=== PATIENT | male | born 1955 | race Caucasian/White ===

== ENCOUNTER 2016-03-01 10:28 | Emergency (ER) | payer OTHER ==
--- NOTE | 2016-03-01 11:16 | PDOC ---
History of Present Illness <Jeramie Dick - Last Filed: 03/01/16 14:31> - History of Present Illness Initial Comments: 03/01/16 11:57 The patient is a 60 year old male, with a significant past medical history of recent ORIF of the left hip s/p femoral neck fracture, hypertension, hyperlipidemia, mild MR, and schizophrenia , who presents to the emergency department via ambulance from [facility] for complaints of left leg pain and weakness noticed by the nursing staff today. The patient states he feels well at this time, however, reports a new onset of cough this week. He denies chest pain, shortness of breath, headache and dizziness. He denies fever, chills, nausea, vomit, diarrhea and constipation. He denies dysuria, frequency, urgency and hematuria. Allergies: penicillins PCP - Dr. Rell Pritchett ([phone]) <Indy Iyer - Last Filed: 03/01/16 16:08> - General Stated Complaint: WEAKNESS Past History - Past Medical History Anemia: Yes Asthma: Yes Cardiac Disorders: Yes (unstable angina) COPD: Yes Hypercholesterolemia: Yes Liver Disease: Yes (hepatitis C) Psychiatric Problems: Yes (Schizophrenia, Anxiety) - Surgical History Orthopedic Surgery: Yes (L HIP) - Psycho/Social/Smoking Cessation Hx Anxiety: No Suicidal Ideation: No Smoking Status: No Smoking History: Never smoked Have you smoked in the past 12 months: No Number of Cigarettes Smoked Daily: 0 Hx Alcohol Use: No Drug/Substance Use Hx: No Substance Use Type: None <Jeramie Dick - Last Filed: 03/01/16 14:31> <Indy Iyer - Last Filed: 03/01/16 16:08> - Past Medical History Allergies/Adverse Reactions: Allergies Allergy/AdvReac Type Severity Reaction Status Date / Time Penicillins Allergy Verified 03/01/16 11:44 chocolate Allergy Uncoded 03/01/16 11:44 peanuts Allergy Uncoded 03/01/16 11:44 Home Medications: Ambulatory Orders Albuterol 2.5/Ipratropium 0.5 [Duoneb -] 1 neb IH BID 03/01/16 Benztropine Mesylate [Cogentin -] 1 mg PO BID 03/01/16 Ciprofloxacin [Cipro (Restricted To Id)] 250 mg PO BID #6 tablet 03/01/16 Citalopram Hydrobromide [Celexa -] 40 mg PO DAILY 03/01/16 Clonazepam [Klonopin -] 0.5 mg PO TID 03/01/16 Divalproex [Depakote -] 500 mg PO HS 03/01/16 Fenofibrate Nanocrystallized [Tricor] 145 mg PO DAILY 03/01/16 Haloperidol Lactate [Haldol] 5 mg IJ ASDIR 03/01/16 Ipratropium 0.02% Nebulizer [Atrovent] 1 neb NEB BID 03/01/16 Montelukast Na [Singulair -] 10 mg PO HS 03/01/16 Pantoprazole Sodium 40 mg PO DAILY 03/01/16 Prednisone 10 mg PO BID 03/01/16 Quetiapine Fumarate [Seroquel] 100 mg PO HS 03/01/16 Ranitidine [Zantac -] 150 mg PO DAILY 03/01/16 Review of Systems - Review of Systems Able to Perform ROS?: Yes Comments:: 03/01/16 11:59 CONSTITUTIONAL: (+) generalized weakness, Absent: fever, chills, diaphoresis, malaise, loss of appetite HEENT: Absent: rhinorrhea, nasal congestion, throat pain, throat swelling, difficulty swallowing, mouth swelling, ear pain, eye pain, visual Changes CARDIOVASCULAR: Absent: chest pain, syncope, palpitations, irregular heart rate, lightheadedness , peripheral edema RESPIRATORY: (+) cough, Absent: shortness of breath, dyspnea with exertion, orthopnea, wheezing, stridor, hemoptysis GASTROINTESTINAL: Absent: abdominal pain, abdominal distension, nausea, vomiting, diarrhea, constipation, melena, hematochezia GENITOURINARY: Absent: dysuria, frequency, urgency, hesitancy, hematuria, flank pain, genital pain MUSCULOSKELETAL: Absent: myalgia, arthralgia, joint swelling SKIN: Absent: rash, itching, pallor HEMATOLOGIC/IMMUNOLOGIC: Absent: easy bleeding, easy bruising, lymphadenopathy, frequent infections ENDOCRINE: Absent: unexplained weight gain, unexplained weight loss, heat intolerance, cold intolerance NEUROLOGIC: Absent: headache, focal weakness or paresthesias, dizziness, unsteady gait, seizure, mental status changes, bladder or bowel incontinence PSYCHIATRIC: Absent: anxiety, depression, suicidal or homicidal ideation, hallucinations. <Indy Iyer - Last Filed: 03/01/16 16:08> *Physical Exam - Vital Signs Last Vital Signs Temp Pulse Resp BP Pulse Ox 98.3 F 96 H 18 119/79 96 03/01/16 10:30 03/01/16 10:30 03/01/16 10:30 03/01/16 10:30 03/01/16 10:30 - Physical Exam Comments: 03/01/16 12:00 GENERAL: Well developed, well nourished. Awake and alert. No acute distress. HEENT: Normocephalic, atraumatic. PERRLA, EOMI. No conjunctival pallor. Sclera are non- icteric. Moist mucous membranes. Oropharynx is clear. NECK: Supple. Full ROM. No JVD. Carotid pulses 2+ and symmetric, without bruits. No thyromegaly. No lymphadenopathy. CARDIOVASCULAR: Regular rate and rhythm. No murmurs, rubs, or gallops. Distal pulses are 2+ and symmetric. PULMONARY: No evidence of respiratory distress. Lungs clear to auscultation bilaterally. No wheezing, rales or rhonchi. ABDOMINAL: (+) distended bladder felt to the inferior umbilicus. Soft. Non-tender. No rebound or guarding. No organomegaly. Normoactive bowel sounds. MUSCULOSKELETAL Normal range of motion at all joints. No bony deformities or tenderness. No CVA tenderness. Negative straight leg raise. EXTREMITIES: No cyanosis. No clubbing. No edema. No calf tenderness. SKIN: Warm and dry. Normal capillary refill. No rashes. No jaundice. NEUROLOGICAL: Alert, awake, appropriate. Cranial nerves 2-12 intact. Normoreflexic in the upper and lower extremities. Normal speech. Toes are down-going bilaterally. PSYCHIATRIC: Cooperative. Good eye contact. Appropriate mood and affect. <Indy Iyer - Last Filed: 03/01/16 16:08> ED Treatment Course - LABORATORY CBC & Chemistry Diagram: 03/01/16 12:42 03/01/16 12:42 <Jeramie Dick - Last Filed: 03/01/16 14:31> - LABORATORY CBC & Chemistry Diagram: 03/01/16 12:42 03/01/16 12:42 <Indy Iyer - Last Filed: 03/01/16 16:08> Medical Decision Making - Medical Decision Making 03/01/16 16:[address] was read by Dr. Gar at 16:03 Impression: chronic degenerative changes. no new findings <Indy Iyer - Last Filed: 03/01/16 16:08> *DC/Admit/Observation/Transfer - Discharge Dispostion Admit: No <Jeramie Dick - Last Filed: 03/01/16 14:31> - Attestations Scribe Attestion: 03/01/16 12:01 Documentation prepared by Indy Iyer, acting as medical delivery driver for Jeramie Dick MD, MD <Indy Iyer - Last Filed: 03/01/16 16:08> Diagnosis at time of Disposition: UTI (urinary tract infection) - Discharge Dispostion Disposition: HOME Condition at time of disposition: Stable - Prescriptions Prescriptions: Ciprofloxacin [Cipro (Restricted To Id)] 250 mg PO BID #6 tablet - Referrals Referrals: Rell Pritchett [Primary Care Provider] -
[2016-03-01 11:44] VITALS: BMI 24.0
[2016-03-01 12:57] LABS: BASOPHIL 0.8 % (0-2.0); EOSINOPHIL 1.3 % (0-4.5); MCH 20.3 pg (25.7-33.7); MCHC 30.6 g/dl (32.0-35.9); MEAN CELL VOLUME 66.4 fl (80-96); MEAN PLT VOLUME 9.4 fl (7.5-11.1); NEUTROPHILS 70.3 % (42.8-82.8); PLATELET COUNT 364 K/MM3 (134-434); RDW 19.7 % (11.9-15.9); WHITE BLOOD COUNT 8.2 K/mm3 (4.0-10.0)
[2016-03-01 12:59] LABS: URINE APPEARANCE SLCLOUDY; URINE BILIRUBIN NEGATIVE (NEGATIVE); URINE BLOOD NEGATIVE (NEGATIVE); URINE COLOR AMBER; URINE GLUCOSE (UA) NEGATIVE (NEGATIVE); URINE KETONE TRACE (NEGATIVE); URINE NITRITE POSITIVE (NEGATIVE); URINE PROTEIN NEGATIVE (NEGATIVE); URINE UROBILINOGEN NEGATIVE E.U./dl (0.2-1.0)
[2016-03-01 13:08] LABS: URINE LEUK ESTERASE 2+ (NEGATIVE)
[2016-03-01 13:10] LABS: URINE BACTERIA MANY /hpf (NONE SEEN); URINE MUCUS RARE; URINE RBC 3 /hpf (0-3); URINE WBC 51 /hpf (3-5)
[2016-03-01 13:15] LABS: ALBUMIN 3.1 g/dl (3.4-5.0); ANION GAP 5 (8-16); BILIRUBIN,TOTAL 0.4 mg/dL (0.2-1.0); CALCIUM 7.1 mg/dL (8.5-10.1); CO2 28 mmol/L (21-32); CREATININE 0.4 mg/dL (0.7-1.3); GLUCOSE,RANDOM 101 mg/dL (74-106); SGOT/AST 12 U/L (15-37); SGPT/ALT 8 U/L (12-78); TOT PROT 6.4 g/dl (6.4-8.2)
[2016-03-01 13:17] LABS: ALK PHOS 219 U/L (45-117)
[2016-03-01 14:06] LABS: ANISOCYTOSIS 1+; HYPOCHROMIA 2+; MICROCYTOSIS 1+
[2016-03-01] MEDS ORDERED: CIPROFLOXACIN 250 MG TABLET (RESTRICTED TO ID) PO ONE (14:34)
[2016-03-01 17:09] VITALS: BP 121/92; PULSE 92; TEMP 98.6
--- NOTE | 2016-03-07 11:58 | EKG ---
Test Reason : Blood Pressure : / mmHG Vent. Rate : 098 BPM Atrial Rate : 098 BPM P-R Int : 128 ms QRS Dur : 098 ms QT Int : 384 ms P-R-T Axes : 041 029 068 degrees QTc Int : 490 ms NORMAL SINUS RHYTHM NONSPECIFIC ST ABNORMALITY PROLONGED QT ABNORMAL ECG WHEN COMPARED WITH ECG OF 29-JAN-2016 19:07, T WAVE AMPLITUDE HAS DECREASED IN LATERAL LEADS Confirmed by CORIN JACKSON, DENA ([id number]) on 03/07/2016 11:57:42 AM Referred By: Confirmed By:DENA COOMBS MD
== END 2016-03-01 17:39 | disposition home or self-care (01) ==
LOC: JER 10:28
DX: N39.0 Urinary tract infection, site not specified (principal); J45.909 Unspecified asthma, uncomplicated; D64.9 Anemia, unspecified; E78.00 Pure hypercholesterolemia, unspecified; J44.9 Chronic obstructive pulmonary disease, unspecified; I20.0 Unstable angina; F20.9 Schizophrenia, unspecified; F41.9 Anxiety disorder, unspecified; B19.20 Unspecified viral hepatitis C without hepatic coma
CPT/HCPCS: 36415; 71020-TC; 72131-TC; 80053; 81003; 81015; 85025; 87086; 87186; 87804; 93005; 93010; 99284-25

== ENCOUNTER 2016-04-18 18:02 | Inpatient (IN) | payer OTHER ==
--- NOTE | 2016-04-18 18:33 | PDOC ---
History of Present Illness - General Chief Complaint: Shortness of Breath Stated Complaint: RESPIRATORY History Source: EMS, Jail Records Exam Limitations: Clinical Condition, Dementia - History of Present Illness Initial Comments: 04/18/16 18:40 HPI: This 61-year-old male presents via EMS from [facility]. Apparently the patient has been having some bouts of shortness of breath and was sent over here for further evaluation. According to the paperwork he's been having the shortness of breath. Patient is awake and alert however he does not communicate and is a poor historian due to his significant past medical history Chief Compliant: Shortness of breath PMH: Hypertension, hyperlipidemia, asthma, mild MR, schizophrenia FH: Pt has not recently traveled outside the country in the last 30 days. Pt has not been in contact with people who have traveled out of the country, in contact with people who have been ill with fever, n, v, d. SH: smoking use: NONE illicit drug use: NONE alcohol use: NONE Resides in [facility] PSH: December 2015 left hip ORIF after a fall Home med use noted on APR Allergies: Peanuts, chocolate, penicillin Immunizations: PCP: Past History - Past Medical History Allergies/Adverse Reactions: Allergies Allergy/AdvReac Type Severity Reaction Status Date / Time Penicillins Allergy Verified 04/18/16 18:23 chocolate Allergy Uncoded 04/18/16 18:23 peanuts Allergy Uncoded 04/18/16 18:23 Home Medications: Ambulatory Orders Albuterol 0.083% Nebulizer Margo [Ventolin 0.083%] 1 neb NEB BID 04/18/16 Benztropine Mesylate [Cogentin -] 1 mg PO BID 04/18/16 Citalopram Hydrobromide [Celexa -] 40 mg PO DAILY 04/18/16 Clonazepam 0.5 mg PO TID 04/18/16 Divalproex *ER* [Depakote *ER* -] 500 mg PO BID 04/18/16 Fenofibrate Nanocrystallized [Tricor] 145 mg PO BID 04/18/16 Haloperidol Injection [Haldol *Injection*] 5 mg IM MONTHLY 04/18/16 Ipratropium 0.02% Nebulizer [Atrovent *Nebulizer*] 0.5 mg IH BID 04/18/16 Montelukast Na [Singulair -] 10 mg PO HS 04/18/16 Pantoprazole Sodium [Protonix] 40 mg PO DAILY 04/18/16 Prednisone 10 mg PO BID 04/18/16 Quetiapine Fumarate [Seroquel] 100 mg PO HS 04/18/16 Ranitidine HCl [Zantac] 150 mg PO DAILY 04/18/16 Simvastatin 10 mg PO HS 04/18/16 Anemia: Yes Asthma: Yes Cardiac Disorders: Yes (unstable angina) COPD: Yes Hypercholesterolemia: Yes Liver Disease: Yes (hepatitis C) Psychiatric Problems: Yes (Schizophrenia, Anxiety) - Surgical History Orthopedic Surgery: Yes (L HIP) - Psycho/Social/Smoking Cessation Hx Anxiety: No Suicidal Ideation: No Smoking Status: No Smoking History: Never smoked Have you smoked in the past 12 months: No Number of Cigarettes Smoked Daily: 0 Hx Alcohol Use: No Drug/Substance Use Hx: No Substance Use Type: None Review of Systems - Review of Systems Able to Perform ROS?: No (dementia) *Physical Exam - Vital Signs Last Vital Signs Temp Pulse Resp BP Pulse Ox 98.9 F 99 H 16 113/77 95 04/18/16 18:22 04/18/16 18:22 04/18/16 18:22 04/18/16 18:22 04/18/16 18:22 - Physical Exam Comments: 04/18/16 18:47 General Appearance: This poor historian 61-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 Cap refill <3 seconds. Lung sounds upper airways with rhonchi and positive mild cough Cardiac: PMI at R 4MCL space, pos S1 and S2, regular rate of 104. Abdomen: Soft, round, nontender : Not observed Muscularskeletal: Patient is bedridden no edema +PMS Neuro: AA however he does doze off and does not communicate except for yes and no answers, cognitively intact according to patient's baseline, Medical Decision Making - Medical Decision Making 04/18/16 18:49 Patient was initially seen and examined upon his arrival. Patient in for sepsis protocol as he does have what is suspicious for pneumonia. Chest x-ray, EKG, lab work, blood cultures, UA and PURCHASING OFFICER, oxygen therapy for mild hypoxia, patient does not appear to be in any respiratory distress. I am signing this patient out to my colleague: HENRI Aguilar In brief, this patient is being seen in the ED for a chief complaint of: Shortness of breath I have completed the initial assessment interview note and have ordered: Sepsis protocol Plan for disposition is as follows: Probable admission *DC/Admit/Observation/Transfer Diagnosis at time of Disposition: Shortness of breath
[2016-04-18] MEDS ORDERED: SODIUM CHLORIDE 0.9% 1000 ML INFUS.BAG IV PRN (18:41)
[2016-04-18 18:54] LABS: BASOPHIL 0.5 % (0-2.0); MCHC 31.1 g/dl (32.0-35.9); MEAN CELL VOLUME 60.3 fl (80-96); MEAN PLT VOLUME 8.7 fl (7.5-11.1); NEUTROPHILS 88.5 % (42.8-82.8); PLATELET COUNT 359 K/MM3 (134-434); RDW 17.1 % (11.9-15.9); WHITE BLOOD COUNT 18.4 K/mm3 (4.0-10.0)
[2016-04-18 18:59] LABS: MCH 18.7 pg (25.7-33.7)
[2016-04-18 19:00] LABS: URINE APPEARANCE CLEAR; URINE BILIRUBIN NEGATIVE (NEGATIVE); URINE COLOR AMBER; URINE GLUCOSE (UA) NEGATIVE (NEGATIVE); URINE KETONE TRACE (NEGATIVE); URINE LEUK ESTERASE NEGATIVE (NEGATIVE); URINE NITRITE NEGATIVE (NEGATIVE); URINE UROBILINOGEN NEGATIVE E.U./dl (0.2-1.0)
--- NOTE | 2016-04-18 19:13 | PDOC ---
*Physical Exam - Vital Signs Last Vital Signs Temp Pulse Resp BP Pulse Ox 98.9 F 99 H 16 113/77 95 04/18/16 18:22 04/18/16 18:22 04/18/16 18:22 04/18/16 18:22 04/18/16 18:22 - Physical Exam General Appearance: Yes: Nourished Neck: positive: Supple Respiratory/Chest: positive: Rhonchi. negative: Labored Respiration Extremity: negative: Pedal Edema, Swelling, Calf Tenderness, Erythema Integumentary: positive: Normal Color Neurologic: positive: Alert Heart Score/ECG Review - ECG Intrepretation Rhythm: Regular Rhythm Comment:: 04/18/16 23:39 Sinus tachycardia 104, no ST changes ED Treatment Course - LABORATORY CBC & Chemistry Diagram: 04/18/16 18:40 04/18/16 18:40 - ADDITIONAL ORDERS Additional order review: 04/18/16 18:40 RBC 6.23 H MCV 60.3 L MCHC 31.1 L RDW 17.1 H D MPV 8.7 Neutrophils % 88.5 H D Lymphocytes % 5.8 L D Monocytes % 5.2 Eosinophils % 0.0 D Basophils % 0.5 Medical Decision Making - Medical Decision Making 04/18/16 22:12 no obvious pneumonia, hx of asthma, rhonchus, elevated lactic acid. allergic to pcn. will give levaquin, fluids, admit, discussed with hospitalist. Kai Albright *DC/Admit/Observation/Transfer Diagnosis at time of Disposition: Shortness of breath - Discharge Dispostion Condition at time of disposition: Fair Admit: Yes - Referrals - Patient Instructions - Post Discharge Activity
[2016-04-18 19:14] LABS: VENOUS PH 7.41 (7.32-7.42)
[2016-04-18 19:15] LABS: VENOUS BLOOD GAS HCO3 29.2 meq/L (19-25)
[2016-04-18 19:19] LABS: URINE BLOOD 2+ (NEGATIVE); URINE PROTEIN 1+ (NEGATIVE)
[2016-04-18 19:21] LABS: URINE HYALINE CAST 5 /lpf; URINE MUCUS RARE; URINE RBC 164 /hpf (0-3); URINE WBC 4 /hpf (3-5)
[2016-04-18 19:24] LABS: INR 1.33 (0.82-1.09); PROTHROMBIN TIME (PATIENT) 14.7 SEC (9.98-11.88)
[2016-04-18 19:27] LABS: ACTIVATED PTT 31.8 SECONDS (26.9-34.4)
[2016-04-18 20:04] LABS: ANION GAP 12 (8-16); BILIRUBIN,TOTAL 0.4 mg/dL (0.2-1.0); CALCIUM 8.4 mg/dL (8.5-10.1); CO2 27 mmol/L (21-32); CREATININE 0.7 mg/dL (0.7-1.3); GLUCOSE,RANDOM 102 mg/dL (74-106); SGOT/AST 10 U/L (15-37); SGPT/ALT 7 U/L (12-78); TOT PROT 6.8 g/dl (6.4-8.2)
[2016-04-18 20:06] LABS: ALK PHOS 150 U/L (45-117); TROPONIN I < 0.02 ng/ml (0.00-0.05)
[2016-04-18] MEDS ORDERED: SODIUM CHLORIDE 1,000 ML IV STA (20:11)
[2016-04-18 20:33] LABS: PLATELET ESTIMATE ADEQUATE (NORMAL)
[2016-04-18 20:34] LABS: HYPOCHROMIA 1+; MICROCYTOSIS 1+; OVALOCYTES 1+; POIKILOCYTOSIS 1+
[2016-04-18] MEDS ORDERED: LEVOFLOXACIN 750 MG IVPB 150 ML IVPB ONE ×2 (20:34→21:47)
--- NOTE | 2016-04-18 23:01 | HP ---
CHIEF COMPLAINT: short of breath HISTORY OF PRESENT ILLNESS: History obatin from previous notes, Ed notes, [place] paper. This 61-year-old male presents via EMS from [facility]. Apparently patient was having a shortness of breath and cough so patient was sent to ED for further management. According to the paperwork he's been having the shortness of breath. Patient is awake and alert however he does not communicate and is a poor historian due to his significant past medical history. Patient do states that he has cough but is unable to tell if its productive or not. Patient denies chest pain, diziness, lightheadidnes, pain abdomen, nausea, vomiting, burning micturation. Patient do complain of pain in his hip as he has h/o fracture. Denies and numbness or weakness in any part of body. Patient was not on oxygen in [place]. ER course was notable for: (1) cbc, cmp, cxr (2) iv fluid (3) levaquin Recent Travel: no PAST MEDICAL HISTORY: Hypertension, hyperlipidemia, asthma, mild MR, schizophrenia PAST SURGICAL HISTORY: orif left hip, tonsilectomy 1985 Social History: Smoking: no Alcohol: no Drugs: no Family History: Allergies Penicillins Allergy (Verified 04/18/16 18:23) chocolate Allergy (Uncoded 04/18/16 18:23) peanuts Allergy (Uncoded 04/18/16 18:23) HOME MEDICATIONS: Home Medications Medication Instructions Recorded Albuterol 0.083% Nebulizer Margo 1 neb NEB BID 04/18/16 [Ventolin 0.083%] Benztropine Mesylate [Cogentin -] 1 mg PO BID 04/18/16 Citalopram Hydrobromide [Celexa -] 40 mg PO DAILY 04/18/16 Clonazepam 0.5 mg PO TID 04/18/16 Divalproex *ER* [Depakote *ER* -] 500 mg PO BID 04/18/16 Fenofibrate Nanocrystallized 145 mg PO BID 04/18/16 [Tricor] Haloperidol Injection [Haldol 5 mg IM MONTHLY 04/18/16 *Injection*] Ipratropium 0.02% Nebulizer 0.5 mg IH BID 04/18/16 [Atrovent *Nebulizer*] Montelukast Na [Singulair -] 10 mg PO HS 04/18/16 Pantoprazole Sodium [Protonix] 40 mg PO DAILY 04/18/16 Quetiapine Fumarate [Seroquel] 100 mg PO HS 04/18/16 Ranitidine HCl [Zantac] 150 mg PO DAILY 04/18/16 Simvastatin 10 mg PO HS 04/18/16 REVIEW OF SYSTEMS CONSTITUTIONAL: Absent: fever, chills, diaphoresis, generalized weakness, malaise, loss of appetite, weight change HEENT: Absent: rhinorrhea, nasal congestion, throat pain, throat swelling, CARDIOVASCULAR: Absent: chest pain, syncope, palpitations, irregular heart rate, lightheadedness , RESPIRATORY: Absent: cough, shortness of breath, dyspnea with exertion, orthopnea, wheezing, stridor, hemoptysis GASTROINTESTINAL: Absent: abdominal pain, abdominal distension, nausea, vomiting, diarrhea, constipation, GENITOURINARY: Absent: dysuria, frequency, urgency, hesitancy, hematuria, flank pain, genital pain MUSCULOSKELETAL: Absent: myalgia, arthralgia, joint swelling, back pain, neck pain SKIN: Absent: rash, itching, pallor HEMATOLOGIC/IMMUNOLOGIC: Absent: easy bleeding, easy bruising, ENDOCRINE: Absent: unexplained weight gain, unexplained weight loss, NEUROLOGIC: Absent: headache, focal weakness or paresthesias, PHYSICAL EXAMINATION Vital Signs - 24 hr 04/18/16 22:25 Temperature 99.6 F Pulse Rate [ 80 Apical] Respiratory 20 Rate Blood Pressure 110/60 [Right Arm] O2 Sat by Pulse 94 L Oximetry (%) GENERAL: Awake, alert, and fully oriented, in no acute distress. HEAD: Normal with no signs of trauma. EYES: Pupils equal, round and reactive to light, extraocular movements intact, EARS, NOSE, THROAT: Ears normal, nares patent, oropharynx clear without exudates. dry mucous membranes. NECK: Normal range of motion, supple without lymphadenopathy, JVD, or masses. LUNGS: Breath sounds equal, clear to auscultation bilaterally. No wheezes, and crackles present in right basal area . No accessory muscle use. HEART: s1s2 normal, no murmur ABDOMEN: Soft, nontender, not distended, normoactive bowel sounds, no guarding, no rebound, no masses. MUSCULOSKELETAL: Normal range of motion at all joints. No bony deformities or tenderness. No CVA tenderness. UPPER EXTREMITIES: 2+ pulses, warm, well-perfused. No cyanosis. No clubbing. Cap refill <2 seconds. No peripheral edema. LOWER EXTREMITIES: 2+ pulses, warm, well-perfused. No calf tenderness. No peripheral edema. PSYCHIATRIC: Cooperative. Good eye contact. SKIN: Warm, dry, normal turgor, no rashes or lesions noted. ASSESSMENT/PLAN: : History obatin from previous notes, Ed notes, [place] paper. This 61-year-old male presents via EMS from [facility]. Apparently patient was having a shortness of breath and cough so patient was sent to ED for further management. patient found to have hypoxia in Ed and started on oxygen, maintaining a saturation 95 % on 5 L oxygen. Without oxygen he has saturation comes down to 87 %. CXR is not remarkable for pneumonia. early onset pneumonia ( short of breath, cough, r basal crackel, cxr clear, wbc 18 ) continue with oxygen, saturation improved on o2, received levaquin in ed continue with levaquin and will add flagyl to cover aspiration pneumonia chest physiotherapy influenza swab negative asthma started on duoneb neb prn and standing HTN continue with home med HLD continue with home med schizophrenia continue with home med fluid : 75 ml/hr NS electrolyte : follow in am nutrition : regular diet dvt pro : on lovenox 40 sq gi pro not required nurse confirmed that he was not on prednisone in [place] need to confirm his home meds Dispo : admit in med surg Visit type - Emergency Visit Emergency Visit: Yes ED Registration Date: 04/18/16 Care time: The patient presented to the Emergency Department on the above date and was hospitalized for further evaluation of their emergent condition. - New Patient This patient is new to me today: Yes Date on this admission: 04/19/16 - Critical Care Critical Care patient: No
[2016-04-18] MEDS ORDERED: ALBUTEROL SO4 2.5/IPRATROPIUM 0.5 INH SOL 3 ML VIAL.NEB. NEB PRN (23:06)
--- NOTE | 2016-04-18 23:26 | PN ---
<Karina Engel - Last Filed: 04/18/16 23:59> Teaching Attending Note ATTENDING PHYSICIAN STATEMENT I saw and evaluated the patient. I reviewed the resident's note and discussed the case with the resident. I agree with the resident's findings and plan as documented. SUBJECTIVE: Patient is a 61 yo M with a PMHx of HTN, HLD, asthma, mild MR, Hep C and schizophrenia presents from [place] with SOB today. Patient is a poor historian. Patient reports sputum but cant describe sputum. Patient feels like his breathing has improved from earlier this evening. Patient denies eating at the time he became SOB. Patient thinks hes had a BM in the last 2 days. Medication list was provided by [place], one of the meds listed was prednisone , per conversation in TELECOMMUNICATIONS SPECIALIST in ER and NH, patient is not taking prednisone currently We attempted to call the snf to confirm medication list, however, we were unable to reach anyone. Denies: fevers, nausea, vomiting. Abd pain Surgical Hx: bilateral hip replacement, tonsillectomy Allergies: Penicillin, peanuts, chocolate OBJECTIVE: Last Vital Signs Temp Pulse Resp BP Pulse Ox 99.6 F 80 20 110/60 94 L 04/18/16 22:25 04/18/16 22:25 04/18/16 22:25 04/18/16 22:25 04/18/16 22:25 GENERAL: Awake, alert, and fully oriented, in no acute distress HEENT: Atraumatic. PERRLA, EOMI. Oral mucosa dry. No JVD LUNGS: No distress, speaks full sentences, crackles present in right base. HEART: mild tachycardia. Regular rhythm, normal S1 and S2, no murmurs, rubs or gallops, peripheral pulses normal and equal bilaterally. ABDOMEN: Mildly distended, nontender, normoactive bowel sounds. No guarding, no rebound. No masses EXTREMITIES: Normal inspection, Normal range of motion, Trace edema bilaterally on extremities. No clubbing or cyanosis. Strength is diffusely weak. NEUROLOGICAL: Cranial nerves II through XII grossly intact. Normal speech, normal gait, no focal sensorimotor deficits SKIN: Warm, Dry, normal turgor, skin is pale and had irritation from ECG stickers. CBCD WBC 18.4 K/mm3 (4.0-10.0) H D 04/18/16 18:40 RBC 6.23 M/mm3 (4.00-5.60) H 04/18/16 18:40 Hgb 11.7 GM/dL (11.7-16.9) 04/18/16 18:40 Hct 37.6 % (35.4-49) 04/18/16 18:40 MCV 60.3 fl (80-96) L 04/18/16 18:40 MCHC 31.1 g/dl (32.0-35.9) L 04/18/16 18:40 RDW 17.1 % (11.9-15.9) H D 04/18/16 18:40 Plt Count 359 K/MM3 (134-434) 04/18/16 18:40 MPV 8.7 fl (7.5-11.1) 04/18/16 18:40 CMP Sodium 143 mmol/L (136-145) 04/18/16 18:40 Potassium 4.5 mmol/L (3.5-5.1) 04/18/16 18:40 Chloride 104 mmol/L (98-107) 04/18/16 18:40 Carbon Dioxide 27 mmol/L (21-32) 04/18/16 18:40 Anion Gap 12 (8-16) 04/18/16 18:40 BUN 23 mg/dL (7-18) H D 04/18/16 18:40 Creatinine 0.7 mg/dL (0.7-1.3) D 04/18/16 18:40 Creat Clearance w eGFR > 60 (>60) 04/18/16 18:40 Calcium 8.4 mg/dL (8.5-10.1) L 04/18/16 18:40 Total Bilirubin 0.4 mg/dL (0.2-1.0) 04/18/16 18:40 AST 10 U/L (15-37) L 04/18/16 18:40 ALT 7 U/L (12-78) L 04/18/16 18:40 Alkaline Phosphatase 150 U/L (45-117) H D 04/18/16 18:40 Total Protein 6.8 g/dl (6.4-8.2) 04/18/16 18:40 Albumin 3.0 g/dl (3.4-5.0) L 04/18/16 18:40 Chest X-Ray reviewed by Dr. Albright. No clear infiltrates. ASSESSMENT AND PLAN: Patient is a 61 yo M with a PMHx of HTN, HLD, asthma, mild MR, Hep C and schizophrenia presents with SOB found to be hypoxic to 89% on room air. He is unable to give us further details on the events surrounding. 1.) Shortness of Breath -At this time, it feels like his SOB has improved with supplemental O2. white count 18 . exam is notable for crackles R bases, concerning for pneumonia but Chest -X-ray is clear. -Also has nasal congestion. Flu swab, will cover with Levaquin and Flagyl for pneumonia including aspiration. 2.) HTN -Continue home meds 3.) HLD -Continue home meds 4.) Asthma -Duonabs 5.) Schizophrenia -Continue home meds DVT ppx -Lovenox Documentation prepared by Karina Engel, acting as medical equipment sales for Otoniel Albright M.D. <Otoniel Albright - Last Filed: 04/19/16 05:09> Teaching Attending Note Name of Resident: Ruben Andre ATTENDING PHYSICIAN STATEMENT I saw and evaluated the patient. I reviewed the resident's note and discussed the case with the resident. I agree with the resident's findings and plan as documented.
[2016-04-19] MEDS ORDERED: METRONIDAZOLE 500 MG PREMIXED 100 ML IVPB SCH (02:00)
[2016-04-19] MEDS: SODIUM CHLORIDE 1,000 ML IV SCH ×2 (03:03→21:36)
[2016-04-19] MEDS ORDERED: ALBUTEROL SO4 2.5/IPRATROPIUM 0.5 INH SOL 3 ML VIAL.NEB. NEB ONE (04:07)
[2016-04-19 04:09] VITALS: BMI 23.7
[2016-04-19] MEDS: clonazePAM 0.5 MG TABLET PO SCH ×3 (06:52→21:37)
[2016-04-19 07:56] LABS: BASOPHIL 0.1 % (0-2.0); MCHC 31.4 g/dl (32.0-35.9); MEAN CELL VOLUME 61.1 fl (80-96); MEAN PLT VOLUME 8.8 fl (7.5-11.1); NEUTROPHILS 93.3 % (42.8-82.8); PLATELET COUNT 310 K/MM3 (134-434); RDW 17.4 % (11.9-15.9)
[2016-04-19 08:20] LABS: INR 1.34 (0.82-1.09); PROTHROMBIN TIME (PATIENT) 14.8 SEC (9.98-11.88)
[2016-04-19 08:23] LABS: ACTIVATED PTT 31.5 SECONDS (26.9-34.4)
[2016-04-19] MEDS ORDERED: PIPERACILLIN/TAZOB 3.375 GM/50 ML PRE-DOCKED IVPB ONE (08:30)
[2016-04-19 08:40] LABS: ALBUMIN 2.5 g/dl (3.4-5.0); ALK PHOS 130 U/L (45-117); ANION GAP 10 (8-16); BILIRUBIN,TOTAL 0.4 mg/dL (0.2-1.0); CALCIUM 7.9 mg/dL (8.5-10.1); CO2 26 mmol/L (21-32); CREATININE 0.4 mg/dL (0.7-1.3); GLUCOSE,RANDOM 89 mg/dL (74-106); MAGNESIUM 2.5 mg/dL (1.8-2.4); PHOSPHOROUS 2.6 mg/dL (2.5-4.9); SGOT/AST 10 U/L (15-37); SGPT/ALT < 6 U/L (12-78); TOT PROT 5.8 g/dl (6.4-8.2)
[2016-04-19 08:41] LABS: MCH 19.2 pg (25.7-33.7)
[2016-04-19] MEDS: ALBUTEROL SO4 2.5/IPRATROPIUM 0.5 INH SOL 3 ML VIAL.NEB. NEB SCH ×2 (09:30→22:34)
[2016-04-19] MEDS ORDERED: PT OWN MED DRAWER 7, Y5N ONE ×2 (10:04→21:01)
[2016-04-19] MEDS: RANITIDINE HCL 150 MG TABLET (FP) PO SCH (10:10)
[2016-04-19] MEDS: PANTOPRAZOLE 40 MG TABLET (FP) PO SCH (10:10)
[2016-04-19] MEDS: DIVALPROEX NA *ER* EXTEND REL 500 MG TABLET.SA (FP) PO SCH ×2 (10:10→21:38)
[2016-04-19] MEDS: CITALOPRAM HYDROBROMIDE 20 MG TABLET (FP) PO SCH (10:10)
[2016-04-19] MEDS: ENOXAPARIN NA (PORCINE) 40 MG/0.4 ML DISP.SYRIN SQ SCH (10:10)
[2016-04-19] MEDS: BENZTROPINE MESYLATE 1 MG TABLET (FP) PO SCH ×2 (11:42→21:37)
--- NOTE | 2016-04-19 11:46 | PN ---
Progress Note (short form) - Note Progress Note: ID Consult dictated Leukocytosis, possible sepsis Dyspnea, possible pneumonia PCN allergy Hx Schizophrenia/ MR Pending c/s empiric ceftriaxone/ flagyl Follow up CXR Sputum c/s , legionella/ pneumococcal ag
--- NOTE | 2016-04-19 12:30 | CONS ---
DATE OF CONSULTATION: DATE OF DICTATION: 04/19/2016 HISTORY OF PRESENT ILLNESS: The patient is a 61-year-old male with a history of schizophrenia and mental retardation, evaluated for possible pneumonia. He was admitted from [facility] with reports of labored breathing. Upon evaluation at [facility], he had an elevated white blood cell count of 19,000. According to the medication list, he had been on prednisone; however, he apparently was not taking it. He is awake and alert. Complains of dyspnea. He reports occasional cough. No reports of purulent sputum production or hemoptysis. No reported vomiting or diarrhea. PAST MEDICAL HISTORY: Positive for schizophrenia, mental retardation, hypertension, hyperlipidemia, asthma, hepatitis C. HIV status not known. PAST SURGICAL HISTORY: Status post bilateral hip fractures. ALLERGIES: PENICILLIN. Nature of the PENICILLIN allergy not known; however, he has tolerated cephalosporins in the past. MEDICATIONS: Include Cogentin, Lovenox, Depakote, Celexa, Seroquel, Klonopin, Zantac, Lipitor, Singulair, Protonix. SOCIAL HISTORY: He is a resident of a penit[facility]iary facility. He denies tobacco or alcohol use. SYSTEMS REVIEW:Neurologic: No loss of consciousness, seizure activity, or focal weakness. Cardiac: Negative chest pain or palpitations. Respiratory: As per HPI. Gastrointestinal: Negative vomiting or diarrhea. Genitourinary: Negative for urinary tract infection. LABORATORY DATA: White count 19, 43 neutrophils, 4 monocytes, hematocrit 32.8, platelet count 310. BUN 10, creatinine 0.4. Urinalysis: Four white cells. Blood cultures are pending. Influenza swab negative. Chest x-ray: No focal infiltrate. However, there are some increased markings bilaterally as compared to a chest x-ray from February of this year. PHYSICAL EXAMINATION:General: He is awake. He is in no acute respiratory distress. Vital Signs: Temperature 97.6, blood pressure 103/67, pulse 98, regular, respiration 20 per minute. HEENT: Sclerae anicteric. Cardiac: Heart sounds S1, S2. Lungs: A few rhonchi bilaterally. Diminished breath sounds at the bases. Abdomen: Soft. No tenderness elicited. No mass, rebound, or rigidity. Extremities: Negative for edema. IMPRESSION: 1. Leukocytosis, possible sepsis. 2. Dyspnea, possible pneumonia. 3. PENICILLIN allergy. 4. History of schizophrenia and mental retardation. RECOMMENDATIONS: Await blood cultures. Obtain sputum culture, urine Legionella and pneumococcal antigens. Followup chest x-ray. Empiric treatment with ceftriaxone and Flagyl. Will follow. Thank you for the kind referral. JEN CHATMAN M.D. [id number]
--- NOTE | 2016-04-19 12:34 | CONSULT ---
Admitting History and Physical - Primary Care Physician PCP: Flori Juarez - Admission History of Present Illness: Admitted with productive cough and mild SOB. Noted to be choking on soft diet. Pt with mild Mental Retardation. He is verbal. History Source: Patient, Medical Record Limitations to Obtaining History: Clinical Condition - Past Medical History [employer]: Yes: Other (MR and Schizophernia) Cardiovascular: Yes: HTN, Hyperlipdemia. No: Other (many ER visits here -. persantine sestamibi on 11/02/11 was normal. Echo was unremarkable) Pulmonary: Yes: Asthma Heme/Onc: Yes: Anemia - Past Surgical History Past Surgical History: Yes: Joint Replacement (december left hip) - Smoking History Smoking history: Never smoked Have you smoked in the past 12 months: No Aproximately how many cigarettes per day: 0 - Alcohol/Substance Use Hx Alcohol Use: No History of Substance Use: reports: None - Social History ADL: Support Services History of Recent Travel: No History - Admission Reason For Visit: SHORTNESS OF BREATH - Diagnostics X-ray: Report Reviewed - General Mental Status: Awake and Alert, Able to Follow Commands, Flat Affect Attention: Intact Ability to Follow Directions: Good Head/Neck Control: WFL - Hearing Hearing: Normal Speech Evaluation - Communication Primary Language: EMIRATI Communication: Yes: Simple Responses - Speech Production Able to Make Needs Known: Yes: Mildly Impaired Intelligibility: Yes: WNL, Mildly Impaired - Speech Characteristics Voice Loudness: Normal Voice Pitch: Yes: Normal Voice Phonatory-based Quality: Yes: Normal Speech Pattern: Normal (articulation errors, likely pt's baseline) Speech Clarity: < 75% Nasal Resonance: Normal Articulation: Yes: Imprecise Rate of Speech: Too Fast - Language/Auditory Comprehension Follows: Yes: 1 Stage Simple Commands - Language/Verbal Expression Able to Respond to Simple Queries: Yes: Mildly Impaired Able to Communicate Wants and Needs: Yes: Mildly Impaired Functional Communication Status: Yes: Mildly Impaired - Swallow Evaluation/Bedside Assessment Oral Secretions: Yes: WFL (cough) Dentition: Yes: Adequate, Missing Teeth Facial Symmetry at Rest: Symmetrical Facial Symmetry on Retraction: Symmetrical Facial Movement: Controlled Jaw Position: Open at Rest Pucker Lips: Bilabial Closure (reduced) Lingual Movement: Symmetric Lingual Speed of Movement: Reduced Lingual Movement Strgth Against Opposition: Reduced Velopharyngeal Movement: Normal Laryngeal Elevation: WFL Laryngeal Movement: Able to Palpate Bolus Size: WFL Labial Seal: Impaired Bilaterally Chewing: Impaired (extended. open mouth posture. Fair efficiency.) Oral Prep Time: Increased A-P Transit: WFL Pocketing: None Timing of Swallow: Delayed Coughing/Throat Clear: No Change in Voice: No Recommendations - Speech Evaluation, Impression/Plan Impression: Pt c/o cough and that he "can't breathe" but wants to go home. Speech/language likely at baseline with simple responses, simple language structure, articulatory substitutions, rapid rate adveresly affecting intelligibilty. Open mouth posture with extended mastication. Swallow is brisk.No overt signs of aspiration. - Dysphagia Impressions/Plan Dysphagia Impressions: Mild Impairment *Silent aspiration: cannot be R/O at bedside Dysphagia Treatment Plan: Chin Tuck/Down, Facilitative Feeding, Safe Rate, 1/2 tsp. at a time, OOB for meals Recommendations: Modified Barium Swallow (if signs of aspiration/dysphagia observed.) - Recommendations Diet Consistency: Regular (soft, cohesive, easy to chew. Chopped meats with extra gravy.) Liquids: Thin Liquids
[2016-04-19] MEDS: METRONIDAZOLE 500 MG PREMIXED 100 ML IVPB SCH ×2 (13:24→18:00)
[2016-04-19] MEDS: CEFTRIAXONE 100 ML IVPB SCH (13:25)
--- NOTE | 2016-04-19 13:49 | PN ---
Physical Exam: SUBJECTIVE: Patient seen and examined. He is complaining of SOB and cough. He denies fever, chills, diaphoresis. OBJECTIVE: Vital Signs Period Temp Pulse Resp BP Sys/Perez Pulse Ox Last 24 Hr 97.6 F-99.6 F 80-114 20-20 103-119/60-67 93-94 GENERAL: The patient is awake, alert, and fully oriented, in no acute distress. HEAD: Normal with no signs of trauma. EYES:extraocular movements intact, sclera anicteric, ENT: oropharynx clear without exudates, moist mucous membranes. NECK: Trachea midline, full range of motion, supple. LUNGS: osccasional wheezing bilaterally, fine crackles B/L, no accessory muscle use. HEART: Regular rate and rhythm, S1, S2 without murmur, rub or gallop. ABDOMEN: Soft, nontender, nondistended, normoactive bowel sounds, no guarding, no rebound, no hepatosplenomegaly, no masses. EXTREMITIES: 2+ pulses, warm, well-perfused, no edema. NEUROLOGICAL: Normal speech, gait not observed, no facial asymmetry, motor 5/5 in all 4 extremities. PSYCH: Normal mood, normal affect. SKIN: Warm, dry, normal turgor, no rashes or lesions noted Laboratory Results - last 24 hr 04/19/16 04/19/16 04/19/16 06:30 06:30 08:28 WBC 19.0 H RBC 5.36 Hgb 10.3 L D Hct 32.8 L MCV 61.1 L MCHC 31.4 L RDW 17.4 H Plt Count 310 MPV 8.8 Neutrophils % 93.3 H Lymphocytes % 2.6 L D Monocytes % 4.0 Eosinophils % 0.0 Basophils % 0.1 INR 1.34 H PTT (Actin FS) 31.5 Sodium 130 L Potassium 3.7 Chloride 94 L Carbon Dioxide 26 Anion Gap 10 BUN 15 D Creatinine 0.4 L D Creat Clearance w eGFR > 60 Random Glucose 89 Calcium 7.9 L Phosphorus 2.6 D Magnesium 2.5 H Total Bilirubin 0.4 AST 10 L ALT < 6 L Alkaline Phosphatase 130 H Total Protein 5.8 L Albumin 2.5 L Active Medications Generic Name Dose Route Start Last Admin Trade Name Freq PRN Reason Stop Dose Admin Albuterol/Ipratropium 1 amp 04/18/16 23:06 04/19/16 04:00 Duoneb - NEB 1 amp Q4H PRN Administration SHORTNESS OF BREATH Albuterol/Ipratropium 1 amp 04/19/16 10:00 04/19/16 09:30 Duoneb - NEB 1 amp BID INEZ Administration Atorvastatin Calcium 10 mg 04/19/16 22:00 Lipitor - PO HS INEZ Benztropine Mesylate 1 mg 04/19/16 10:00 04/19/16 11:42 Cogentin - PO 1 mg BID INEZ Administration Citalopram Hydrobromide 40 mg 04/19/16 10:00 04/19/16 10:10 Celexa - PO 40 mg DAILY INEZ Administration Clonazepam 0.5 mg 04/19/16 06:00 04/19/16 06:52 Klonopin - PO 0.5 mg TID INEZ Administration Divalproex Sodium 500 mg 04/19/16 10:00 04/19/16 10:10 Depakote *Er* - PO 500 mg BID INEZ Administration Enoxaparin Sodium 40 mg 04/19/16 10:00 04/19/16 10:10 Lovenox - SQ 40 mg DAILY INEZ Administration Sodium Chloride 1,000 mls @ 75 mls/hr 04/18/16 23:15 04/19/16 03:03 Normal Saline - IV 75 mls/hr ASDIR INEZ Administration Ceftriaxone Sodium 100 mls @ 200 mls/hr 04/19/16 12:00 04/19/16 13:25 Rocephin 2gm Ivpb (Pre-Docked) IVPB 200 mls/hr DAILY INEZ Administration Metronidazole 100 mls @ 100 mls/hr 04/19/16 12:00 04/19/16 13:24 Flagyl 500mg Premixed Ivpb - IVPB 100 mls/hr Q8H-IV INEZ Administration Montelukast Sodium 10 mg 04/19/16 22:00 Singulair - PO HS INEZ Pantoprazole Sodium 40 mg 04/19/16 10:00 04/19/16 10:10 Protonix - PO 40 mg DAILY INEZ Administration Quetiapine Fumarate 100 mg 04/19/16 22:00 Seroquel - PO HS INEZ Ranitidine HCl 150 mg 04/19/16 10:00 04/19/16 10:10 Zantac - PO 150 mg DAILY INEZ Administration Sodium Chloride 250 ml 04/18/16 18:41 Normal Saline - IV Q20M PRN MAP<65mm Hg OR SBP <90 Chest X-Ray reviewed; no acute pathology ASSESSMENT AND PLAN: Patient is a 61 yo M with a PMHx of HTN, HLD, asthma, mild MR, Hep C and schizophrenia presents with SOB found to be hypoxic to 89% on room air. He is unable to give us further details on the events surrounding. Shortness of Breath due to possible aspiration pneumonia: -CXR is negative for acute pathology, on admission:WBC elevated to 18, Neutr.88 , LA 2.3. -given Levofloxacin, Flagyl and Ceftriaxone -will repear CXR tomorrow -Oxygen therapy-3L NC -ID consulted -Influenza and RSV negative -evaluated by speech and swallow, silent aspiration can not be excluded -Sindulair, Duoneb HTN -Continue home meds HLD -Continue Lipitor Asthma -Duonebs, Singulair Schizophrenia -Continue home meds:Klonipin, Celexa, Depakote F/E/N; NSat rate 75 ml/hr/No changes/Regular, chopped DVT ppx -Lovenox -high risk DVT Disposition: Med surg, no plans for discharge yet Problem List - Problems (1) Shortness of breath Code(s): R06.02 - SHORTNESS OF BREATH (2) CHF (congestive heart failure) Code(s): I50.9 - HEART FAILURE, UNSPECIFIED (3) DVT prophylaxis Code(s): NVP2520 - (4) Leukocytosis Code(s): D72.829 - ELEVATED WHITE BLOOD CELL COUNT, UNSPECIFIED (5) Mental retardation Code(s): F79 - UNSPECIFIED INTELLECTUAL DISABILITIES (6) Schizophrenia Code(s): F20.9 - SCHIZOPHRENIA, UNSPECIFIED (7) PNA (pneumonia) Code(s): J18.9 - PNEUMONIA, UNSPECIFIED ORGANISM Qualifiers: Pneumonia type: due to unspecified organism Visit type - Emergency Visit Emergency Visit: Yes ED Registration Date: 04/18/16 Care time: The patient presented to the Emergency Department on the above date and was hospitalized for further evaluation of their emergent condition. - New Patient This patient is new to me today: Yes Date on this admission: 04/19/16 - Critical Care Critical Care patient: No - Discharge Referral Referred to [facility] Med P.C[facility] No
--- NOTE | 2016-04-19 14:11 | EKG ---
Test Reason : Blood Pressure : / mmHG Vent. Rate : 104 BPM Atrial Rate : 104 BPM P-R Int : 130 ms QRS Dur : 090 ms QT Int : 354 ms P-R-T Axes : 048 045 063 degrees QTc Int : 465 ms SINUS TACHYCARDIA OTHERWISE NORMAL ECG WHEN COMPARED WITH ECG OF 01-MAR-2016 11:26, NO SIGNIFICANT CHANGE WAS FOUND Confirmed by BRUCE CAMACHO MD ([id number]) on 04/19/2016 2:10:41 PM Referred By: Confirmed By:BRUCE CAMACHO MD
--- NOTE | 2016-04-19 14:55 | PN ---
Teaching Attending Note Name of Resident: Flori Juarez ATTENDING PHYSICIAN STATEMENT I saw and evaluated the patient. I reviewed the resident's note and discussed the case with the resident. I agree with the resident's findings and plan as documented. Vital Signs Temperature 97.4 F L 04/19/16 13:41 Pulse Rate 90 04/19/16 13:41 Respiratory Rate 18 04/19/16 13:41 Blood Pressure 103/67 04/19/16 10:00 O2 Sat by Pulse Oximetry (%) 93 L 04/19/16 09:08 CBCD WBC 19.0 K/mm3 (4.0-10.0) H 04/19/16 08:28 RBC 5.36 M/mm3 (4.00-5.60) 04/19/16 08:28 Hgb 10.3 GM/dL (11.7-16.9) L D 04/19/16 08:28 Hct 32.8 % (35.4-49) L 04/19/16 08:28 MCV 61.1 fl (80-96) L 04/19/16 08:28 MCHC 31.4 g/dl (32.0-35.9) L 04/19/16 08:28 RDW 17.4 % (11.9-15.9) H 04/19/16 08:28 Plt Count 310 K/MM3 (134-434) 04/19/16 08:28 MPV 8.8 fl (7.5-11.1) 04/19/16 08:28 CMP Sodium 130 mmol/L (136-145) L 04/19/16 06:30 Potassium 3.7 mmol/L (3.5-5.1) 04/19/16 06:30 Chloride 94 mmol/L (98-107) L 04/19/16 06:30 Carbon Dioxide 26 mmol/L (21-32) 04/19/16 06:30 Anion Gap 10 (8-16) 04/19/16 06:30 BUN 15 mg/dL (7-18) D 04/19/16 06:30 Creatinine 0.4 mg/dL (0.7-1.3) L D 04/19/16 06:30 Creat Clearance w eGFR > 60 (>60) 04/19/16 06:30 Random Glucose 89 mg/dL (74-106) 04/19/16 06:30 Calcium 7.9 mg/dL (8.5-10.1) L 04/19/16 06:30 Total Bilirubin 0.4 mg/dL (0.2-1.0) 04/19/16 06:30 AST 10 U/L (15-37) L 04/19/16 06:30 ALT < 6 U/L (12-78) L 04/19/16 06:30 Alkaline Phosphatase 130 U/L (45-117) H 04/19/16 06:30 Total Protein 5.8 g/dl (6.4-8.2) L 04/19/16 06:30 Albumin 2.5 g/dl (3.4-5.0) L 04/19/16 06:30 CARDIAC ENZYMES Creatine Kinase 57 IU/L (39-308) 04/18/16 18:40 Troponin I < 0.02 ng/ml (0.00-0.05) D 04/18/16 18:40 Current Medications Generic Name Dose Route Start Last Admin Trade Name Freq PRN Reason Stop Dose Admin Albuterol/Ipratropium 1 amp 04/18/16 23:06 04/19/16 04:00 Duoneb - NEB 1 amp Q4H PRN Administration SHORTNESS OF BREATH Albuterol/Ipratropium 1 amp 04/19/16 10:00 04/19/16 09:30 Duoneb - NEB 1 amp BID INEZ Administration Atorvastatin Calcium 10 mg 04/19/16 22:00 Lipitor - PO HS INEZ Benztropine Mesylate 1 mg 04/19/16 10:00 04/19/16 11:42 Cogentin - PO 1 mg BID INEZ Administration Citalopram Hydrobromide 40 mg 04/19/16 10:00 04/19/16 10:10 Celexa - PO 40 mg DAILY INEZ Administration Clonazepam 0.5 mg 04/19/16 06:00 04/19/16 14:35 Klonopin - PO 0.5 mg TID INEZ Administration Divalproex Sodium 500 mg 04/19/16 10:00 04/19/16 10:10 Depakote *Er* - PO 500 mg BID INEZ Administration Enoxaparin Sodium 40 mg 04/19/16 10:00 04/19/16 10:10 Lovenox - SQ 40 mg DAILY INEZ Administration Sodium Chloride 1,000 mls @ 75 mls/hr 04/18/16 23:15 04/19/16 03:03 Normal Saline - IV 75 mls/hr ASDIR INEZ Administration Ceftriaxone Sodium 100 mls @ 200 mls/hr 04/19/16 12:00 04/19/16 13:25 Rocephin 2gm Ivpb (Pre-Docked) IVPB 200 mls/hr DAILY INEZ Administration Metronidazole 100 mls @ 100 mls/hr 04/19/16 12:00 04/19/16 13:24 Flagyl 500mg Premixed Ivpb - IVPB 100 mls/hr Q8H-IV INEZ Administration Montelukast Sodium 10 mg 04/19/16 22:00 Singulair - PO HS INEZ Pantoprazole Sodium 40 mg 04/19/16 10:00 04/19/16 10:10 Protonix - PO 40 mg DAILY INEZ Administration Quetiapine Fumarate 100 mg 04/19/16 22:00 Seroquel - PO HS INEZ Ranitidine HCl 150 mg 04/19/16 10:00 04/19/16 10:10 Zantac - PO 150 mg DAILY INEZ Administration Sodium Chloride 250 ml 04/18/16 18:41 Normal Saline - IV Q20M PRN MAP<65mm Hg OR SBP <90 Home Medications Medication Instructions Recorded Albuterol 0.083% Nebulizer Margo 1 neb NEB BID 04/18/16 [Ventolin 0.083%] Benztropine Mesylate [Cogentin -] 1 mg PO BID 04/18/16 Citalopram Hydrobromide [Celexa -] 40 mg PO DAILY 04/18/16 Clonazepam 0.5 mg PO TID 04/18/16 Divalproex *ER* [Depakote *ER* -] 500 mg PO BID 04/18/16 Fenofibrate Nanocrystallized 145 mg PO BID 04/18/16 [Tricor] Haloperidol Injection [Haldol 5 mg IM MONTHLY 04/18/16 *Injection*] Ipratropium 0.02% Nebulizer 0.5 mg IH BID 04/18/16 [Atrovent *Nebulizer*] Montelukast Na [Singulair -] 10 mg PO HS 04/18/16 Pantoprazole Sodium [Protonix] 40 mg PO DAILY 04/18/16 Quetiapine Fumarate [Seroquel] 100 mg PO HS 04/18/16 Ranitidine HCl [Zantac] 150 mg PO DAILY 04/18/16 Simvastatin 10 mg PO HS 04/18/16 Chest X-Ray reviewed; no acute pathology ASSESSMENT AND PLAN: Patient is a 61 yo M with a PMHx of HTN, HLD, asthma, mild MR, Hep C and schizophrenia presents with SOB found to be hypoxic to 89% on room air. He is unable to give any hx due to his mental condition. #Acute Shortness of Breath r/o aspiration pneumonia: Cxr is negative , On Rocephin/Flagyl IV daily continue ; Oxygen therapy-3L NC ID consulted ;Influenza and RSV negative, evaluated by speech and swallow, silent aspiration can not be excluded; [facility] Pulmonary consult consulted. Patient was evaluated by Malinda Valdovinos Diet Consistency: Regular (soft, cohesive, easy to chew. Chopped meats with extra gravy.) Liquids: Thin Liquids # HTN Continue home meds # HLD Continue Lipitor # Asthma Avelino Robles # Schizophrenia Continue home meds:Klonipin, Celexa, Depakote DVT ppx: Lovenox
--- NOTE | 2016-04-19 15:37 | CONSULT ---
Consultation: REQUESTING PROVIDER: CONSULT REQUEST: We have been asked to medically evaluate this patient for cough , sob. HISTORY OF PRESENT ILLNESS: This is a 61 yo M with PMH of asthma, HTN, HLD, MR and schizophrenia, who presents from [facility] due to sob and cough. Information is obtained from EMR as patient is poor historian. It is unknown for how long his has been coughing. He presented with low grade fever 99.9 and is now afebrile. He has never been on O2 before and has not been hospitalized here for respiratory issues. He was placed on NC and is satting 93% on 2L. He had leukocytosis on presentation. He reports mild sob and h/a but unsure whether he feels better. He is undure whether his cough is productive. He states he is tired. He denies f /c, n/v, abd pain, chest pain, dysuria. REVIEW OF SYSTEMS: CONSTITUTIONAL: Absent: fever, chills HEENT: Absent: rhinorrhea, nasal congestion, throat pain CARDIOVASCULAR: Absent: chest pain RESPIRATORY: Absent: hemoptysis GASTROINTESTINAL: Absent: abdominal pain, nausea, vomiting GENITOURINARY: Absent: dysuria MUSCULOSKELETAL: Absent: back pain SKIN: Absent:itching HEMATOLOGIC/IMMUNOLOGIC: Absent: frequent infections ENDOCRINE: Absent: heat intolerance, cold intolerance NEUROLOGIC: Absent: focal weakness or paresthesias PSYCHIATRIC: Absent: anxiety PHYSICAL EXAMINATION Vital Signs - 24 hr 04/18/16 04/19/16 04/19/16 22:25 05:52 09:00 Temperature 99.6 F 97.8 F Pulse Rate 114 H Pulse Rate [ 80 Apical] Respiratory 20 20 18 Rate Blood Pressure 119/64 Blood Pressure 110/60 [Right Arm] O2 Sat by Pulse 94 L 99 Oximetry (%) 04/19/16 04/19/16 04/19/16 09:08 10:00 13:41 Temperature 97.6 F 97.4 F L Pulse Rate 101 H 99 H 90 Pulse Rate [ Apical] Respiratory 20 18 Rate Blood Pressure 103/67 Blood Pressure [Right Arm] O2 Sat by Pulse 93 L Oximetry (%) GENERAL: Awake, alert, responsive, baseline MR HEAD: Normal with no signs of trauma. EYES: Pupils equal, round and reactive to light, extraocular movements intact, sclera anicteric, conjunctiva clear. EARS, NOSE, THROAT: Moist mucous membranes. NECK: supple without masses. LUNGS: RLL ronchi, wet cough HEART: Regular rate and rhythm, normal S1 and S2 ABDOMEN: Soft, nontender, not distended, normoactive bowel sounds MUSCULOSKELETAL: No CVA tenderness. UPPER EXTREMITIES: 2+ pulses, No peripheral edema. LOWER EXTREMITIES: 2+ pulses, No peripheral edema. NEUROLOGICAL: Cranial nerves II-XII grossly intact. slightly slurry speech. PSYCHIATRIC: Cooperative. Good eye contact. Appropriate mood and affect. SKIN: Warm, dry Laboratory Results - last 24 hr 04/19/16 04/19/16 04/19/16 06:30 06:30 08:28 WBC 19.0 H RBC 5.36 Hgb 10.3 L D Hct 32.8 L MCV 61.1 L MCHC 31.4 L RDW 17.4 H Plt Count 310 MPV 8.8 Neutrophils % 93.3 H Lymphocytes % 2.6 L D Monocytes % 4.0 Eosinophils % 0.0 Basophils % 0.1 INR 1.34 H PTT (Actin FS) 31.5 Sodium 130 L Potassium 3.7 Chloride 94 L Carbon Dioxide 26 Anion Gap 10 BUN 15 D Creatinine 0.4 L D Creat Clearance w eGFR > 60 Random Glucose 89 Calcium 7.9 L Phosphorus 2.6 D Magnesium 2.5 H Total Bilirubin 0.4 AST 10 L ALT < 6 L Alkaline Phosphatase 130 H Total Protein 5.8 L Albumin 2.5 L Active Medications Generic Name Dose Route Start Last Admin Trade Name Freq PRN Reason Stop Dose Admin Albuterol/Ipratropium 1 amp 04/18/16 23:06 04/19/16 04:00 Duoneb - NEB 1 amp Q4H PRN Administration SHORTNESS OF BREATH Albuterol/Ipratropium 1 amp 04/19/16 10:00 04/19/16 09:30 Duoneb - NEB 1 amp BID INEZ Administration Atorvastatin Calcium 10 mg 04/19/16 22:00 Lipitor - PO HS INEZ Benztropine Mesylate 1 mg 04/19/16 10:00 04/19/16 11:42 Cogentin - PO 1 mg BID INEZ Administration Citalopram Hydrobromide 40 mg 04/19/16 10:00 04/19/16 10:10 Celexa - PO 40 mg DAILY INEZ Administration Clonazepam 0.5 mg 04/19/16 06:00 04/19/16 14:35 Klonopin - PO 0.5 mg TID INEZ Administration Divalproex Sodium 500 mg 04/19/16 10:00 04/19/16 10:10 Depakote *Er* - PO 500 mg BID INEZ Administration Enoxaparin Sodium 40 mg 04/19/16 10:00 04/19/16 10:10 Lovenox - SQ 40 mg DAILY INEZ Administration Sodium Chloride 1,000 mls @ 75 mls/hr 04/18/16 23:15 04/19/16 03:03 Normal Saline - IV 75 mls/hr ASDIR INEZ Administration Ceftriaxone Sodium 100 mls @ 200 mls/hr 04/19/16 12:00 04/19/16 13:25 Rocephin 2gm Ivpb (Pre-Docked) IVPB 200 mls/hr DAILY INEZ Administration Metronidazole 100 mls @ 100 mls/hr 04/19/16 12:00 04/19/16 13:24 Flagyl 500mg Premixed Ivpb - IVPB 100 mls/hr Q8H-IV INEZ Administration Montelukast Sodium 10 mg 04/19/16 22:00 Singulair - PO HS INEZ Pantoprazole Sodium 40 mg 04/19/16 10:00 04/19/16 10:10 Protonix - PO 40 mg DAILY INEZ Administration Quetiapine Fumarate 100 mg 04/19/16 22:00 Seroquel - PO HS INEZ Ranitidine HCl 150 mg 04/19/16 10:00 04/19/16 10:10 Zantac - PO 150 mg DAILY INEZ Administration Sodium Chloride 250 ml 04/18/16 18:41 Normal Saline - IV Q20M PRN MAP<65mm Hg OR SBP <90 ASSESSMENT/PLAN: Institution acquired PNA -possible aspiration -speech/swallow eval: mild swallow impairment, MBS to follow -CXR: RLL infiltrate -now afebrile -leukocytosis improving (18 from ) -influenza negative -blood urine cultures p/d -sputum culture/gram stain p/d -rocephin, flagyl -duoneb -supplemental O2 NC (now on 2 L) -medrol 40 BID for 2 days -chest CT Asthma -unlikely exacerbated -no wheezing HTN -normotensive HLD -lipitor Schizophrenia -continue usual medication Dispo: We will continue to follow the patient. Thank you for this consultative opportunity. Problem List - Problems (1) Shortness of breath Code(s): R06.02 - SHORTNESS OF BREATH (2) Leukocytosis Code(s): D72.829 - ELEVATED WHITE BLOOD CELL COUNT, UNSPECIFIED (3) PNA (pneumonia) Code(s): J18.9 - PNEUMONIA, UNSPECIFIED ORGANISM Qualifiers: Pneumonia type: due to unspecified organism (4) Schizo-affective schizophrenia, chronic condition Code(s): F25.8 - OTHER SCHIZOAFFECTIVE DISORDERS (5) Asthma Code(s): J45.909 - UNSPECIFIED ASTHMA, UNCOMPLICATED (6) HAP (hospital-acquired pneumonia) Code(s): J18.9 - PNEUMONIA, UNSPECIFIED ORGANISM Visit type - Emergency Visit Emergency Visit: Yes ED Registration Date: 04/18/16 Care time: The patient presented to the Emergency Department on the above date and was hospitalized for further evaluation of their emergent condition. - New Patient This patient is new to me today: Yes Date on this admission: 04/19/16 - Critical Care Critical Care patient: No
[2016-04-19] MEDS ORDERED: ACETAMINOPHEN 325 MG TABLET (FP) PO PRN (15:45)
--- NOTE | 2016-04-19 15:58 | PN ---
Teaching Attending Note Name of Resident: Jyoti Masters ATTENDING PHYSICIAN STATEMENT I saw and evaluated the patient. I reviewed the resident's note and discussed the case with the resident. I agree with the resident's findings and plan as documented. SUBJECTIVE:COUGH OBJECTIVE:RHONCHI/MILDLY DYSPNEIC ASSESSMENT AND PLAN: LIKELY PNEUMONIA MEDICAL PROBLEMS LISTED AGREE WITH PANCULTURE ANTIBIOTICS/BRONCHODILATORS SHORT COURSE MEDROL O2L/M SUPPLEMENTATION Adarsh BRUCE MD
[2016-04-19] MEDS: methylPREDNISolone NA SUCC 40 MG/1 ML VIAL IVPB SCH (21:37)
[2016-04-19] MEDS: MONTELUKAST NA 10 MG TABLET PO SCH (21:38)
[2016-04-19] MEDS: QUEtiapine FUMARATE 100 MG TABLET (FP) PO SCH (21:38)
[2016-04-19] MEDS: ATORVASTATIN CA 10 MG TABLET (FP) PO SCH (21:38)
[2016-04-19] MEDS ORDERED: ALBUTEROL SO4 0.083% IH SOL 2.5 MG/3 ML VIAL.NEB. NEB SCH (22:00)
[2016-04-20] MEDS: METRONIDAZOLE 500 MG PREMIXED 100 ML IVPB SCH ×3 (02:27→18:36)
[2016-04-20] MEDS: clonazePAM 0.5 MG TABLET PO SCH ×3 (06:26→22:06)
[2016-04-20 08:02] LABS: BASOPHIL 0.1 % (0-2.0); MCHC 31.4 g/dl (32.0-35.9); MEAN CELL VOLUME 60.4 fl (80-96); MEAN PLT VOLUME 8.7 fl (7.5-11.1); NEUTROPHILS 92.7 % (42.8-82.8); PLATELET COUNT 365 K/MM3 (134-434); RDW 17.2 % (11.9-15.9); WHITE BLOOD COUNT 14.8 K/mm3 (4.0-10.0)
[2016-04-20 08:25] LABS: MCH 18.9 pg (25.7-33.7)
[2016-04-20 08:27] LABS: CALCIUM 7.9 mg/dL (8.5-10.1); CREATININE 0.3 mg/dL (0.7-1.3); THYROID STIMULATING HORMONE 1.23 uIU/ml (0.358-3.74)
[2016-04-20] MEDS ORDERED: PT OWN MED DRAWER 7, Y5N ONE ×2 (09:49→22:01)
[2016-04-20] MEDS: ALBUTEROL SO4 2.5/IPRATROPIUM 0.5 INH SOL 3 ML VIAL.NEB. NEB SCH ×2 (10:25→21:11)
[2016-04-20] MEDS: CEFTRIAXONE 100 ML IVPB SCH (10:42)
[2016-04-20] MEDS: DIVALPROEX NA *ER* EXTEND REL 500 MG TABLET.SA (FP) PO SCH ×3 (10:43→22:17)
[2016-04-20] MEDS: BENZTROPINE MESYLATE 1 MG TABLET (FP) PO SCH ×2 (10:43→22:06)
[2016-04-20] MEDS: ENOXAPARIN NA (PORCINE) 40 MG/0.4 ML DISP.SYRIN SQ SCH (10:43)
[2016-04-20] MEDS: CITALOPRAM HYDROBROMIDE 20 MG TABLET (FP) PO SCH (10:43)
[2016-04-20] MEDS: PANTOPRAZOLE 40 MG TABLET (FP) PO SCH (10:44)
[2016-04-20] MEDS: RANITIDINE HCL 150 MG TABLET (FP) PO SCH (10:44)
[2016-04-20] MEDS: methylPREDNISolone NA SUCC 40 MG/1 ML VIAL IVPB SCH ×2 (10:44→22:06)
--- NOTE | 2016-04-20 10:55 | PN ---
Progress Note, RELIEF PILOT - Note Progress Note: RUL and RML and bilateral infiltrates. Bedside evaluation (-). Silent aspiration in this neurologically involved pt can not be r/o at bedside. Reviewed with staff. Selected Entries 04/19/16 04/19/16 04/19/16 05:52 10:00 13:41 Breakfast 25% Lunch 0 Supper Temperature 97.8 F 97.6 F 97.4 F L 04/19/16 04/19/16 04/20/16 19:00 22:02 05:55 Breakfast Lunch Supper 0 Temperature 98 F 99.0 F Laboratory Tests 04/18/16 04/19/16 04/20/16 18:40 08:28 07:00 WBC 18.4 H D 19.0 H 14.8 H REC: puree/nectar/MBS
--- NOTE | 2016-04-20 11:08 | PN ---
Physical Exam: SUBJECTIVE: Patient seen and examined. He is feeling better today. He is still coughing and has SOB. Denies fever, chills, chest pain, dysuria, N/V. OBJECTIVE: Vital Signs Period Temp Pulse Resp BP Sys/Perez Pulse Ox Last 24 Hr 97.4 F-99.0 F 85-105 18-20 109-109/56-74 93-93 GENERAL: The patient is awake, alert, and fully oriented, in no acute distress. HEAD: Normal with no signs of trauma. EYES: extraocular movements intact, sclera anicteric, conjunctiva clear. ENT: oropharynx clear without exudates, moist mucous membranes. NECK: Trachea midline, full range of motion, supple. LUNGS: rhonchi on right side, crackles B/L, no wheezes, no accessory muscle use. HEART: Regular rate and rhythm, S1, S2 without murmur, rub or gallop. ABDOMEN: Soft, nontender, nondistended, normoactive bowel sounds, no guarding, no rebound, no hepatosplenomegaly, no masses. EXTREMITIES: no edema. NEUROLOGICAL: Normal speech, gait not observed, motor 5/5 in all extr., sensation intact. PSYCH: Normal mood, normal affect. SKIN: Warm, dry, normal turgor, no rashes or lesions noted Laboratory Results - last 24 hr 04/20/16 04/20/16 07:00 07:00 WBC 14.8 H RBC 5.37 Hgb 10.2 L Hct 32.4 L MCV 60.4 L MCHC 31.4 L RDW 17.2 H Plt Count 365 MPV 8.7 Neutrophils % 92.7 H Lymphocytes % 4.9 L D Monocytes % 2.3 L Eosinophils % 0.0 Basophils % 0.1 Sodium 142 Potassium 4.5 D Chloride 107 D Carbon Dioxide 28 Anion Gap 7 L BUN 11 D Creatinine 0.3 L D Random Glucose 126 H D Calcium 7.9 L TSH 1.23 Active Medications Generic Name Dose Route Start Last Admin Trade Name Freq PRN Reason Stop Dose Admin Acetaminophen 650 mg 04/19/16 15:45 04/19/16 16:00 Tylenol - PO 650 mg Q4H PRN Administration FEVER OR PAIN Albuterol/Ipratropium 1 amp 04/18/16 23:06 04/19/16 04:00 Duoneb - NEB 1 amp Q4H PRN Administration SHORTNESS OF BREATH Albuterol/Ipratropium 1 amp 04/19/16 10:00 04/20/16 10:25 Duoneb - NEB 1 amp BID INEZ Administration Atorvastatin Calcium 10 mg 04/19/16 22:00 04/19/16 21:38 Lipitor - PO 10 mg HS INEZ Administration Benztropine Mesylate 1 mg 04/19/16 10:00 04/20/16 10:43 Cogentin - PO 1 mg BID INEZ Administration Citalopram Hydrobromide 40 mg 04/19/16 10:00 04/20/16 10:43 Celexa - PO 40 mg DAILY INEZ Administration Clonazepam 0.5 mg 04/19/16 06:00 04/20/16 06:26 Klonopin - PO 0.5 mg TID INEZ Administration Divalproex Sodium 500 mg 04/19/16 10:00 04/20/16 10:43 Depakote *Er* - PO 500 mg BID INEZ Administration Enoxaparin Sodium 40 mg 04/19/16 10:00 04/20/16 10:43 Lovenox - SQ 40 mg DAILY INEZ Administration Sodium Chloride 1,000 mls @ 75 mls/hr 04/18/16 23:15 04/19/16 21:36 Normal Saline - IV 75 mls/hr ASDIR INEZ Administration Ceftriaxone Sodium 100 mls @ 200 mls/hr 04/19/16 12:00 04/20/16 10:42 Rocephin 2gm Ivpb (Pre-Docked) IVPB 200 mls/hr DAILY INEZ Administration Metronidazole 100 mls @ 100 mls/hr 04/19/16 12:00 04/20/16 10:43 Flagyl 500mg Premixed Ivpb - IVPB 100 mls/hr Q8H-IV INEZ Administration Methylprednisolone Sodium Succinate 40 mg 04/19/16 22:00 04/20/16 10:44 Solu-Medrol - IVPB 04/21/16 23:59 40 mg BID INEZ Administration Montelukast Sodium 10 mg 04/19/16 22:00 04/19/16 21:38 Singulair - PO 10 mg HS INEZ Administration Pantoprazole Sodium 40 mg 04/19/16 10:00 04/20/16 10:44 Protonix - PO 40 mg DAILY INEZ Administration Quetiapine Fumarate 100 mg 04/19/16 22:00 04/19/16 21:38 Seroquel - PO 100 mg HS INEZ Administration Ranitidine HCl 150 mg 04/19/16 10:00 04/20/16 10:44 Zantac - PO 150 mg DAILY INEZ Administration Sodium Chloride 250 ml 04/18/16 18:41 Normal Saline - IV Q20M PRN MAP<65mm Hg OR SBP <90 Chest X-Ray reviewed; no acute pathology CT chest: Right upper lobe, right middle lobe and bibasilar infiltrates are noted. A 1.3 cm left basilar subpleural nodule described on a previous CT study of 01/04/2016 is obscured on the current exam due to an infiltrate in the same region. Correlate with 3 month follow-up CT to document stability/resolution. ASSESSMENT AND PLAN: Patient is a 61 yo M with a PMHx of HTN, HLD, asthma, mild MR, Hep C and schizophrenia presents with SOB found to be hypoxic to 89% on room air. He is unable to give us further details on the events surrounding. He was admitted for possible aspiration PNA. Shortness of Breath due to possible aspiration pneumonia: -CXR is negative for acute pathology, on admission:WBC elevated to 18, Neutr.88 , LA 2.3. Today WBC 14.8, Neutr 92, LA normalized. -cont. Flagyl and Ceftriaxone -Oxygen therapy-2L NC, Oxyg.Sat 93 -ID consulted -Solu-medrol for two days 40 mg BID -Influenza and RSV negative -evaluated by speech and swallow, silent aspiration can not be excluded, MBS, diet changed to puree for now -Sindulair, Duoneb HTN -Continue home meds HLD -Continue Lipitor Asthma -Duonebs, Singulair Schizophrenia -Continue home meds:Klonipin, Celexa, Depakote F/E/N; NS rate 75 ml/hr/No changes/puree DVT ppx -Lovenox -high risk DVT Disposition: Med surg, no plans for discharge yet Problem List - Problems (1) Shortness of breath Code(s): R06.02 - SHORTNESS OF BREATH (2) CHF (congestive heart failure) Code(s): I50.9 - HEART FAILURE, UNSPECIFIED (3) DVT prophylaxis Code(s): IIK3462 - (4) Leukocytosis Code(s): D72.829 - ELEVATED WHITE BLOOD CELL COUNT, UNSPECIFIED (5) Mental retardation Code(s): F79 - UNSPECIFIED INTELLECTUAL DISABILITIES (6) Schizophrenia Code(s): F20.9 - SCHIZOPHRENIA, UNSPECIFIED (7) PNA (pneumonia) Code(s): J18.9 - PNEUMONIA, UNSPECIFIED ORGANISM Qualifiers: Pneumonia type: due to unspecified organism Visit type - Emergency Visit Emergency Visit: Yes ED Registration Date: 04/18/16 Care time: The patient presented to the Emergency Department on the above date and was hospitalized for further evaluation of their emergent condition. - New Patient This patient is new to me today: No - Critical Care Critical Care patient: No - Discharge Referral Referred to [facility] Med [facility] No
--- NOTE | 2016-04-20 11:58 | PN ---
Progress Note, Physician History of Present Illness: Awake but lethargic denies chest pain Breathing non-labored No cough noted Afebrile WBC improved CT shows RML infiltrate BC (-) - Current Medication List Current Medications: Active Medications Acetaminophen (Tylenol -) 650 mg PO Q4H PRN PRN Reason: FEVER OR PAIN Last Admin: 04/19/16 16:00 Dose: 650 mg Albuterol/Ipratropium (Duoneb -) 1 amp NEB Q4H PRN PRN Reason: SHORTNESS OF BREATH Last Admin: 04/19/16 04:00 Dose: 1 amp Albuterol/Ipratropium (Duoneb -) 1 amp NEB BID [facility] Last Admin: 04/20/16 10:25 Dose: 1 amp Atorvastatin Calcium (Lipitor -) 10 mg PO HS [facility] Last Admin: 04/19/16 21:38 Dose: 10 mg Benztropine Mesylate (Cogentin -) 1 mg PO BID [facility] Last Admin: 04/20/16 10:43 Dose: 1 mg Citalopram Hydrobromide (Celexa -) 40 mg PO DAILY [facility] Last Admin: 04/20/16 10:43 Dose: 40 mg Clonazepam (Klonopin -) 0.5 mg PO TID [facility] Last Admin: 04/20/16 06:26 Dose: 0.5 mg Divalproex Sodium (Depakote *Er* -) 500 mg PO BID [facility] Last Admin: 04/20/16 10:43 Dose: 500 mg Enoxaparin Sodium (Lovenox -) 40 mg SQ DAILY [facility] Last Admin: 04/20/16 10:43 Dose: 40 mg Sodium Chloride (Normal Saline -) 1,000 mls @ 75 mls/hr IV ASDIR [facility] Last Admin: 04/19/16 21:36 Dose: 75 mls/hr Ceftriaxone Sodium (Rocephin 2gm Ivpb (Pre-Docked)) 100 mls @ 200 mls/hr IVPB DAILY [facility] Last Admin: 04/20/16 10:42 Dose: 200 mls/hr Metronidazole (Flagyl 500mg Premixed Ivpb -) 100 mls @ 100 mls/hr IVPB Q8H-IV [facility] Last Admin: 04/20/16 10:43 Dose: 100 mls/hr Methylprednisolone Sodium Succinate (Solu-Medrol -) 40 mg IVPB BID [facility] Stop: 04/21/16 23:59 Last Admin: 04/20/16 10:44 Dose: 40 mg Montelukast Sodium (Singulair -) 10 mg PO HS [facility] Last Admin: 04/19/16 21:38 Dose: 10 mg Pantoprazole Sodium (Protonix -) 40 mg PO DAILY [facility] Last Admin: 04/20/16 10:44 Dose: 40 mg Quetiapine Fumarate (Seroquel -) 100 mg PO HS [facility] Last Admin: 04/19/16 21:38 Dose: 100 mg Ranitidine HCl (Zantac -) 150 mg PO DAILY [facility] Last Admin: 04/20/16 10:44 Dose: 150 mg Sodium Chloride (Normal Saline -) 250 ml IV Q20M PRN PRN Reason: MAP<65mm Hg OR SBP <90 - Objective Vital Signs: Vital Signs Temperature 99.0 F 04/20/16 05:55 Pulse Rate 105 H 04/20/16 10:05 Respiratory Rate 20 04/20/16 05:55 Blood Pressure 109/56 04/20/16 05:55 O2 Sat by Pulse Oximetry (%) 93 L 04/20/16 10:05 Constitutional: Yes: No Distress Eyes: Yes: Conjunctiva Clear Cardiovascular: Yes: Regular Rate and Rhythm, S1, S2 Respiratory: Yes: Rhonchi Gastrointestinal: Yes: Normal Bowel Sounds, Soft. No: Tenderness Labs: CBC, BMP 04/20/16 07:00 04/20/16 07:00 INR, PTT INR 1.34 (0.82-1.09) H 04/19/16 06:30 Assessment/Plan RML pneumonia, possible aspiration Possible sepsis secondary to pneumonia Leukocytosis- improved Await sputum c/s, urine legionella/pneumococcal ag Continue empiric ceftriaxone/ flagyl
--- NOTE | 2016-04-20 15:00 | PN ---
Teaching Attending Note Name of Resident: Jyoti Masters ATTENDING PHYSICIAN STATEMENT I saw and evaluated the patient. I reviewed the resident's note and discussed the case with the resident. I agree with the resident's findings and plan as documented. PULMONARY IMP PNEUMONIA ASTHMA MR HTN HLD SCHIZOPHRENIA PLAN IV ANTIBIOTICS STEROID TAPER O2 INHALED BRONCHODILATORS F/U CHEST X-RAY ASPIRATION PRECAUTIONS DR LANDRY Problem List - Problems (1) HAP (hospital-acquired pneumonia) Code(s): J18.9 - PNEUMONIA, UNSPECIFIED ORGANISM (2) Shortness of breath Code(s): R06.02 - SHORTNESS OF BREATH (3) Anemia Code(s): D64.9 - ANEMIA, UNSPECIFIED Qualifiers: Anemia type: iron deficiency (4) DVT prophylaxis Code(s): JEB8268 - (5) PNA (pneumonia) Code(s): J18.9 - PNEUMONIA, UNSPECIFIED ORGANISM Qualifiers: Pneumonia type: due to unspecified organism (6) Respiratory distress Code(s): R06.00 - DYSPNEA, UNSPECIFIED (7) Schizo-affective schizophrenia, chronic condition Code(s): F25.8 - OTHER SCHIZOAFFECTIVE DISORDERS (8) Asthma Code(s): J45.909 - UNSPECIFIED ASTHMA, UNCOMPLICATED (9) GERD (gastroesophageal reflux disease) Code(s): K21.9 - GASTRO-ESOPHAGEAL REFLUX DISEASE WITHOUT ESOPHAGITIS (10) Mental retardation Code(s): F79 - UNSPECIFIED INTELLECTUAL DISABILITIES (11) Schizophrenia Code(s): F20.9 - SCHIZOPHRENIA, UNSPECIFIED
[2016-04-20] MEDS: SODIUM CHLORIDE 1,000 ML IV SCH (15:08)
--- NOTE | 2016-04-20 18:25 | PN ---
Teaching Attending Note Name of Resident: Flori Juarez ATTENDING PHYSICIAN STATEMENT I saw and evaluated the patient. I reviewed the resident's note and discussed the case with the resident. I agree with the resident's findings and plan as documented. Comfortable , no acute distress. went for swallowing evaluation today. Vital Signs Temperature 98.7 F 04/20/16 18:03 Pulse Rate 83 04/20/16 18:03 Respiratory Rate 20 04/20/16 18:03 Blood Pressure 120/72 04/20/16 18:03 O2 Sat by Pulse Oximetry (%) 93 L 04/20/16 10:05 CBCD WBC 14.8 K/mm3 (4.0-10.0) H 04/20/16 07:00 RBC 5.37 M/mm3 (4.00-5.60) 04/20/16 07:00 Hgb 10.2 GM/dL (11.7-16.9) L 04/20/16 07:00 Hct 32.4 % (35.4-49) L 04/20/16 07:00 MCV 60.4 fl (80-96) L 04/20/16 07:00 MCHC 31.4 g/dl (32.0-35.9) L 04/20/16 07:00 RDW 17.2 % (11.9-15.9) H 04/20/16 07:00 Plt Count 365 K/MM3 (134-434) 04/20/16 07:00 MPV 8.7 fl (7.5-11.1) 04/20/16 07:00 CMP Sodium 142 mmol/L (136-145) 04/20/16 07:00 Potassium 4.5 mmol/L (3.5-5.1) D 04/20/16 07:00 Chloride 107 mmol/L (98-107) D 04/20/16 07:00 Carbon Dioxide 28 mmol/L (21-32) 04/20/16 07:00 Anion Gap 7 (8-16) L 04/20/16 07:00 BUN 11 mg/dL (7-18) D 04/20/16 07:00 Creatinine 0.3 mg/dL (0.7-1.3) L D 04/20/16 07:00 Creat Clearance w eGFR > 60 (>60) 04/19/16 06:30 Random Glucose 126 mg/dL (74-106) H D 04/20/16 07:00 Calcium 7.9 mg/dL (8.5-10.1) L 04/20/16 07:00 Total Bilirubin 0.4 mg/dL (0.2-1.0) 04/19/16 06:30 AST 10 U/L (15-37) L 04/19/16 06:30 ALT < 6 U/L (12-78) L 04/19/16 06:30 Alkaline Phosphatase 130 U/L (45-117) H 04/19/16 06:30 Total Protein 5.8 g/dl (6.4-8.2) L 04/19/16 06:30 Albumin 2.5 g/dl (3.4-5.0) L 04/19/16 06:30 CARDIAC ENZYMES Creatine Kinase 57 IU/L (39-308) 04/18/16 18:40 Troponin I < 0.02 ng/ml (0.00-0.05) D 04/18/16 18:40 Current Medications Generic Name Dose Route Start Last Admin Trade Name Freq PRN Reason Stop Dose Admin Acetaminophen 650 mg 04/19/16 15:45 04/19/16 16:00 Tylenol - PO 650 mg Q4H PRN Administration FEVER OR PAIN Albuterol/Ipratropium 1 amp 04/18/16 23:06 04/19/16 04:00 Duoneb - NEB 1 amp Q4H PRN Administration SHORTNESS OF BREATH Albuterol/Ipratropium 1 amp 04/19/16 10:00 04/20/16 10:25 Duoneb - NEB 1 amp BID INEZ Administration Atorvastatin Calcium 10 mg 04/19/16 22:00 04/19/16 21:38 Lipitor - PO 10 mg HS INEZ Administration Benztropine Mesylate 1 mg 04/19/16 10:00 04/20/16 10:43 Cogentin - PO 1 mg BID INEZ Administration Citalopram Hydrobromide 40 mg 04/19/16 10:00 04/20/16 10:43 Celexa - PO 40 mg DAILY INEZ Administration Clonazepam 0.5 mg 04/19/16 06:00 04/20/16 14:58 Klonopin - PO 0.5 mg TID INEZ Administration Divalproex Sodium 500 mg 04/19/16 10:00 04/20/16 10:43 Depakote *Er* - PO 500 mg BID INEZ Administration Enoxaparin Sodium 40 mg 04/19/16 10:00 04/20/16 10:43 Lovenox - SQ 40 mg DAILY INEZ Administration Sodium Chloride 1,000 mls @ 75 mls/hr 04/18/16 23:15 04/20/16 15:08 Normal Saline - IV 75 mls/hr ASDIR INEZ Administration Ceftriaxone Sodium 100 mls @ 200 mls/hr 04/19/16 12:00 04/20/16 10:42 Rocephin 2gm Ivpb (Pre-Docked) IVPB 200 mls/hr DAILY [facility] Administration Metronidazole 100 mls @ 100 mls/hr 04/19/16 12:00 04/20/16 10:43 Flagyl 500mg Premixed Ivpb - IVPB 100 mls/hr Q8H-IV [facility] Administration Methylprednisolone Sodium Succinate 40 mg 04/19/16 22:00 04/20/16 10:44 Solu-Medrol - IVPB 04/21/16 23:59 40 mg BID INEZ Administration Montelukast Sodium 10 mg 04/19/16 22:00 04/19/16 21:38 Singulair - PO 10 mg HS INEZ Administration Pantoprazole Sodium 40 mg 04/19/16 10:00 04/20/16 10:44 Protonix - PO 40 mg DAILY INEZ Administration Quetiapine Fumarate 100 mg 04/19/16 22:00 04/19/16 21:38 Seroquel - PO 100 mg HS INEZ Administration Ranitidine HCl 150 mg 04/19/16 10:00 04/20/16 10:44 Zantac - PO 150 mg DAILY INEZ Administration Sodium Chloride 250 ml 04/18/16 18:41 Normal Saline - IV Q20M PRN MAP<65mm Hg OR SBP <90 Home Medications Medication Instructions Recorded Albuterol 0.083% Nebulizer Margo 1 neb NEB BID 04/18/16 [Ventolin 0.083%] Benztropine Mesylate [Cogentin -] 1 mg PO BID 04/18/16 Citalopram Hydrobromide [Celexa -] 40 mg PO DAILY 04/18/16 Clonazepam 0.5 mg PO TID 04/18/16 Divalproex *ER* [Depakote *ER* -] 500 mg PO BID 04/18/16 Fenofibrate Nanocrystallized 145 mg PO BID 04/18/16 [Tricor] Haloperidol Injection [Haldol 5 mg IM MONTHLY 04/18/16 *Injection*] Ipratropium 0.02% Nebulizer 0.5 mg IH BID 04/18/16 [Atrovent *Nebulizer*] Montelukast Na [Singulair -] 10 mg PO HS 04/18/16 Pantoprazole Sodium [Protonix] 40 mg PO DAILY 04/18/16 Quetiapine Fumarate [Seroquel] 100 mg PO HS 04/18/16 Ranitidine HCl [Zantac] 150 mg PO DAILY 04/18/16 Simvastatin 10 mg PO HS 04/18/16 Chest X-Ray reviewed; no acute pathology CT of the chest: RUL, RML bibasilar infiltrate. 1.3cm left basila subpleural nodule ASSESSMENT AND PLAN: Patient is a 61 yo M with a PMHx of HTN, HLD, asthma, mild MR, Hep C and schizophrenia presents with SOB found to be hypoxic to 89% on room air. He is unable to give any hx due to his mental condition. #Acute RUL and RML bibasilar Pneumonia On Rocephin/Flagyl IV daily continue ; Oxygen therapy-3L NC; aspiration precaution ID consulted ;Influenza and RSV negative, evaluated by speech and swallow, silent aspiration can not be excluded; [facility] consult consulted. s/p MBS was evaluated by Malinda Valdovinos ; Diet Consistency: Regular (soft, cohesive, easy to chew. Chopped meats with extra gravy.) Liquids: Thin Liquids # HTN Continue home meds # HLD Continue Lipitor # Asthma Duonebs, Singulair # Schizophrenia Continue home meds:Klonipin, Celexa, Depakote DVT ppx: Lovenox
[2016-04-20] MEDS: QUEtiapine FUMARATE 100 MG TABLET (FP) PO SCH (22:06)
[2016-04-20] MEDS: ATORVASTATIN CA 10 MG TABLET (FP) PO SCH (22:06)
[2016-04-20] MEDS: MONTELUKAST NA 10 MG TABLET PO SCH (22:06)
[2016-04-20] MEDS: VALPROATE SODIUM 250 MG/5 ML UNIT DOSE CUP PO SCH (23:35)
[2016-04-21] MEDS: METRONIDAZOLE 500 MG PREMIXED 100 ML IVPB SCH ×3 (02:22→17:19)
[2016-04-21] MEDS: SODIUM CHLORIDE 1,000 ML IV SCH ×2 (06:18→22:23)
[2016-04-21] MEDS: clonazePAM 0.5 MG TABLET PO SCH ×3 (06:18→22:25)
[2016-04-21] MEDS ORDERED: PT OWN MED DRAWER 7, Y5N ONE ×2 (09:04→21:38)
[2016-04-21] MEDS: ENOXAPARIN NA (PORCINE) 40 MG/0.4 ML DISP.SYRIN SQ SCH (09:12)
[2016-04-21] MEDS: CEFTRIAXONE 100 ML IVPB SCH (09:12)
[2016-04-21] MEDS: CITALOPRAM HYDROBROMIDE 20 MG TABLET (FP) PO SCH (09:13)
[2016-04-21] MEDS: PANTOPRAZOLE 40 MG TABLET (FP) PO SCH (09:13)
[2016-04-21] MEDS: RANITIDINE HCL 150 MG TABLET (FP) PO SCH (09:13)
[2016-04-21] MEDS: methylPREDNISolone NA SUCC 40 MG/1 ML VIAL IVPB SCH ×2 (09:14→22:24)
[2016-04-21] MEDS: BENZTROPINE MESYLATE 1 MG TABLET (FP) PO SCH ×2 (09:14→22:26)
[2016-04-21] MEDS: VALPROATE SODIUM 250 MG/5 ML UNIT DOSE CUP PO SCH ×4 (09:14→22:25)
[2016-04-21 09:25] LABS: BASOPHIL 0.1 % (0-2.0); MEAN CELL VOLUME 60.8 fl (80-96); MEAN PLT VOLUME 8.7 fl (7.5-11.1); NEUTROPHILS 88.9 % (42.8-82.8); PLATELET COUNT 411 K/MM3 (134-434); WHITE BLOOD COUNT 16.3 K/mm3 (4.0-10.0)
[2016-04-21 09:27] LABS: MCH 18.8 pg (25.7-33.7)
[2016-04-21 09:57] LABS: ALBUMIN 2.3 g/dl (3.4-5.0); ALK PHOS 109 U/L (45-117); ANION GAP 6 (8-16); BILIRUBIN,TOTAL 0.2 mg/dL (0.2-1.0); CALCIUM 7.9 mg/dL (8.5-10.1); CO2 31 mmol/L (21-32); CREATININE 0.3 mg/dL (0.7-1.3); GLUCOSE,RANDOM 118 mg/dL (74-106); MAGNESIUM 2.4 mg/dL (1.8-2.4); SGPT/ALT < 6 U/L (12-78); TOT PROT 5.4 g/dl (6.4-8.2)
[2016-04-21 09:58] LABS: SGOT/AST 3 U/L (15-37)
[2016-04-21] MEDS ORDERED: VALPROATE SODIUM 250 MG/5 ML UNIT DOSE CUP PO SCH (10:00)
[2016-04-21] MEDS: ALBUTEROL SO4 2.5/IPRATROPIUM 0.5 INH SOL 3 ML VIAL.NEB. NEB SCH ×2 (10:15→22:03)
--- NOTE | 2016-04-21 11:10 | PN ---
Progress Note, Physician History of Present Illness: Awake but lethargic No complaints Breathing appears non-labored No cough noted Afebrile WBC remains elevated - Current Medication List Current Medications: Active Medications Acetaminophen (Tylenol -) 650 mg PO Q4H PRN PRN Reason: FEVER OR PAIN Last Admin: 04/19/16 16:00 Dose: 650 mg Albuterol/Ipratropium (Duoneb -) 1 amp NEB Q4H PRN PRN Reason: SHORTNESS OF BREATH Last Admin: 04/19/16 04:00 Dose: 1 amp Albuterol/Ipratropium (Duoneb -) 1 amp NEB BID [facility] Last Admin: 04/20/16 21:11 Dose: 1 amp Atorvastatin Calcium (Lipitor -) 10 mg PO HS [facility] Last Admin: 04/20/16 22:06 Dose: 10 mg Benztropine Mesylate (Cogentin -) 1 mg PO BID [facility] Last Admin: 04/21/16 09:14 Dose: 1 mg Citalopram Hydrobromide (Celexa -) 40 mg PO DAILY [facility] Last Admin: 04/21/16 09:13 Dose: 40 mg Clonazepam (Klonopin -) 0.5 mg PO TID [facility] Last Admin: 04/21/16 06:18 Dose: 0.5 mg Enoxaparin Sodium (Lovenox -) 40 mg SQ DAILY [facility] Last Admin: 04/21/16 09:12 Dose: 40 mg Sodium Chloride (Normal Saline -) 1,000 mls @ 75 mls/hr IV ASDIR [facility] Last Admin: 04/21/16 06:18 Dose: 75 mls/hr Ceftriaxone Sodium (Rocephin 2gm Ivpb (Pre-Docked)) 100 mls @ 200 mls/hr IVPB DAILY [facility] Last Admin: 04/21/16 09:12 Dose: 200 mls/hr Metronidazole (Flagyl 500mg Premixed Ivpb -) 100 mls @ 100 mls/hr IVPB Q8H-IV [facility] Last Admin: 04/21/16 09:12 Dose: 100 mls/hr Methylprednisolone Sodium Succinate (Solu-Medrol -) 40 mg IVPB BID [facility] Stop: 04/21/16 23:59 Last Admin: 04/21/16 09:14 Dose: 40 mg Montelukast Sodium (Singulair -) 10 mg PO HS [facility] Last Admin: 04/20/16 22:06 Dose: 10 mg Pantoprazole Sodium (Protonix -) 40 mg PO DAILY [facility] Last Admin: 04/21/16 09:13 Dose: 40 mg Quetiapine Fumarate (Seroquel -) 100 mg PO HS [facility] Last Admin: 04/20/16 22:06 Dose: 100 mg Ranitidine HCl (Zantac -) 150 mg PO DAILY [facility] Last Admin: 04/21/16 09:13 Dose: 150 mg Sodium Chloride (Normal Saline -) 250 ml IV Q20M PRN PRN Reason: MAP<65mm Hg OR SBP <90 Valproate Sodium (Depakene -) 250 mg PO QID [facility] Last Admin: 04/21/16 09:14 Dose: 250 mg - Objective Vital Signs: Vital Signs Temperature 97.8 F 04/21/16 06:00 Pulse Rate 72 04/21/16 06:00 Respiratory Rate 20 04/21/16 06:00 Blood Pressure 116/76 04/21/16 06:00 O2 Sat by Pulse Oximetry (%) 93 L 04/20/16 21:00 Constitutional: Yes: No Distress Eyes: Yes: Conjunctiva Clear Cardiovascular: Yes: Regular Rate and Rhythm, S1, S2 Respiratory: Yes: Diminished Gastrointestinal: Yes: Normal Bowel Sounds, Soft. No: Tenderness Edema: Yes Edema: LLE: 1+, RLE: 1+ Labs: CBC, BMP 04/20/16 07:50 04/21/16 07:50 INR, PTT INR 1.34 (0.82-1.09) H 04/19/16 06:30 Assessment/Plan RML pneumonia, possible aspiration Possible sepsis secondary to pneumonia Leukocytosis- improved Await sputum c/s, urine legionella/pneumococcal ag Continue empiric ceftriaxone/ flagyl
--- NOTE | 2016-04-21 12:16 | PN ---
Physical Exam: SUBJECTIVE: Patient seen and examined Comfortable with no acute distress. No fever or chills, no shortness of breath. OBJECTIVE: Vital Signs Temperature 97.8 F 04/21/16 06:00 Pulse Rate 72 04/21/16 06:00 Respiratory Rate 20 04/21/16 06:00 Blood Pressure 116/76 04/21/16 06:00 O2 Sat by Pulse Oximetry (%) 93 L 04/20/16 21:00 GENERAL: The patient is awake, alert, and fully oriented, in no acute distress. HEAD: Normal with no signs of trauma. EYES: PERRL, extraocular movements intact, sclera anicteric, conjunctiva clear. ENT: Ears normal, oropharynx clear without exudates, moist mucous membranes. NECK: Trachea midline, full range of motion, supple. LUNGS: decreased Breath sounds BL , rhonchi on the right side , no accessory muscle use. HEART: Regular rate and rhythm, S1, S2 without murmur, rub or gallop. ABDOMEN: Soft, nontender, nondistended, normoactive bowel sounds, no guarding, no rebound, no hepatosplenomegaly, no masses. EXTREMITIES: 2+ pulses, warm, well-perfused, no edema. NEUROLOGICAL: Cranial nerves II through XII grossly intact. Normal speech, gait not observed. PSYCH: Normal mood, normal affect. SKIN: Warm, dry, normal turgor, no rashes or lesions noted Laboratory Results - last 24 hr 04/20/16 04/21/16 07:50 07:50 WBC 16.3 H RBC 5.30 Hgb 10.0 L Hct 32.2 L MCV 60.8 L MCHC 31.0 L RDW 17.0 H Plt Count 411 MPV 8.7 Neutrophils % 88.9 H Lymphocytes % 6.6 L D Monocytes % 4.4 D Eosinophils % 0.0 Basophils % 0.1 Sodium 144 Potassium 4.4 Chloride 107 Carbon Dioxide 31 Anion Gap 6 L BUN 10 Creatinine 0.3 L Creat Clearance w eGFR > 60 Random Glucose 118 H Calcium 7.9 L Magnesium 2.4 Total Bilirubin 0.2 D AST 3 L D ALT < 6 L Alkaline Phosphatase 109 Total Protein 5.4 L Albumin 2.3 L Active Medications Generic Name Dose Route Start Last Admin Trade Name Freq PRN Reason Stop Dose Admin Acetaminophen 650 mg 04/19/16 15:45 04/19/16 16:00 Tylenol - PO 650 mg Q4H PRN Administration FEVER OR PAIN Albuterol/Ipratropium 1 amp 04/18/16 23:06 04/19/16 04:00 Duoneb - NEB 1 amp Q4H PRN Administration SHORTNESS OF BREATH Albuterol/Ipratropium 1 amp 04/19/16 10:00 04/20/16 21:11 Duoneb - NEB 1 amp BID INEZ Administration Atorvastatin Calcium 10 mg 04/19/16 22:00 04/20/16 22:06 Lipitor - PO 10 mg HS INEZ Administration Benztropine Mesylate 1 mg 04/19/16 10:00 04/21/16 09:14 Cogentin - PO 1 mg BID INEZ Administration Citalopram Hydrobromide 40 mg 04/19/16 10:00 04/21/16 09:13 Celexa - PO 40 mg DAILY INEZ Administration Clonazepam 0.5 mg 04/19/16 06:00 04/21/16 06:18 Klonopin - PO 0.5 mg TID INEZ Administration Enoxaparin Sodium 40 mg 04/19/16 10:00 04/21/16 09:12 Lovenox - SQ 40 mg DAILY INEZ Administration Sodium Chloride 1,000 mls @ 75 mls/hr 04/18/16 23:15 04/21/16 06:18 Normal Saline - IV 75 mls/hr ASDIR INEZ Administration Ceftriaxone Sodium 100 mls @ 200 mls/hr 04/19/16 12:00 04/21/16 09:12 Rocephin 2gm Ivpb (Pre-Docked) IVPB 200 mls/hr DAILY INEZ Administration Metronidazole 100 mls @ 100 mls/hr 04/19/16 12:00 04/21/16 09:12 Flagyl 500mg Premixed Ivpb - IVPB 100 mls/hr Q8H-IV INEZ Administration Methylprednisolone Sodium Succinate 40 mg 04/19/16 22:00 04/21/16 09:14 Solu-Medrol - IVPB 04/21/16 23:59 40 mg BID INEZ Administration Montelukast Sodium 10 mg 04/19/16 22:00 04/20/16 22:06 Singulair - PO 10 mg HS INEZ Administration Pantoprazole Sodium 40 mg 04/19/16 10:00 04/21/16 09:13 Protonix - PO 40 mg DAILY INEZ Administration Quetiapine Fumarate 100 mg 04/19/16 22:00 04/20/16 22:06 Seroquel - PO 100 mg HS INEZ Administration Ranitidine HCl 150 mg 04/19/16 10:00 04/21/16 09:13 Zantac - PO 150 mg DAILY INEZ Administration Sodium Chloride 250 ml 04/18/16 18:41 Normal Saline - IV Q20M PRN MAP<65mm Hg OR SBP <90 Valproate Sodium 250 mg 04/20/16 23:00 04/21/16 09:14 Depakene - PO 250 mg QID INEZ Administration Chest X-Ray reviewed; no acute pathology CT of the chest: RUL, RML bibasilar infiltrate. 1.3cm left basila subpleural nodule ASSESSMENT AND PLAN: Patient is a 61 yo M with a PMHx of HTN, HLD, asthma, mild MR, Hep C and schizophrenia presents with SOB found to be hypoxic to 89% on room air. He is unable to give any hx due to his mental condition. #Acute RUL and RML bibasilar Pneumonia On Rocephin/Flagyl IV daily continue ; Oxygen therapy-3L NC; aspiration precaution ID consulted ;Influenza and RSV negative, evaluated by speech and swallow, silent aspiration can not be excluded; [facility] consult consulted. s/p MBS was evaluated by Malinda Valdovinos ; Diet Consistency: Regular (soft, cohesive, easy to chew. Chopped meats with extra gravy.) Liquids: Thin Liquids # HTN Continue home meds # HLD Continue Lipitor # Asthma Trae Roblesir # Schizophrenia Continue home meds:Klonipin, Celexa, Depakote, seroquel DVT ppx: Lovenox Visit type - Emergency Visit Emergency Visit: Yes ED Registration Date: 04/18/16 Care time: The patient presented to the Emergency Department on the above date and was hospitalized for further evaluation of their emergent condition. - New Patient This patient is new to me today: No - Critical Care Critical Care patient: No
--- NOTE | 2016-04-21 13:24 | PN ---
Progress Note, Physician History of Present Illness: PULMONARY ALERT,NAD,-DYSPNEA,-TACHYPNEA - Current Medication List Current Medications: Active Medications Acetaminophen (Tylenol -) 650 mg PO Q4H PRN PRN Reason: FEVER OR PAIN Last Admin: 04/19/16 16:00 Dose: 650 mg Albuterol/Ipratropium (Duoneb -) 1 amp NEB Q4H PRN PRN Reason: SHORTNESS OF BREATH Last Admin: 04/19/16 04:00 Dose: 1 amp Albuterol/Ipratropium (Duoneb -) 1 amp NEB BID [facility] Last Admin: 04/21/16 10:15 Dose: Not Given Atorvastatin Calcium (Lipitor -) 10 mg PO HS [facility] Last Admin: 04/20/16 22:06 Dose: 10 mg Benztropine Mesylate (Cogentin -) 1 mg PO BID [facility] Last Admin: 04/21/16 09:14 Dose: 1 mg Citalopram Hydrobromide (Celexa -) 40 mg PO DAILY [facility] Last Admin: 04/21/16 09:13 Dose: 40 mg Clonazepam (Klonopin -) 0.5 mg PO TID [facility] Last Admin: 04/21/16 06:18 Dose: 0.5 mg Enoxaparin Sodium (Lovenox -) 40 mg SQ DAILY [facility] Last Admin: 04/21/16 09:12 Dose: 40 mg Sodium Chloride (Normal Saline -) 1,000 mls @ 75 mls/hr IV ASDIR [facility] Last Admin: 04/21/16 06:18 Dose: 75 mls/hr Ceftriaxone Sodium (Rocephin 2gm Ivpb (Pre-Docked)) 100 mls @ 200 mls/hr IVPB DAILY [facility] Last Admin: 04/21/16 09:12 Dose: 200 mls/hr Metronidazole (Flagyl 500mg Premixed Ivpb -) 100 mls @ 100 mls/hr IVPB Q8H-IV [facility] Last Admin: 04/21/16 09:12 Dose: 100 mls/hr Methylprednisolone Sodium Succinate (Solu-Medrol -) 40 mg IVPB BID [facility] Stop: 04/21/16 23:59 Last Admin: 04/21/16 09:14 Dose: 40 mg Montelukast Sodium (Singulair -) 10 mg PO HS [facility] Last Admin: 04/20/16 22:06 Dose: 10 mg Pantoprazole Sodium (Protonix -) 40 mg PO DAILY [facility] Last Admin: 04/21/16 09:13 Dose: 40 mg Quetiapine Fumarate (Seroquel -) 100 mg PO HS [facility] Last Admin: 04/20/16 22:06 Dose: 100 mg Ranitidine HCl (Zantac -) 150 mg PO DAILY [facility] Last Admin: 04/21/16 09:13 Dose: 150 mg Sodium Chloride (Normal Saline -) 250 ml IV Q20M PRN PRN Reason: MAP<65mm Hg OR SBP <90 Valproate Sodium (Depakene -) 250 mg PO QID [facility] Last Admin: 04/21/16 09:14 Dose: 250 mg - Objective Vital Signs: Vital Signs Temperature 97.8 F 04/21/16 06:00 Pulse Rate 72 04/21/16 06:00 Respiratory Rate 20 04/21/16 06:00 Blood Pressure 116/76 04/21/16 06:00 O2 Sat by Pulse Oximetry (%) 93 L 04/20/16 21:00 Constitutional: Yes: Well Nourished, Calm Eyes: Yes: WNL HENT: Yes: WNL Neck: Yes: Supple Cardiovascular: Yes: Regular Rate and Rhythm, S1, S2 Respiratory: Yes: Diminished, Rales (CRACKLES ON R) Gastrointestinal: Yes: WNL Extremities: Yes: WNL Edema: No Labs: CBC, BMP 04/20/16 07:50 04/21/16 07:50 INR, PTT INR 1.34 (0.82-1.09) H 04/19/16 06:30 Problem List - Problems (1) HAP (hospital-acquired pneumonia) Code(s): J18.9 - PNEUMONIA, UNSPECIFIED ORGANISM (2) Shortness of breath Code(s): R06.02 - SHORTNESS OF BREATH (3) Anemia Code(s): D64.9 - ANEMIA, UNSPECIFIED Qualifiers: Anemia type: iron deficiency (4) DVT prophylaxis Code(s): [id number] - (5) PNA (pneumonia) Code(s): J18.9 - PNEUMONIA, UNSPECIFIED ORGANISM Qualifiers: Pneumonia type: due to unspecified organism (6) Respiratory distress Code(s): R06.00 - DYSPNEA, UNSPECIFIED (7) Schizo-affective schizophrenia, chronic condition Code(s): F25.8 - OTHER SCHIZOAFFECTIVE DISORDERS (8) Asthma Code(s): J45.909 - UNSPECIFIED ASTHMA, UNCOMPLICATED (9) GERD (gastroesophageal reflux disease) Code(s): K21.9 - GASTRO-ESOPHAGEAL REFLUX DISEASE WITHOUT ESOPHAGITIS (10) Mental retardation Code(s): F79 - UNSPECIFIED INTELLECTUAL DISABILITIES (11) Schizophrenia Code(s): F20.9 - SCHIZOPHRENIA, UNSPECIFIED Assessment/Plan IMP PNEUMONIA ASTHMA MR HTN HLD SCHIZOPHRENIA PLAN IV ANTIBIOTICS STEROID TAPER O2 INHALED BRONCHODILATORS F/U CHEST X-RAY ASPIRATION PRECAUTIONS DR LANDRY Problem List - Problems (1) HAP (hospital-acquired pneumonia) Code(s): J18.9 - PNEUMONIA, UNSPECIFIED ORGANISM (2) Shortness of breath Code(s): R06.02 - SHORTNESS OF BREATH (3) Anemia Code(s): D64.9 - ANEMIA, UNSPECIFIED Qualifiers: Anemia type: iron deficiency (4) DVT prophylaxis Code(s): [id number] - (5) PNA (pneumonia) Code(s): J18.9 - PNEUMONIA, UNSPECIFIED ORGANISM Qualifiers: Pneumonia type: due to unspecified organism (6) Respiratory distress Code(s): R06.00 - DYSPNEA, UNSPECIFIED (7) Schizo-affective schizophrenia, chronic condition Code(s): F25.8 - OTHER SCHIZOAFFECTIVE DISORDERS (8) Asthma Code(s): J45.909 - UNSPECIFIED ASTHMA, UNCOMPLICATED (9) GERD (gastroesophageal reflux disease) Code(s): K21.9 - GASTRO-ESOPHAGEAL REFLUX DISEASE WITHOUT ESOPHAGITIS (10) Mental retardation Code(s): F79 - UNSPECIFIED INTELLECTUAL DISABILITIES (11) Schizophrenia Code(s): F20.9 - SCHIZOPHRENIA, UNSPECIFIED
[2016-04-21 13:39] LABS: ANISOCYTOSIS 2+; HYPOCHROMIA 2+; PLATELET ESTIMATE ADEQUATE (NORMAL)
[2016-04-21] MEDS: QUEtiapine FUMARATE 100 MG TABLET (FP) PO SCH (22:25)
[2016-04-21] MEDS: MONTELUKAST NA 10 MG TABLET PO SCH (22:25)
[2016-04-21] MEDS: ATORVASTATIN CA 10 MG TABLET (FP) PO SCH (22:25)
[2016-04-22] MEDS: METRONIDAZOLE 500 MG PREMIXED 100 ML IVPB SCH ×3 (02:07→18:37)
[2016-04-22] MEDS: clonazePAM 0.5 MG TABLET PO SCH ×3 (06:43→21:35)
[2016-04-22] MEDS ORDERED: PT OWN MED DRAWER 7, Y5N ONE ×3 (09:53→18:35)
[2016-04-22] MEDS: CEFTRIAXONE 100 ML IVPB SCH (09:55)
[2016-04-22] MEDS: PANTOPRAZOLE 40 MG TABLET (FP) PO SCH (09:55)
[2016-04-22] MEDS: RANITIDINE HCL 150 MG TABLET (FP) PO SCH (09:55)
[2016-04-22] MEDS: BENZTROPINE MESYLATE 1 MG TABLET (FP) PO SCH ×2 (09:55→21:35)
[2016-04-22] MEDS: ENOXAPARIN NA (PORCINE) 40 MG/0.4 ML DISP.SYRIN SQ SCH (09:55)
[2016-04-22] MEDS: CITALOPRAM HYDROBROMIDE 20 MG TABLET (FP) PO SCH (09:55)
[2016-04-22] MEDS: VALPROATE SODIUM 250 MG/5 ML UNIT DOSE CUP PO SCH ×4 (09:55→21:35)
[2016-04-22] MEDS: SODIUM CHLORIDE 1,000 ML IV SCH (10:35)
[2016-04-22] MEDS: ALBUTEROL SO4 2.5/IPRATROPIUM 0.5 INH SOL 3 ML VIAL.NEB. NEB SCH ×2 (10:45→22:32)
--- NOTE | 2016-04-22 13:30 | PN ---
Progress Note, Physician History of Present Illness: pulmonary alert,nad,-congestion - Current Medication List Current Medications: Active Medications Acetaminophen (Tylenol -) 650 mg PO Q4H PRN PRN Reason: FEVER OR PAIN Last Admin: 04/19/16 16:00 Dose: 650 mg Albuterol/Ipratropium (Duoneb -) 1 amp NEB Q4H PRN PRN Reason: SHORTNESS OF BREATH Last Admin: 04/19/16 04:00 Dose: 1 amp Albuterol/Ipratropium (Duoneb -) 1 amp NEB BID [facility] Last Admin: 04/22/16 10:45 Dose: 1 amp Atorvastatin Calcium (Lipitor -) 10 mg PO HS [facility] Last Admin: 04/21/16 22:25 Dose: 10 mg Benztropine Mesylate (Cogentin -) 1 mg PO BID [facility] Last Admin: 04/22/16 09:55 Dose: 1 mg Citalopram Hydrobromide (Celexa -) 40 mg PO DAILY [facility] Last Admin: 04/22/16 09:55 Dose: 40 mg Clonazepam (Klonopin -) 0.5 mg PO TID [facility] Last Admin: 04/22/16 06:43 Dose: 0.5 mg Enoxaparin Sodium (Lovenox -) 40 mg SQ DAILY [facility] Last Admin: 04/22/16 09:55 Dose: 40 mg Sodium Chloride (Normal Saline -) 1,000 mls @ 75 mls/hr IV ASDIR [facility] Last Admin: 04/22/16 10:35 Dose: 75 mls/hr Ceftriaxone Sodium (Rocephin 2gm Ivpb (Pre-Docked)) 100 mls @ 200 mls/hr IVPB DAILY [facility] Last Admin: 04/22/16 09:55 Dose: 200 mls/hr Metronidazole (Flagyl 500mg Premixed Ivpb -) 100 mls @ 100 mls/hr IVPB Q8H-IV [facility] Last Admin: 04/22/16 10:32 Dose: 100 mls/hr Montelukast Sodium (Singulair -) 10 mg PO HS [facility] Last Admin: 04/21/16 22:25 Dose: 10 mg Pantoprazole Sodium (Protonix -) 40 mg PO DAILY [facility] Last Admin: 04/22/16 09:55 Dose: 40 mg Quetiapine Fumarate (Seroquel -) 100 mg PO HS [facility] Last Admin: 04/21/16 22:25 Dose: 100 mg Ranitidine HCl (Zantac -) 150 mg PO DAILY [facility] Last Admin: 04/22/16 09:55 Dose: 150 mg Sodium Chloride (Normal Saline -) 250 ml IV Q20M PRN PRN Reason: MAP<65mm Hg OR SBP <90 Valproate Sodium (Depakene -) 250 mg PO QID [facility] Last Admin: 04/22/16 09:55 Dose: 250 mg - Objective Vital Signs: Vital Signs Temperature 97.9 F 04/22/16 11:10 Pulse Rate 82 04/22/16 11:10 Respiratory Rate 18 04/22/16 11:10 Blood Pressure 129/83 04/22/16 11:10 O2 Sat by Pulse Oximetry (%) 95 04/22/16 09:00 Constitutional: Yes: Well Nourished, Calm Eyes: Yes: WNL HENT: Yes: WNL Neck: Yes: WNL Cardiovascular: Yes: Regular Rate and Rhythm, S1, S2 Respiratory: Yes: Rales (few crackles on r) Gastrointestinal: Yes: WNL Extremities: Yes: WNL Edema: No Labs: Problem List - Problems (1) HAP (hospital-acquired pneumonia) Code(s): J18.9 - PNEUMONIA, UNSPECIFIED ORGANISM (2) Shortness of breath Code(s): R06.02 - SHORTNESS OF BREATH (3) Anemia Code(s): D64.9 - ANEMIA, UNSPECIFIED Qualifiers: Anemia type: iron deficiency (4) DVT prophylaxis Code(s): [id number] - (5) PNA (pneumonia) Code(s): J18.9 - PNEUMONIA, UNSPECIFIED ORGANISM Qualifiers: Pneumonia type: due to unspecified organism (6) Respiratory distress Code(s): R06.00 - DYSPNEA, UNSPECIFIED (7) Schizo-affective schizophrenia, chronic condition Code(s): F25.8 - OTHER SCHIZOAFFECTIVE DISORDERS (8) Asthma Code(s): J45.909 - UNSPECIFIED ASTHMA, UNCOMPLICATED (9) GERD (gastroesophageal reflux disease) Code(s): K21.9 - GASTRO-ESOPHAGEAL REFLUX DISEASE WITHOUT ESOPHAGITIS (10) Mental retardation Code(s): F79 - UNSPECIFIED INTELLECTUAL DISABILITIES (11) Schizophrenia Code(s): F20.9 - SCHIZOPHRENIA, UNSPECIFIED Assessment/Plan IMP PNEUMONIA ASTHMA MR HTN HLD SCHIZOPHRENIA PLAN IV ANTIBIOTICS O2 INHALED BRONCHODILATORS F/U CHEST X-RAY AM ASPIRATION PRECAUTIONS DR LANDRY Problem List - Problems (1) HAP (hospital-acquired pneumonia) Code(s): J18.9 - PNEUMONIA, UNSPECIFIED ORGANISM (2) Shortness of breath Code(s): R06.02 - SHORTNESS OF BREATH (3) Anemia Code(s): D64.9 - ANEMIA, UNSPECIFIED Qualifiers: Anemia type: iron deficiency (4) DVT prophylaxis Code(s): [id number] - (5) PNA (pneumonia) Code(s): J18.9 - PNEUMONIA, UNSPECIFIED ORGANISM Qualifiers: Pneumonia type: due to unspecified organism (6) Respiratory distress Code(s): R06.00 - DYSPNEA, UNSPECIFIED (7) Schizo-affective schizophrenia, chronic condition Code(s): F25.8 - OTHER SCHIZOAFFECTIVE DISORDERS (8) Asthma Code(s): J45.909 - UNSPECIFIED ASTHMA, UNCOMPLICATED (9) GERD (gastroesophageal reflux disease) Code(s): K21.9 - GASTRO-ESOPHAGEAL REFLUX DISEASE WITHOUT ESOPHAGITIS (10) Mental retardation Code(s): F79 - UNSPECIFIED INTELLECTUAL DISABILITIES (11) Schizophrenia Code(s): F20.9 - SCHIZOPHRENIA, UNSPECIFIED
--- NOTE | 2016-04-22 14:42 | PN ---
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 Pt is on puree and thin liquid. Consider soft cohesive foods, ground meat, thin liquid, OOB for meals.
--- NOTE | 2016-04-22 15:54 | PN ---
Progress Note (short form) - Note Progress Note: Patient is feeling better, with no acute distress. Vital Signs Temperature 98.5 F 04/22/16 14:34 Pulse Rate 98 H 04/22/16 14:34 Respiratory Rate 18 04/22/16 14:34 Blood Pressure 134/79 04/22/16 14:34 O2 Sat by Pulse Oximetry (%) 95 04/22/16 09:00 GENERAL: The patient is awake, alert, and fully oriented, in no acute distress. HEAD: Normal with no signs of trauma. EYES: PERRL, extraocular movements intact, sclera anicteric, conjunctiva clear. ENT: Ears normal, oropharynx clear without exudates, moist mucous membranes. NECK: Trachea midline, full range of motion, supple. LUNGS: decreased Breath sounds BL , rhonchi on the right side continues but better , no accessory muscle use. HEART: Regular rate and rhythm, S1, S2 without murmur, rub or gallop. ABDOMEN: Soft, nontender, nondistended, normoactive bowel sounds, no guarding, no rebound, no hepatosplenomegaly, no masses. EXTREMITIES: 2+ pulses, warm, well-perfused, no edema. NEUROLOGICAL: Cranial nerves II through XII grossly intact. Normal speech, gait not observed. PSYCH: Normal mood, normal affect. SKIN: Warm, dry, normal turgor, no rashes or lesions noted CBCD WBC 16.3 K/mm3 (4.0-10.0) H 04/20/16 07:50 RBC 5.30 M/mm3 (4.00-5.60) 04/20/16 07:50 Hgb 10.0 GM/dL (11.7-16.9) L 04/20/16 07:50 Hct 32.2 % (35.4-49) L 04/20/16 07:50 MCV 60.8 fl (80-96) L 04/20/16 07:50 MCHC 31.0 g/dl (32.0-35.9) L 04/20/16 07:50 RDW 17.0 % (11.9-15.9) H 04/20/16 07:50 Plt Count 411 K/MM3 (134-434) 04/20/16 07:50 MPV 8.7 fl (7.5-11.1) 04/20/16 07:50 CMP Sodium 144 mmol/L (136-145) 04/21/16 07:50 Potassium 4.4 mmol/L (3.5-5.1) 04/21/16 07:50 Chloride 107 mmol/L (98-107) 04/21/16 07:50 Carbon Dioxide 31 mmol/L (21-32) 04/21/16 07:50 Anion Gap 6 (8-16) L 04/21/16 07:50 BUN 10 mg/dL (7-18) 04/21/16 07:50 Creatinine 0.3 mg/dL (0.7-1.3) L 04/21/16 07:50 Creat Clearance w eGFR > 60 (>60) 04/21/16 07:50 Random Glucose 118 mg/dL (74-106) H 04/21/16 07:50 Calcium 7.9 mg/dL (8.5-10.1) L 04/21/16 07:50 Total Bilirubin 0.2 mg/dL (0.2-1.0) D 04/21/16 07:50 AST 3 U/L (15-37) L D 04/21/16 07:50 ALT < 6 U/L (12-78) L 04/21/16 07:50 Alkaline Phosphatase 109 U/L (45-117) 04/21/16 07:50 Total Protein 5.4 g/dl (6.4-8.2) L 04/21/16 07:50 Albumin 2.3 g/dl (3.4-5.0) L 04/21/16 07:50 CARDIAC ENZYMES Creatine Kinase 57 IU/L (39-308) 04/18/16 18:40 Troponin I < 0.02 ng/ml (0.00-0.05) D 04/18/16 18:40 Current Medications Generic Name Dose Route Start Last Admin Trade Name Freq PRN Reason Stop Dose Admin Acetaminophen 650 mg 04/19/16 15:45 04/19/16 16:00 Tylenol - PO 650 mg Q4H PRN Administration FEVER OR PAIN Albuterol/Ipratropium 1 amp 04/18/16 23:06 04/19/16 04:00 Duoneb - NEB 1 amp Q4H PRN Administration SHORTNESS OF BREATH Albuterol/Ipratropium 1 amp 04/19/16 10:00 04/22/16 10:45 Duoneb - NEB 1 amp BID INEZ Administration Atorvastatin Calcium 10 mg 04/19/16 22:00 04/21/16 22:25 Lipitor - PO 10 mg HS INEZ Administration Benztropine Mesylate 1 mg 04/19/16 10:00 04/22/16 09:55 Cogentin - PO 1 mg BID INEZ Administration Citalopram Hydrobromide 40 mg 04/19/16 10:00 04/22/16 09:55 Celexa - PO 40 mg DAILY [facility] Administration Clonazepam 0.5 mg 04/19/16 06:00 04/22/16 13:58 Klonopin - PO 0.5 mg TID INEZ Administration Enoxaparin Sodium 40 mg 04/19/16 10:00 04/22/16 09:55 Lovenox - SQ 40 mg DAILY [facility] Administration Sodium Chloride 1,000 mls @ 75 mls/hr 04/18/16 23:15 04/22/16 10:35 Normal Saline - IV 75 mls/hr ASDIR [facility] Administration Ceftriaxone Sodium 100 mls @ 200 mls/hr 04/19/16 12:00 04/22/16 09:55 Rocephin 2gm Ivpb (Pre-Docked) IVPB 200 mls/hr DAILY [facility] Administration Metronidazole 100 mls @ 100 mls/hr 04/19/16 12:00 04/22/16 10:32 Flagyl 500mg Premixed Ivpb - IVPB 100 mls/hr Q8H-IV [facility] Administration Montelukast Sodium 10 mg 04/19/16 22:00 04/21/16 22:25 Singulair - PO 10 mg HS [facility] Administration Pantoprazole Sodium 40 mg 04/19/16 10:00 04/22/16 09:55 Protonix - PO 40 mg DAILY [facility] Administration Quetiapine Fumarate 100 mg 04/19/16 22:00 04/21/16 22:25 Seroquel - PO 100 mg HS [facility] Administration Ranitidine HCl 150 mg 04/19/16 10:00 04/22/16 09:55 Zantac - PO 150 mg DAILY [facility] Administration Sodium Chloride 250 ml 04/18/16 18:41 Normal Saline - IV Q20M PRN MAP<65mm Hg OR SBP <90 Valproate Sodium 250 mg 04/20/16 23:00 04/22/16 13:58 Depakene - PO 250 mg QID [facility] Administration Home Medications Medication Instructions Recorded Albuterol 0.083% Nebulizer Margo 1 neb NEB BID 04/18/16 [Ventolin 0.083%] Benztropine Mesylate [Cogentin -] 1 mg PO BID 04/18/16 Citalopram Hydrobromide [Celexa -] 40 mg PO DAILY 04/18/16 Clonazepam 0.5 mg PO TID 04/18/16 Divalproex *ER* [Depakote *ER* -] 500 mg PO BID 04/18/16 Fenofibrate Nanocrystallized 145 mg PO BID 04/18/16 [Tricor] Haloperidol Injection [Haldol 5 mg IM MONTHLY 04/18/16 *Injection*] Ipratropium 0.02% Nebulizer 0.5 mg IH BID 04/18/16 [Atrovent *Nebulizer*] Montelukast Na [Singulair -] 10 mg PO HS 04/18/16 Pantoprazole Sodium [Protonix] 40 mg PO DAILY 04/18/16 Quetiapine Fumarate [Seroquel] 100 mg PO HS 04/18/16 Ranitidine HCl [Zantac] 150 mg PO DAILY 04/18/16 Simvastatin 10 mg PO HS 04/18/16 Chest X-Ray reviewed; no acute pathology CT of the chest: RUL, RML bibasilar infiltrate. 1.3cm left basila subpleural nodule ASSESSMENT AND PLAN: Patient is a 61 yo M with a PMHx of HTN, HLD, asthma, mild MR, Hep C and schizophrenia presents with SOB found to be hypoxic to 89% on room air. He is unable to give any hx due to his mental condition. #Acute RUL and RML bibasilar Pneumonia On Rocephin/Flagyl IV daily day # 4 continue ; Oxygen therapy-3L NC; aspiration precaution continue s/p swallowing evaluation by Malinda rojas. ID consulted ;Influenza and RSV negative , evaluated by speech and swallow, silent aspiration can not be excluded; [facility] consult consulted. s/p MBS by Malinda Rojas ; Diet Consistency: Regular (soft, cohesive, easy to chew. Chopped meats with extra gravy.) Liquids: Thin Liquids # 1.3cm left basilal subpleural nodule follow up needed as an outpatient # HTN Continue home meds # HLD Continue Lipitor # Asthma Duonebs, Singulair # Schizophrenia Continue home meds:Klonipin, Celexa, Depakote, seroquel DVT ppx: Lovenox Visit type - Emergency Visit Emergency Visit: Yes ED Registration Date: 04/18/16 Care time: The patient presented to the Emergency Department on the above date and was hospitalized for further evaluation of their emergent condition. - New Patient This patient is new to me today: No - Critical Care Critical Care patient: No
[2016-04-22] MEDS: ATORVASTATIN CA 10 MG TABLET (FP) PO SCH (21:35)
[2016-04-22] MEDS: QUEtiapine FUMARATE 100 MG TABLET (FP) PO SCH (21:35)
[2016-04-22] MEDS: MONTELUKAST NA 10 MG TABLET PO SCH (21:36)
[2016-04-23] MEDS: METRONIDAZOLE 500 MG PREMIXED 100 ML IVPB SCH ×3 (02:29→18:10)
[2016-04-23] MEDS: clonazePAM 0.5 MG TABLET PO SCH ×2 (06:13→15:11)
[2016-04-23] MEDS ORDERED: PT OWN MED DRAWER 7, Y5N ONE ×2 (09:51→18:08)
[2016-04-23] MEDS: RANITIDINE HCL 150 MG TABLET (FP) PO SCH (09:53)
[2016-04-23] MEDS: PANTOPRAZOLE 40 MG TABLET (FP) PO SCH (09:53)
[2016-04-23] MEDS: ENOXAPARIN NA (PORCINE) 40 MG/0.4 ML DISP.SYRIN SQ SCH (09:53)
[2016-04-23] MEDS: VALPROATE SODIUM 250 MG/5 ML UNIT DOSE CUP PO SCH ×3 (09:54→18:10)
[2016-04-23] MEDS: BENZTROPINE MESYLATE 1 MG TABLET (FP) PO SCH (09:54)
[2016-04-23] MEDS: CITALOPRAM HYDROBROMIDE 20 MG TABLET (FP) PO SCH (09:54)
--- NOTE | 2016-04-23 09:54 | PN ---
Teaching Attending Note Name of Resident: Flori Juarez ATTENDING PHYSICIAN STATEMENT I saw and evaluated the patient. I reviewed the resident's note and discussed the case with the resident. I agree with the resident's findings and plan as documented. Vital Signs Temperature 98 F 04/23/16 06:00 Pulse Rate 74 04/23/16 06:00 Respiratory Rate 20 04/23/16 06:00 Blood Pressure 126/74 04/23/16 06:00 O2 Sat by Pulse Oximetry (%) 95 04/22/16 21:00 CBCD WBC 16.3 K/mm3 (4.0-10.0) H 04/20/16 07:50 RBC 5.30 M/mm3 (4.00-5.60) 04/20/16 07:50 Hgb 10.0 GM/dL (11.7-16.9) L 04/20/16 07:50 Hct 32.2 % (35.4-49) L 04/20/16 07:50 MCV 60.8 fl (80-96) L 04/20/16 07:50 MCHC 31.0 g/dl (32.0-35.9) L 04/20/16 07:50 RDW 17.0 % (11.9-15.9) H 04/20/16 07:50 Plt Count 411 K/MM3 (134-434) 04/20/16 07:50 MPV 8.7 fl (7.5-11.1) 04/20/16 07:50 CMP Sodium 144 mmol/L (136-145) 04/21/16 07:50 Potassium 4.4 mmol/L (3.5-5.1) 04/21/16 07:50 Chloride 107 mmol/L (98-107) 04/21/16 07:50 Carbon Dioxide 31 mmol/L (21-32) 04/21/16 07:50 Anion Gap 6 (8-16) L 04/21/16 07:50 BUN 10 mg/dL (7-18) 04/21/16 07:50 Creatinine 0.3 mg/dL (0.7-1.3) L 04/21/16 07:50 Creat Clearance w eGFR > 60 (>60) 04/21/16 07:50 Random Glucose 118 mg/dL (74-106) H 04/21/16 07:50 Calcium 7.9 mg/dL (8.5-10.1) L 04/21/16 07:50 Total Bilirubin 0.2 mg/dL (0.2-1.0) D 04/21/16 07:50 AST 3 U/L (15-37) L D 04/21/16 07:50 ALT < 6 U/L (12-78) L 04/21/16 07:50 Alkaline Phosphatase 109 U/L (45-117) 04/21/16 07:50 Total Protein 5.4 g/dl (6.4-8.2) L 04/21/16 07:50 Albumin 2.3 g/dl (3.4-5.0) L 04/21/16 07:50 CARDIAC ENZYMES Creatine Kinase 57 IU/L (39-308) 04/18/16 18:40 Troponin I < 0.02 ng/ml (0.00-0.05) D 04/18/16 18:40 CBCD WBC 16.3 K/mm3 (4.0-10.0) H 04/20/16 07:50 RBC 5.30 M/mm3 (4.00-5.60) 04/20/16 07:50 Hgb 10.0 GM/dL (11.7-16.9) L 04/20/16 07:50 Hct 32.2 % (35.4-49) L 04/20/16 07:50 MCV 60.8 fl (80-96) L 04/20/16 07:50 MCHC 31.0 g/dl (32.0-35.9) L 04/20/16 07:50 RDW 17.0 % (11.9-15.9) H 04/20/16 07:50 Plt Count 411 K/MM3 (134-434) 04/20/16 07:50 MPV 8.7 fl (7.5-11.1) 04/20/16 07:50 CMP Sodium 144 mmol/L (136-145) 04/21/16 07:50 Potassium 4.4 mmol/L (3.5-5.1) 04/21/16 07:50 Chloride 107 mmol/L (98-107) 04/21/16 07:50 Carbon Dioxide 31 mmol/L (21-32) 04/21/16 07:50 Anion Gap 6 (8-16) L 04/21/16 07:50 BUN 10 mg/dL (7-18) 04/21/16 07:50 Creatinine 0.3 mg/dL (0.7-1.3) L 04/21/16 07:50 Creat Clearance w eGFR > 60 (>60) 04/21/16 07:50 Random Glucose 118 mg/dL (74-106) H 04/21/16 07:50 Calcium 7.9 mg/dL (8.5-10.1) L 04/21/16 07:50 Total Bilirubin 0.2 mg/dL (0.2-1.0) D 04/21/16 07:50 AST 3 U/L (15-37) L D 04/21/16 07:50 ALT < 6 U/L (12-78) L 04/21/16 07:50 Alkaline Phosphatase 109 U/L (45-117) 04/21/16 07:50 Total Protein 5.4 g/dl (6.4-8.2) L 04/21/16 07:50 Albumin 2.3 g/dl (3.4-5.0) L 04/21/16 07:50 CARDIAC ENZYMES Creatine Kinase 57 IU/L (39-308) 04/18/16 18:40 Troponin I < 0.02 ng/ml (0.00-0.05) D 04/18/16 18:40 Current Medications Generic Name Dose Route Start Last Admin Trade Name Freq PRN Reason Stop Dose Admin Acetaminophen 650 mg 04/19/16 15:45 04/19/16 16:00 Tylenol - PO 650 mg Q4H PRN Administration FEVER OR PAIN Albuterol/Ipratropium 1 amp 04/18/16 23:06 04/19/16 04:00 Duoneb - NEB 1 amp Q4H PRN Administration SHORTNESS OF BREATH Albuterol/Ipratropium 1 amp 04/19/16 10:00 04/22/16 22:32 Duoneb - NEB 1 amp BID INEZ Administration Atorvastatin Calcium 10 mg 04/19/16 22:00 04/22/16 21:35 Lipitor - PO 10 mg HS INEZ Administration Benztropine Mesylate 1 mg 04/19/16 10:00 04/22/16 21:35 Cogentin - PO 1 mg BID INEZ Administration Citalopram Hydrobromide 40 mg 04/19/16 10:00 04/22/16 09:55 Celexa - PO 40 mg DAILY INEZ Administration Clonazepam 0.5 mg 04/19/16 06:00 04/23/16 06:13 Klonopin - PO 0.5 mg TID INEZ Administration Enoxaparin Sodium 40 mg 04/19/16 10:00 04/22/16 09:55 Lovenox - SQ 40 mg DAILY INEZ Administration Sodium Chloride 1,000 mls @ 75 mls/hr 04/18/16 23:15 04/22/16 10:35 Normal Saline - IV 75 mls/hr ASDIR INEZ Administration Ceftriaxone Sodium 100 mls @ 200 mls/hr 04/19/16 12:00 04/22/16 09:55 Rocephin 2gm Ivpb (Pre-Docked) IVPB 200 mls/hr DAILY INEZ Administration Metronidazole 100 mls @ 100 mls/hr 04/19/16 12:00 04/23/16 02:29 Flagyl 500mg Premixed Ivpb - IVPB 100 mls/hr Q8H-IV INEZ Administration Montelukast Sodium 10 mg 04/19/16 22:00 04/22/16 21:36 Singulair - PO 10 mg HS INEZ Administration Pantoprazole Sodium 40 mg 04/19/16 10:00 04/22/16 09:55 Protonix - PO 40 mg DAILY INEZ Administration Quetiapine Fumarate 100 mg 04/19/16 22:00 04/22/16 21:35 Seroquel - PO 100 mg HS INEZ Administration Ranitidine HCl 150 mg 04/19/16 10:00 04/22/16 09:55 Zantac - PO 150 mg DAILY INEZ Administration Sodium Chloride 250 ml 04/18/16 18:41 Normal Saline - IV Q20M PRN MAP<65mm Hg OR SBP <90 Valproate Sodium 250 mg 04/20/16 23:00 04/22/16 21:35 Depakene - PO 250 mg QID INEZ Administration Home Medications Medication Instructions Recorded Albuterol 0.083% Nebulizer Margo 1 neb NEB BID 04/18/16 [Ventolin 0.083%] Benztropine Mesylate [Cogentin -] 1 mg PO BID 04/18/16 Citalopram Hydrobromide [Celexa -] 40 mg PO DAILY 04/18/16 Clonazepam 0.5 mg PO TID 04/18/16 Divalproex *ER* [Depakote *ER* -] 500 mg PO BID 04/18/16 Fenofibrate Nanocrystallized 145 mg PO BID 04/18/16 [Tricor] Haloperidol Injection [Haldol 5 mg IM MONTHLY 04/18/16 *Injection*] Ipratropium 0.02% Nebulizer 0.5 mg IH BID 04/18/16 [Atrovent *Nebulizer*] Montelukast Na [Singulair -] 10 mg PO HS 04/18/16 Pantoprazole Sodium [Protonix] 40 mg PO DAILY 04/18/16 Quetiapine Fumarate [Seroquel] 100 mg PO HS 04/18/16 Ranitidine HCl [Zantac] 150 mg PO DAILY 04/18/16 Simvastatin 10 mg PO HS 04/18/16 Chest X-Ray reviewed; no acute pathology CT of the chest: RUL, RML bibasilar infiltrate. 1.3cm left basila subpleural nodule ASSESSMENT AND PLAN: Patient is a 61 yo M with a PMHx of HTN, HLD, asthma, mild MR, Hep C and schizophrenia presents with SOB found to be hypoxic to 89% on room air. He is unable to give any hx due to his mental condition. #Acute RUL and RML bibasilar Pneumonia On Rocephin/Flagyl IV daily day # 5 today , Patient ie feeling better, going to rehab center, wiil continue with oral antibiotic Ceftin. Diet recommendations as per Malinda rojas who evaluated the patient for swallowing to r/o aspiration causes since patient can have silent aspiration s/p MBS .Influenza and RSV negative, Continue Avelino, Josueb Pulmonary consult consulted. As per Malinda Rojas ; Diet Consistency: Regular (soft, cohesive, easy to chew. Chopped meats with extra gravy.) Liquids: Thin Liquids # 1.3cm left basilal subpleural nodule follow up needed as an outpatient within one month # HTN Continue home meds # HLD Continue Lipitor # Asthma Duonebs, Singulair # Schizophrenia Continue home meds:Klonipin, Celexa, Depakote, seroquel DVT ppx: Lovenox
[2016-04-23 10:31] LABS: MCH 18.9 pg (25.7-33.7); MCHC 31.4 g/dl (32.0-35.9); MEAN CELL VOLUME 60.1 fl (80-96); MEAN PLT VOLUME 8.5 fl (7.5-11.1); PLATELET COUNT 426 K/MM3 (134-434); RDW 17.1 % (11.9-15.9); WHITE BLOOD COUNT 11.8 K/mm3 (4.0-10.0)
[2016-04-23] MEDS: CEFTRIAXONE 100 ML IVPB SCH (10:59)
[2016-04-23] MEDS: ALBUTEROL SO4 2.5/IPRATROPIUM 0.5 INH SOL 3 ML VIAL.NEB. NEB SCH (11:00)
[2016-04-23 11:17] LABS: ALBUMIN 2.5 g/dl (3.4-5.0); ALK PHOS 107 U/L (45-117); ANION GAP 8 (8-16); BILIRUBIN,TOTAL 0.4 mg/dL (0.2-1.0); CALCIUM 8.3 mg/dL (8.5-10.1); CO2 32 mmol/L (21-32); CREATININE 0.4 mg/dL (0.7-1.3); GLUCOSE,RANDOM 124 mg/dL (74-106); SGOT/AST 8 U/L (15-37); SGPT/ALT 9 U/L (12-78); TOT PROT 5.6 g/dl (6.4-8.2)
--- NOTE | 2016-04-23 11:31 | PN ---
Progress Note, Physician History of Present Illness: Awake, alert No complaints Denies dyspnea/ chest pain/ cough No fever/ chills WBC improved - Current Medication List Current Medications: Active Medications Acetaminophen (Tylenol -) 650 mg PO Q4H PRN PRN Reason: FEVER OR PAIN Last Admin: 04/19/16 16:00 Dose: 650 mg Albuterol/Ipratropium (Duoneb -) 1 amp NEB Q4H PRN PRN Reason: SHORTNESS OF BREATH Last Admin: 04/19/16 04:00 Dose: 1 amp Albuterol/Ipratropium (Duoneb -) 1 amp NEB BID [facility] Last Admin: 04/23/16 11:00 Dose: 1 amp Atorvastatin Calcium (Lipitor -) 10 mg PO HS [facility] Last Admin: 04/22/16 21:35 Dose: 10 mg Benztropine Mesylate (Cogentin -) 1 mg PO BID [facility] Last Admin: 04/23/16 09:54 Dose: 1 mg Citalopram Hydrobromide (Celexa -) 40 mg PO DAILY [facility] Last Admin: 04/23/16 09:54 Dose: 40 mg Clonazepam (Klonopin -) 0.5 mg PO TID [facility] Last Admin: 04/23/16 06:13 Dose: 0.5 mg Enoxaparin Sodium (Lovenox -) 40 mg SQ DAILY [facility] Last Admin: 04/23/16 09:53 Dose: 40 mg Sodium Chloride (Normal Saline -) 1,000 mls @ 75 mls/hr IV ASDIR [facility] Last Admin: 04/22/16 10:35 Dose: 75 mls/hr Ceftriaxone Sodium (Rocephin 2gm Ivpb (Pre-Docked)) 100 mls @ 200 mls/hr IVPB DAILY [facility] Last Admin: 04/23/16 10:59 Dose: 200 mls/hr Metronidazole (Flagyl 500mg Premixed Ivpb -) 100 mls @ 100 mls/hr IVPB Q8H-IV [facility] Last Admin: 04/23/16 09:53 Dose: 100 mls/hr Montelukast Sodium (Singulair -) 10 mg PO HS [facility] Last Admin: 04/22/16 21:36 Dose: 10 mg Pantoprazole Sodium (Protonix -) 40 mg PO DAILY [facility] Last Admin: 04/23/16 09:53 Dose: 40 mg Quetiapine Fumarate (Seroquel -) 100 mg PO HS [facility] Last Admin: 04/22/16 21:35 Dose: 100 mg Ranitidine HCl (Zantac -) 150 mg PO DAILY [facility] Last Admin: 04/23/16 09:53 Dose: 150 mg Sodium Chloride (Normal Saline -) 250 ml IV Q20M PRN PRN Reason: MAP<65mm Hg OR SBP <90 Valproate Sodium (Depakene -) 250 mg PO QID [facility] Last Admin: 04/23/16 09:54 Dose: 250 mg - Objective Vital Signs: Vital Signs Temperature 98 F 04/23/16 06:00 Pulse Rate 93 H 04/23/16 11:24 Respiratory Rate 20 04/23/16 06:00 Blood Pressure 126/74 04/23/16 06:00 O2 Sat by Pulse Oximetry (%) 97 04/23/16 11:24 Constitutional: Yes: No Distress Eyes: Yes: Conjunctiva Clear Cardiovascular: Yes: Regular Rate and Rhythm, S1, S2 Respiratory: Yes: Diminished Gastrointestinal: Yes: Normal Bowel Sounds, Soft. No: Tenderness Edema: No Labs: CBC, BMP 04/23/16 10:10 INR, PTT INR 1.34 (0.82-1.09) H 04/19/16 06:30 Assessment/Plan RML pneumonia, possible aspiration Possible sepsis secondary to pneumonia Leukocytosis- improved PCN allergy Substitute levaquin 500mg po daily x 7days
[2016-04-23 11:41] LABS: PLATELET ESTIMATE ADEQUATE (NORMAL)
[2016-04-23 11:47] LABS: ANISOCYTOSIS 4+; HYPOCHROMIA 2+; MICROCYTOSIS 2+; POLYCHROMASIA FEW
[2016-04-23 11:48] LABS: TARGET CELLS 1+; TEAR DROP CELLS FEW
--- NOTE | 2016-04-23 15:27 | PN ---
Progress Note (short form) - Note Progress Note: ,No acute events overnight. Some congested cough. No CP. Intake & Output 04/20/16 04/21/16 04/22/16 04/23/16 23:59 23:59 23:59 23:59 Intake Total 1550 1800 1400 Balance 1550 1800 1400 Last Vital Signs Temp Pulse Resp BP Pulse Ox 97.8 F 93 H 20 123/72 97 04/23/16 08:00 04/23/16 11:24 04/23/16 08:00 04/23/16 08:00 04/23/16 11:24 Active Medications Acetaminophen (Tylenol -) 650 mg PO Q4H PRN PRN Reason: FEVER OR PAIN Last Admin: 04/19/16 16:00 Dose: 650 mg Albuterol/Ipratropium (Duoneb -) 1 amp NEB Q4H PRN PRN Reason: SHORTNESS OF BREATH Last Admin: 04/19/16 04:00 Dose: 1 amp Albuterol/Ipratropium (Duoneb -) 1 amp NEB BID [facility] Last Admin: 04/23/16 11:00 Dose: 1 amp Atorvastatin Calcium (Lipitor -) 10 mg PO HS [facility] Last Admin: 04/22/16 21:35 Dose: 10 mg Benztropine Mesylate (Cogentin -) 1 mg PO BID [facility] Last Admin: 04/23/16 09:54 Dose: 1 mg Citalopram Hydrobromide (Celexa -) 40 mg PO DAILY [facility] Last Admin: 04/23/16 09:54 Dose: 40 mg Clonazepam (Klonopin -) 0.5 mg PO TID [facility] Last Admin: 04/23/16 15:11 Dose: 0.5 mg Enoxaparin Sodium (Lovenox -) 40 mg SQ DAILY [facility] Last Admin: 04/23/16 09:53 Dose: 40 mg Sodium Chloride (Normal Saline -) 1,000 mls @ 75 mls/hr IV ASDIR [facility] Last Admin: 04/22/16 10:35 Dose: 75 mls/hr Ceftriaxone Sodium (Rocephin 2gm Ivpb (Pre-Docked)) 100 mls @ 200 mls/hr IVPB DAILY [facility] Last Admin: 04/23/16 10:59 Dose: 200 mls/hr Metronidazole (Flagyl 500mg Premixed Ivpb -) 100 mls @ 100 mls/hr IVPB Q8H-IV [facility] Last Admin: 04/23/16 09:53 Dose: 100 mls/hr Montelukast Sodium (Singulair -) 10 mg PO [facility] Last Admin: 04/22/16 21:36 Dose: 10 mg Pantoprazole Sodium (Protonix -) 40 mg PO DAILY [facility] Last Admin: 04/23/16 09:53 Dose: 40 mg Quetiapine Fumarate (Seroquel -) 100 mg PO HS [facility] Last Admin: 04/22/16 21:35 Dose: 100 mg Ranitidine HCl (Zantac -) 150 mg PO DAILY [facility] Last Admin: 04/23/16 09:53 Dose: 150 mg Sodium Chloride (Normal Saline -) 250 ml IV Q20M PRN PRN Reason: MAP<65mm Hg OR SBP <90 Valproate Sodium (Depakene -) 250 mg PO QID [facility] Last Admin: 04/23/16 15:06 Dose: 250 mg Constitutional: Yes: NAD Eyes: Yes: WNL HENT: Yes: WNL Neck: Yes: WNL Cardiovascular: Yes: Regular Rate and Rhythm, S1, S2 Respiratory: Yes: few basilar rhonchi Gastrointestinal: Yes: WNL Extremities: Yes: WNL Edema: No Labs: Laboratory Results - last 24 hr 04/23/16 04/23/16 10:10 10:10 WBC 11.8 H RBC 6.41 H D Hgb 12.1 D Hct 38.5 D MCV 60.1 L MCHC 31.4 L RDW 17.1 H Plt Count 426 MPV 8.5 Neutrophils % 77.0 Lymphocytes % 11.0 D Monocytes % 4.0 Nucleated RBCs 1 H Differential Comment Manual diff done Reactive Lymphocytes 7 Platelet Estimate Adequate Polychromasia Few Hypochromic-Microcytic 2+ Basophilic Stippling Few Anisocytosis 4+ Microcytosis 2+ Macrocytosis Few Target Cells 1+ Tear Drop Cells Few Sodium 139 Potassium 3.8 Chloride 99 Carbon Dioxide 32 Anion Gap 8 BUN 11 Creatinine 0.4 L D Creat Clearance w eGFR > 60 Random Glucose 124 H Calcium 8.3 L Total Bilirubin 0.4 D AST 8 L D ALT 9 L D Alkaline Phosphatase 107 Total Protein 5.6 L Albumin 2.5 L Problem List - Problems (1) HAP (hospital-acquired pneumonia) Code(s): J18.9 - PNEUMONIA, UNSPECIFIED ORGANISM (2) Shortness of breath Code(s): R06.02 - SHORTNESS OF BREATH (3) Anemia Code(s): D64.9 - ANEMIA, UNSPECIFIED Qualifiers: Anemia type: iron deficiency (4) DVT prophylaxis Code(s): [id number] - (5) PNA (pneumonia) Code(s): J18.9 - PNEUMONIA, UNSPECIFIED ORGANISM Qualifiers: Pneumonia type: due to unspecified organism (6) Respiratory distress Code(s): R06.00 - DYSPNEA, UNSPECIFIED (7) Schizo-affective schizophrenia, chronic condition Code(s): F25.8 - OTHER SCHIZOAFFECTIVE DISORDERS (8) Asthma Code(s): J45.909 - UNSPECIFIED ASTHMA, UNCOMPLICATED (9) GERD (gastroesophageal reflux disease) Code(s): K21.9 - GASTRO-ESOPHAGEAL REFLUX DISEASE WITHOUT ESOPHAGITIS (10) Mental retardation Code(s): F79 - UNSPECIFIED INTELLECTUAL DISABILITIES (11) Schizophrenia Code(s): F20.9 - SCHIZOPHRENIA, UNSPECIFIED Problem List - Problems (1) HAP (hospital-acquired pneumonia) Code(s): J18.9 - PNEUMONIA, UNSPECIFIED ORGANISM (2) Shortness of breath Code(s): R06.02 - SHORTNESS OF BREATH (3) Anemia Code(s): D64.9 - ANEMIA, UNSPECIFIED Qualifiers: Anemia type: iron deficiency (4) DVT prophylaxis Code(s): [id number] - (5) PNA (pneumonia) Code(s): J18.9 - PNEUMONIA, UNSPECIFIED ORGANISM Qualifiers: Pneumonia type: due to unspecified organism (6) Respiratory distress Code(s): R06.00 - DYSPNEA, UNSPECIFIED (7) Schizo-affective schizophrenia, chronic condition Code(s): F25.8 - OTHER SCHIZOAFFECTIVE DISORDERS (8) Asthma Code(s): J45.909 - UNSPECIFIED ASTHMA, UNCOMPLICATED (9) GERD (gastroesophageal reflux disease) Code(s): K21.9 - GASTRO-ESOPHAGEAL REFLUX DISEASE WITHOUT ESOPHAGITIS (10) Mental retardation Code(s): F79 - UNSPECIFIED INTELLECTUAL DISABILITIES (11) Schizophrenia Code(s): F20.9 - SCHIZOPHRENIA, UNSPECIFIED Assessment/Plan IMP PNEUMONIA ASTHMA MR HTN HLD SCHIZOPHRENIA PLAN IV ANTIBIOTICS PER ID O2 INHALED BRONCHODILATORS ASPIRATION PRECAUTIONS DR SALCEDO
--- NOTE | 2016-04-23 17:49 | DS ---
Physical Exam: SUBJECTIVE: Patient seen and examined. He is felling better today. He states that he is coughing less than before and SOB improved. He denies chest pain, fever. OBJECTIVE: Vital Signs Period Temp Pulse Resp BP Sys/Perez Pulse Ox Last 24 Hr 97.4 F-98 F 73-96 20-20 107-137/72-96 95-97 PHYSICAL EXAM GENERAL: The patient is awake, alert, and fully oriented, in no acute distress, MR. HEAD: Normal with no signs of trauma. EYES:extraocular movements intact, sclera anicteric, conjunctiva clear. ENT: Ears normal, nares patent, oropharynx clear without exudates, moist mucous membranes. NECK: Trachea midline, full range of motion, supple. LUNGS: Breath sounds equal, crackles and rhonchi bilaterally, no crackles, no accessory muscle use. HEART: Regular rate and rhythm, S1, S2 without murmur, rub or gallop. ABDOMEN: Soft, nontender, nondistended, normoactive bowel sounds, no guarding, no rebound, no hepatosplenomegaly, no masses. EXTREMITIES: no edema. NEUROLOGICAL: Normal speech, gait not observed, no facial asymmetry. PSYCH: Normal mood, normal affect. SKIN: Warm, dry, normal turgor, no rashes or lesions noted. LABS Laboratory Results - last 24 hr 04/23/16 04/23/16 10:10 10:10 WBC 11.8 H RBC 6.41 H D Hgb 12.1 D Hct 38.5 D MCV 60.1 L MCHC 31.4 L RDW 17.1 H Plt Count 426 MPV 8.5 Neutrophils % 77.0 Lymphocytes % 11.0 D Monocytes % 4.0 Nucleated RBCs 1 H Differential Comment Manual diff done Reactive Lymphocytes 7 Platelet Estimate Adequate Polychromasia Few Hypochromic-Microcytic 2+ Basophilic Stippling Few Anisocytosis 4+ Microcytosis 2+ Macrocytosis Few Target Cells 1+ Tear Drop Cells Few Sodium 139 Potassium 3.8 Chloride 99 Carbon Dioxide 32 Anion Gap 8 BUN 11 Creatinine 0.4 L D Creat Clearance w eGFR > 60 Random Glucose 124 H Calcium 8.3 L Total Bilirubin 0.4 D AST 8 L D ALT 9 L D Alkaline Phosphatase 107 Total Protein 5.6 L Albumin 2.5 L HOSPITAL COURSE: Date of Admission:04/18/16 Date of Discharge: 04/23/16 Minutes to complete discharge: 50 Discharge Summary Reason For Visit: SHORTNESS OF BREATH Current Active Problems DVT prophylaxis (Acute) HAP (hospital-acquired pneumonia) (Acute) Leukocytosis (Acute) Respiratory distress (Acute) Shortness of breath (Acute) Hospital Course: Patient is a 61 yo M with a PMHx of HTN, HLD, asthma, mild MR, Hep C and schizophrenia presents with SOB found to be hypoxic to 89% on room air. He is unable to give any hx due to his mental condition. Hospital course; Pneumonia: Chest X-Ray showed no acute pathology, CT chest: Right upper lobe, right middle lobe and bibasilar infiltrates are noted. A 1.3 cm left basilar subpleural nodule described on a previous CT study of 01/04/2016 is obscured on the current exam due to an infiltrate in the same region. Correlate with 3 month follow-up CT to document stability/resolution. He was started on Rocephin and Flagyl, we cont. Oxygen therapy-3L NC; aspiration precaution continue s/p swallowing evaluation, ID consulted, ;Influenza and RSV negative, Singulair, Duoneb, Solu-medrol for 2 days, Pulmonary consulted, speech and swallow evaluation, MBS, diet Consistency: Regular (soft, cohesive, easy to chew. Chopped meats with extra gravy.) Liquids: Thin Liquids. 1.3cm left basilal subpleural nodule follow up needed as an outpatient. HTN Continue home meds, HLD Continue Lipitor, Asthma Duonebs, Singulair Schizophrenia continued home meds: Klonipin, Celexa, Depakote, seroquel. He improved clinically, and was discharged to rehabilitation center on antibiotics: Ceftin for 7 days and to f/u with PCP, Pulmonary and ID. Condition: Stable - Instructions Diet, Activity, Other Instructions: Please see your primary care physician in a week. Take your antibiotics twice a day for a week. If your symptoms worsen come back to Emergency Room as soon as possible. Referrals: Sean Dutton [Primary Care Provider] - Jeramie Ham MD [Staff Physician] - Zachariah Boston MD [Staff Physician] - Disposition: LONGTERM FACILITY - Home Medications Comprehensive Discharge Medication List: Ambulatory Orders Albuterol 0.083% Nebulizer Margo [Ventolin 0.083% Nebulizer Soln -] 1 neb NEB BID 04/18/16 Benztropine Mesylate [Cogentin -] 1 mg PO BID 04/18/16 Citalopram Hydrobromide [Celexa -] 40 mg PO DAILY 04/18/16 Clonazepam 0.5 mg PO TID 04/18/16 Divalproex *ER* [Depakote *ER* -] 500 mg PO BID 04/18/16 Fenofibrate Nanocrystallized [Tricor] 145 mg PO BID 04/18/16 Haloperidol Injection [Haldol Injection (Fast Acting) -] 5 mg IM MONTHLY Ipratropium 0.02% Nebulizer [Atrovent 0.02% Nebulizer -] 0.5 mg IH BID 04/18/16 Montelukast Na [Singulair -] 10 mg PO HS 04/18/16 Pantoprazole Sodium [Protonix] 40 mg PO DAILY 04/18/16 Quetiapine Fumarate [Seroquel] 100 mg PO HS 04/18/16 Ranitidine HCl [Zantac] 150 mg PO DAILY 04/18/16 Simvastatin 10 mg PO HS 04/18/16 Cefuroxime Axetil [Ceftin -] 500 mg PO Q12H #14 tablet 04/23/16 Problem List - Problems (1) Shortness of breath Code(s): R06.02 - SHORTNESS OF BREATH (2) DVT prophylaxis Code(s): [id number] - (3) Leukocytosis Code(s): D72.829 - ELEVATED WHITE BLOOD CELL COUNT, UNSPECIFIED (4) Mental retardation Code(s): F79 - UNSPECIFIED INTELLECTUAL DISABILITIES (5) Schizophrenia Code(s): F20.9 - SCHIZOPHRENIA, UNSPECIFIED (6) Aspiration pneumonia Code(s): J69.0 - PNEUMONITIS DUE TO INHALATION OF FOOD AND VOMIT This patient is new to me today: No Emergency Visit: Yes ED Registration Date: 04/18/16 Care time: The patient presented to the Emergency Department on the above date and was hospitalized for further evaluation of their emergent condition. Critical Care patient: No - Discharge Referral [facility]erred [facility] Med [facility] No
[2016-04-23 18:30] VITALS: BP 123/86; PULSE 97; TEMP 98.4
== END 2016-04-23 18:59 | DRG 871 ==
LOC: JER 18:02 → JERBED 21:28 → J6S 04-19 00:31
PROVIDERS: ADMIT Internal Medicine; ATTEND Internal Medicine
DX: A41.9 Sepsis, unspecified organism (principal); J69.0 Pneumonitis due to inhalation of food and vomit; I10 Essential (primary) hypertension; E78.5 Hyperlipidemia, unspecified; J45.909 Unspecified asthma, uncomplicated; F20.9 Schizophrenia, unspecified; B19.20 Unspecified viral hepatitis C without hepatic coma; F70 Mild intellectual disabilities; Z88.0 Allergy status to penicillin; K21.9 Gastro-esophageal reflux disease without esophagitis; D64.9 Anemia, unspecified; R91.1 Solitary pulmonary nodule
CPT/HCPCS: 36415; 71010-TC; 71250-TC; 74230-TC; 80048; 80053; 81003; 81015; 82550; 82803; 83605; 83735; 84100; 84443; 84484; 85025; 85610; 85730; 86850; 86900; 86901; 87040; 87086; 87254; 87804; 92611-GN; 93005; 93010; 94640; 97116-GP; 97161-GP; 99285-25

== ENCOUNTER 2016-07-23 15:32 | Inpatient (IN) | payer OTHER ==
[2016-07-23] MEDS ORDERED: ACETAMINOPHEN 325 MG TABLET (FP) PO ONE (16:07)
--- NOTE | 2016-07-23 16:08 | PDOC ---
History of Present Illness - General Chief Complaint: SIRS, Suspected/Possible Stated Complaint: FEVER COUGH Time Seen by Provider: 07/23/16 16:05 History Source: Patient, Old Records Exam Limitations: No Limitations - History of Present Illness Initial Comments: 07/23/16 16:08 CHIEF COMPLAINT: Fever HISTORY OF PRESENT ILLNESS: This is a 61 year old male with a history of HTN, HLD, asthma, Hep C, schizophrenia, and admission in April of this year with multi-lobar PNA sent from his psychiatric assisted living facility with 3 days of productive cough, shortness of breath, and fever. He has chest pain with coughing/deep breathing but denies chest pain at rest. He denies calf pain and hemoptysis. V/s on arrival are notable for temp 102, P 106, and SpO2 85% on RA. REVIEW OF SYSTEMS: GENERAL/CONSTITUTIONAL: Fevers, chills. No weakness. No weight change. HEAD, EYES, EARS, NOSE AND THROAT: No change in vision. No ear pain or discharge. No sore throat. CARDIOVASCULAR: Chest pain with coughing/deep breathing. No palpitations. RESPIRATORY: Productive cough, wheezing, shortness of breath. GASTROINTESTINAL: No nausea, vomiting, diarrhea or constipation. GENITOURINARY: No dysuria, frequency, or change in urination. MUSCULOSKELETAL: No joint or muscle swelling or pain. No neck or back pain. SKIN: No rash or easy bruising. NEUROLOGIC: No headache, vertigo, loss of consciousness, or loss of sensation. PSYCHIATRIC: History of schizophrenia. ENDOCRINE: No increased thirst. No abnormal weight change. HEMATOLOGIC/LYMPHATIC: No anemia, easy bleeding, or history of blood clots. ALLERGIC/IMMUNOLOGIC: PCN allergy. PHYSICAL EXAM: GENERAL: The patient is awake, alert, and fully oriented, in respiratory distress. ENT: Pupils equal, round and reactive to light, extraocular movements intact, sclera anicteric, conjunctiva clear. Neck supple. LUNGS: Tachypneic. Diffuse expiratory wheezing with diminished air entry bilaterally, scattered ronchi. CV: RRR, S1/S2, no MRG. Cap refill < 2 sec. ABDOMEN: Soft, non-distended, non-tender. EXTREMITIES: Normal range of motion, no edema. NEUROLOGICAL: Normal speech. CN II-XII grossly intact. PSYCH: Normal mood, normal affect. SKIN: Warm, dry, normal turgor, no rashes or lesions noted. Past History - Past Medical History Allergies/Adverse Reactions: Allergies Allergy/AdvReac Type Severity Reaction Status Date / Time Penicillins Allergy Verified 07/23/16 17:38 seafood Allergy Unknown Uncoded 07/23/16 17:38 chocolate Allergy Uncoded 07/23/16 17:38 fish Allergy Uncoded 07/23/16 17:38 peanuts Allergy Uncoded 07/23/16 17:38 Home Medications: Ambulatory Orders Albuterol 0.083% Nebulizer Margo [Ventolin 0.083% Nebulizer Soln -] 1 neb NEB BID 04/18/16 Benztropine Mesylate [Cogentin -] 1 mg PO BID 04/18/16 Citalopram Hydrobromide [Celexa -] 20 mg PO DAILY 04/18/16 Clonazepam 0.5 mg PO TID 04/18/16 Divalproex *ER* [Depakote *ER* -] 500 mg PO BID 04/18/16 Haloperidol Injection [Haldol Injection (Fast Acting) -] 75 mg IM MONTHLY Ipratropium 0.02% Nebulizer [Atrovent 0.02% Nebulizer -] 0.5 mg IH BID 04/18/16 Montelukast Na [Singulair -] 10 mg PO HS 04/18/16 Pantoprazole Sodium [Protonix] 40 mg PO DAILY 04/18/16 Quetiapine Fumarate [Seroquel] 100 mg PO HS 04/18/16 Simvastatin 10 mg PO HS 04/18/16 Anemia: Yes Asthma: Yes Cardiac Disorders: Yes (unstable angina) COPD: Yes GI Disorders: Yes (GERD) Hypercholesterolemia: Yes Liver Disease: Yes (hepatitis C) Psychiatric Problems: Yes (SCHIZOPHRENIA) - Surgical History Orthopedic Surgery: Yes (L HIP) - Psycho/Social/Smoking Cessation Hx Anxiety: No Suicidal Ideation: No Smoking Status: No Smoking History: Never smoked Have you smoked in the past 12 months: No Number of Cigarettes Smoked Daily: 0 Information on smoking cessation initiated: No Hx Alcohol Use: No Drug/Substance Use Hx: No Substance Use Type: None *Physical Exam - Vital Signs Last Vital Signs Temp Pulse Resp BP Pulse Ox 102 F H 106 H 20 109/71 85 L 07/23/16 15:45 07/23/16 15:45 07/23/16 15:45 07/23/16 15:45 07/23/16 15:45 ED Treatment Course - LABORATORY CBC & Chemistry Diagram: 07/23/16 16:09 07/23/16 16:09 - RADIOLOGY Radiology Studies Ordered: Category Date Time Status CHEST X-RAY PORTABLE* [RAD] Stat Radiology 07/23/16 16:05 Ordered Medical Decision Making - Medical Decision Making 07/23/16 18:42 A/P: 61 year old male with sepsis (suspect pulmonary source) and asthma exacerbation. 1. Supplemental oxygen 2. Sepsis labs and shaw-culture 3. DuoNeb followed by albuterol nebs 4. SoluMedrol 125mg IVPB 5. IVF 6. EKG 7. Anticipate admission CXR: no infiltrate. Clinically suspect PNA and will treat with Levaquin. Became agitated; Haldol 2mg IM ordered but not given as patient became calm on his own. *DC/Admit/Observation/Transfer Diagnosis at time of Disposition: Exacerbation of asthma, Hypoxia Sepsis Qualifiers: Sepsis type: sepsis due to unspecified organism Qualified Code(s): A41.9 - Sepsis, unspecified organism Upper respiratory tract infection Qualifiers: Pharyngitis/tonsillitis etiology: unspecified etiology - Discharge Dispostion Condition at time of disposition: Guarded Admit: Yes
[2016-07-23] MEDS ORDERED: ACETAMINOPHEN 325 MG TABLET (FP) ONE (16:17)
[2016-07-23] MEDS ORDERED: methylPREDNISolone NA SUCC 125 MG/2 ML VIAL IVPB ONE (16:21)
[2016-07-23] MEDS ORDERED: ALBUTEROL SO4 2.5/IPRATROPIUM 0.5 INH SOL 3 ML VIAL.NEB. NEB ONE ×2 (16:21→17:13)
[2016-07-23] MEDS: ALBUTEROL SO4 0.083% IH SOL 2.5 MG/3 ML VIAL.NEB. NEB SCH ×3 (16:25→17:21)
[2016-07-23 16:55] LABS: VENOUS BLOOD GAS HCO3 30.6 meq/L (19-25); VENOUS PH 7.41 (7.32-7.42)
[2016-07-23 17:04] LABS: BASOPHIL 0.5 % (0-2.0); EOSINOPHIL 0.4 % (0-4.5); MCHC 31.5 g/dl (32.0-35.9); MEAN CELL VOLUME 61.5 fl (80-96); MEAN PLT VOLUME 9.1 fl (7.5-11.1); NEUTROPHILS 71.8 % (42.8-82.8); PLATELET COUNT 258 K/MM3 (134-434); WHITE BLOOD COUNT 9.1 K/mm3 (4.0-10.0)
[2016-07-23 17:08] LABS: MCH 19.4 pg (25.7-33.7)
[2016-07-23] MEDS ORDERED: methylPREDNISolone NA SUCC 125 MG/2 ML VIAL ONE (17:13)
[2016-07-23] MEDS ORDERED: ALBUTEROL SO4 0.083% IH SOL 2.5 MG/3 ML VIAL.NEB. NEB ONE (17:13)
[2016-07-23 17:21] LABS: INR 1.09 (0.82-1.09)
[2016-07-23 17:23] LABS: ACTIVATED PTT 34.2 SECONDS (26.9-34.4)
[2016-07-23 17:37] LABS: ALBUMIN 3.3 g/dl (3.4-5.0); ANION GAP 9 (8-16); BILIRUBIN,TOTAL 0.3 mg/dL (0.2-1.0); CALCIUM 8.6 mg/dL (8.5-10.1); CO2 31 mmol/L (21-32); COCKROFT - GAULT 106.64; CREATININE 0.7 mg/dL (0.7-1.3); GLUCOSE,RANDOM 89 mg/dL (74-106); SGOT/AST 16 U/L (15-37); SGPT/ALT 12 U/L (12-78); TOT PROT 6.7 g/dl (6.4-8.2)
[2016-07-23 17:39] LABS: ALK PHOS 106 U/L (45-117); TROPONIN I < 0.02 ng/ml (0.00-0.05)
[2016-07-23] MEDS ORDERED: HALOPERIDOL DECANOATE 100 MG/ML IM ONE (17:45)
[2016-07-23] MEDS ORDERED: HALOPERIDOL LACTATE 5 MG/ML IM ONE (17:48)
[2016-07-23] MEDS ORDERED: LEVOFLOXACIN 750 MG IVPB 150 ML IVPB ONE ×2 (18:41→18:52)
[2016-07-23 20:12] LABS: PLATELET ESTIMATE ADEQUATE (NORMAL)
[2016-07-23 20:13] LABS: HYPOCHROMIA 2+; MICROCYTOSIS 2+
[2016-07-23] MEDS ORDERED: clonazePAM 0.5 MG TABLET PO ONE (20:33)
[2016-07-23] MEDS ORDERED: clonazePAM 0.5 MG TABLET ONE (20:36)
--- NOTE | 2016-07-23 21:43 | HP ---
Admitting History and Physical - Primary Care Physician PCP: Laura Ortiz - Admission History of Present Illness: CHIEF COMPLAINT: Fever a 61 year old male with a history of HTN, HLD, asthma, Hep C, schizophrenia, and admission in April of this year with multi-lobar PNA sent from his psychiatric assisted living facility with 3 days of productive cough, shortness of breath, and fever. He has chest pain with coughing/deep breathing but denies chest pain at rest. He denies calf pain and hemoptysis. V/s on arrival in er are notable for temp 102, P 106, and SpO2 85% on RA. 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 No: Other (many ER visits here -. persantine sestamibi on 11/02/11 was normal. Echo was unremarkable) Pulmonary: Yes: Asthma Heme/Onc: Yes: Anemia - Past Surgical History Past Surgical History: Yes: Joint Replacement (december left hip) - Smoking History Smoking history: Never smoked Have you smoked in the past 12 months: No Aproximately how many cigarettes per day: 0 - Alcohol/Substance Use Hx Alcohol Use: No History of Substance Use: reports: None - Social History ADL: Support Services History of Recent Travel: No Home Medications - Allergies Allergies/Adverse Reactions: Allergies Allergy/AdvReac Type Severity Reaction Status Date / Time Penicillins Allergy Verified 07/23/16 17:38 seafood Allergy Unknown Uncoded 07/23/16 17:38 chocolate Allergy Uncoded 07/23/16 17:38 fish Allergy Uncoded 07/23/16 17:38 peanuts Allergy Uncoded 07/23/16 17:38 - Home Medications Home Medications: Ambulatory Orders Albuterol 0.083% Nebulizer Margo [Ventolin 0.083% Nebulizer Soln -] 1 neb NEB BID 04/18/16 Benztropine Mesylate [Cogentin -] 1 mg PO BID 04/18/16 Citalopram Hydrobromide [Celexa -] 20 mg PO DAILY 04/18/16 Clonazepam 0.5 mg PO TID 04/18/16 Divalproex *ER* [Depakote *ER* -] 500 mg PO BID 04/18/16 Haloperidol Injection [Haldol Injection (Fast Acting) -] 75 mg IM MONTHLY Ipratropium 0.02% Nebulizer [Atrovent 0.02% Nebulizer -] 0.5 mg IH BID 04/18/16 Montelukast Na [Singulair -] 10 mg PO HS 04/18/16 Pantoprazole Sodium [Protonix] 40 mg PO DAILY 04/18/16 Quetiapine Fumarate [Seroquel] 100 mg PO HS 04/18/16 Simvastatin 10 mg PO HS 04/18/16 Physical Examination Vital Signs: Vital Signs Temperature 102 F H 07/23/16 15:45 Pulse Rate 84 07/23/16 19:25 Respiratory Rate 20 07/23/16 19:25 Blood Pressure 103/70 07/23/16 19:25 O2 Sat by Pulse Oximetry (%) 98 07/23/16 19:25 Constitutional: Yes: No Distress HENT: Yes: Atraumatic Neck: Yes: Supple Cardiovascular: Yes: Regular Rate and Rhythm Respiratory: Yes: CTA Bilaterally Gastrointestinal: Yes: Normal Bowel Sounds Extremities: Yes: WNL Neurological: Yes: Alert, Oriented Problem List - Problems (1) Asthma exacerbation Assessment/Plan: duo nebs iv steroids pulmonary on the case Code(s): J45.901 - UNSPECIFIED ASTHMA WITH (ACUTE) EXACERBATION (2) Hypoxia Assessment/Plan: monitor Code(s): R09.02 - HYPOXEMIA (3) Sepsis Assessment/Plan: iv abx cxs sernt id consult Code(s): A41.9 - SEPSIS, UNSPECIFIED ORGANISM Qualifiers: Sepsis type: sepsis due to unspecified organism Qualified Code(s): A41.9 - Sepsis, unspecified organism (4) Upper respiratory infection Code(s): J06.9 - ACUTE UPPER RESPIRATORY INFECTION, UNSPECIFIED Qualifiers: Pharyngitis/tonsillitis etiology: unspecified etiology (5) Aspiration pneumonia Code(s): J69.0 - PNEUMONITIS DUE TO INHALATION OF FOOD AND VOMIT Assessment/Plan Laboratory Tests 07/23/16 07/23/16 07/23/16 16:08 16:09 16:09 WBC 9.1 RBC 5.73 H Hgb 11.1 L Hct 35.3 L MCV 61.5 L MCHC 31.5 L RDW 17.0 H Plt Count 258 D MPV 9.1 Neutrophils % 71.8 Lymphocytes % 19.9 D Monocytes % 7.4 D Eosinophils % 0.4 D Basophils % 0.5 D Differential Comment Slide scanned Platelet Estimate Adequate Hypochromic-Microcytic 2+ Microcytosis 2+ INR 1.09 PTT (Actin FS) 34.2 VBG pH POC VBG pCO2 POC VBG pO2 Mixed VBG HCO3 Sodium 135 L Potassium 4.3 Chloride 95 L Carbon Dioxide 31 Anion Gap 9 BUN 11 Creatinine 0.7 D Creat Clearance w eGFR > 60 Random Glucose 89 D Lactic Acid Calcium 8.6 Total Bilirubin 0.3 D AST 16 D ALT 12 D Alkaline Phosphatase 106 Creatine Kinase 27 L Troponin I < 0.02 Total Protein 6.7 Albumin 3.3 L D Blood Type Antibody Screen 07/23/16 07/23/16 07/23/16 16:09 16:09 16:44 WBC RBC Hgb Hct MCV MCHC RDW Plt Count MPV Neutrophils % Lymphocytes % Monocytes % Eosinophils % Basophils % Differential Comment Platelet Estimate Hypochromic-Microcytic Microcytosis INR PTT (Actin FS) VBG pH 7.41 POC VBG pCO2 48.3 POC VBG pO2 36.1 Mixed VBG HCO3 30.6 H Sodium Potassium Chloride Carbon Dioxide Anion Gap BUN Creatinine Creat Clearance w eGFR Random Glucose Lactic Acid 1.5 Calcium Total Bilirubin AST ALT Alkaline Phosphatase Creatine Kinase Troponin I Total Protein Albumin Blood Type O POSITIVE Antibody Screen Negative
[2016-07-24] MEDS: DIVALPROEX NA *ER* EXTEND REL 500 MG TABLET.SA (FP) PO SCH ×3 (00:38→22:51)
[2016-07-24] MEDS: BENZTROPINE MESYLATE 1 MG TABLET (FP) PO SCH ×3 (00:38→22:51)
[2016-07-24] MEDS: ATORVASTATIN CA 10 MG TABLET (FP) PO SCH ×2 (00:39→21:35)
[2016-07-24] MEDS: QUEtiapine FUMARATE 100 MG TABLET (FP) PO SCH ×2 (00:39→21:35)
[2016-07-24] MEDS: clonazePAM 0.5 MG TABLET PO SCH ×4 (00:39→21:35)
[2016-07-24] MEDS: MONTELUKAST NA 10 MG TABLET PO SCH ×2 (00:41→21:36)
[2016-07-24] MEDS: methylPREDNISolone NA SUCC 40 MG/1 ML VIAL IVPB SCH ×4 (00:41→17:40)
[2016-07-24] MEDS ORDERED: methylPREDNISolone NA SUCC 40 MG/1 ML VIAL ONE (05:50)
[2016-07-24] MEDS ORDERED: clonazePAM 0.5 MG TABLET ONE (06:29)
[2016-07-24 06:33] LABS: BASOPHIL 0.3 % (0-2.0); MEAN CELL VOLUME 62.1 fl (80-96); MEAN PLT VOLUME 9.2 fl (7.5-11.1); NEUTROPHILS 75.3 % (42.8-82.8); PLATELET COUNT 278 K/MM3 (134-434); RDW 17.4 % (11.9-15.9); WHITE BLOOD COUNT 7.1 K/mm3 (4.0-10.0)
[2016-07-24 06:40] LABS: MCH 19.3 pg (25.7-33.7)
[2016-07-24] MEDS ORDERED: CITALOPRAM HYDROBROMIDE PO SCH (10:00)
[2016-07-24] MEDS: LEVOFLOXACIN 500 MG IVPB 100 ML IVPB SCH (10:37)
[2016-07-24] MEDS: PANTOPRAZOLE 40 MG TABLET (FP) PO SCH (10:37)
--- NOTE | 2016-07-24 11:10 | HP ---
Admitting History and Physical - Primary Care Physician PCP: Caprice Burger - Admission History of Present Illness: HISTORY OF PRESENT ILLNESS: This is a 61 year old male with a history of HTN, HLD, asthma, Hep C, schizophrenia, and admission in April of this year with multi-lobar PNA sent from his psychiatric assisted living facility with 3 days of productive cough, shortness of breath, and fever. He has chest pain with coughing/deep breathing but denies chest pain at rest. He denies calf pain and hemoptysis. V/s on arrival are notable for temp 102, P 106, and SpO2 85% on RA. 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 No: Other (many ER visits here -. persantine sestamibi on 11/02/11 was normal. Echo was unremarkable) Pulmonary: Yes: Asthma Heme/Onc: Yes: Anemia - Past Surgical History Past Surgical History: Yes: Joint Replacement (december left hip) - Smoking History Smoking history: Never smoked Have you smoked in the past 12 months: No Aproximately how many cigarettes per day: 0 - Alcohol/Substance Use Hx Alcohol Use: No History of Substance Use: reports: None - Social History ADL: Support Services History of Recent Travel: No Home Medications - Allergies Allergies/Adverse Reactions: Allergies Allergy/AdvReac Type Severity Reaction Status Date / Time Penicillins Allergy Verified 07/23/16 17:38 seafood Allergy Unknown Uncoded 07/23/16 17:38 chocolate Allergy Uncoded 07/23/16 17:38 fish Allergy Uncoded 07/23/16 17:38 peanuts Allergy Uncoded 07/23/16 17:38 - Home Medications Home Medications: Ambulatory Orders Albuterol 0.083% Nebulizer Margo [Ventolin 0.083% Nebulizer Soln -] 1 neb NEB BID 04/18/16 Benztropine Mesylate [Cogentin -] 1 mg PO BID 04/18/16 Citalopram Hydrobromide [Celexa -] 20 mg PO DAILY 04/18/16 Clonazepam 0.5 mg PO TID 04/18/16 Divalproex *ER* [Depakote *ER* -] 500 mg PO BID 04/18/16 Haloperidol Injection [Haldol Injection (Fast Acting) -] 75 mg IM MONTHLY Ipratropium 0.02% Nebulizer [Atrovent 0.02% Nebulizer -] 0.5 mg IH BID 04/18/16 Montelukast Na [Singulair -] 10 mg PO HS 04/18/16 Pantoprazole Sodium [Protonix] 40 mg PO DAILY 04/18/16 Quetiapine Fumarate [Seroquel] 100 mg PO HS 04/18/16 Simvastatin 10 mg PO HS 04/18/16 Review of Systems - Review of Systems Respiratory: reports: Cough Physical Examination Vital Signs: Vital Signs Temperature 98.4 F 07/24/16 06:40 Pulse Rate 82 07/24/16 06:40 Respiratory Rate 18 07/24/16 06:40 Blood Pressure 108/77 07/24/16 06:40 O2 Sat by Pulse Oximetry (%) 98 07/24/16 06:48 Findings/Remarks: fever trending down Constitutional: Yes: Calm, Thin Cardiovascular: Yes: Regular Rate and Rhythm, S1, S2 Respiratory: Yes: Diminished (on left side) Gastrointestinal: Yes: Normal Bowel Sounds, Soft Edema: No Labs: CBC, BMP 07/24/16 06:15 07/24/16 10:00 Problem List - Problems (1) Hypoxia Assessment/Plan: h/o asthma sec to bronchitis nasal oxygen iv steroids pulm ID abx Code(s): R09.02 - HYPOXEMIA (2) Asthma exacerbation Assessment/Plan: iv sterods bronchodilators Code(s): J45.901 - UNSPECIFIED ASTHMA WITH (ACUTE) EXACERBATION (3) Schizophrenia Assessment/Plan: psych eval depakote seroquel and klonopin Code(s): F20.9 - SCHIZOPHRENIA, UNSPECIFIED (4) Hyperlipidemia Assessment/Plan: statin Code(s): E78.5 - HYPERLIPIDEMIA, UNSPECIFIED
[2016-07-24 11:40] LABS: ALBUMIN 3.2 g/dl (3.4-5.0); ALK PHOS 104 U/L (45-117); ANION GAP 9 (8-16); BILIRUBIN,TOTAL 0.4 mg/dL (0.2-1.0); CALCIUM 8.8 mg/dL (8.5-10.1); CO2 30 mmol/L (21-32); CREATININE 0.5 mg/dL (0.7-1.3); GLUCOSE,RANDOM 135 mg/dL (74-106); SGOT/AST 10 U/L (15-37); SGPT/ALT 11 U/L (12-78); TOT PROT 7.2 g/dl (6.4-8.2)
--- NOTE | 2016-07-24 11:46 | EKG ---
Test Reason : Blood Pressure : / mmHG Vent. Rate : 104 BPM Atrial Rate : 104 BPM P-R Int : 134 ms QRS Dur : 100 ms QT Int : 342 ms P-R-T Axes : 050 012 057 degrees QTc Int : 449 ms SINUS TACHYCARDIA OTHERWISE NORMAL ECG WHEN COMPARED WITH ECG OF 18-APR-2016 18:26, NO SIGNIFICANT CHANGE WAS FOUND BASELINE ARTIFACT Confirmed by RAY SINGH MD ([id number]) on 07/24/2016 11:46:16 AM Referred By: Confirmed By:RAY SINGH MD
--- NOTE | 2016-07-24 12:06 | CON.PULM ---
Consult Consult Specialty:: PULMONARY Referred by:: HENRI Jones Reason for Consultation:: r/o pneumonia - History of Present Illness Chief Complaint: fever History of Present Illness: 61yo male with h/o HTN, asthma, hyperlipidemia, Hep C, schizophrenia who was sent from his residential for fevers and cough. Denies any chest pain or palpitations. Denies sick contacts at the home. +nonproductive cough but without wheezing. No nausea, vomiting or diarrhea. Noted to be febrile to 102 upon admission and hypoxic to 85% on room air. He does not use oxygen at home. Reports being a never smoker, does not use inhalers on a regular basis. 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 No: Other (many ER visits here -. persantine sestamibi on 11/02/11 was normal. Echo was unremarkable) Pulmonary: Yes: Asthma - Past Surgical History Past Surgical History: Yes: Joint Replacement (december left hip) - Alcohol/Substance Use Hx Alcohol Use: No History of Substance Use: reports: None - Smoking History Smoking history: Never smoked Have you smoked in the past 12 months: No Aproximately how many cigarettes per day: 0 - Social History Usual Living Arrangement: Longterm ADL: Support Services History of Recent Travel: No Home Medications - Allergies Allergies/Adverse Reactions: Allergies Allergy/AdvReac Type Severity Reaction Status Date / Time Penicillins Allergy Verified 07/23/16 17:38 seafood Allergy Unknown Uncoded 07/23/16 17:38 chocolate Allergy Uncoded 07/23/16 17:38 fish Allergy Uncoded 07/23/16 17:38 peanuts Allergy Uncoded 07/23/16 17:38 - Home Medications Home Medications: Ambulatory Orders Albuterol 0.083% Nebulizer Margo [Ventolin 0.083% Nebulizer Soln -] 1 neb NEB BID 04/18/16 Benztropine Mesylate [Cogentin -] 1 mg PO BID 04/18/16 Citalopram Hydrobromide [Celexa -] 20 mg PO DAILY 04/18/16 Clonazepam 0.5 mg PO TID 04/18/16 Divalproex *ER* [Depakote *ER* -] 500 mg PO BID 04/18/16 Haloperidol Injection [Haldol Injection (Fast Acting) -] 75 mg IM MONTHLY Ipratropium 0.02% Nebulizer [Atrovent 0.02% Nebulizer -] 0.5 mg IH BID 04/18/16 Montelukast Na [Singulair -] 10 mg PO HS 04/18/16 Pantoprazole Sodium [Protonix] 40 mg PO DAILY 04/18/16 Quetiapine Fumarate [Seroquel] 100 mg PO HS 04/18/16 Simvastatin 10 mg PO HS 04/18/16 Review of Systems - Review of Systems Constitutional: reports: Chills, Fever, Malaise Eyes: denies: Recent Change in Vision HENT: denies: Nasal Congestion, Throat Pain Neck: denies: Stiffness, Tenderness Cardiovascular: denies: Chest Pain, Palpitations, Shortness of Breath Respiratory: reports: Cough. denies: Hemoptysis, SOB, SOB on Exertion Gastrointestinal: denies: Abdominal Pain, Diarrhea, Nausea, Vomiting Genitourinary: denies: Dysuria, Hematuria Neurological: denies: Dizziness, Headache Physical Exam Vital Sings: Vital Signs Temperature 98.4 F 07/24/16 06:40 Pulse Rate 80 07/24/16 09:05 Respiratory Rate 20 07/24/16 09:05 Blood Pressure 112/66 07/24/16 09:05 O2 Sat by Pulse Oximetry (%) 100 07/24/16 09:05 Constitutional: Yes: Calm Eyes: Yes: Conjunctiva Clear, EOM Intact HENT: Yes: Atraumatic, Normocephalic Neck: Yes: Supple, Trachea Midline Cardiovascular: Yes: Regular Rate and Rhythm Respiratory: Yes: Regular, CTA Bilaterally ...Clubbing: No Gastrointestinal: Yes: Normal Bowel Sounds, Soft. No: Tenderness Edema: No Neurological: Yes: Alert, Oriented Labs: CBC, BMP 07/24/16 06:15 07/24/16 10:00 Imaging - Results Chest X-ray: Report Reviewed, Image Reviewed (no infiltrates) Problem List - Problems (1) Fever Code(s): R50.9 - FEVER, UNSPECIFIED (2) Upper respiratory infection Code(s): J06.9 - ACUTE UPPER RESPIRATORY INFECTION, UNSPECIFIED Qualifiers: Pharyngitis/tonsillitis etiology: unspecified etiology (3) Asthma exacerbation Code(s): J45.901 - UNSPECIFIED ASTHMA WITH (ACUTE) EXACERBATION (4) Hypertension Code(s): I10 - ESSENTIAL (PRIMARY) HYPERTENSION (5) Schizophrenia Code(s): F20.9 - SCHIZOPHRENIA, UNSPECIFIED Assessment/Plan Fever URI vs Viral Syndrome Acute Asthma Exacerbation HTN Schizophrenia - empiric antibiotics - f/u cultures - flu swab - O2 to keep SpO2 >90% - inhaled bronchodilators - medrol, can start taper in AM if improving - DVT prophylaxis Thank you for this consult Hudson Taylor MD
[2016-07-24 14:40] VITALS: BMI 25.9
[2016-07-24 14:57] LABS: URINE APPEARANCE CLEAR; URINE BILIRUBIN NEGATIVE (NEGATIVE); URINE BLOOD NEGATIVE (NEGATIVE); URINE COLOR LTYELLOW; URINE GLUCOSE (UA) NEGATIVE (NEGATIVE); URINE KETONE NEGATIVE (NEGATIVE); URINE LEUK ESTERASE NEGATIVE (NEGATIVE); URINE NITRITE NEGATIVE (NEGATIVE); URINE PROTEIN NEGATIVE (NEGATIVE); URINE UROBILINOGEN NEGATIVE E.U./dl (0.2-1.0)
--- NOTE | 2016-07-24 16:15 | CONSULT ---
Consult Consult Specialty:: infectious diseases Reason for Consultation:: breathing difficuilty/fever.cough - History of Present Illness Chief Complaint: sob,cough History of Present Illness: 61 year old male with a history of HTN, HLD, asthma, Hep C, schizophrenia, and admission in April of this year with multi-lobar PNA sent from his psychiatric assisted living facility with 3 days of productive cough, shortness of breath, and fever. He has chest pain with coughing/deep breathing but denies chest pain at rest. 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 No: Other (many ER visits here -. persantine sestamibi on 11/02/11 was normal. Echo was unremarkable) Pulmonary: Yes: Asthma - Past Surgical History Past Surgical History: Yes: Joint Replacement (december left hip) - Alcohol/Substance Use Hx Alcohol Use: No History of Substance Use: reports: None - Smoking History Smoking history: Never smoked Have you smoked in the past 12 months: No Aproximately how many cigarettes per day: 0 - Social History Usual Living Arrangement: Senior Care ADL: Support Services History of Recent Travel: No Home Medications - Allergies Allergies/Adverse Reactions: Allergies Allergy/AdvReac Type Severity Reaction Status Date / Time Penicillins Allergy Verified 07/23/16 17:38 seafood Allergy Unknown Uncoded 07/23/16 17:38 chocolate Allergy Uncoded 07/23/16 17:38 fish Allergy Uncoded 07/23/16 17:38 peanuts Allergy Uncoded 07/23/16 17:38 - Home Medications Home Medications: Ambulatory Orders Albuterol 0.083% Nebulizer Margo [Ventolin 0.083% Nebulizer Soln -] 1 neb NEB BID 04/18/16 Benztropine Mesylate [Cogentin -] 1 mg PO BID 04/18/16 Citalopram Hydrobromide [Celexa -] 20 mg PO DAILY 04/18/16 Clonazepam 0.5 mg PO TID 04/18/16 Divalproex *ER* [Depakote *ER* -] 500 mg PO BID 04/18/16 Haloperidol Injection [Haldol Injection (Fast Acting) -] 75 mg IM MONTHLY Ipratropium 0.02% Nebulizer [Atrovent 0.02% Nebulizer -] 0.5 mg IH BID 04/18/16 Montelukast Na [Singulair -] 10 mg PO HS 04/18/16 Pantoprazole Sodium [Protonix] 40 mg PO DAILY 04/18/16 Quetiapine Fumarate [Seroquel] 100 mg PO HS 04/18/16 Simvastatin 10 mg PO HS 04/18/16 Review of Systems - Review of Systems Constitutional: reports: Fever Eyes: reports: No Symptoms HENT: reports: No Symptoms Neck: reports: No Symptoms Cardiovascular: reports: No Symptoms Respiratory: reports: Cough, SOB, SOB on Exertion, Other Gastrointestinal: reports: No Symptoms Genitourinary: reports: No Symptoms Musculoskeletal: reports: No Symptoms Integumentary: reports: No Symptoms Neurological: reports: No Symptoms Endocrine: reports: No Symptoms Hematology/Lymphatic: reports: No Symptoms Psychiatric: reports: No Symptoms Physical Exam Vital Signs: Vital Signs Temperature 98.4 F 07/24/16 14:32 Pulse Rate 87 07/24/16 14:32 Respiratory Rate 20 07/24/16 14:32 Blood Pressure 111/76 07/24/16 14:32 O2 Sat by Pulse Oximetry (%) 100 07/24/16 09:05 Constitutional: Yes: Well Nourished, No Distress, Calm Cardiovascular: Yes: Regular Rate and Rhythm Respiratory: Yes: Regular, Poor Air Entry (bases) Gastrointestinal: Yes: Normal Bowel Sounds, Soft Musculoskeletal: Yes: WNL Extremities: Yes: WNL Neurological: Yes: Alert, Oriented Psychiatric: Yes: Alert Labs: CBC, BMP 07/24/16 06:15 07/24/16 10:00 Imaging - Results Chest X-ray: Report Reviewed, Image Reviewed Assessment/Plan - Problems (1) Fever Code(s): R50.9 - FEVER, UNSPECIFIED (2) Upper respiratory infection Code(s): J06.9 - ACUTE UPPER RESPIRATORY INFECTION, UNSPECIFIED Qualifiers: Pharyngitis/tonsillitis etiology: unspecified etiology (3) Asthma exacerbation Code(s): J45.901 - UNSPECIFIED ASTHMA WITH (ACUTE) EXACERBATION (4) Hypertension Code(s): I10 - ESSENTIAL (PRIMARY) HYPERTENSION (5) Schizophrenia Code(s): F20.9 - SCHIZOPHRENIA, UNSPECIFIED patient lung sound pretty clear with xray showing no findings plan continue empiric abx await for all cx reports once we ahve the reports then we will decide further rest as per primary team
--- NOTE | 2016-07-24 18:19 | PN ---
Mental Health Exam - Mental Status Exam Alert and Oriented to: Time, Place, Person Cognitive Function: Grossly Intact Patient Appearance: Disheveled Mood: Anxious ("want to go home"), Apprehensive Affect: Mood Congruent, Flat, Constricted Patient Behavior: Passive, Fatigued, Fearful, Appropriate, Cooperative Speech Pattern: Clear, Appropriate Voice Loudness: Mildly Soft/Quiet Thought Process: Goal Oriented ("when am i go ing home") Thought Disorder: Not Present Hallucinations: Denies (In past admits to , "eyes all around looking at me") Suicidal Ideation: Denies, No Plan Homicidal Ideation: Denies, No Plan Insight/Judgement: Fair Sleep: Fair Appetite: Weight loss (food tray not eaten) Muscle strength/Tone: Normal Gait/Station: Deferred
--- NOTE | 2016-07-24 18:38 | PN ---
Progress Note, Physician Chief Complaint: Client is admitted from [facility] [address], under care of Dr Moore. Client Co Cough, fever, treatment with antibiotics, last here in april for multiple lobe pneumonia. - Current Medication List Current Medications: Active Medications Acetaminophen (Tylenol -) 650 mg PO Q6H PRN PRN Reason: FEVER OR PAIN Albuterol/Ipratropium (Duoneb -) 1 amp NEB Q4H PRN PRN Reason: SHORTNESS OF BREATH Atorvastatin Calcium (Lipitor -) 10 mg PO HS [facility] Last Admin: 07/24/16 00:39 Dose: Not Given Benztropine Mesylate (Cogentin -) 1 mg PO BID [facility] Last Admin: 07/24/16 10:37 Dose: 1 mg Clonazepam (Klonopin -) 0.5 mg PO TID [facility] Last Admin: 07/24/16 14:55 Dose: 0.5 mg Divalproex Sodium (Depakote *Er* -) 500 mg PO BID [facility] Last Admin: 07/24/16 10:37 Dose: 500 mg Heparin Sodium (Porcine) (Heparin -) 5,000 unit SQ BID [facility] Levofloxacin (Levaquin 500 Mg Premixed Ivpb -) 100 mls @ 100 mls/hr IVPB DAILY [facility] Last Admin: 07/24/16 10:37 Dose: 100 mls/hr Methylprednisolone Sodium Succinate (Solu-Medrol -) 60 mg IVPB Q8H-IV [facility] Last Admin: 07/24/16 17:40 Dose: 60 mg Montelukast Sodium (Singulair -) 10 mg PO [facility] Last Admin: 07/24/16 00:41 Dose: Not Given Pantoprazole Sodium (Protonix -) 40 mg PO DAILY [facility] Last Admin: 07/24/16 10:37 Dose: 40 mg Quetiapine Fumarate (Seroquel -) 100 mg PO HS [facility] Last Admin: 07/24/16 00:39 Dose: Not Given - Objective Vital Signs: Vital Signs Temperature 98.4 F 07/24/16 14:32 Pulse Rate 87 07/24/16 14:32 Respiratory Rate 20 07/24/16 14:32 Blood Pressure 111/76 07/24/16 14:32 O2 Sat by Pulse Oximetry (%) 100 07/24/16 14:30 Labs: CBC, BMP 07/24/16 06:15 06/06/17 10:00 INR, PTT INR 1.09 (0.82-1.09) 07/23/16 16:08 Problem List - Problems (1) Chronic schizophrenia not affecting current episode of care Code(s): [id number] - (2) Schizo-affective schizophrenia, chronic condition Code(s): F25.8 - OTHER SCHIZOAFFECTIVE DISORDERS Assessment/Plan Mr [place] has chronic schizo affective disorder since early adulthood. Left school at 11th grade, admitted in [facility] in 1975, January 1979 and May 1981, and possible other admissions he does not recall. Alert and orientated by 3. He is keeping a daily diary that is very concrete in thought and syntax. Denies AH, VH SI at present but endorsed hearing voices in the past. Denies any substance use. Client maintained on Haldo deconate 75mg last depot a month ago, due pending conformation from his residence. Cogentin 1mg po bid. Citalopranm 20mg a day. Clonazepam 0.5mg po tid. Depakote 500mg po bid. Seroquel 100mg at night. Consider admin Haldol deconate 75mg monthly due. Order VAlporic acid level. Contine [id number] mg a day. May reduce benztropine 0.5 po bid, considering advancing age. discontinue seroquel 100mg. Plan to reduce seroquel to 75mgs. Continue klonopin 0.5mg po tid. thanks for the consult.
--- NOTE | 2016-07-24 20:03 | HOSP ---
Subjective - Review of Symptoms Events since last encounter: Paged regarding chest pain. Pt states he has developed new chest pain located in mid sternum that is sharp and 5/10 and comes and goes randomly. Upon further questioning pt states this pain has been there for more than 1 month. Pain does not radiate, is not associated with nausea or vomiting, or worsened with exertion, or changed with deep inspiration, nor is it described as a pressure like feeling. He does state that he does get diaphoretic sometimes when he gets this chest pain. At this time the chest pain has resolved on its own. Vital Signs Temperature 97.7 F 07/24/16 18:00 Pulse Rate 86 07/24/16 18:00 Respiratory Rate 20 07/24/16 18:00 Blood Pressure 108/68 07/24/16 18:00 O2 Sat by Pulse Oximetry (%) 100 07/24/16 14:30 PE: Gen: Awake, alert C/V: S1 S2+, RRR, no murmurs appreciated Resp: B/L diffuse coarse breath sounds anteriorly Extremities: 2+ DP pulses, no edema EKG: NSR @ 84 bpm, QTc [address] segment changes noted No significant changes noted from previous EKG on 07/23/16 A/P -Chest pain -unlikely to be ACS as pain is sharp, no radiation, not changed with exertion ; but will r/o ACS -EKG with no ST segment changes, no significant changes from previous EKG from 07/23/16 -Trops ordered stat and again at 2:30 am to trend Physical Examination Vital Signs: Vital Signs Temperature 97.7 F 07/24/16 18:00 Pulse Rate 86 07/24/16 18:00 Respiratory Rate 20 07/24/16 18:00 Blood Pressure 108/68 07/24/16 18:00 O2 Sat by Pulse Oximetry (%) 100 07/24/16 14:30 Labs: CBC, BMP 07/24/16 06:15 07/24/16 10:00 Visit type - Emergency Visit Emergency Visit: Yes ED Registration Date: 07/23/16 Care time: The patient presented to the Emergency Department on the above date and was hospitalized for further evaluation of their emergent condition. - New Patient This patient is new to me today: Yes Date on this admission: 07/24/16 - Critical Care Critical Care patient: No
[2016-07-24] MEDS ORDERED: QUEtiapine FUMARATE 50 MG TABLET ONE (21:16)
[2016-07-24] MEDS: HEPARIN NA (PORCINE) 5,000 UNITS/ML 1ML VIAL SQ SCH (21:34)
[2016-07-25] MEDS: methylPREDNISolone NA SUCC 40 MG/1 ML VIAL IVPB SCH ×2 (01:42→10:10)
[2016-07-25] MEDS: clonazePAM 0.5 MG TABLET PO SCH ×3 (06:16→21:05)
[2016-07-25 07:32] LABS: BASOPHIL 0.1 % (0-2.0); MCHC 31.8 g/dl (32.0-35.9); MEAN CELL VOLUME 62.3 fl (80-96); NEUTROPHILS 82.6 % (42.8-82.8); PLATELET COUNT 262 K/MM3 (134-434); RDW 17.2 % (11.9-15.9)
[2016-07-25 07:44] LABS: MCH 19.8 pg (25.7-33.7)
[2016-07-25 07:52] LABS: ANION GAP 8 (8-16); CALCIUM 8.4 mg/dL (8.5-10.1); CO2 31 mmol/L (21-32)
[2016-07-25 07:58] LABS: ALK PHOS 90 U/L (45-117); BILIRUBIN,TOTAL 0.2 mg/dL (0.2-1.0); COCKROFT - GAULT 141.46; CREATININE 0.5 mg/dL (0.7-1.3); GLUCOSE,RANDOM 121 mg/dL (74-106); SGOT/AST 10 U/L (15-37); SGPT/ALT 10 U/L (12-78); TOT PROT 6.7 g/dl (6.4-8.2)
[2016-07-25] MEDS ORDERED: HALOPERIDOL DECANOATE 100 MG/ML IM ONE (08:15)
--- NOTE | 2016-07-25 08:38 | PN ---
Progress Note, Physician - Current Medication List Current Medications: Active Medications Acetaminophen (Tylenol -) 650 mg PO Q6H PRN PRN Reason: FEVER OR PAIN Albuterol/Ipratropium (Duoneb -) 1 amp NEB Q4H PRN PRN Reason: SHORTNESS OF BREATH Atorvastatin Calcium (Lipitor -) 10 mg PO HS [facility] Last Admin: 07/24/16 21:35 Dose: 10 mg Benztropine Mesylate (Cogentin -) 1 mg PO BID [facility] Last Admin: 07/24/16 22:51 Dose: 1 mg Clonazepam (Klonopin -) 0.5 mg PO TID [facility] Last Admin: 07/25/16 06:16 Dose: 0.5 mg Divalproex Sodium (Depakote *Er* -) 500 mg PO BID [facility] Last Admin: 07/24/16 22:51 Dose: 500 mg Haloperidol Decanoate (Haldol Decanoate (Long-Acting) -) 75 mg IM ONCE ONE Stop: 07/25/16 08:16 Heparin Sodium (Porcine) (Heparin -) 5,000 unit SQ BID [facility] Last Admin: 07/24/16 21:34 Dose: 5,000 unit Levofloxacin (Levaquin 500 Mg Premixed Ivpb -) 100 mls @ 100 mls/hr IVPB DAILY [facility] Last Admin: 07/24/16 10:37 Dose: 100 mls/hr Methylprednisolone Sodium Succinate (Solu-Medrol -) 60 mg IVPB Q8H-IV [facility] Last Admin: 07/25/16 01:42 Dose: 60 mg Montelukast Sodium (Singulair -) 10 mg PO [facility] Last Admin: 07/24/16 21:36 Dose: 10 mg Pantoprazole Sodium (Protonix -) 40 mg PO DAILY [facility] Last Admin: 07/24/16 10:37 Dose: 40 mg Quetiapine Fumarate (Seroquel -) 100 mg PO [facility] Last Admin: 07/24/16 21:35 Dose: 100 mg - Objective Vital Signs: Vital Signs Temperature 97.7 F 07/24/16 18:00 Pulse Rate 76 07/24/16 22:00 Respiratory Rate 20 07/24/16 22:00 Blood Pressure 100/64 07/24/16 22:00 O2 Sat by Pulse Oximetry (%) 100 07/24/16 21:00 Cardiovascular: Yes: S1 Respiratory: Yes: Diminished, Rhonchi Gastrointestinal: Yes: Normal Bowel Sounds, Soft Neurological: Yes: Weakness Labs: CBC, BMP 07/25/16 06:30 07/25/16 06:30 INR, PTT INR 1.09 (0.82-1.09) 07/23/16 16:08 Assessment/Plan - Problems (1) Hypoxia Assessment/Plan: h/o asthma sec to bronchitis nasal oxygen iv steroids pulm ID abx Code(s): R09.02 - HYPOXEMIA (2) Asthma exacerbation Assessment/Plan: iv sterods bronchodilators Code(s): J45.901 - UNSPECIFIED ASTHMA WITH (ACUTE) EXACERBATION (3) Schizophrenia Assessment/Plan: psych eval depakote seroquel and klonopin haldol today Code(s): F20.9 - SCHIZOPHRENIA, UNSPECIFIED (4) Hyperlipidemia Assessment/Plan: statin Code(s): E78.5 - HYPERLIPIDEMIA, UNSPECIFIED
[2016-07-25] MEDS: BENZTROPINE MESYLATE 1 MG TABLET (FP) PO SCH ×2 (10:09→21:05)
[2016-07-25] MEDS: PANTOPRAZOLE 40 MG TABLET (FP) PO SCH (10:09)
[2016-07-25] MEDS: DIVALPROEX NA *ER* EXTEND REL 500 MG TABLET.SA (FP) PO SCH ×2 (10:09→21:05)
[2016-07-25] MEDS: LEVOFLOXACIN 500 MG IVPB 100 ML IVPB SCH (10:10)
[2016-07-25] MEDS: HEPARIN NA (PORCINE) 5,000 UNITS/ML 1ML VIAL SQ SCH ×2 (10:10→21:05)
--- NOTE | 2016-07-25 10:38 | PN ---
Progress Note (short form) - Note Progress Note: PULMONARY VSS/AFEBRILE PALE/ANICTERIC SCATTERED EXP RHONCHI S1S2 BS+ NO EDEMA LABS/CXR/MEDS/NOTES REVIEWED Fever down trending URI vs Viral Syndrome Acute Asthma Exacerbation HTN Schizophrenia - empiric antibiotics - f/u cultures - flu swab prelim negative - O2 to keep SpO2 >90% - inhaled bronchodilators - medrol, change to prednisone - DVT prophyl - CT chest Adarsh BRUCE MD
[2016-07-25] MEDS: predniSONE 20 MG TABLET (UD) PO SCH (11:38)
--- NOTE | 2016-07-25 16:41 | PN ---
Progress Note, Physician History of Present Illness: doing much better no new issues breathing much better - Current Medication List Current Medications: Active Medications Acetaminophen (Tylenol -) 650 mg PO Q6H PRN PRN Reason: FEVER OR PAIN Albuterol/Ipratropium (Duoneb -) 1 amp NEB Q4H PRN PRN Reason: SHORTNESS OF BREATH Atorvastatin Calcium (Lipitor -) 10 mg PO [facility] Last Admin: 07/24/16 21:35 Dose: 10 mg Benztropine Mesylate (Cogentin -) 1 mg PO BID [facility] Last Admin: 07/25/16 10:09 Dose: 1 mg Clonazepam (Klonopin -) 0.5 mg PO TID [facility] Last Admin: 07/25/16 13:54 Dose: 0.5 mg Divalproex Sodium (Depakote *Er* -) 500 mg PO BID [facility] Last Admin: 07/25/16 10:09 Dose: 500 mg Heparin Sodium (Porcine) (Heparin -) 5,000 unit SQ BID [facility] Last Admin: 07/25/16 10:10 Dose: 5,000 unit Levofloxacin (Levaquin 500 Mg Premixed Ivpb -) 100 mls @ 100 mls/hr IVPB DAILY [facility] Last Admin: 07/25/16 10:10 Dose: 100 mls/hr Montelukast Sodium (Singulair -) 10 mg PO [facility] Last Admin: 07/24/16 21:36 Dose: 10 mg Pantoprazole Sodium (Protonix -) 40 mg PO DAILY [facility] Last Admin: 07/25/16 10:09 Dose: 40 mg Prednisone (Deltasone -) 20 mg PO DAILY [facility] Last Admin: 07/25/16 11:38 Dose: Not Given Quetiapine Fumarate (Seroquel -) 100 mg PO [facility] Last Admin: 07/24/16 21:35 Dose: 100 mg - Objective Vital Signs: Vital Signs Temperature 98.1 F 07/25/16 09:02 Pulse Rate 94 H 07/25/16 09:02 Respiratory Rate 18 07/25/16 09:02 Blood Pressure 98/64 07/25/16 09:02 O2 Sat by Pulse Oximetry (%) 100 07/25/16 09:00 Constitutional: Yes: No Distress, Calm Cardiovascular: Yes: Regular Rate and Rhythm Respiratory: Yes: Regular, Rhonchi Gastrointestinal: Yes: Normal Bowel Sounds, Soft Musculoskeletal: Yes: WNL Extremities: Yes: WNL Neurological: Yes: Alert, Oriented Psychiatric: Yes: Alert Labs: CBC, BMP 07/25/16 06:30 07/25/16 06:30 INR, PTT INR 1.09 (0.82-1.09) 07/23/16 16:08 Assessment/Plan - Problems (1) Fever Code(s): R50.9 - FEVER, UNSPECIFIED (2) Upper respiratory infection Code(s): J06.9 - ACUTE UPPER RESPIRATORY INFECTION, UNSPECIFIED Qualifiers: Pharyngitis/tonsillitis etiology: unspecified etiology (3) Asthma exacerbation Code(s): J45.901 - UNSPECIFIED ASTHMA WITH (ACUTE) EXACERBATION (4) Hypertension Code(s): I10 - ESSENTIAL (PRIMARY) HYPERTENSION (5) Schizophrenia Code(s): F20.9 - SCHIZOPHRENIA, UNSPECIFIED patient lung sound pretty clear with xray showing no findings plan continue empiric abx cx reports negative so far patient improving might be able to stop abx
[2016-07-25] MEDS ORDERED: QUEtiapine FUMARATE 50 MG TABLET ONE (20:43)
[2016-07-25] MEDS: ATORVASTATIN CA 10 MG TABLET (FP) PO SCH (21:05)
[2016-07-25] MEDS: MONTELUKAST NA 10 MG TABLET PO SCH (21:06)
[2016-07-25] MEDS: QUEtiapine FUMARATE 100 MG TABLET (FP) PO SCH (21:06)
[2016-07-26] MEDS: clonazePAM 0.5 MG TABLET PO SCH ×3 (06:39→21:08)
[2016-07-26] MEDS ORDERED: PT OWN MED DRAWER 7, Y5N ONE ×3 (09:20→18:57)
[2016-07-26] MEDS: predniSONE 20 MG TABLET (UD) PO SCH (09:38)
[2016-07-26] MEDS: HEPARIN NA (PORCINE) 5,000 UNITS/ML 1ML VIAL SQ SCH ×2 (09:38→21:07)
[2016-07-26] MEDS: PANTOPRAZOLE 40 MG TABLET (FP) PO SCH (09:38)
[2016-07-26] MEDS: DIVALPROEX NA *ER* EXTEND REL 500 MG TABLET.SA (FP) PO SCH ×2 (09:39→21:27)
[2016-07-26] MEDS: BENZTROPINE MESYLATE 1 MG TABLET (FP) PO SCH (09:39)
[2016-07-26] MEDS: LEVOFLOXACIN 500 MG IVPB 100 ML IVPB SCH (09:40)
--- NOTE | 2016-07-26 10:53 | DS ---
Physical Examination Vital Signs: Vital Signs Temperature 97.5 F L 07/26/16 06:00 Pulse Rate 79 07/26/16 06:00 Respiratory Rate 18 07/26/16 06:00 Blood Pressure 108/65 07/26/16 06:00 O2 Sat by Pulse Oximetry (%) 100 07/25/16 21:00 Labs: CBC, BMP 07/25/16 06:30 07/25/16 06:30 Discharge Summary Reason For Visit: SEPSIS Current Active Problems Asthma exacerbation (Acute) Chronic schizophrenia not affecting current episode of care (Acute) Fever (Acute) Hypoxia (Acute) Schizo-affective schizophrenia, chronic condition (Acute) Sepsis (Acute) Upper respiratory infection (Acute) - Home Medications Comprehensive Discharge Medication List: Ambulatory Orders Albuterol 0.083% Nebulizer Margo [Ventolin 0.083% Nebulizer Soln -] 1 neb NEB BID 04/18/16 Benztropine Mesylate [Cogentin -] 1 mg PO BID 04/18/16 Citalopram Hydrobromide [Celexa -] 20 mg PO DAILY 04/18/16 Clonazepam 0.5 mg PO TID 04/18/16 Divalproex *ER* [Depakote *ER* -] 500 mg PO BID 04/18/16 Haloperidol Injection [Haldol Injection (Fast Acting) -] 75 mg IM MONTHLY Ipratropium 0.02% Nebulizer [Atrovent 0.02% Nebulizer -] 0.5 mg IH BID 04/18/16 Montelukast Na [Singulair -] 10 mg PO HS 04/18/16 Pantoprazole Sodium [Protonix] 40 mg PO DAILY 04/18/16 Quetiapine Fumarate [Seroquel] 100 mg PO HS 04/18/16 Simvastatin 10 mg PO HS 04/18/16
--- NOTE | 2016-07-26 11:49 | PN ---
Progress Note (short form) - Note Progress Note: PULMONARY Some shortness of breath but improving. Mild nonproductive cough. No further fevers. Last Vital Signs Temp Pulse Resp BP Pulse Ox 97.5 F L 79 18 108/65 100 07/26/16 06:00 07/26/16 06:00 07/26/16 06:00 07/26/16 06:00 07/25/16 21:00 Gen: NAD at rest Heart: RRR Lung: scattered rhonchi Abd: soft, nontender Ext: no edema CBC, BMP 07/25/16 06:30 07/25/16 06:30 Active Medications Acetaminophen (Tylenol -) 650 mg PO Q6H PRN PRN Reason: FEVER OR PAIN Albuterol/Ipratropium (Duoneb -) 1 amp NEB Q4H PRN PRN Reason: SHORTNESS OF BREATH Atorvastatin Calcium (Lipitor -) 10 mg PO [facility] Last Admin: 07/25/16 21:05 Dose: 10 mg Benztropine Mesylate (Cogentin -) 1 mg PO BID [facility] Last Admin: 07/26/16 09:39 Dose: 1 mg Clonazepam (Klonopin -) 0.5 mg PO TID [facility] Last Admin: 07/26/16 06:39 Dose: 0.5 mg Divalproex Sodium (Depakote *Er* -) 500 mg PO BID [facility] Last Admin: 07/26/16 09:39 Dose: 500 mg Heparin Sodium (Porcine) (Heparin -) 5,000 unit SQ BID [facility] Last Admin: 07/26/16 09:38 Dose: 5,000 unit Levofloxacin (Levaquin 500 Mg Premixed Ivpb -) 100 mls @ 100 mls/hr IVPB DAILY [facility] Last Admin: 07/26/16 09:40 Dose: 100 mls/hr Montelukast Sodium (Singulair -) 10 mg PO [facility] Last Admin: 07/25/16 21:06 Dose: 10 mg Pantoprazole Sodium (Protonix -) 40 mg PO DAILY [facility] Last Admin: 07/26/16 09:38 Dose: 40 mg Prednisone (Deltasone -) 20 mg PO DAILY [facility] Last Admin: 07/26/16 09:38 Dose: 20 mg Quetiapine Fumarate (Seroquel -) 100 mg PO [facility] Last Admin: 07/25/16 21:06 Dose: 100 mg A/P Fever URI vs Viral Syndrome Acute Asthma Exacerbation HTN Schizophrenia - complete empiric antibiotics - O2 to keep SpO2 >90% - inhaled bronchodilators - prednisone taper as outpt - DVT prophylaxis Problem List - Problems (1) Fever Code(s): R50.9 - FEVER, UNSPECIFIED (2) Upper respiratory infection Code(s): J06.9 - ACUTE UPPER RESPIRATORY INFECTION, UNSPECIFIED Qualifiers: Pharyngitis/tonsillitis etiology: unspecified etiology (3) Asthma exacerbation Code(s): J45.901 - UNSPECIFIED ASTHMA WITH (ACUTE) EXACERBATION (4) Hypertension Code(s): I10 - ESSENTIAL (PRIMARY) HYPERTENSION (5) Schizophrenia Code(s): F20.9 - SCHIZOPHRENIA, UNSPECIFIED
--- NOTE | 2016-07-26 13:05 | PN ---
Progress Note, Physician Chief Complaint: aprreicate psych note change po levaquin in AM psych meds adjusted - Current Medication List Current Medications: Active Medications Acetaminophen (Tylenol -) 650 mg PO Q6H PRN PRN Reason: FEVER OR PAIN Albuterol/Ipratropium (Duoneb -) 1 amp NEB Q4H PRN PRN Reason: SHORTNESS OF BREATH Atorvastatin Calcium (Lipitor -) 10 mg PO [facility] Last Admin: 07/25/16 21:05 Dose: 10 mg Benztropine Mesylate (Cogentin -) 0.5 mg PO BID [facility] Clonazepam (Klonopin -) 0.5 mg PO TID [facility] Last Admin: 07/26/16 06:39 Dose: 0.5 mg Divalproex Sodium (Depakote *Er* -) 500 mg PO BID [facility] Last Admin: 07/26/16 09:39 Dose: 500 mg Heparin Sodium (Porcine) (Heparin -) 5,000 unit SQ BID [facility] Last Admin: 07/26/16 09:38 Dose: 5,000 unit Montelukast Sodium (Singulair -) 10 mg PO [facility] Last Admin: 07/25/16 21:06 Dose: 10 mg Pantoprazole Sodium (Protonix -) 40 mg PO DAILY [facility] Last Admin: 07/26/16 09:38 Dose: 40 mg Prednisone (Deltasone -) 20 mg PO DAILY [facility] Last Admin: 07/26/16 09:38 Dose: 20 mg Quetiapine Fumarate (Seroquel -) 75 mg PO [facility] - Objective Vital Signs: Vital Signs Temperature 97.5 F L 07/26/16 06:00 Pulse Rate 79 07/26/16 12:25 Respiratory Rate 18 07/26/16 06:00 Blood Pressure 108/65 07/26/16 06:00 O2 Sat by Pulse Oximetry (%) 97 07/26/16 12:25 Constitutional: Yes: Calm Cardiovascular: Yes: Regular Rate and Rhythm, S1, S2 Respiratory: Yes: CTA Bilaterally Gastrointestinal: Yes: Soft Edema: No Neurological: Yes: Alert Labs: CBC, BMP 07/25/16 06:30 07/25/16 06:30 INR, PTT INR 1.09 (0.82-1.09) 07/23/16 16:08 Problem List - Problems (1) Hypoxia Assessment/Plan: improved h/o asthma- exacerbation sec to bronchitis nasal oxygen iv steroids change to po taper change abx to po dc in AM Code(s): R09.02 - HYPOXEMIA (2) Asthma exacerbation Code(s): J45.901 - UNSPECIFIED ASTHMA WITH (ACUTE) EXACERBATION (3) Schizophrenia Assessment/Plan: seroquel 75mg hs kolopin tid haldol once a month depakote bid Code(s): F20.9 - SCHIZOPHRENIA, UNSPECIFIED (4) Hyperlipidemia Assessment/Plan: statin Code(s): E78.5 - HYPERLIPIDEMIA, UNSPECIFIED
[2016-07-26] MEDS: guaiFENesin 200 MG/10 ML 10 ML UNIT-DOSE CUPS PO PRN (15:25)
--- NOTE | 2016-07-26 15:30 | PN ---
Progress Note, Physician History of Present Illness: stable no new issues breathing well - Current Medication List Current Medications: Active Medications Acetaminophen (Tylenol -) 650 mg PO Q6H PRN PRN Reason: FEVER OR PAIN Albuterol/Ipratropium (Duoneb -) 1 amp NEB Q4H PRN PRN Reason: SHORTNESS OF BREATH Atorvastatin Calcium (Lipitor -) 10 mg PO [facility] Last Admin: 07/25/16 21:05 Dose: 10 mg Benztropine Mesylate (Cogentin -) 0.5 mg PO BID [facility] Clonazepam (Klonopin -) 0.5 mg PO TID [facility] Last Admin: 07/26/16 13:55 Dose: 0.5 mg Divalproex Sodium (Depakote *Er* -) 500 mg PO BID [facility] Last Admin: 07/26/16 09:39 Dose: 500 mg Guaifenesin (Robitussin -) 10 ml PO Q6H PRN PRN Reason: COUGH Last Admin: 07/26/16 15:25 Dose: 10 ml Heparin Sodium (Porcine) (Heparin -) 5,000 unit SQ BID [facility] Last Admin: 07/26/16 09:38 Dose: 5,000 unit Montelukast Sodium (Singulair -) 10 mg PO [facility] Last Admin: 07/25/16 21:06 Dose: 10 mg Pantoprazole Sodium (Protonix -) 40 mg PO DAILY [facility] Last Admin: 07/26/16 09:38 Dose: 40 mg Prednisone (Deltasone -) 20 mg PO DAILY [facility] Last Admin: 07/26/16 09:38 Dose: 20 mg Quetiapine Fumarate (Seroquel -) 75 mg PO [facility] - Objective Vital Signs: Vital Signs Temperature 97.5 F L 07/26/16 06:00 Pulse Rate 79 07/26/16 12:25 Respiratory Rate 18 07/26/16 06:00 Blood Pressure 108/65 07/26/16 06:00 O2 Sat by Pulse Oximetry (%) 97 07/26/16 12:25 Constitutional: Yes: No Distress, Calm Cardiovascular: Yes: Regular Rate and Rhythm Respiratory: Yes: Regular, Rhonchi Gastrointestinal: Yes: Normal Bowel Sounds, Soft Extremities: Yes: WNL Neurological: Yes: Alert Psychiatric: Yes: Alert Labs: CBC, BMP 07/25/16 06:30 07/25/16 06:30 INR, PTT INR 1.09 (0.82-1.09) 07/23/16 16:08 Assessment/Plan - Problems (1) Fever Code(s): R50.9 - FEVER, UNSPECIFIED (2) Upper respiratory infection Code(s): J06.9 - ACUTE UPPER RESPIRATORY INFECTION, UNSPECIFIED Qualifiers: Pharyngitis/tonsillitis etiology: unspecified etiology (3) Asthma exacerbation Code(s): J45.901 - UNSPECIFIED ASTHMA WITH (ACUTE) EXACERBATION (4) Hypertension Code(s): I10 - ESSENTIAL (PRIMARY) HYPERTENSION (5) Schizophrenia Code(s): F20.9 - SCHIZOPHRENIA, UNSPECIFIED patient lung sound pretty clear with xray showing no findings plan continue empiric abx can change to po abx stop after 5 days rest as per primary
[2016-07-26] MEDS: BENZTROPINE MESYLATE 0.5 MG TABLET (FP) PO SCH (21:07)
[2016-07-26] MEDS: ATORVASTATIN CA 10 MG TABLET (FP) PO SCH (21:08)
[2016-07-26] MEDS: QUEtiapine FUMARATE 25 MG TABLET (FP) PO SCH (21:09)
[2016-07-26] MEDS: MONTELUKAST NA 10 MG TABLET PO SCH (21:09)
[2016-07-27] MEDS: guaiFENesin 200 MG/10 ML 10 ML UNIT-DOSE CUPS PO PRN ×3 (00:33→21:15)
[2016-07-27] MEDS: ALBUTEROL SO4 2.5/IPRATROPIUM 0.5 INH SOL 3 ML VIAL.NEB. NEB PRN (01:09)
[2016-07-27] MEDS: clonazePAM 0.5 MG TABLET PO SCH ×3 (06:36→21:11)
--- NOTE | 2016-07-27 09:58 | DS ---
Physical Examination Vital Signs: Vital Signs Temperature 97.9 F 07/27/16 07:35 Pulse Rate 70 07/27/16 07:35 Respiratory Rate 18 07/27/16 07:35 Blood Pressure 108/73 07/27/16 07:35 O2 Sat by Pulse Oximetry (%) 97 07/26/16 21:00 awake in bed Constitutional: Yes: Calm Neck: Yes: Trachea Midline Cardiovascular: Yes: Regular Rate and Rhythm Respiratory: Yes: CTA Bilaterally, Tachypnea Gastrointestinal: Yes: Normal Bowel Sounds Edema: No Labs: CBC, BMP 07/25/16 06:30 07/25/16 06:30 Discharge Summary Reason For Visit: SEPSIS Current Active Problems Asthma exacerbation (Acute) Chronic schizophrenia not affecting current episode of care (Acute) Fever (Acute) Hypoxia (Acute) Schizo-affective schizophrenia, chronic condition (Acute) Sepsis (Acute) Upper respiratory infection (Acute) Hospital Course: History of Present Illness: HISTORY OF PRESENT ILLNESS: This is a 61 year old male with a history of HTN, HLD, asthma, Hep C, schizophrenia, and admission in April of this year with multi-lobar PNA sent from his psychiatric assisted living facility with 3 days of productive cough, shortness of breath, and fever. He has chest pain with coughing/deep breathing but denies chest pain at rest. He denies calf pain and hemoptysis. V/s on arrival are notable for temp 102, P 106, and SpO2 85% on RA. currently patient is in ER no distress comfortable calm and pleasant on nasal oxygen spo2 in 90's History Source: Medical Record - Past Medical History [employer]: Yes: Other (MR and Schizophernia) Cardiovascular: Yes: HTN, Hyperlipdemia. No: Other (many ER visits here -. persantine sestamibi on 11/02/11 was normal. Echo was unremarkable) Pulmonary: Yes: Asthma Heme/Onc: Yes: Anemia - Past Surgical History Past Surgical History: Yes: Joint Replacement (december left hip) hospital course: acute asthma exacerbation iv to po steroids bronchodilators- taper steroids bronchitis/URI complete abxcourse 3 days more of levaquin pcn allergy schizo seen by psych meds adjusted awaitng placment at another [facility] bc of violent behavioral issues Condition: Improved - Instructions Diet, Activity, Other Instructions: prednisone 10g po daily for 2 days then 5mg po daily for 2 days then stop Disposition: DETENTION FACILITY - Home Medications Comprehensive Discharge Medication List: Ambulatory Orders Albuterol 0.083% Nebulizer Margo [Ventolin 0.083% Nebulizer Soln -] 1 neb NEB BID 04/18/16 Benztropine Mesylate [Cogentin -] 1 mg PO BID 04/18/16 Citalopram Hydrobromide [Celexa -] 20 mg PO DAILY 04/18/16 Clonazepam 0.5 mg PO TID 04/18/16 Divalproex *ER* [Depakote *ER* -] 500 mg PO BID 04/18/16 Haloperidol Injection [Haldol Injection (Fast Acting) -] 75 mg IM MONTHLY Ipratropium 0.02% Nebulizer [Atrovent 0.02% Nebulizer -] 0.5 mg IH BID 04/18/16 Montelukast Na [Singulair -] 10 mg PO HS 04/18/16 Pantoprazole Sodium [Protonix] 40 mg PO DAILY 04/18/16 Quetiapine Fumarate [Seroquel] 100 mg PO HS 04/18/16 Simvastatin 10 mg PO HS 04/18/16
[2016-07-27] MEDS ORDERED: predniSONE 10 MG TABLET (UD) PO SCH (10:00)
[2016-07-27] MEDS ORDERED: LEVOFLOXACIN 500 MG TABLET (FP) PO SCH (10:00)
[2016-07-27] MEDS ORDERED: PT OWN MED DRAWER 7, Y5N ONE (10:30)
[2016-07-27] MEDS: HEPARIN NA (PORCINE) 5,000 UNITS/ML 1ML VIAL SQ SCH ×2 (10:33→21:10)
[2016-07-27] MEDS: PANTOPRAZOLE 40 MG TABLET (FP) PO SCH (10:35)
[2016-07-27] MEDS: predniSONE 10 MG TABLET (UD) PO SCH (10:35)
[2016-07-27] MEDS: DIVALPROEX NA *ER* EXTEND REL 500 MG TABLET.SA (FP) PO SCH ×2 (10:35→21:10)
[2016-07-27] MEDS: BENZTROPINE MESYLATE 0.5 MG TABLET (FP) PO SCH ×2 (10:35→21:09)
[2016-07-27] MEDS: LEVOFLOXACIN 500 MG TABLET (FP) PO SCH (10:35)
--- NOTE | 2016-07-27 12:06 | PN ---
Progress Note (short form) - Note Progress Note: PULMONARY NOTES REVIEWED VSS/AFEBRILE PALE/ANICTERIC SCATTERED EXP RHONCHI S1S2 BS+ NO EDEMA LABS/CXR/MEDS/NOTES REVIEWED Fever down trending URI vs Viral Syndrome Acute Asthma Exacerbation HTN Schizophrenia - empiric antibiotics - O2 to keep SpO2 >90% - inhaled bronchodilators - prednisone - DVT prophyl Adarsh BRUCE MD
[2016-07-27] MEDS: ATORVASTATIN CA 10 MG TABLET (FP) PO SCH (21:11)
[2016-07-27] MEDS: QUEtiapine FUMARATE 25 MG TABLET (FP) PO SCH (21:11)
[2016-07-27] MEDS: MONTELUKAST NA 10 MG TABLET PO SCH (21:12)
[2016-07-28] MEDS: clonazePAM 0.5 MG TABLET PO SCH ×3 (06:27→21:09)
[2016-07-28] MEDS: LEVOFLOXACIN 500 MG TABLET (FP) PO SCH (06:27)
[2016-07-28] MEDS: ALBUTEROL SO4 2.5/IPRATROPIUM 0.5 INH SOL 3 ML VIAL.NEB. NEB PRN (06:28)
[2016-07-28] MEDS ORDERED: PT OWN MED DRAWER 7, Y5N ONE ×2 (09:17→14:09)
[2016-07-28] MEDS: BENZTROPINE MESYLATE 0.5 MG TABLET (FP) PO SCH ×2 (09:26→21:08)
[2016-07-28] MEDS: DIVALPROEX NA *ER* EXTEND REL 500 MG TABLET.SA (FP) PO SCH ×2 (09:26→21:08)
[2016-07-28] MEDS: predniSONE 10 MG TABLET (UD) PO SCH (09:26)
[2016-07-28] MEDS: PANTOPRAZOLE 40 MG TABLET (FP) PO SCH (09:26)
[2016-07-28] MEDS: HEPARIN NA (PORCINE) 5,000 UNITS/ML 1ML VIAL SQ SCH ×2 (09:27→21:08)
--- NOTE | 2016-07-28 10:04 | PN ---
Progress Note, Physician Chief Complaint: THIS IS MY FIRST ENCOUNTER WITH THIS PATIENT NOTES AND RECORDS REVIEWED NURSE NOTIFIED ME PATIENT CHOKING ON HIS BREAKFAST A PIECE OF [place] TOAST - Current Medication List Current Medications: Active Medications Acetaminophen (Tylenol -) 650 mg PO Q6H PRN PRN Reason: FEVER OR PAIN Albuterol/Ipratropium (Duoneb -) 1 amp NEB Q4H PRN PRN Reason: SHORTNESS OF BREATH Last Admin: 07/28/16 06:28 Dose: 1 amp Atorvastatin Calcium (Lipitor -) 10 mg PO HS [facility] Last Admin: 07/27/16 21:11 Dose: 10 mg Benztropine Mesylate (Cogentin -) 0.5 mg PO BID [facility] Last Admin: 07/28/16 09:26 Dose: 0.5 mg Clonazepam (Klonopin -) 0.5 mg PO TID [facility] Last Admin: 07/28/16 06:27 Dose: 0.5 mg Divalproex Sodium (Depakote *Er* -) 500 mg PO BID [facility] Last Admin: 07/28/16 09:26 Dose: 500 mg Guaifenesin (Robitussin -) 10 ml PO Q6H PRN PRN Reason: COUGH Last Admin: 07/27/16 21:15 Dose: 10 ml Heparin Sodium (Porcine) (Heparin -) 5,000 unit SQ BID [facility] Last Admin: 07/28/16 09:27 Dose: 5,000 unit Montelukast Sodium (Singulair -) 10 mg PO HS [facility] Last Admin: 07/27/16 21:12 Dose: 10 mg Pantoprazole Sodium (Protonix -) 40 mg PO DAILY [facility] Last Admin: 07/28/16 09:26 Dose: 40 mg Prednisone (Deltasone -) 5 mg PO DAILY [facility] Stop: 07/30/16 10:01 Quetiapine Fumarate (Seroquel -) 75 mg PO HS [facility] Last Admin: 07/27/16 21:11 Dose: 75 mg - Objective Vital Signs: Vital Signs Temperature 97.8 F 07/28/16 07:34 Pulse Rate 85 07/28/16 07:34 Respiratory Rate 20 07/28/16 07:34 Blood Pressure 100/65 07/28/16 07:34 O2 Sat by Pulse Oximetry (%) 97 07/27/16 21:00 Constitutional: Yes: Mild Distress Eyes: Yes: WNL HENT: Yes: WNL Neck: Yes: WNL Cardiovascular: Yes: WNL Respiratory: Yes: On Nasal O2, Poor Air Entry, Wheezes Gastrointestinal: Yes: WNL Genitourinary: Yes: Incontinence Musculoskeletal: Yes: Muscle Weakness Extremities: Yes: WNL Edema: No Peripheral Pulses WNL: Yes Integumentary: Yes: WNL Wound/Incision: Yes: Clean/Dry Neurological: Yes: Pre-Existing Deficit, Unsteady Gait, Weakness ...Motor Strength: LLE, RLE Labs: CBC, BMP 07/25/16 06:30 07/25/16 06:30 INR, PTT INR 1.09 (0.82-1.09) 07/23/16 16:08 Problem List - Problems (1) Asthma exacerbation Code(s): J45.901 - UNSPECIFIED ASTHMA WITH (ACUTE) EXACERBATION (2) Chronic schizophrenia not affecting current episode of care Code(s): [id number] - (3) Upper respiratory infection Code(s): J06.9 - ACUTE UPPER RESPIRATORY INFECTION, UNSPECIFIED Qualifiers: Pharyngitis/tonsillitis etiology: unspecified etiology (4) Aspiration pneumonia Code(s): J69.0 - PNEUMONITIS DUE TO INHALATION OF FOOD AND VOMIT Assessment/Plan CHANGED DIET TO CHOPPED DYSPHAGIA WITH HONEY CONSISTANCY LIQUIDS SWALLOW EVAL IV ABX PER ID SIT UPRIGHT POSITION
--- NOTE | 2016-07-28 12:25 | PN ---
Progress Note (short form) - Note Progress Note: PULMONARY Some shortness of breath but improving. Mild nonproductive cough. No further fevers. Placed on dysphagia diet this AM after noted to be choking on breakfast. Last Vital Signs Temp Pulse Resp BP Pulse Ox 98.0 F 90 20 100/63 100 07/28/16 09:00 07/28/16 09:00 07/28/16 09:00 07/28/16 09:00 07/28/16 09:00 Gen: NAD at rest Heart: RRR Lung: scattered rhonchi on right Abd: soft, nontender Ext: no edema CBC, BMP 07/25/16 06:30 07/25/16 06:30 Active Medications Acetaminophen (Tylenol -) 650 mg PO Q6H PRN PRN Reason: FEVER OR PAIN Albuterol/Ipratropium (Duoneb -) 1 amp NEB Q4H PRN PRN Reason: SHORTNESS OF BREATH Last Admin: 07/28/16 06:28 Dose: 1 amp Atorvastatin Calcium (Lipitor -) 10 mg PO [facility] Last Admin: 07/27/16 21:11 Dose: 10 mg Benztropine Mesylate (Cogentin -) 0.5 mg PO BID [facility] Last Admin: 07/28/16 09:26 Dose: 0.5 mg Clonazepam (Klonopin -) 0.5 mg PO TID [facility] Last Admin: 07/28/16 06:27 Dose: 0.5 mg Divalproex Sodium (Depakote *Er* -) 500 mg PO BID [facility] Last Admin: 07/28/16 09:26 Dose: 500 mg Guaifenesin (Robitussin -) 10 ml PO Q6H PRN PRN Reason: COUGH Last Admin: 07/27/16 21:15 Dose: 10 ml Heparin Sodium (Porcine) (Heparin -) 5,000 unit SQ BID [facility] Last Admin: 07/28/16 09:27 Dose: 5,000 unit Montelukast Sodium (Singulair -) 10 mg PO HS [facility] Last Admin: 07/27/16 21:12 Dose: 10 mg Pantoprazole Sodium (Protonix -) 40 mg PO DAILY [facility] Last Admin: 07/28/16 09:26 Dose: 40 mg Prednisone (Deltasone -) 5 mg PO DAILY [facility] Stop: 07/30/16 10:01 Quetiapine Fumarate (Seroquel -) 75 mg PO HS [facility] Last Admin: 07/27/16 21:11 Dose: 75 mg A/P URI vs Viral Syndrome Acute Asthma Exacerbation HTN Schizophrenia - aspiration precautions - O2 to keep SpO2 >90% - inhaled bronchodilators - prednisone taper as outpt - DVT prophylaxis Problem List - Problems (1) Fever Code(s): R50.9 - FEVER, UNSPECIFIED (2) Upper respiratory infection Code(s): J06.9 - ACUTE UPPER RESPIRATORY INFECTION, UNSPECIFIED Qualifiers: Pharyngitis/tonsillitis etiology: unspecified etiology (3) Asthma exacerbation Code(s): J45.901 - UNSPECIFIED ASTHMA WITH (ACUTE) EXACERBATION (4) Hypertension Code(s): I10 - ESSENTIAL (PRIMARY) HYPERTENSION (5) Schizophrenia Code(s): F20.9 - SCHIZOPHRENIA, UNSPECIFIED
--- NOTE | 2016-07-28 15:10 | PN ---
Progress Note, Physician History of Present Illness: stable no new issues - Current Medication List Current Medications: Active Medications Acetaminophen (Tylenol -) 650 mg PO Q6H PRN PRN Reason: FEVER OR PAIN Albuterol/Ipratropium (Duoneb -) 1 amp NEB Q4H PRN PRN Reason: SHORTNESS OF BREATH Last Admin: 07/28/16 06:28 Dose: 1 amp Atorvastatin Calcium (Lipitor -) 10 mg PO [facility] Last Admin: 07/27/16 21:11 Dose: 10 mg Benztropine Mesylate (Cogentin -) 0.5 mg PO BID [facility] Last Admin: 07/28/16 09:26 Dose: 0.5 mg Clonazepam (Klonopin -) 0.5 mg PO TID [facility] Last Admin: 07/28/16 13:38 Dose: 0.5 mg Divalproex Sodium (Depakote *Er* -) 500 mg PO BID [facility] Last Admin: 07/28/16 09:26 Dose: 500 mg Guaifenesin (Robitussin -) 10 ml PO Q6H PRN PRN Reason: COUGH Last Admin: 07/27/16 21:15 Dose: 10 ml Heparin Sodium (Porcine) (Heparin -) 5,000 unit SQ BID [facility] Last Admin: 07/28/16 09:27 Dose: 5,000 unit Montelukast Sodium (Singulair -) 10 mg PO [facility] Last Admin: 07/27/16 21:12 Dose: 10 mg Pantoprazole Sodium (Protonix -) 40 mg PO DAILY [facility] Last Admin: 07/28/16 09:26 Dose: 40 mg Prednisone (Deltasone -) 5 mg PO DAILY [facility] Stop: 07/30/16 10:01 Quetiapine Fumarate (Seroquel -) 75 mg PO [facility] Last Admin: 07/27/16 21:11 Dose: 75 mg - Objective Vital Signs: Vital Signs Temperature 98.0 F 07/28/16 09:00 Pulse Rate 90 07/28/16 09:00 Respiratory Rate 20 07/28/16 09:00 Blood Pressure 100/63 07/28/16 09:00 O2 Sat by Pulse Oximetry (%) 100 07/28/16 09:00 Constitutional: Yes: No Distress, Calm Cardiovascular: Yes: Regular Rate and Rhythm Respiratory: Yes: Regular, CTA Bilaterally Gastrointestinal: Yes: Normal Bowel Sounds, Soft Musculoskeletal: Yes: WNL Extremities: Yes: WNL Neurological: Yes: Alert, Oriented Psychiatric: Yes: Alert Labs: CBC, BMP 07/25/16 06:30 07/25/16 06:30 INR, PTT INR 1.09 (0.82-1.09) 07/23/16 16:08 Assessment/Plan - Problems (1) Fever Code(s): R50.9 - FEVER, UNSPECIFIED (2) Upper respiratory infection Code(s): J06.9 - ACUTE UPPER RESPIRATORY INFECTION, UNSPECIFIED Qualifiers: Pharyngitis/tonsillitis etiology: unspecified etiology (3) Asthma exacerbation Code(s): J45.901 - UNSPECIFIED ASTHMA WITH (ACUTE) EXACERBATION (4) Hypertension Code(s): I10 - ESSENTIAL (PRIMARY) HYPERTENSION (5) Schizophrenia Code(s): F20.9 - SCHIZOPHRENIA, UNSPECIFIED patient lung sound pretty clear with xray showing no findings plan finish the abx course rest as per primary
--- NOTE | 2016-07-28 15:12 | PN ---
Progress Note, Physician History of Present Illness: events noted seems patient was choking on breakfast now on dysphagia diet - Current Medication List Current Medications: Active Medications Acetaminophen (Tylenol -) 650 mg PO Q6H PRN PRN Reason: FEVER OR PAIN Albuterol/Ipratropium (Duoneb -) 1 amp NEB Q4H PRN PRN Reason: SHORTNESS OF BREATH Last Admin: 07/28/16 06:28 Dose: 1 amp Atorvastatin Calcium (Lipitor -) 10 mg PO [facility] Last Admin: 07/27/16 21:11 Dose: 10 mg Benztropine Mesylate (Cogentin -) 0.5 mg PO BID [facility] Last Admin: 07/28/16 09:26 Dose: 0.5 mg Clonazepam (Klonopin -) 0.5 mg PO TID [facility] Last Admin: 07/28/16 13:38 Dose: 0.5 mg Divalproex Sodium (Depakote *Er* -) 500 mg PO BID [facility] Last Admin: 07/28/16 09:26 Dose: 500 mg Guaifenesin (Robitussin -) 10 ml PO Q6H PRN PRN Reason: COUGH Last Admin: 07/27/16 21:15 Dose: 10 ml Heparin Sodium (Porcine) (Heparin -) 5,000 unit SQ BID [facility] Last Admin: 07/28/16 09:27 Dose: 5,000 unit Montelukast Sodium (Singulair -) 10 mg PO [facility] Last Admin: 07/27/16 21:12 Dose: 10 mg Pantoprazole Sodium (Protonix -) 40 mg PO DAILY [facility] Last Admin: 07/28/16 09:26 Dose: 40 mg Prednisone (Deltasone -) 5 mg PO DAILY [facility] Stop: 07/30/16 10:01 Quetiapine Fumarate (Seroquel -) 75 mg PO [facility] Last Admin: 07/27/16 21:11 Dose: 75 mg - Objective Vital Signs: Vital Signs Temperature 98.0 F 07/28/16 09:00 Pulse Rate 90 07/28/16 09:00 Respiratory Rate 20 07/28/16 09:00 Blood Pressure 100/63 07/28/16 09:00 O2 Sat by Pulse Oximetry (%) 100 07/28/16 09:00 Constitutional: Yes: No Distress, Calm Cardiovascular: Yes: Regular Rate and Rhythm Respiratory: Yes: Regular, CTA Bilaterally Gastrointestinal: Yes: Normal Bowel Sounds, Soft Musculoskeletal: Yes: WNL Extremities: Yes: WNL Neurological: Yes: Alert, Oriented Psychiatric: Yes: Alert, Oriented Labs: CBC, BMP 07/25/16 06:30 07/25/16 06:30 INR, PTT INR 1.09 (0.82-1.09) 07/23/16 16:08 Assessment/Plan - Problems (1) Fever Code(s): R50.9 - FEVER, UNSPECIFIED (2) Upper respiratory infection Code(s): J06.9 - ACUTE UPPER RESPIRATORY INFECTION, UNSPECIFIED Qualifiers: Pharyngitis/tonsillitis etiology: unspecified etiology (3) Asthma exacerbation Code(s): J45.901 - UNSPECIFIED ASTHMA WITH (ACUTE) EXACERBATION (4) Hypertension Code(s): I10 - ESSENTIAL (PRIMARY) HYPERTENSION (5) Schizophrenia Code(s): F20.9 - SCHIZOPHRENIA, UNSPECIFIED patient lung sound pretty clear with xray showing no findings plan stop all abx rest as per primary
--- NOTE | 2016-07-28 15:15 | PN ---
Progress Note, Physician History of Present Illness: patient stable seems to be choking on breakfast diet changed - Current Medication List Current Medications: Active Medications Acetaminophen (Tylenol -) 650 mg PO Q6H PRN PRN Reason: FEVER OR PAIN Albuterol/Ipratropium (Duoneb -) 1 amp NEB Q4H PRN PRN Reason: SHORTNESS OF BREATH Last Admin: 07/28/16 06:28 Dose: 1 amp Atorvastatin Calcium (Lipitor -) 10 mg PO [facility] Last Admin: 07/27/16 21:11 Dose: 10 mg Benztropine Mesylate (Cogentin -) 0.5 mg PO BID [facility] Last Admin: 07/28/16 09:26 Dose: 0.5 mg Clonazepam (Klonopin -) 0.5 mg PO TID [facility] Last Admin: 07/28/16 13:38 Dose: 0.5 mg Divalproex Sodium (Depakote *Er* -) 500 mg PO BID [facility] Last Admin: 07/28/16 09:26 Dose: 500 mg Guaifenesin (Robitussin -) 10 ml PO Q6H PRN PRN Reason: COUGH Last Admin: 07/27/16 21:15 Dose: 10 ml Heparin Sodium (Porcine) (Heparin -) 5,000 unit SQ BID [facility] Last Admin: 07/28/16 09:27 Dose: 5,000 unit Montelukast Sodium (Singulair -) 10 mg PO HS [facility] Last Admin: 07/27/16 21:12 Dose: 10 mg Pantoprazole Sodium (Protonix -) 40 mg PO DAILY [facility] Last Admin: 07/28/16 09:26 Dose: 40 mg Prednisone (Deltasone -) 5 mg PO DAILY [facility] Stop: 07/30/16 10:01 Quetiapine Fumarate (Seroquel -) 75 mg PO [facility] Last Admin: 07/27/16 21:11 Dose: 75 mg - Objective Vital Signs: Vital Signs Temperature 98.0 F 07/28/16 09:00 Pulse Rate 90 07/28/16 09:00 Respiratory Rate 20 07/28/16 09:00 Blood Pressure 100/63 07/28/16 09:00 O2 Sat by Pulse Oximetry (%) 100 07/28/16 09:00 Constitutional: Yes: No Distress, Calm Cardiovascular: Yes: Regular Rate and Rhythm Respiratory: Yes: Regular, CTA Bilaterally Gastrointestinal: Yes: Normal Bowel Sounds, Soft Musculoskeletal: Yes: WNL Extremities: Yes: WNL Neurological: Yes: Alert, Oriented Psychiatric: Yes: Alert Labs: CBC, BMP 07/25/16 06:30 07/25/16 06:30 INR, PTT INR 1.09 (0.82-1.09) 07/23/16 16:08 Assessment/Plan - Problems (1) Fever Code(s): R50.9 - FEVER, UNSPECIFIED (2) Upper respiratory infection Code(s): J06.9 - ACUTE UPPER RESPIRATORY INFECTION, UNSPECIFIED Qualifiers: Pharyngitis/tonsillitis etiology: unspecified etiology (3) Asthma exacerbation Code(s): J45.901 - UNSPECIFIED ASTHMA WITH (ACUTE) EXACERBATION (4) Hypertension Code(s): I10 - ESSENTIAL (PRIMARY) HYPERTENSION (5) Schizophrenia Code(s): F20.9 - SCHIZOPHRENIA, UNSPECIFIED patient lung sound pretty clear with xray showing no findings plan stable no new issues sytopped all abx rest as per primary
[2016-07-28] MEDS: ATORVASTATIN CA 10 MG TABLET (FP) PO SCH (21:09)
[2016-07-28] MEDS: QUEtiapine FUMARATE 25 MG TABLET (FP) PO SCH (21:09)
[2016-07-28] MEDS: MONTELUKAST NA 10 MG TABLET PO SCH (21:09)
[2016-07-29] MEDS: clonazePAM 0.5 MG TABLET PO SCH ×3 (06:30→23:06)
[2016-07-29] MEDS: predniSONE 5 MG TABLET (UD) PO SCH (09:54)
[2016-07-29] MEDS: PANTOPRAZOLE 40 MG TABLET (FP) PO SCH (09:54)
[2016-07-29] MEDS: BENZTROPINE MESYLATE 0.5 MG TABLET (FP) PO SCH ×2 (09:54→23:05)
[2016-07-29] MEDS: DIVALPROEX NA *ER* EXTEND REL 500 MG TABLET.SA (FP) PO SCH ×2 (09:54→23:06)
[2016-07-29] MEDS: HEPARIN NA (PORCINE) 5,000 UNITS/ML 1ML VIAL SQ SCH ×2 (09:55→23:06)
--- NOTE | 2016-07-29 11:27 | PN ---
Progress Note, Physician Chief Complaint: IN BED COMFORTABLE DIET CHANGED YESTERDAY AWAITING SWALLOW EVAL - Current Medication List Current Medications: Active Medications Acetaminophen (Tylenol -) 650 mg PO Q6H PRN PRN Reason: FEVER OR PAIN Albuterol/Ipratropium (Duoneb -) 1 amp NEB Q4H PRN PRN Reason: SHORTNESS OF BREATH Last Admin: 07/28/16 06:28 Dose: 1 amp Atorvastatin Calcium (Lipitor -) 10 mg PO HS [facility] Last Admin: 07/28/16 21:09 Dose: 10 mg Benztropine Mesylate (Cogentin -) 0.5 mg PO BID [facility] Last Admin: 07/29/16 09:54 Dose: 0.5 mg Clonazepam (Klonopin -) 0.5 mg PO TID [facility] Last Admin: 07/29/16 06:30 Dose: 0.5 mg Divalproex Sodium (Depakote *Er* -) 500 mg PO BID [facility] Last Admin: 07/29/16 09:54 Dose: 500 mg Guaifenesin (Robitussin -) 10 ml PO Q6H PRN PRN Reason: COUGH Last Admin: 07/27/16 21:15 Dose: 10 ml Heparin Sodium (Porcine) (Heparin -) 5,000 unit SQ BID [facility] Last Admin: 07/29/16 09:55 Dose: 5,000 unit Montelukast Sodium (Singulair -) 10 mg PO HS [facility] Last Admin: 07/28/16 21:09 Dose: 10 mg Pantoprazole Sodium (Protonix -) 40 mg PO DAILY [facility] Last Admin: 07/29/16 09:54 Dose: 40 mg Prednisone (Deltasone -) 5 mg PO DAILY [facility] Stop: 07/30/16 10:01 Last Admin: 07/29/16 09:54 Dose: 5 mg Quetiapine Fumarate (Seroquel -) 75 mg PO HS [facility] Last Admin: 07/28/16 21:09 Dose: 75 mg - Objective Vital Signs: Vital Signs Temperature 97.6 F 07/29/16 10:00 Pulse Rate 91 H 07/29/16 10:00 Respiratory Rate 20 07/29/16 10:00 Blood Pressure 92/55 07/29/16 10:00 O2 Sat by Pulse Oximetry (%) 100 07/28/16 21:00 Constitutional: Yes: No Distress Eyes: Yes: WNL HENT: Yes: WNL Neck: Yes: WNL Cardiovascular: Yes: WNL Respiratory: Yes: WNL Gastrointestinal: Yes: WNL Genitourinary: Yes: Incontinence Musculoskeletal: Yes: Muscle Weakness Extremities: Yes: WNL Edema: No Peripheral Pulses WNL: Yes Integumentary: Yes: WNL Wound/Incision: Yes: Clean/Dry Neurological: Yes: Pre-Existing Deficit ...Motor Strength: LLE, RLE Psychiatric: Yes: Other Labs: CBC, BMP 07/25/16 06:30 07/25/16 06:30 INR, PTT INR 1.09 (0.82-1.09) 07/23/16 16:08 Problem List - Problems (1) Asthma exacerbation Code(s): J45.901 - UNSPECIFIED ASTHMA WITH (ACUTE) EXACERBATION (2) Chronic schizophrenia not affecting current episode of care Code(s): [id number] - (3) Upper respiratory infection Code(s): J06.9 - ACUTE UPPER RESPIRATORY INFECTION, UNSPECIFIED Qualifiers: Pharyngitis/tonsillitis etiology: unspecified etiology (4) Aspiration pneumonia Code(s): J69.0 - PNEUMONITIS DUE TO INHALATION OF FOOD AND VOMIT Assessment/Plan CHANGED DIET TO CHOPPED DYSPHAGIA WITH HONEY CONSISTANCY LIQUIDS SWALLOW EVAL IV ABX PER ID SIT UPRIGHT POSITION
--- NOTE | 2016-07-29 12:16 | PN ---
Progress Note (short form) - Note Progress Note: PULMONARY Mild shortness of breath but improving. + nonproductive cough. No further fevers. Does not like his dysphagia diet. Last Vital Signs Temp Pulse Resp BP Pulse Ox 97.6 F 91 H 20 92/55 100 07/29/16 10:00 07/29/16 10:00 07/29/16 10:00 07/29/16 10:00 07/29/16 09:00 Gen: NAD at rest Heart: RRR Lung: scattered rhonchi on right Abd: soft, nontender Ext: no edema CBC, BMP 07/25/16 06:30 07/25/16 06:30 Active Medications Acetaminophen (Tylenol -) 650 mg PO Q6H PRN PRN Reason: FEVER OR PAIN Albuterol/Ipratropium (Duoneb -) 1 amp NEB Q4H PRN PRN Reason: SHORTNESS OF BREATH Last Admin: 07/28/16 06:28 Dose: 1 amp Atorvastatin Calcium (Lipitor -) 10 mg PO [facility] Last Admin: 07/28/16 21:09 Dose: 10 mg Benztropine Mesylate (Cogentin -) 0.5 mg PO BID [facility] Last Admin: 07/29/16 09:54 Dose: 0.5 mg Clonazepam (Klonopin -) 0.5 mg PO TID [facility] Last Admin: 07/29/16 06:30 Dose: 0.5 mg Divalproex Sodium (Depakote *Er* -) 500 mg PO BID [facility] Last Admin: 07/29/16 09:54 Dose: 500 mg Guaifenesin (Robitussin -) 10 ml PO Q6H PRN PRN Reason: COUGH Last Admin: 07/27/16 21:15 Dose: 10 ml Heparin Sodium (Porcine) (Heparin -) 5,000 unit SQ BID [facility] Last Admin: 07/29/16 09:55 Dose: 5,000 unit Montelukast Sodium (Singulair -) 10 mg PO HS [facility] Last Admin: 07/28/16 21:09 Dose: 10 mg Pantoprazole Sodium (Protonix -) 40 mg PO DAILY [facility] Last Admin: 07/29/16 09:54 Dose: 40 mg Prednisone (Deltasone -) 5 mg PO DAILY [facility] Stop: 07/30/16 10:01 Last Admin: 07/29/16 09:54 Dose: 5 mg Quetiapine Fumarate (Seroquel -) 75 mg PO HS [facility] Last Admin: 07/28/16 21:09 Dose: 75 mg A/P URI vs Viral Syndrome Acute Asthma Exacerbation HTN Schizophrenia - aspiration precautions - O2 to keep SpO2 >90% - inhaled bronchodilators - taper off prednisone - DVT prophylaxis Problem List - Problems (1) Fever Code(s): R50.9 - FEVER, UNSPECIFIED (2) Upper respiratory infection Code(s): J06.9 - ACUTE UPPER RESPIRATORY INFECTION, UNSPECIFIED Qualifiers: Pharyngitis/tonsillitis etiology: unspecified etiology (3) Asthma exacerbation Code(s): J45.901 - UNSPECIFIED ASTHMA WITH (ACUTE) EXACERBATION (4) Hypertension Code(s): I10 - ESSENTIAL (PRIMARY) HYPERTENSION (5) Schizophrenia Code(s): F20.9 - SCHIZOPHRENIA, UNSPECIFIED
--- NOTE | 2016-07-29 12:27 | PN ---
Progress Note, Physician History of Present Illness: stable no new issues - Current Medication List Current Medications: Active Medications Acetaminophen (Tylenol -) 650 mg PO Q6H PRN PRN Reason: FEVER OR PAIN Albuterol/Ipratropium (Duoneb -) 1 amp NEB Q4H PRN PRN Reason: SHORTNESS OF BREATH Last Admin: 07/28/16 06:28 Dose: 1 amp Atorvastatin Calcium (Lipitor -) 10 mg PO [facility] Last Admin: 07/28/16 21:09 Dose: 10 mg Benztropine Mesylate (Cogentin -) 0.5 mg PO BID [facility] Last Admin: 07/29/16 09:54 Dose: 0.5 mg Clonazepam (Klonopin -) 0.5 mg PO TID [facility] Last Admin: 07/29/16 06:30 Dose: 0.5 mg Divalproex Sodium (Depakote *Er* -) 500 mg PO BID [facility] Last Admin: 07/29/16 09:54 Dose: 500 mg Guaifenesin (Robitussin -) 10 ml PO Q6H PRN PRN Reason: COUGH Last Admin: 07/27/16 21:15 Dose: 10 ml Heparin Sodium (Porcine) (Heparin -) 5,000 unit SQ BID [facility] Last Admin: 07/29/16 09:55 Dose: 5,000 unit Montelukast Sodium (Singulair -) 10 mg PO [facility] Last Admin: 07/28/16 21:09 Dose: 10 mg Pantoprazole Sodium (Protonix -) 40 mg PO DAILY [facility] Last Admin: 07/29/16 09:54 Dose: 40 mg Prednisone (Deltasone -) 5 mg PO DAILY [facility] Stop: 07/30/16 10:01 Last Admin: 07/29/16 09:54 Dose: 5 mg Quetiapine Fumarate (Seroquel -) 75 mg PO [facility] Last Admin: 07/28/16 21:09 Dose: 75 mg - Objective Vital Signs: Vital Signs Temperature 97.6 F 07/29/16 10:00 Pulse Rate 91 H 07/29/16 10:00 Respiratory Rate 20 07/29/16 10:00 Blood Pressure 92/55 07/29/16 10:00 O2 Sat by Pulse Oximetry (%) 100 07/29/16 09:00 Constitutional: Yes: No Distress, Calm Cardiovascular: Yes: Regular Rate and Rhythm Respiratory: Yes: Regular, Rhonchi Gastrointestinal: Yes: Normal Bowel Sounds, Soft Musculoskeletal: Yes: WNL Extremities: Yes: WNL Neurological: Yes: Alert Psychiatric: Yes: Alert Labs: CBC, BMP 07/25/16 06:30 07/25/16 06:30 INR, PTT INR 1.09 (0.82-1.09) 07/23/16 16:08 Assessment/Plan - Problems (1) Fever Code(s): R50.9 - FEVER, UNSPECIFIED (2) Upper respiratory infection Code(s): J06.9 - ACUTE UPPER RESPIRATORY INFECTION, UNSPECIFIED Qualifiers: Pharyngitis/tonsillitis etiology: unspecified etiology (3) Asthma exacerbation Code(s): J45.901 - UNSPECIFIED ASTHMA WITH (ACUTE) EXACERBATION (4) Hypertension Code(s): I10 - ESSENTIAL (PRIMARY) HYPERTENSION (5) Schizophrenia Code(s): F20.9 - SCHIZOPHRENIA, UNSPECIFIED patient lung sound pretty clear with xray showing no findings plan stable no new issues stable rest as per primary
[2016-07-29] MEDS: QUEtiapine FUMARATE 25 MG TABLET (FP) PO SCH (23:06)
[2016-07-29] MEDS: MONTELUKAST NA 10 MG TABLET PO SCH (23:06)
[2016-07-29] MEDS: ATORVASTATIN CA 10 MG TABLET (FP) PO SCH (23:07)
[2016-07-30] MEDS: clonazePAM 0.5 MG TABLET PO SCH ×3 (06:23→21:09)
[2016-07-30 07:51] LABS: ANION GAP 7 (8-16); CALCIUM 8.8 mg/dL (8.5-10.1); CO2 34 mmol/L (21-32); GLUCOSE,RANDOM 87 mg/dL (74-106)
[2016-07-30 07:58] LABS: ALK PHOS 73 U/L (45-117); BILIRUBIN,TOTAL 0.7 mg/dL (0.2-1.0); COCKROFT - GAULT 176.83; CREATININE 0.4 mg/dL (0.7-1.3); SGOT/AST 9 U/L (15-37); SGPT/ALT 12 U/L (12-78); TOT PROT 6.1 g/dl (6.4-8.2)
[2016-07-30 08:08] LABS: MCHC 31.3 g/dl (32.0-35.9); MEAN CELL VOLUME 62.3 fl (80-96); PLATELET COUNT 308 K/MM3 (134-434); WHITE BLOOD COUNT 11.7 K/mm3 (4.0-10.0)
[2016-07-30 08:20] LABS: MCH 19.5 pg (25.7-33.7)
[2016-07-30] MEDS: PANTOPRAZOLE 40 MG TABLET (FP) PO SCH (09:56)
[2016-07-30] MEDS: predniSONE 5 MG TABLET (UD) PO SCH (09:57)
[2016-07-30] MEDS: HEPARIN NA (PORCINE) 5,000 UNITS/ML 1ML VIAL SQ SCH ×2 (09:57→21:08)
[2016-07-30] MEDS: BENZTROPINE MESYLATE 0.5 MG TABLET (FP) PO SCH ×2 (09:57→21:08)
[2016-07-30] MEDS: DIVALPROEX NA *ER* EXTEND REL 500 MG TABLET.SA (FP) PO SCH ×2 (09:57→21:08)
[2016-07-30 10:16] LABS: ANISOCYTOSIS 1+; HYPOCHROMIA 2+; MICROCYTOSIS 1+; PLATELET ESTIMATE ADEQUATE (NORMAL)
[2016-07-30 10:17] LABS: OVALOCYTES FEW; TARGET CELLS FEW
--- NOTE | 2016-07-30 10:46 | PN ---
Progress Note, Physician Chief Complaint: patient choking on food no fever stlii inc in WBC - Current Medication List Current Medications: Active Medications Acetaminophen (Tylenol -) 650 mg PO Q6H PRN PRN Reason: FEVER OR PAIN Albuterol/Ipratropium (Duoneb -) 1 amp NEB Q4H PRN PRN Reason: SHORTNESS OF BREATH Last Admin: 07/28/16 06:28 Dose: 1 amp Atorvastatin Calcium (Lipitor -) 10 mg PO [facility] Last Admin: 07/29/16 23:07 Dose: 10 mg Benztropine Mesylate (Cogentin -) 0.5 mg PO BID [facility] Last Admin: 07/30/16 09:57 Dose: 0.5 mg Clonazepam (Klonopin -) 0.5 mg PO TID [facility] Last Admin: 07/30/16 06:23 Dose: 0.5 mg Divalproex Sodium (Depakote *Er* -) 500 mg PO BID [facility] Last Admin: 07/30/16 09:57 Dose: 500 mg Guaifenesin (Robitussin -) 10 ml PO Q6H PRN PRN Reason: COUGH Last Admin: 07/27/16 21:15 Dose: 10 ml Heparin Sodium (Porcine) (Heparin -) 5,000 unit SQ BID [facility] Last Admin: 07/30/16 09:57 Dose: 5,000 unit Montelukast Sodium (Singulair -) 10 mg PO [facility] Last Admin: 07/29/16 23:06 Dose: 10 mg Pantoprazole Sodium (Protonix -) 40 mg PO DAILY [facility] Last Admin: 07/30/16 09:56 Dose: 40 mg Quetiapine Fumarate (Seroquel -) 75 mg PO [facility] Last Admin: 07/29/16 23:06 Dose: 75 mg - Objective Vital Signs: Vital Signs Temperature 97.3 F L 07/30/16 06:51 Pulse Rate 81 07/30/16 06:51 Respiratory Rate 18 07/30/16 06:51 Blood Pressure 96/63 07/30/16 06:51 O2 Sat by Pulse Oximetry (%) 100 07/29/16 09:00 Constitutional: Yes: Calm Cardiovascular: Yes: Regular Rate and Rhythm, S1, S2 Respiratory: Yes: CTA Bilaterally, Diminished (at bases) Labs: CBC, BMP 07/30/16 06:00 07/30/16 06:00 INR, PTT INR 1.09 (0.82-1.09) 07/23/16 16:08 Problem List - Problems (1) Choking Assessment/Plan[place] [facility] [place]s): T17.308A - UNSP FOREIGN BODY IN LARYNX CAUSING OTH INJURY, INIT ENCNTR (2) Hypoxia Assessment/Plan: improved h/o asthma- exacerbation sec to bronchitis nasal oxygen iv steroids change to po taper- completed change abx to po and completed course Code(s): R09.02 - HYPOXEMIA (3) Asthma exacerbation Assessment/Plan: iv sterods to po tapering dose course completed bronchodilators Code(s): J45.901 - UNSPECIFIED ASTHMA WITH (ACUTE) EXACERBATION (4) Schizophrenia Assessment/Plan: seroquel 75mg hs kolopin tid haldol once a month depakote bid Code(s): F20.9 - SCHIZOPHRENIA, UNSPECIFIED (5) Hyperlipidemia Assessment/Plan: statin Code(s): E78.5 - HYPERLIPIDEMIA, UNSPECIFIED
--- NOTE | 2016-07-30 12:33 | CONSULT ---
Admitting History and Physical - Primary Care Physician PCP: Caprice Burger - Admission History of Present Illness: History of Present Illness: HISTORY OF PRESENT ILLNESS: This is a 61 year old male with a history of HTN, HLD, asthma, Hep C, schizophrenia, and admission in April of this year with multi-lobar PNA sent from his psychiatric assisted living facility with 3 days of productive cough, shortness of breath, and fever. He has chest pain with coughing/deep breathing but denies chest pain at rest. Pt was on chopped and nectar at [place], and MBS was rec on 07/20, but was admitted on 07/23 with productive cough,SOB and fever. Last MBS done in May, with choking risk due to stasis in pharynx on solids. Pt coughed during study but (-) aspiration. Pt was on reg diet, thin liquid at [facility], downgraded to chopped and honey on . 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 No: Other (many ER visits here -. persantine sestamibi on 11/02/11 was normal. Echo was unremarkable) Pulmonary: Yes: Asthma Heme/Onc: Yes: Anemia - Past Surgical History Past Surgical History: Yes: Joint Replacement (december left hip) - Smoking History Smoking history: Never smoked Have you smoked in the past 12 months: No Aproximately how many cigarettes per day: 0 - Alcohol/Substance Use Hx Alcohol Use: No History of Substance Use: reports: None - Social History ADL: Support Services History of Recent Travel: No History - Admission Reason For Visit: SEPSIS - Diagnostics X-ray: Report Reviewed CT Scan: Report Reviewed - General Mental Status: Awake and Alert, Able to Follow Commands, Forgetful, Vague Attention: Distractible, Mild Impairment Ability to Follow Directions: Good Head/Neck Control: Needs Assist (weak. Extends head, which increases risk of aspiration.) - Hearing Hearing: Functional Hearing Aide: No With Patient: No Speech Evaluation - Communication Primary Language: NAURUAN Communication: Yes: Dysarthria Oral Expression Ability: Yes: Mild Impairment - Speech Production Able to Make Needs Known: Yes: WNL Intelligibility: Yes: Mildly Impaired - Speech Characteristics Voice Loudness: Normal Voice Pitch: Yes: Normal Voice Phonatory-based Quality: Yes: Normal Speech Pattern: Impaired Speech Clarity: < 100% Nasal Resonance: Normal Articulation: Yes: Imprecise Rate of Speech: Too Slow - Language/Auditory Comprehension Follows: Yes: 1 Stage Simple Commands Observation: Able to respond to yes/no queries: Yes, Yes/No Confusion: No, Comprehends Conversational Speech: Yes, Benefits from Repetiton: Yes - Language/Verbal Expression Able to Communicate Wants and Needs: Yes: WNL - Swallow Evaluation/Bedside Assessment Current Nutritional Intake: Regular (chopped), Honey Textured Liquids Oral Secretions: Yes: WFL Dentition: Yes: Adequate Facial Symmetry at Rest: Symmetrical Facial Symmetry on Retraction: Symmetrical Jaw Position: Open at Rest Against Resistance Opening: Weak Against Resistance Closing: Weak Pucker Lips: Normal, Weak Smile: Normal, Weak Lingual Movement: Symmetric Lingual Speed of Movement: Reduced Lingual Movement Strgth Against Opposition: Reduced Lingual Movement Characteristics: Normal Soft Palate Description: Normal Color, Normal Symmetry Hard Palate Description: Normal Color, Normal Symmetry Laryngeal Movement: Able to Palpate Labial Seal: WFL Chewing: WFL Oral Prep Time: WFL A-P Transit: WFL Pocketing: None Timing of Swallow: Delayed Coughing/Throat Clear: Yes (with and without po intake) Recommendations - Speech Evaluation, Impression/Plan Impression: Cough. Congestion. (-) aspiration on last MBS, but with modified diet at [facility]. Persistent congestion/cough at this time. r/o silent aspiration - Dysphagia Impressions/Plan Dysphagia Impressions: Ongoing Evaluation *Silent aspiration: cannot be R/O at bedside Recommendations: MBS w Esophagus
--- NOTE | 2016-07-30 12:42 | PN ---
Progress Note (short form) - Note Progress Note: Noted that patient may be choking on his food. To be further evaluated by S&S. Intake & Output 07/27/16 07/28/16 07/29/16 07/30/16 23:59 23:59 23:59 23:59 Intake Total 960 1530 300 Output Total 402 250 Balance 558 1280 300 Last Vital Signs Temp Pulse Resp BP Pulse Ox 97.8 F 112 H 18 105/63 99 07/30/16 10:00 07/30/16 10:00 07/30/16 10:00 07/30/16 10:00 07/30/16 09:00 Active Medications Acetaminophen (Tylenol -) 650 mg PO Q6H PRN PRN Reason: FEVER OR PAIN Albuterol/Ipratropium (Duoneb -) 1 amp NEB Q4H PRN PRN Reason: SHORTNESS OF BREATH Last Admin: 07/28/16 06:28 Dose: 1 amp Atorvastatin Calcium (Lipitor -) 10 mg PO [facility] Last Admin: 07/29/16 23:07 Dose: 10 mg Benztropine Mesylate (Cogentin -) 0.5 mg PO BID [facility] Last Admin: 07/30/16 09:57 Dose: 0.5 mg Clonazepam (Klonopin -) 0.5 mg PO TID [facility] Last Admin: 07/30/16 06:23 Dose: 0.5 mg Divalproex Sodium (Depakote *Er* -) 500 mg PO BID [facility] Last Admin: 07/30/16 09:57 Dose: 500 mg Guaifenesin (Robitussin -) 10 ml PO Q6H PRN PRN Reason: COUGH Last Admin: 07/27/16 21:15 Dose: 10 ml Heparin Sodium (Porcine) (Heparin -) 5,000 unit SQ BID [facility] Last Admin: 07/30/16 09:57 Dose: 5,000 unit Montelukast Sodium (Singulair -) 10 mg PO [facility] Last Admin: 07/29/16 23:06 Dose: 10 mg Pantoprazole Sodium (Protonix -) 40 mg PO DAILY [facility] Last Admin: 07/30/16 09:56 Dose: 40 mg Quetiapine Fumarate (Seroquel -) 75 mg PO [facility] Last Admin: 07/29/16 23:06 Dose: 75 mg Gen: NAD at rest Heart: RRR Lung: scattered rhonchi at the bases Abd: soft, nontender Ext: no edema Laboratory Results - last 24 hr 07/30/16 07/30/16 06:00 06:00 WBC 11.7 H RBC 6.29 H Hgb 12.3 D Hct 39.2 MCV 62.3 L MCHC 31.3 L RDW 17.0 H Plt Count 308 MPV 9.0 Platelet Estimate Adequate Hypochromic-Microcytic 2+ Basophilic Stippling Occ Anisocytosis 1+ Microcytosis 1+ Target Cells Few Ovalocytes Few Sodium 139 Potassium 4.8 Chloride 98 Carbon Dioxide 34 H Anion Gap 7 L BUN 10 D Creatinine 0.4 L Creat Clearance w eGFR > 60 Random Glucose 87 D Calcium 8.8 Total Bilirubin 0.7 D AST 9 L ALT 12 Alkaline Phosphatase 73 Total Protein 6.1 L Albumin 3.0 L Problem List - Problems (1) Fever Code(s): R50.9 - FEVER, UNSPECIFIED (2) Upper respiratory infection Code(s): J06.9 - ACUTE UPPER RESPIRATORY INFECTION, UNSPECIFIED Qualifiers: Pharyngitis/tonsillitis etiology: unspecified etiology (3) Asthma exacerbation Code(s): J45.901 - UNSPECIFIED ASTHMA WITH (ACUTE) EXACERBATION (4) Hypertension Code(s): I10 - ESSENTIAL (PRIMARY) HYPERTENSION (5) Schizophrenia Code(s): F20.9 - SCHIZOPHRENIA, UNSPECIFIED A/P URI vs Viral Syndrome Acute Asthma Exacerbation HTN Schizophrenia - aspiration precautions - O2 to keep SpO2 >90% - inhaled bronchodilators - DVT prophylaxis Dr Dominguez
--- NOTE | 2016-07-30 14:10 | EKG ---
Test Reason : Blood Pressure : / mmHG Vent. Rate : 084 BPM Atrial Rate : 084 BPM P-R Int : 132 ms QRS Dur : 092 ms QT Int : 400 ms P-R-T Axes : 058 053 064 degrees QTc Int : 472 ms NORMAL SINUS RHYTHM NORMAL ECG WHEN COMPARED WITH ECG OF 23-JUL-2016 16:00, NO SIGNIFICANT CHANGE WAS FOUND Confirmed by TULIO JUNG MD ([id number]) on 07/30/2016 2:09:44 PM Referred By: Confirmed By:TULIO JUNG MD
--- NOTE | 2016-07-30 14:57 | PN ---
Progress Note, Physician History of Present Illness: patient stable for swallow studies - Current Medication List Current Medications: Active Medications Acetaminophen (Tylenol -) 650 mg PO Q6H PRN PRN Reason: FEVER OR PAIN Albuterol/Ipratropium (Duoneb -) 1 amp NEB Q4H PRN PRN Reason: SHORTNESS OF BREATH Last Admin: 07/28/16 06:28 Dose: 1 amp Atorvastatin Calcium (Lipitor -) 10 mg PO [facility] Last Admin: 07/29/16 23:07 Dose: 10 mg Benztropine Mesylate (Cogentin -) 0.5 mg PO BID [facility] Last Admin: 07/30/16 09:57 Dose: 0.5 mg Clonazepam (Klonopin -) 0.5 mg PO TID [facility] Last Admin: 07/30/16 06:23 Dose: 0.5 mg Divalproex Sodium (Depakote *Er* -) 500 mg PO BID [facility] Last Admin: 07/30/16 09:57 Dose: 500 mg Guaifenesin (Robitussin -) 10 ml PO Q6H PRN PRN Reason: COUGH Last Admin: 07/27/16 21:15 Dose: 10 ml Heparin Sodium (Porcine) (Heparin -) 5,000 unit SQ BID [facility] Last Admin: 07/30/16 09:57 Dose: 5,000 unit Montelukast Sodium (Singulair -) 10 mg PO [facility] Last Admin: 07/29/16 23:06 Dose: 10 mg Pantoprazole Sodium (Protonix -) 40 mg PO DAILY [facility] Last Admin: 07/30/16 09:56 Dose: 40 mg Quetiapine Fumarate (Seroquel -) 75 mg PO [facility] Last Admin: 07/29/16 23:06 Dose: 75 mg - Objective Vital Signs: Vital Signs Temperature 97.8 F 07/30/16 10:00 Pulse Rate 112 H 07/30/16 10:00 Respiratory Rate 18 07/30/16 10:00 Blood Pressure 105/63 07/30/16 10:00 O2 Sat by Pulse Oximetry (%) 99 07/30/16 09:00 Constitutional: Yes: No Distress, Calm Respiratory: Yes: Regular, Poor Air Entry Gastrointestinal: Yes: Normal Bowel Sounds Musculoskeletal: Yes: WNL Extremities: Yes: WNL Neurological: Yes: Alert Psychiatric: Yes: Alert Labs: CBC, BMP 07/30/16 06:00 07/30/16 06:00 INR, PTT INR 1.09 (0.82-1.09) 07/23/16 16:08 Assessment/Plan - Problems (1) Fever Code(s): R50.9 - FEVER, UNSPECIFIED (2) Upper respiratory infection Code(s): J06.9 - ACUTE UPPER RESPIRATORY INFECTION, UNSPECIFIED Qualifiers: Pharyngitis/tonsillitis etiology: unspecified etiology (3) Asthma exacerbation Code(s): J45.901 - UNSPECIFIED ASTHMA WITH (ACUTE) EXACERBATION (4) Hypertension Code(s): I10 - ESSENTIAL (PRIMARY) HYPERTENSION (5) Schizophrenia Code(s): F20.9 - SCHIZOPHRENIA, UNSPECIFIED patient lung sound pretty clear with xray showing no findings plan stable no new issues kristen wait for the result of th study rest as per primary
[2016-07-30] MEDS ORDERED: PT OWN MED DRAWER 7, Y5N ONE (20:29)
[2016-07-30] MEDS: QUEtiapine FUMARATE 25 MG TABLET (FP) PO SCH (21:10)
[2016-07-30] MEDS: MONTELUKAST NA 10 MG TABLET PO SCH (21:10)
[2016-07-30] MEDS: ATORVASTATIN CA 10 MG TABLET (FP) PO SCH (21:10)
[2016-07-30] MEDS: guaiFENesin 200 MG/10 ML 10 ML UNIT-DOSE CUPS PO PRN (21:10)
[2016-07-30] MEDS: ALBUTEROL SO4 2.5/IPRATROPIUM 0.5 INH SOL 3 ML VIAL.NEB. NEB PRN (22:30)
[2016-07-31] MEDS: clonazePAM 0.5 MG TABLET PO SCH ×3 (05:55→21:38)
[2016-07-31 08:51] LABS: BASOPHIL 0.5 % (0-2.0); MCHC 30.8 g/dl (32.0-35.9); MEAN CELL VOLUME 62.5 fl (80-96); MEAN PLT VOLUME 8.5 fl (7.5-11.1); NEUTROPHILS 57.4 % (42.8-82.8); PLATELET COUNT 280 K/MM3 (134-434); RDW 17.1 % (11.9-15.9); WHITE BLOOD COUNT 11.6 K/mm3 (4.0-10.0)
[2016-07-31 08:52] LABS: MCH 19.3 pg (25.7-33.7)
[2016-07-31] MEDS ORDERED: PT OWN MED DRAWER 7, Y5N ONE ×2 (09:54→20:08)
[2016-07-31] MEDS: HEPARIN NA (PORCINE) 5,000 UNITS/ML 1ML VIAL SQ SCH ×2 (09:57→21:37)
[2016-07-31] MEDS: DIVALPROEX NA *ER* EXTEND REL 500 MG TABLET.SA (FP) PO SCH ×2 (09:57→21:37)
[2016-07-31] MEDS: PANTOPRAZOLE 40 MG TABLET (FP) PO SCH (09:57)
[2016-07-31] MEDS: BENZTROPINE MESYLATE 0.5 MG TABLET (FP) PO SCH ×2 (09:57→21:37)
--- NOTE | 2016-07-31 10:27 | DS ---
Physical Examination Vital Signs: Vital Signs Temperature 97.8 F 07/31/16 06:24 Pulse Rate 89 07/31/16 06:24 Respiratory Rate 18 07/31/16 06:24 Blood Pressure 104/69 07/31/16 06:24 O2 Sat by Pulse Oximetry (%) 96 07/30/16 21:00 Constitutional: Yes: Calm Neck: Yes: Trachea Midline Cardiovascular: Yes: Regular Rate and Rhythm, S1, S2 Respiratory: Yes: CTA Bilaterally Gastrointestinal: Yes: Soft Edema: No Neurological: Yes: Alert, Oriented Labs: CBC, BMP 07/31/16 08:20 07/30/16 06:00 Discharge Summary Reason For Visit: SEPSIS Current Active Problems Asthma exacerbation (Acute) Choking (Acute) Chronic schizophrenia not affecting current episode of care (Acute) Fever (Acute) Hypoxia (Acute) Schizo-affective schizophrenia, chronic condition (Acute) Sepsis (Acute) Upper respiratory infection (Acute) Hospital Course: HISTORY OF PRESENT ILLNESS: This is a 61 year old male with a history of HTN, HLD, asthma, Hep C, schizophrenia, and admission in April of this year with multi-lobar PNA sent from his psychiatric assisted living facility with 3 days of productive cough, shortness of breath, and fever. He has chest pain with coughing/deep breathing but denies chest pain at rest. He denies calf pain and hemoptysis. V/s on arrival are notable for temp 102, P 106, and SpO2 85% on RA. 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 No: Other (many ER visits here -. persantine sestamibi on 11/02/11 was normal. Echo was unremarkable) Pulmonary: Yes: Asthma Heme/Onc: Yes: Anemia - Past Surgical History Past Surgical History: Yes: Joint Replacement (december left hip) hospital course: acute asthma exacerbation iv to po steroids bronchodilators- taper steroids course completed bronchitis/URI completed course of levaquin schizo seen by psych meds adjusted awaitng placment at another [place] bc of violent behavioral issues - Instructions Diet, Activity, Other Instructions: soft diet cut up chopped meat extra gravy thin liquids no liquids two hours before bedtime upright after meal for one hour Disposition: LONG-TERM FACILITY - Home Medications Comprehensive Discharge Medication List: Ambulatory Orders Albuterol 0.083% Nebulizer Margo [Ventolin 0.083% Nebulizer Soln -] 1 neb NEB BID 04/18/16 Clonazepam 0.5 mg PO TID 04/18/16 Divalproex *ER* [Depakote *ER* -] 500 mg PO BID 04/18/16 Haloperidol Injection [Haldol Injection (Fast Acting) -] 75 mg IM MONTHLY Ipratropium 0.02% Nebulizer [Atrovent 0.02% Nebulizer -] 0.5 mg IH BID 04/18/16 Montelukast Na [Singulair -] 10 mg PO HS 04/18/16 Pantoprazole Sodium [Protonix] 40 mg PO DAILY 04/18/16 Simvastatin 10 mg PO HS 04/18/16 Acetaminophen [Tylenol .Regular Strength -] 650 mg PO Q6H PRN #0 tablet Benztropine Mesylate [Cogentin -] 0.5 mg PO BID #20 tablet MDD 2 07/27/16 Levofloxacin [Levaquin -] 500 mg PO DAILY #7 tablet MDD 1 07/27/16 Prednisone [Deltasone -] 10 mg PO DAILY #7 tablet 07/27/16 Quetiapine Fumarate [Seroquel -] 75 mg PO HS #20 tablet MDD 1 07/27/16
--- NOTE | 2016-07-31 11:09 | PN ---
Progress Note, [employer] - Note Progress Note: Sleepy today but pt did not sleep well last night. MBS reviewed with pt and staff. Selected Entries 07/29/16 07/29/16 07/29/16 06:00 10:00 15:00 Breakfast 75% Lunch 75% Temperature 98 F 97.6 F 07/29/16 07/30/16 07/30/16 18:00 06:51 10:00 Breakfast Lunch Temperature 97.6 F 97.3 F L 97.8 F 07/30/16 07/30/16 07/30/16 14:00 15:48 18:00 Breakfast 75% Lunch 50% Temperature 97.9 F 98.3 F 07/30/16 07/31/16 22:00 06:24 Breakfast Lunch Temperature 97.6 F 97.8 F Laboratory Tests 07/30/16 07/31/16 06:00 08:20 WBC 11.7 H 11.6 H Risk of retrograde aspiration with intermittent impairment of esophageal emptying. No retrograde aspiration. Maintain elevate HOB during and after meals.
--- NOTE | 2016-07-31 12:56 | PN ---
Progress Note (short form) - Note Progress Note: No acute events overnight. Insomnia last night. Intake & Output 07/28/16 07/29/16 07/30/16 07/31/16 23:59 23:59 23:59 23:59 Intake Total 1530 300 880 120 Output Total 250 Balance 1280 300 880 120 Last Vital Signs Temp Pulse Resp BP Pulse Ox 97.7 F 114 H 18 103/81 96 07/31/16 10:00 07/31/16 10:00 07/31/16 10:00 07/31/16 10:00 07/30/16 21:00 Active Medications Acetaminophen (Tylenol -) 650 mg PO Q6H PRN PRN Reason: FEVER OR PAIN Albuterol/Ipratropium (Duoneb -) 1 amp NEB Q4H PRN PRN Reason: SHORTNESS OF BREATH Last Admin: 07/30/16 22:30 Dose: 1 amp Atorvastatin Calcium (Lipitor -) 10 mg PO HS [facility] Last Admin: 07/30/16 21:10 Dose: 10 mg Benztropine Mesylate (Cogentin -) 0.5 mg PO BID [facility] Last Admin: 07/31/16 09:57 Dose: 0.5 mg Clonazepam (Klonopin -) 0.5 mg PO TID [facility] Last Admin: 07/31/16 05:55 Dose: 0.5 mg Divalproex Sodium (Depakote *Er* -) 500 mg PO BID [facility] Last Admin: 07/31/16 09:57 Dose: 500 mg Guaifenesin (Robitussin -) 10 ml PO Q6H PRN PRN Reason: COUGH Last Admin: 07/30/16 21:10 Dose: 10 ml Heparin Sodium (Porcine) (Heparin -) 5,000 unit SQ BID [facility] Last Admin: 07/31/16 09:57 Dose: 5,000 unit Montelukast Sodium (Singulair -) 10 mg PO HS [facility] Last Admin: 07/30/16 21:10 Dose: 10 mg Pantoprazole Sodium (Protonix -) 40 mg PO DAILY [facility] Last Admin: 07/31/16 09:57 Dose: 40 mg Quetiapine Fumarate (Seroquel -) 75 mg PO HS [facility] Last Admin: 07/30/16 21:10 Dose: 75 mg Gen: NAD at rest Heart: RRR Lung: scattered rhonchi at the bases Abd: soft, nontender Ext: no edema Laboratory Results - last 24 hr 07/31/16 08:20 WBC 11.6 H RBC 6.19 H Hgb 11.9 Hct 38.7 MCV 62.5 L MCHC 30.8 L RDW 17.1 H Plt Count 280 MPV 8.5 Neutrophils % 57.4 D Lymphocytes % 31.0 D Monocytes % 7.1 Eosinophils % 4.0 D Basophils % 0.5 D Problem List - Problems (1) Fever Code(s): R50.9 - FEVER, UNSPECIFIED (2) Upper respiratory infection Code(s): J06.9 - ACUTE UPPER RESPIRATORY INFECTION, UNSPECIFIED Qualifiers: Pharyngitis/tonsillitis etiology: unspecified etiology (3) Asthma exacerbation Code(s): J45.901 - UNSPECIFIED ASTHMA WITH (ACUTE) EXACERBATION (4) Hypertension Code(s): I10 - ESSENTIAL (PRIMARY) HYPERTENSION (5) Schizophrenia Code(s): F20.9 - SCHIZOPHRENIA, UNSPECIFIED A/P URI vs Viral Syndrome Acute Asthma Exacerbation HTN Schizophrenia - aspiration precautions - O2 to keep SpO2 >90% - inhaled bronchodilators - DVT prophylaxis - D/C planning Dr Dominguez
--- NOTE | 2016-07-31 14:10 | PN ---
Progress Note, Physician History of Present Illness: patient stable for swallow studies - Current Medication List Current Medications: Active Medications Acetaminophen (Tylenol -) 650 mg PO Q6H PRN PRN Reason: FEVER OR PAIN Albuterol/Ipratropium (Duoneb -) 1 amp NEB Q4H PRN PRN Reason: SHORTNESS OF BREATH Last Admin: 07/30/16 22:30 Dose: 1 amp Atorvastatin Calcium (Lipitor -) 10 mg PO [facility] Last Admin: 07/30/16 21:10 Dose: 10 mg Benztropine Mesylate (Cogentin -) 0.5 mg PO BID [facility] Last Admin: 07/31/16 09:57 Dose: 0.5 mg Clonazepam (Klonopin -) 0.5 mg PO TID [facility] Last Admin: 07/31/16 13:59 Dose: 0.5 mg Divalproex Sodium (Depakote *Er* -) 500 mg PO BID [facility] Last Admin: 07/31/16 09:57 Dose: 500 mg Guaifenesin (Robitussin -) 10 ml PO Q6H PRN PRN Reason: COUGH Last Admin: 07/30/16 21:10 Dose: 10 ml Heparin Sodium (Porcine) (Heparin -) 5,000 unit SQ BID [facility] Last Admin: 07/31/16 09:57 Dose: 5,000 unit Montelukast Sodium (Singulair -) 10 mg PO [facility] Last Admin: 07/30/16 21:10 Dose: 10 mg Pantoprazole Sodium (Protonix -) 40 mg PO DAILY [facility] Last Admin: 07/31/16 09:57 Dose: 40 mg Quetiapine Fumarate (Seroquel -) 75 mg PO [facility] Last Admin: 07/30/16 21:10 Dose: 75 mg - Objective Vital Signs: Vital Signs Temperature 97.7 F 07/31/16 10:00 Pulse Rate 114 H 07/31/16 10:00 Respiratory Rate 18 07/31/16 10:00 Blood Pressure 103/81 07/31/16 10:00 O2 Sat by Pulse Oximetry (%) 97 07/31/16 09:00 Constitutional: Yes: No Distress, Calm Cardiovascular: Yes: Regular Rate and Rhythm Respiratory: Yes: Regular, CTA Bilaterally Gastrointestinal: Yes: Normal Bowel Sounds, Soft Musculoskeletal: Yes: Other Extremities: Yes: Other Neurological: Yes: Alert, Oriented Psychiatric: Yes: Alert, Oriented Labs: CBC, BMP 07/31/16 08:20 07/30/16 06:00 INR, PTT INR 1.09 (0.82-1.09) 07/23/16 16:08 Assessment/Plan - Problems (1) Fever Code(s): R50.9 - FEVER, UNSPECIFIED (2) Upper respiratory infection Code(s): J06.9 - ACUTE UPPER RESPIRATORY INFECTION, UNSPECIFIED Qualifiers: Pharyngitis/tonsillitis etiology: unspecified etiology (3) Asthma exacerbation Code(s): J45.901 - UNSPECIFIED ASTHMA WITH (ACUTE) EXACERBATION (4) Hypertension Code(s): I10 - ESSENTIAL (PRIMARY) HYPERTENSION (5) Schizophrenia Code(s): F20.9 - SCHIZOPHRENIA, UNSPECIFIED patient lung sound pretty clear with xray showing no findings plan stable no new issues await for final plan
[2016-07-31] MEDS: QUEtiapine FUMARATE 25 MG TABLET (FP) PO SCH (21:38)
[2016-07-31] MEDS: ATORVASTATIN CA 10 MG TABLET (FP) PO SCH (21:38)
[2016-07-31] MEDS: MONTELUKAST NA 10 MG TABLET PO SCH (21:39)
[2016-07-31] MEDS: guaiFENesin 200 MG/10 ML 10 ML UNIT-DOSE CUPS PO PRN (21:40)
[2016-08-01] MEDS: clonazePAM 0.5 MG TABLET PO SCH ×3 (06:09→22:10)
[2016-08-01] MEDS: HEPARIN NA (PORCINE) 5,000 UNITS/ML 1ML VIAL SQ SCH ×2 (10:21→22:11)
[2016-08-01] MEDS: PANTOPRAZOLE 40 MG TABLET (FP) PO SCH (10:21)
[2016-08-01] MEDS: DIVALPROEX NA *ER* EXTEND REL 500 MG TABLET.SA (FP) PO SCH ×2 (10:21→22:10)
[2016-08-01] MEDS: BENZTROPINE MESYLATE 0.5 MG TABLET (FP) PO SCH ×2 (10:21→22:10)
[2016-08-01] MEDS: guaiFENesin 200 MG/10 ML 10 ML UNIT-DOSE CUPS PO PRN (10:26)
--- NOTE | 2016-08-01 15:06 | PN ---
Progress Note, Physician History of Present Illness: patient doing well no new issues - Current Medication List Current Medications: Active Medications Acetaminophen (Tylenol -) 650 mg PO Q6H PRN PRN Reason: FEVER OR PAIN Albuterol/Ipratropium (Duoneb -) 1 amp NEB Q4H PRN PRN Reason: SHORTNESS OF BREATH Last Admin: 07/30/16 22:30 Dose: 1 amp Atorvastatin Calcium (Lipitor -) 10 mg PO [facility] Last Admin: 07/31/16 21:38 Dose: 10 mg Benztropine Mesylate (Cogentin -) 0.5 mg PO BID [facility] Last Admin: 08/01/16 10:21 Dose: 0.5 mg Clonazepam (Klonopin -) 0.5 mg PO TID [facility] Last Admin: 08/01/16 14:35 Dose: 0.5 mg Divalproex Sodium (Depakote *Er* -) 500 mg PO BID [facility] Last Admin: 08/01/16 10:21 Dose: 500 mg Guaifenesin (Robitussin -) 10 ml PO Q6H PRN PRN Reason: COUGH Last Admin: 08/01/16 10:26 Dose: 10 ml Heparin Sodium (Porcine) (Heparin -) 5,000 unit SQ BID [facility] Last Admin: 08/01/16 10:21 Dose: 5,000 unit Montelukast Sodium (Singulair -) 10 mg PO [facility] Last Admin: 07/31/16 21:39 Dose: 10 mg Pantoprazole Sodium (Protonix -) 40 mg PO DAILY [facility] Last Admin: 08/01/16 10:21 Dose: 40 mg Quetiapine Fumarate (Seroquel -) 75 mg PO [facility] Last Admin: 07/31/16 21:38 Dose: 75 mg - Objective Vital Signs: Vital Signs Temperature 98.2 F 08/01/16 13:58 Pulse Rate 104 H 08/01/16 13:58 Respiratory Rate 18 08/01/16 13:58 Blood Pressure 95/66 08/01/16 13:58 O2 Sat by Pulse Oximetry (%) 98 07/31/16 21:00 Constitutional: Yes: No Distress, Calm Cardiovascular: Yes: Regular Rate and Rhythm Respiratory: Yes: Regular, CTA Bilaterally Gastrointestinal: Yes: Normal Bowel Sounds, Soft Neurological: Yes: Alert, Oriented Psychiatric: Yes: Alert Labs: CBC, BMP 07/31/16 08:20 07/30/16 06:00 INR, PTT INR 1.09 (0.82-1.09) 07/23/16 16:08 Assessment/Plan - Problems (1) Fever Code(s): R50.9 - FEVER, UNSPECIFIED (2) Upper respiratory infection Code(s): J06.9 - ACUTE UPPER RESPIRATORY INFECTION, UNSPECIFIED Qualifiers: Pharyngitis/tonsillitis etiology: unspecified etiology (3) Asthma exacerbation Code(s): J45.901 - UNSPECIFIED ASTHMA WITH (ACUTE) EXACERBATION (4) Hypertension Code(s): I10 - ESSENTIAL (PRIMARY) HYPERTENSION (5) Schizophrenia Code(s): F20.9 - SCHIZOPHRENIA, UNSPECIFIED patient lung sound pretty clear with xray showing no findings plan stable no new issues patient going back to the care home rest as per primary
--- NOTE | 2016-08-01 15:13 | PN ---
Progress Note, ZOOKEEPER - Note Progress Note: Selected Entries 07/31/16 07/31/16 07/31/16 06:24 10:00 14:46 Breakfast 75% Diet Tolerated Lunch 75% Temperature 97.8 F 97.7 F 98.1 F 07/31/16 07/31/16 08/01/16 18:09 22:00 06:39 Breakfast Diet Tolerated Lunch Temperature 98.3 F 97.4 F L 97.7 F 08/01/16 08/01/16 11:46 13:58 Breakfast 100% Diet Tolerated Well Lunch 75% Temperature 97.4 F L 98.2 F Laboratory Tests 07/30/16 07/31/16 06:00 08:20 WBC 11.7 H 11.6 H Tolerating diet well. Pt feeling better. Per ID, "lungs sound pretty clear."
--- NOTE | 2016-08-01 18:43 | PN ---
Progress Note, Physician - Current Medication List Current Medications: Active Medications Acetaminophen (Tylenol -) 650 mg PO Q6H PRN PRN Reason: FEVER OR PAIN Albuterol/Ipratropium (Duoneb -) 1 amp NEB Q4H PRN PRN Reason: SHORTNESS OF BREATH Last Admin: 07/30/16 22:30 Dose: 1 amp Atorvastatin Calcium (Lipitor -) 10 mg PO HS [facility] Last Admin: 07/31/16 21:38 Dose: 10 mg Benztropine Mesylate (Cogentin -) 0.5 mg PO BID [facility] Last Admin: 08/01/16 10:21 Dose: 0.5 mg Clonazepam (Klonopin -) 0.5 mg PO TID [facility] Last Admin: 08/01/16 14:35 Dose: 0.5 mg Divalproex Sodium (Depakote *Er* -) 500 mg PO BID [facility] Last Admin: 08/01/16 10:21 Dose: 500 mg Guaifenesin (Robitussin -) 10 ml PO Q6H PRN PRN Reason: COUGH Last Admin: 08/01/16 10:26 Dose: 10 ml Heparin Sodium (Porcine) (Heparin -) 5,000 unit SQ BID [facility] Last Admin: 08/01/16 10:21 Dose: 5,000 unit Montelukast Sodium (Singulair -) 10 mg PO [facility] Last Admin: 07/31/16 21:39 Dose: 10 mg Pantoprazole Sodium (Protonix -) 40 mg PO DAILY [facility] Last Admin: 08/01/16 10:21 Dose: 40 mg Quetiapine Fumarate (Seroquel -) 75 mg PO HS [facility] Last Admin: 07/31/16 21:38 Dose: 75 mg - Objective Vital Signs: Vital Signs Temperature 98.2 F 08/01/16 13:58 Pulse Rate 104 H 08/01/16 13:58 Respiratory Rate 18 08/01/16 13:58 Blood Pressure 95/66 08/01/16 13:58 O2 Sat by Pulse Oximetry (%) 98 07/31/16 21:00 Constitutional: Yes: Well Nourished, No Distress, Calm Cardiovascular: Yes: Regular Rate and Rhythm Respiratory: Yes: Regular Gastrointestinal: Yes: Normal Bowel Sounds Edema: No Labs: CBC, BMP 07/31/16 08:20 07/30/16 06:00 INR, PTT INR 1.09 (0.82-1.09) 07/23/16 16:08 Problem List - Problems (1) Upper respiratory infection Assessment/Plan: CT chest negative, B/S clear, NAD Code(s): J06.9 - ACUTE UPPER RESPIRATORY INFECTION, UNSPECIFIED Qualifiers: Pharyngitis/tonsillitis etiology: unspecified etiology (2) Leukocytosis Assessment/Plan: Secondary to steroids given recently? No evidence of acute infection at the moment. Code(s): D72.829 - ELEVATED WHITE BLOOD CELL COUNT, UNSPECIFIED (3) Shortness of breath Assessment/Plan: NO SOB AT THIS TIME. Code(s): R06.02 - SHORTNESS OF BREATH (4) Choking Assessment/Plan: FOLLOW INSTRUCTIONS PER SWALLOW EVAL DONE BY SONG BARNEY. KEEP HOB ELEVATED AFTER MEALS. Code(s): T17.308A - UNSP FOREIGN BODY IN LARYNX CAUSING OTH INJURY, INIT ENCNTR Assessment/Plan KEEP HOB ELEVATED AFTER MEALS. PATIENT IS MINIMAL ASSIST. D/C TO THE [facility] IF AUTHORIZED PER BROTHER.
[2016-08-01] MEDS ORDERED: PT OWN MED DRAWER 7, Y5N ONE (21:18)
[2016-08-01] MEDS: ACETAMINOPHEN 325 MG TABLET (FP) PO PRN (22:09)
[2016-08-01] MEDS: ATORVASTATIN CA 10 MG TABLET (FP) PO SCH (22:10)
[2016-08-01] MEDS: MONTELUKAST NA 10 MG TABLET PO SCH (22:10)
[2016-08-01] MEDS: QUEtiapine FUMARATE 25 MG TABLET (FP) PO SCH (22:10)
[2016-08-02] MEDS: clonazePAM 0.5 MG TABLET PO SCH ×3 (06:27→21:35)
[2016-08-02] MEDS: HEPARIN NA (PORCINE) 5,000 UNITS/ML 1ML VIAL SQ SCH ×2 (09:21→21:35)
[2016-08-02] MEDS: PANTOPRAZOLE 40 MG TABLET (FP) PO SCH (09:21)
[2016-08-02] MEDS: BENZTROPINE MESYLATE 0.5 MG TABLET (FP) PO SCH ×2 (09:22→21:35)
[2016-08-02] MEDS: DIVALPROEX NA *ER* EXTEND REL 500 MG TABLET.SA (FP) PO SCH ×2 (09:22→21:35)
--- NOTE | 2016-08-02 10:39 | PN ---
Progress Note (short form) - Note Progress Note: No acute events overnight. No CP or SOB. Intake & Output 07/30/16 07/31/16 08/01/16 08/02/16 23:59 23:59 23:59 23:59 Intake Total 880 360 990 0 Output Total 225 Balance 880 135 990 0 Last Vital Signs Temp Pulse Resp BP Pulse Ox 97.4 F L 72 20 91/58 96 08/02/16 06:00 08/02/16 06:00 08/02/16 06:00 08/02/16 06:00 08/01/16 21:00 Active Medications Acetaminophen (Tylenol -) 650 mg PO Q6H PRN PRN Reason: FEVER OR PAIN Last Admin: 08/01/16 22:09 Dose: 650 mg Albuterol/Ipratropium (Duoneb -) 1 amp NEB Q4H PRN PRN Reason: SHORTNESS OF BREATH Last Admin: 07/30/16 22:30 Dose: 1 amp Atorvastatin Calcium (Lipitor -) 10 mg PO [facility] Last Admin: 08/01/16 22:10 Dose: 10 mg Benztropine Mesylate (Cogentin -) 0.5 mg PO BID [facility] Last Admin: 08/02/16 09:22 Dose: 0.5 mg Clonazepam (Klonopin -) 0.5 mg PO TID [facility] Last Admin: 08/02/16 06:27 Dose: 0.5 mg Divalproex Sodium (Depakote *Er* -) 500 mg PO BID [facility] Last Admin: 08/02/16 09:22 Dose: 500 mg Guaifenesin (Robitussin -) 10 ml PO Q6H PRN PRN Reason: COUGH Last Admin: 08/01/16 10:26 Dose: 10 ml Heparin Sodium (Porcine) (Heparin -) 5,000 unit SQ BID [facility] Last Admin: 08/02/16 09:21 Dose: 5,000 unit Montelukast Sodium (Singulair -) 10 mg PO HS [facility] Last Admin: 08/01/16 22:10 Dose: 10 mg Pantoprazole Sodium (Protonix -) 40 mg PO DAILY [facility] Last Admin: 08/02/16 09:21 Dose: 40 mg Quetiapine Fumarate (Seroquel -) 75 mg PO HS [facility] Last Admin: 08/01/16 22:10 Dose: 75 mg Gen: NAD at rest Heart: RRR Lung: scattered rhonchi at the bases Abd: soft, nontender Ext: no edema Problem List - Problems (1) Fever Code(s): R50.9 - FEVER, UNSPECIFIED (2) Upper respiratory infection Code(s): J06.9 - ACUTE UPPER RESPIRATORY INFECTION, UNSPECIFIED Qualifiers: Pharyngitis/tonsillitis etiology: unspecified etiology (3) Asthma exacerbation Code(s): J45.901 - UNSPECIFIED ASTHMA WITH (ACUTE) EXACERBATION (4) Hypertension Code(s): I10 - ESSENTIAL (PRIMARY) HYPERTENSION (5) Schizophrenia Code(s): F20.9 - SCHIZOPHRENIA, UNSPECIFIED A/P URI vs Viral Syndrome Acute Asthma Exacerbation HTN Schizophrenia - aspiration precautions - O2 to keep SpO2 >90% - inhaled bronchodilators - DVT prophylaxis - D/C planning Dr Dominguez
--- NOTE | 2016-08-02 13:13 | PN ---
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 Feeds himself. Looks stronger. Selected Entries 08/01/16 08/01/16 08/01/16 06:39 11:46 13:58 Breakfast 100% Lunch 75% Supper Temperature 97.7 F 97.4 F L 98.2 F 08/01/16 08/01/16 08/02/16 18:15 22:00 06:00 Breakfast Lunch Supper 100% Temperature 98.0 F 98.4 F 97.4 F L 08/02/16 10:00 Breakfast Lunch Supper Temperature 98.3 F Laboratory Tests 07/30/16 07/31/16 06:00 08:20 WBC 11.7 H 11.6 H No anterograde aspiration on MBS. Risk of retrograde aspiration with intermittent impairment of esoph emptying. Maintain upright, ideally oob for meals and 1 hour after meals.
--- NOTE | 2016-08-02 14:04 | PN ---
Progress Note, Physician History of Present Illness: patient stable no new issues - Current Medication List Current Medications: Active Medications Acetaminophen (Tylenol -) 650 mg PO Q6H PRN PRN Reason: FEVER OR PAIN Last Admin: 08/01/16 22:09 Dose: 650 mg Albuterol/Ipratropium (Duoneb -) 1 amp NEB Q4H PRN PRN Reason: SHORTNESS OF BREATH Last Admin: 07/30/16 22:30 Dose: 1 amp Atorvastatin Calcium (Lipitor -) 10 mg PO [facility] Last Admin: 08/01/16 22:10 Dose: 10 mg Benztropine Mesylate (Cogentin -) 0.5 mg PO BID [facility] Last Admin: 08/02/16 09:22 Dose: 0.5 mg Clonazepam (Klonopin -) 0.5 mg PO TID [facility] Last Admin: 08/02/16 13:36 Dose: 0.5 mg Divalproex Sodium (Depakote *Er* -) 500 mg PO BID [facility] Last Admin: 08/02/16 09:22 Dose: 500 mg Guaifenesin (Robitussin -) 10 ml PO Q6H PRN PRN Reason: COUGH Last Admin: 08/01/16 10:26 Dose: 10 ml Heparin Sodium (Porcine) (Heparin -) 5,000 unit SQ BID [facility] Last Admin: 08/02/16 09:21 Dose: 5,000 unit Montelukast Sodium (Singulair -) 10 mg PO [facility] Last Admin: 08/01/16 22:10 Dose: 10 mg Pantoprazole Sodium (Protonix -) 40 mg PO DAILY [facility] Last Admin: 08/02/16 09:21 Dose: 40 mg Quetiapine Fumarate (Seroquel -) 75 mg PO [facility] Last Admin: 08/01/16 22:10 Dose: 75 mg - Objective Vital Signs: Vital Signs Temperature 98.3 F 08/02/16 10:00 Pulse Rate 100 H 08/02/16 10:00 Respiratory Rate 20 08/02/16 10:00 Blood Pressure 92/60 08/02/16 10:00 O2 Sat by Pulse Oximetry (%) 95 08/02/16 09:00 Constitutional: Yes: No Distress, Calm Cardiovascular: Yes: Regular Rate and Rhythm Respiratory: Yes: Regular, CTA Bilaterally Musculoskeletal: Yes: WNL Extremities: Yes: WNL Neurological: Yes: Alert Labs: CBC, BMP 07/31/16 08:20 07/30/16 06:00 INR, PTT INR 1.09 (0.82-1.09) 07/23/16 16:08 Assessment/Plan - Problems (1) Fever Code(s): R50.9 - FEVER, UNSPECIFIED (2) Upper respiratory infection Code(s): J06.9 - ACUTE UPPER RESPIRATORY INFECTION, UNSPECIFIED Qualifiers: Pharyngitis/tonsillitis etiology: unspecified etiology (3) Asthma exacerbation Code(s): J45.901 - UNSPECIFIED ASTHMA WITH (ACUTE) EXACERBATION (4) Hypertension Code(s): I10 - ESSENTIAL (PRIMARY) HYPERTENSION (5) Schizophrenia Code(s): F20.9 - SCHIZOPHRENIA, UNSPECIFIED patient lung sound pretty clear with xray showing no findings plan stable no new issues awaiting placement
--- NOTE | 2016-08-02 18:04 | PN ---
Progress Note, Physician Chief Complaint: Upper respiratory infection History of Present Illness: Originally came in for URI and choking, sitting comfortably in the chair awaiting for approval [facility] the [facility]. Brother wants patient to go to [facility] in the [place] - Current Medication List Current Medications: Active Medications Acetaminophen (Tylenol -) 650 mg PO Q6H PRN PRN Reason: FEVER OR PAIN Last Admin: 08/01/16 22:09 Dose: 650 mg Albuterol/Ipratropium (Duoneb -) 1 amp NEB Q4H PRN PRN Reason: SHORTNESS OF BREATH Last Admin: 07/30/16 22:30 Dose: 1 amp Atorvastatin Calcium (Lipitor -) 10 mg PO HS [facility] Last Admin: 08/01/16 22:10 Dose: 10 mg Benztropine Mesylate (Cogentin -) 0.5 mg PO BID [facility] Last Admin: 08/02/16 09:22 Dose: 0.5 mg Clonazepam (Klonopin -) 0.5 mg PO TID [facility] Last Admin: 08/02/16 13:36 Dose: 0.5 mg Divalproex Sodium (Depakote *Er* -) 500 mg PO BID [facility] Last Admin: 08/02/16 09:22 Dose: 500 mg Guaifenesin (Robitussin -) 10 ml PO Q6H PRN PRN Reason: COUGH Last Admin: 08/01/16 10:26 Dose: 10 ml Heparin Sodium (Porcine) (Heparin -) 5,000 unit SQ BID [facility] Last Admin: 08/02/16 09:21 Dose: 5,000 unit Montelukast Sodium (Singulair -) 10 mg PO HS [facility] Last Admin: 08/01/16 22:10 Dose: 10 mg Pantoprazole Sodium (Protonix -) 40 mg PO DAILY [facility] Last Admin: 08/02/16 09:21 Dose: 40 mg Quetiapine Fumarate (Seroquel -) 75 mg PO HS [facility] Last Admin: 08/01/16 22:10 Dose: 75 mg - Objective Vital Signs: Vital Signs Temperature 97.6 F 08/02/16 15:22 Pulse Rate 100 H 08/02/16 15:22 Respiratory Rate 17 08/02/16 15:22 Blood Pressure 98/67 08/02/16 15:22 O2 Sat by Pulse Oximetry (%) 95 08/02/16 09:00 Constitutional: Yes: Well Nourished, No Distress, Calm Cardiovascular: Yes: Regular Rate and Rhythm Respiratory: Yes: Regular Musculoskeletal: Yes: WNL Extremities: Yes: WNL Edema: No Neurological: Yes: Alert Labs: CBC, BMP 07/31/16 08:20 07/30/16 06:00 INR, PTT INR 1.09 (0.82-1.09) 07/23/16 16:08 Problem List - Problems (1) Upper respiratory infection Assessment/Plan: CT chest negative, B/S clear, NAD Code(s): J06.9 - ACUTE UPPER RESPIRATORY INFECTION, UNSPECIFIED Qualifiers: Pharyngitis/tonsillitis etiology: unspecified etiology (2) Leukocytosis Assessment/Plan: Secondary to steroids given recently? No evidence of acute infection at the moment. Code(s): D72.829 - ELEVATED WHITE BLOOD CELL COUNT, UNSPECIFIED (3) Shortness of breath Assessment/Plan: NO SOB AT THIS TIME. Code(s): R06.02 - SHORTNESS OF BREATH (4) Choking Assessment/Plan: FOLLOW INSTRUCTIONS PER SWALLOW EVAL DONE BY SONG BARNEY. KEEP HOB ELEVATED FOR AND AFTER MEALS. Code(s): T17.308A - UNSP FOREIGN BODY IN LARYNX CAUSING OTH INJURY, INIT ENCNTR Assessment/Plan KEEP HOB ELEVATED DURING AND AFTER MEALS. PATIENT IS MINIMAL ASSIST. D/C TO THE [facility] IF AUTHORIZED PER BROTHER.
[2016-08-02] MEDS: ATORVASTATIN CA 10 MG TABLET (FP) PO SCH (21:35)
[2016-08-02] MEDS: MONTELUKAST NA 10 MG TABLET PO SCH (21:35)
[2016-08-02] MEDS: QUEtiapine FUMARATE 25 MG TABLET (FP) PO SCH (21:35)
[2016-08-03] MEDS: clonazePAM 0.5 MG TABLET PO SCH ×3 (05:42→22:25)
[2016-08-03] MEDS: ACETAMINOPHEN 325 MG TABLET (FP) PO PRN (09:13)
[2016-08-03] MEDS: HEPARIN NA (PORCINE) 5,000 UNITS/ML 1ML VIAL SQ SCH ×2 (09:14→22:24)
[2016-08-03] MEDS: PANTOPRAZOLE 40 MG TABLET (FP) PO SCH (09:14)
[2016-08-03] MEDS: DIVALPROEX NA *ER* EXTEND REL 500 MG TABLET.SA (FP) PO SCH ×2 (09:46→22:24)
[2016-08-03] MEDS: BENZTROPINE MESYLATE 0.5 MG TABLET (FP) PO SCH ×2 (09:46→22:24)
--- NOTE | 2016-08-03 12:28 | PN ---
Progress Note, Physician Chief Complaint: Upper respiratory infection History of Present Illness: Originally came in for URI and choking, sitting comfortably in the chair awaiting for approval for the skilled nursing placement. Brother wants patient to go to [facility] in the [place] - Current Medication List Current Medications: Active Medications Acetaminophen (Tylenol -) 650 mg PO Q6H PRN PRN Reason: FEVER OR PAIN Last Admin: 08/03/16 09:13 Dose: 650 mg Albuterol/Ipratropium (Duoneb -) 1 amp NEB Q4H PRN PRN Reason: SHORTNESS OF BREATH Last Admin: 07/30/16 22:30 Dose: 1 amp Atorvastatin Calcium (Lipitor -) 10 mg PO HS [facility] Last Admin: 08/02/16 21:35 Dose: 10 mg Benztropine Mesylate (Cogentin -) 0.5 mg PO BID [facility] Last Admin: 08/03/16 09:46 Dose: 0.5 mg Clonazepam (Klonopin -) 0.5 mg PO TID [facility] Last Admin: 08/03/16 05:42 Dose: 0.5 mg Divalproex Sodium (Depakote *Er* -) 500 mg PO BID [facility] Last Admin: 08/03/16 09:46 Dose: 500 mg Guaifenesin (Robitussin -) 10 ml PO Q6H PRN PRN Reason: COUGH Last Admin: 08/01/16 10:26 Dose: 10 ml Heparin Sodium (Porcine) (Heparin -) 5,000 unit SQ BID [facility] Last Admin: 08/03/16 09:14 Dose: 5,000 unit Montelukast Sodium (Singulair -) 10 mg PO HS [facility] Last Admin: 08/02/16 21:35 Dose: 10 mg Pantoprazole Sodium (Protonix -) 40 mg PO DAILY [facility] Last Admin: 08/03/16 09:14 Dose: 40 mg Quetiapine Fumarate (Seroquel -) 75 mg PO HS [facility] Last Admin: 08/02/16 21:35 Dose: 75 mg - Objective Vital Signs: Vital Signs Temperature 98.3 F 08/03/16 10:00 Pulse Rate 84 08/03/16 10:43 Respiratory Rate 18 08/03/16 10:00 Blood Pressure 133/60 08/03/16 10:00 O2 Sat by Pulse Oximetry (%) 97 08/03/16 10:43 Constitutional: Yes: Well Nourished, No Distress, Calm Cardiovascular: Yes: Regular Rate and Rhythm Respiratory: Yes: Regular Musculoskeletal: Yes: WNL Extremities: Yes: WNL Edema: No Neurological: Yes: Alert Labs: CBC, BMP 07/31/16 08:20 07/30/16 06:00 INR, PTT INR 1.09 (0.82-1.09) 07/23/16 16:08 Problem List - Problems (1) Upper respiratory infection Code(s): J06.9 - ACUTE UPPER RESPIRATORY INFECTION, UNSPECIFIED Qualifiers: Pharyngitis/tonsillitis etiology: unspecified etiology (2) Leukocytosis Assessment/Plan: CAN BE FOLLOWED UP OUTPATIENT Code(s): D72.829 - ELEVATED WHITE BLOOD CELL COUNT, UNSPECIFIED (3) Shortness of breath Code(s): R06.02 - SHORTNESS OF BREATH (4) Choking Code(s): T17.308A - UNSP FOREIGN BODY IN LARYNX CAUSING OTH INJURY, INIT ENCNTR Assessment/Plan KEEP HOB ELEVATED DURING AND AFTER MEALS. PATIENT IS MINIMAL ASSIST. D/C TO THE [facility] IF AUTHORIZED BY INSURANCE AND ACCEPTED
--- NOTE | 2016-08-03 13:05 | PN ---
Progress Note, Physician History of Present Illness: PULMONARY AWAKE,NO DISTRESS,C/O SOB AFTER EATIOG,-COUGH,-CONGESTION. DEPRESSED - Current Medication List Current Medications: Active Medications Acetaminophen (Tylenol -) 650 mg PO Q6H PRN PRN Reason: FEVER OR PAIN Last Admin: 08/03/16 09:13 Dose: 650 mg Albuterol/Ipratropium (Duoneb -) 1 amp NEB Q4H PRN PRN Reason: SHORTNESS OF BREATH Last Admin: 07/30/16 22:30 Dose: 1 amp Atorvastatin Calcium (Lipitor -) 10 mg PO HS [facility] Last Admin: 08/02/16 21:35 Dose: 10 mg Benztropine Mesylate (Cogentin -) 0.5 mg PO BID [facility] Last Admin: 08/03/16 09:46 Dose: 0.5 mg Clonazepam (Klonopin -) 0.5 mg PO TID [facility] Last Admin: 08/03/16 05:42 Dose: 0.5 mg Divalproex Sodium (Depakote *Er* -) 500 mg PO BID [facility] Last Admin: 08/03/16 09:46 Dose: 500 mg Guaifenesin (Robitussin -) 10 ml PO Q6H PRN PRN Reason: COUGH Last Admin: 08/01/16 10:26 Dose: 10 ml Heparin Sodium (Porcine) (Heparin -) 5,000 unit SQ BID [facility] Last Admin: 08/03/16 09:14 Dose: 5,000 unit Montelukast Sodium (Singulair -) 10 mg PO HS [facility] Last Admin: 08/02/16 21:35 Dose: 10 mg Pantoprazole Sodium (Protonix -) 40 mg PO DAILY [facility] Last Admin: 08/03/16 09:14 Dose: 40 mg Quetiapine Fumarate (Seroquel -) 75 mg PO HS [facility] Last Admin: 08/02/16 21:35 Dose: 75 mg - Objective Vital Signs: Vital Signs Temperature 98.3 F 08/03/16 10:00 Pulse Rate 84 08/03/16 10:43 Respiratory Rate 18 08/03/16 10:00 Blood Pressure 133/60 08/03/16 10:00 O2 Sat by Pulse Oximetry (%) 97 08/03/16 10:43 Constitutional: Yes: No Distress, Calm, Thin Eyes: Yes: WNL HENT: Yes: WNL Neck: Yes: WNL Cardiovascular: Yes: Regular Rate and Rhythm, S1, S2 Respiratory: Yes: CTA Bilaterally Gastrointestinal: Yes: Normal Bowel Sounds, Soft Extremities: Yes: WNL Edema: No Labs: CBC, BMP Assessment/Plan Problem List - Problems (1) Fever Code(s): R50.9 - FEVER, UNSPECIFIED (2) Upper respiratory infection Code(s): J06.9 - ACUTE UPPER RESPIRATORY INFECTION, UNSPECIFIED Qualifiers: Pharyngitis/tonsillitis etiology: unspecified etiology (3) Asthma exacerbation Code(s): J45.901 - UNSPECIFIED ASTHMA WITH (ACUTE) EXACERBATION (4) Hypertension Code(s): I10 - ESSENTIAL (PRIMARY) HYPERTENSION (5) Schizophrenia Code(s): F20.9 - SCHIZOPHRENIA, UNSPECIFIED A/P URI vs Viral Syndrome improved Acute Asthma Exacerbation HTN Schizophrenia - aspiration precautions - O2 to keep SpO2 >90% - inhaled bronchodilators - DVT prophylaxis DR LANDRY
--- NOTE | 2016-08-03 13:48 | PN ---
Progress Note, Physician History of Present Illness: patient stable no new issues - Current Medication List Current Medications: Active Medications Acetaminophen (Tylenol -) 650 mg PO Q6H PRN PRN Reason: FEVER OR PAIN Last Admin: 08/03/16 09:13 Dose: 650 mg Albuterol/Ipratropium (Duoneb -) 1 amp NEB Q4H PRN PRN Reason: SHORTNESS OF BREATH Last Admin: 07/30/16 22:30 Dose: 1 amp Atorvastatin Calcium (Lipitor -) 10 mg PO [facility] Last Admin: 08/02/16 21:35 Dose: 10 mg Benztropine Mesylate (Cogentin -) 0.5 mg PO BID [facility] Last Admin: 08/03/16 09:46 Dose: 0.5 mg Clonazepam (Klonopin -) 0.5 mg PO TID [facility] Last Admin: 08/03/16 05:42 Dose: 0.5 mg Divalproex Sodium (Depakote *Er* -) 500 mg PO BID [facility] Last Admin: 08/03/16 09:46 Dose: 500 mg Guaifenesin (Robitussin -) 10 ml PO Q6H PRN PRN Reason: COUGH Last Admin: 08/01/16 10:26 Dose: 10 ml Heparin Sodium (Porcine) (Heparin -) 5,000 unit SQ BID [facility] Last Admin: 08/03/16 09:14 Dose: 5,000 unit Montelukast Sodium (Singulair -) 10 mg PO [facility] Last Admin: 08/02/16 21:35 Dose: 10 mg Pantoprazole Sodium (Protonix -) 40 mg PO DAILY [facility] Last Admin: 08/03/16 09:14 Dose: 40 mg Quetiapine Fumarate (Seroquel -) 75 mg PO [facility] Last Admin: 08/02/16 21:35 Dose: 75 mg - Objective Vital Signs: Vital Signs Temperature 98.3 F 08/03/16 10:00 Pulse Rate 84 08/03/16 10:43 Respiratory Rate 18 08/03/16 10:00 Blood Pressure 133/60 08/03/16 10:00 O2 Sat by Pulse Oximetry (%) 97 08/03/16 10:43 Constitutional: Yes: No Distress, Calm Cardiovascular: Yes: Regular Rate and Rhythm Respiratory: Yes: Regular, CTA Bilaterally Gastrointestinal: Yes: Normal Bowel Sounds Musculoskeletal: Yes: WNL Extremities: Yes: WNL Labs: CBC, BMP 07/31/16 08:20 07/30/16 06:00 INR, PTT INR 1.09 (0.82-1.09) 07/23/16 16:08 Assessment/Plan - Problems (1) Fever Code(s): R50.9 - FEVER, UNSPECIFIED (2) Upper respiratory infection Code(s): J06.9 - ACUTE UPPER RESPIRATORY INFECTION, UNSPECIFIED Qualifiers: Pharyngitis/tonsillitis etiology: unspecified etiology (3) Asthma exacerbation Code(s): J45.901 - UNSPECIFIED ASTHMA WITH (ACUTE) EXACERBATION (4) Hypertension Code(s): I10 - ESSENTIAL (PRIMARY) HYPERTENSION (5) Schizophrenia Code(s): F20.9 - SCHIZOPHRENIA, UNSPECIFIED patient lung sound pretty clear with xray showing no findings plan stable no new issues awaiting placement
[2016-08-03] MEDS: ATORVASTATIN CA 10 MG TABLET (FP) PO SCH (22:25)
[2016-08-03] MEDS: MONTELUKAST NA 10 MG TABLET PO SCH (22:25)
[2016-08-03] MEDS: QUEtiapine FUMARATE 25 MG TABLET (FP) PO SCH (22:25)
[2016-08-04] MEDS: clonazePAM 0.5 MG TABLET PO SCH ×3 (06:40→21:10)
[2016-08-04] MEDS: HEPARIN NA (PORCINE) 5,000 UNITS/ML 1ML VIAL SQ SCH ×2 (10:06→21:10)
[2016-08-04] MEDS: PANTOPRAZOLE 40 MG TABLET (FP) PO SCH (10:07)
[2016-08-04] MEDS: BENZTROPINE MESYLATE 0.5 MG TABLET (FP) PO SCH ×2 (10:07→21:10)
[2016-08-04] MEDS: DIVALPROEX NA *ER* EXTEND REL 500 MG TABLET.SA (FP) PO SCH ×2 (10:07→21:10)
--- NOTE | 2016-08-04 12:58 | PN ---
Progress Note, Physician History of Present Illness: pulmonary alert,nad,sob improved - Current Medication List Current Medications: Active Medications Acetaminophen (Tylenol -) 650 mg PO Q6H PRN PRN Reason: FEVER OR PAIN Last Admin: 08/03/16 09:13 Dose: 650 mg Albuterol/Ipratropium (Duoneb -) 1 amp NEB Q4H PRN PRN Reason: SHORTNESS OF BREATH Last Admin: 07/30/16 22:30 Dose: 1 amp Atorvastatin Calcium (Lipitor -) 10 mg PO HS [facility] Last Admin: 08/03/16 22:25 Dose: 10 mg Benztropine Mesylate (Cogentin -) 0.5 mg PO BID [facility] Last Admin: 08/04/16 10:07 Dose: 0.5 mg Clonazepam (Klonopin -) 0.5 mg PO TID [facility] Last Admin: 08/04/16 06:40 Dose: 0.5 mg Divalproex Sodium (Depakote *Er* -) 500 mg PO BID [facility] Last Admin: 08/04/16 10:07 Dose: 500 mg Guaifenesin (Robitussin -) 10 ml PO Q6H PRN PRN Reason: COUGH Last Admin: 08/01/16 10:26 Dose: 10 ml Heparin Sodium (Porcine) (Heparin -) 5,000 unit SQ BID [facility] Last Admin: 08/04/16 10:06 Dose: 5,000 unit Montelukast Sodium (Singulair -) 10 mg PO HS [facility] Last Admin: 08/03/16 22:25 Dose: 10 mg Pantoprazole Sodium (Protonix -) 40 mg PO DAILY [facility] Last Admin: 08/04/16 10:07 Dose: 40 mg Quetiapine Fumarate (Seroquel -) 75 mg PO HS [facility] Last Admin: 08/03/16 22:25 Dose: 75 mg - Objective Vital Signs: Vital Signs Temperature 97.4 F L 08/04/16 10:00 Pulse Rate 102 H 08/04/16 11:46 Respiratory Rate 17 08/04/16 10:00 Blood Pressure 94/69 08/04/16 10:00 O2 Sat by Pulse Oximetry (%) 92 L 08/04/16 11:46 Constitutional: Yes: Well Nourished, Calm Eyes: Yes: WNL HENT: Yes: WNL Neck: Yes: WNL Cardiovascular: Yes: Regular Rate and Rhythm, S1, S2 Extremities: Yes: WNL Edema: No Labs: Assessment/Plan Problem List - Problems (1) Fever Code(s): R50.9 - FEVER, UNSPECIFIED (2) Upper respiratory infection Code(s): J06.9 - ACUTE UPPER RESPIRATORY INFECTION, UNSPECIFIED Qualifiers: Pharyngitis/tonsillitis etiology: unspecified etiology (3) Asthma exacerbation Code(s): J45.901 - UNSPECIFIED ASTHMA WITH (ACUTE) EXACERBATION (4) Hypertension Code(s): I10 - ESSENTIAL (PRIMARY) HYPERTENSION (5) Schizophrenia Code(s): F20.9 - SCHIZOPHRENIA, UNSPECIFIED A/P URI vs Viral Syndrome improved Acute Asthma Exacerbation HTN Schizophrenia - aspiration precautions - O2 to keep SpO2 >90% - inhaled bronchodilators - DVT prophylaxis DR LANDRY
[2016-08-04] MEDS ORDERED: ALBUTEROL SO4 2.5/IPRATROPIUM 0.5 INH SOL 3 ML VIAL.NEB. NEB PRN (12:59)
--- NOTE | 2016-08-04 18:35 | PN ---
Progress Note, Physician Chief Complaint: Upper respiratory infection History of Present Illness: Originally came in for URI and choking, sitting comfortably in the chair awaiting for approval for the [facility] placement. Brother wants patient to go to [facility] in the [place] - Current Medication List Current Medications: Active Medications Acetaminophen (Tylenol -) 650 mg PO Q6H PRN PRN Reason: FEVER OR PAIN Last Admin: 08/03/16 09:13 Dose: 650 mg Albuterol/Ipratropium (Duoneb -) 1 amp NEB Q4H PRN PRN Reason: SHORTNESS OF BREATH Atorvastatin Calcium (Lipitor -) 10 mg PO HS [facility] Last Admin: 08/03/16 22:25 Dose: 10 mg Benztropine Mesylate (Cogentin -) 0.5 mg PO BID [facility] Last Admin: 08/04/16 10:07 Dose: 0.5 mg Clonazepam (Klonopin -) 0.5 mg PO TID [facility] Last Admin: 08/04/16 14:06 Dose: 0.5 mg Divalproex Sodium (Depakote *Er* -) 500 mg PO BID [facility] Last Admin: 08/04/16 10:07 Dose: 500 mg Guaifenesin (Robitussin -) 10 ml PO Q6H PRN PRN Reason: COUGH Last Admin: 08/01/16 10:26 Dose: 10 ml Heparin Sodium (Porcine) (Heparin -) 5,000 unit SQ BID [facility] Last Admin: 08/04/16 10:06 Dose: 5,000 unit Montelukast Sodium (Singulair -) 10 mg PO HS [facility] Last Admin: 08/03/16 22:25 Dose: 10 mg Pantoprazole Sodium (Protonix -) 40 mg PO DAILY [facility] Last Admin: 08/04/16 10:07 Dose: 40 mg Quetiapine Fumarate (Seroquel -) 75 mg PO HS [facility] Last Admin: 08/03/16 22:25 Dose: 75 mg - Objective Vital Signs: Vital Signs Temperature 97.3 F L 08/04/16 14:26 Pulse Rate 93 H 08/04/16 14:26 Respiratory Rate 18 08/04/16 14:26 Blood Pressure 97/64 08/04/16 14:26 O2 Sat by Pulse Oximetry (%) 92 L 08/04/16 11:46 Constitutional: Yes: Well Nourished, No Distress, Calm Cardiovascular: Yes: Regular Rate and Rhythm Respiratory: Yes: Regular Psychiatric: Yes: Alert Labs: CBC, BMP 07/31/16 08:20 07/30/16 06:00 INR, PTT INR 1.09 (0.82-1.09) 07/23/16 16:08 Problem List - Problems (1) Upper respiratory infection Assessment/Plan: CT chest negative, B/S clear, NAD, AWAITING ACCEPTANCE [facility] Code(s): J06.9 - ACUTE UPPER RESPIRATORY INFECTION, UNSPECIFIED Qualifiers: Pharyngitis/tonsillitis etiology: unspecified etiology (2) Leukocytosis Code(s): D72.829 - ELEVATED WHITE BLOOD CELL COUNT, UNSPECIFIED (3) Shortness of breath Code(s): R06.02 - SHORTNESS OF BREATH (4) Choking Code(s): T17.308A - UNSP FOREIGN BODY IN LARYNX CAUSING OTH INJURY, INIT ENCNTR Assessment/Plan KEEP HOB ELEVATED DURING AND AFTER MEALS. PATIENT IS MINIMAL ASSIST. D/C TO THE [facility] IF AUTHORIZED BY INSURANCE AND ACCEPTED
[2016-08-04] MEDS: MONTELUKAST NA 10 MG TABLET PO SCH (21:10)
[2016-08-04] MEDS: QUEtiapine FUMARATE 25 MG TABLET (FP) PO SCH (21:10)
[2016-08-04] MEDS: ATORVASTATIN CA 10 MG TABLET (FP) PO SCH (21:10)
[2016-08-05] MEDS: clonazePAM 0.5 MG TABLET PO SCH ×2 (06:03→22:49)
[2016-08-05] MEDS: BENZTROPINE MESYLATE 0.5 MG TABLET (FP) PO SCH ×2 (10:51→21:26)
[2016-08-05] MEDS: PANTOPRAZOLE 40 MG TABLET (FP) PO SCH (10:51)
[2016-08-05] MEDS: HEPARIN NA (PORCINE) 5,000 UNITS/ML 1ML VIAL SQ SCH ×2 (10:51→21:26)
[2016-08-05] MEDS: DIVALPROEX NA *ER* EXTEND REL 500 MG TABLET.SA (FP) PO SCH ×2 (10:51→21:26)
--- NOTE | 2016-08-05 12:50 | PN ---
Progress Note, Physician History of Present Illness: pulmonary alert,nad,-resp distress, - Current Medication List Current Medications: Active Medications Acetaminophen (Tylenol -) 650 mg PO Q6H PRN PRN Reason: FEVER OR PAIN Last Admin: 08/03/16 09:13 Dose: 650 mg Albuterol/Ipratropium (Duoneb -) 1 amp NEB Q4H PRN PRN Reason: SHORTNESS OF BREATH Atorvastatin Calcium (Lipitor -) 10 mg PO [facility] Last Admin: 08/04/16 21:10 Dose: 10 mg Benztropine Mesylate (Cogentin -) 0.5 mg PO BID [facility] Last Admin: 08/05/16 10:51 Dose: 0.5 mg Divalproex Sodium (Depakote *Er* -) 500 mg PO BID [facility] Last Admin: 08/05/16 10:51 Dose: 500 mg Guaifenesin (Robitussin -) 10 ml PO Q6H PRN PRN Reason: COUGH Last Admin: 08/01/16 10:26 Dose: 10 ml Heparin Sodium (Porcine) (Heparin -) 5,000 unit SQ BID [facility] Last Admin: 08/05/16 10:51 Dose: 5,000 unit Montelukast Sodium (Singulair -) 10 mg PO [facility] Last Admin: 08/04/16 21:10 Dose: 10 mg Pantoprazole Sodium (Protonix -) 40 mg PO DAILY [facility] Last Admin: 08/05/16 10:51 Dose: 40 mg Quetiapine Fumarate (Seroquel -) 75 mg PO [facility] Last Admin: 08/04/16 21:10 Dose: 75 mg - Objective Vital Signs: Vital Signs Temperature 97.8 F 08/05/16 05:16 Pulse Rate 84 08/05/16 09:00 Respiratory Rate 18 08/05/16 09:00 Blood Pressure 102/62 08/05/16 09:00 O2 Sat by Pulse Oximetry (%) 92 L 08/04/16 21:00 Constitutional: Yes: Well Nourished, Calm Eyes: Yes: WNL HENT: Yes: WNL Neck: Yes: WNL Cardiovascular: Yes: Regular Rate and Rhythm, S1, S2 Respiratory: Yes: CTA Bilaterally Gastrointestinal: Yes: Normal Bowel Sounds, Soft Extremities: Yes: WNL Edema: Yes Edema: LLE: Trace, RLE: Trace Labs: CBC, BMP Assessment/Plan Problem List - Problems (1) Fever Code(s): R50.9 - FEVER, UNSPECIFIED (2) Upper respiratory infection Code(s): J06.9 - ACUTE UPPER RESPIRATORY INFECTION, UNSPECIFIED Qualifiers: Pharyngitis/tonsillitis etiology: unspecified etiology (3) Asthma exacerbation Code(s): J45.901 - UNSPECIFIED ASTHMA WITH (ACUTE) EXACERBATION (4) Hypertension Code(s): I10 - ESSENTIAL (PRIMARY) HYPERTENSION (5) Schizophrenia Code(s): F20.9 - SCHIZOPHRENIA, UNSPECIFIED A/P URI vs Viral Syndrome improved Acute Asthma Exacerbation HTN Schizophrenia - aspiration precautions - O2 to keep SpO2 >90% - inhaled bronchodilators prn - DVT prophylaxis DR LANDRY
--- NOTE | 2016-08-05 13:26 | PN ---
Progress Note, Physician History of Present Illness: stable no new issues - Current Medication List Current Medications: Active Medications Acetaminophen (Tylenol -) 650 mg PO Q6H PRN PRN Reason: FEVER OR PAIN Last Admin: 08/03/16 09:13 Dose: 650 mg Albuterol/Ipratropium (Duoneb -) 1 amp NEB Q4H PRN PRN Reason: SHORTNESS OF BREATH Atorvastatin Calcium (Lipitor -) 10 mg PO HS [facility] Last Admin: 08/04/16 21:10 Dose: 10 mg Benztropine Mesylate (Cogentin -) 0.5 mg PO BID [facility] Last Admin: 08/05/16 10:51 Dose: 0.5 mg Divalproex Sodium (Depakote *Er* -) 500 mg PO BID [facility] Last Admin: 08/05/16 10:51 Dose: 500 mg Guaifenesin (Robitussin -) 10 ml PO Q6H PRN PRN Reason: COUGH Last Admin: 08/01/16 10:26 Dose: 10 ml Heparin Sodium (Porcine) (Heparin -) 5,000 unit SQ BID [facility] Last Admin: 08/05/16 10:51 Dose: 5,000 unit Montelukast Sodium (Singulair -) 10 mg PO [facility] Last Admin: 08/04/16 21:10 Dose: 10 mg Pantoprazole Sodium (Protonix -) 40 mg PO DAILY [facility] Last Admin: 08/05/16 10:51 Dose: 40 mg Quetiapine Fumarate (Seroquel -) 75 mg PO HS [facility] Last Admin: 08/04/16 21:10 Dose: 75 mg - Objective Vital Signs: Vital Signs Temperature 97.8 F 08/05/16 05:16 Pulse Rate 84 08/05/16 09:00 Respiratory Rate 18 08/05/16 09:00 Blood Pressure 102/62 08/05/16 09:00 O2 Sat by Pulse Oximetry (%) 96 08/05/16 09:00 Constitutional: Yes: No Distress, Calm Cardiovascular: Yes: Regular Rate and Rhythm Respiratory: Yes: Regular, CTA Bilaterally Gastrointestinal: Yes: Normal Bowel Sounds, Soft Musculoskeletal: Yes: WNL Extremities: Yes: WNL Neurological: Yes: Alert Psychiatric: Yes: Alert Labs: CBC, BMP 07/31/16 08:20 07/30/16 06:00 INR, PTT INR 1.09 (0.82-1.09) 07/23/16 16:08 Assessment/Plan - Problems (1) Fever Code(s): R50.9 - FEVER, UNSPECIFIED (2) Upper respiratory infection Code(s): J06.9 - ACUTE UPPER RESPIRATORY INFECTION, UNSPECIFIED Qualifiers: Pharyngitis/tonsillitis etiology: unspecified etiology (3) Asthma exacerbation Code(s): J45.901 - UNSPECIFIED ASTHMA WITH (ACUTE) EXACERBATION (4) Hypertension Code(s): I10 - ESSENTIAL (PRIMARY) HYPERTENSION (5) Schizophrenia Code(s): F20.9 - SCHIZOPHRENIA, UNSPECIFIED patient lung sound pretty clear with xray showing no findings plan stable no new issues awaiting placement
--- NOTE | 2016-08-05 19:02 | PN ---
Progress Note, Physician Chief Complaint: Upper respiratory infection History of Present Illness: Originally came in for URI and choking, sitting comfortably in the chair awaiting for approval for the senior care placement. Brother wants patient to go to [facility] in the [place] NO NEW COMPLAINTS - Current Medication List Current Medications: Active Medications Acetaminophen (Tylenol -) 650 mg PO Q6H PRN PRN Reason: FEVER OR PAIN Last Admin: 08/03/16 09:13 Dose: 650 mg Albuterol/Ipratropium (Duoneb -) 1 amp NEB Q4H PRN PRN Reason: SHORTNESS OF BREATH Atorvastatin Calcium (Lipitor -) 10 mg PO [facility] Last Admin: 08/04/16 21:10 Dose: 10 mg Benztropine Mesylate (Cogentin -) 0.5 mg PO BID [facility] Last Admin: 08/05/16 10:51 Dose: 0.5 mg Divalproex Sodium (Depakote *Er* -) 500 mg PO BID [facility] Last Admin: 08/05/16 10:51 Dose: 500 mg Guaifenesin (Robitussin -) 10 ml PO Q6H PRN PRN Reason: COUGH Last Admin: 08/01/16 10:26 Dose: 10 ml Heparin Sodium (Porcine) (Heparin -) 5,000 unit SQ BID [facility] Last Admin: 08/05/16 10:51 Dose: 5,000 unit Montelukast Sodium (Singulair -) 10 mg PO [facility] Last Admin: 08/04/16 21:10 Dose: 10 mg Pantoprazole Sodium (Protonix -) 40 mg PO DAILY [facility] Last Admin: 08/05/16 10:51 Dose: 40 mg Quetiapine Fumarate (Seroquel -) 75 mg PO HS [facility] Last Admin: 08/04/16 21:10 Dose: 75 mg - Objective Vital Signs: Vital Signs Temperature 98.1 F 08/05/16 15:43 Pulse Rate 100 H 08/05/16 15:43 Respiratory Rate 18 08/05/16 15:43 Blood Pressure 100/61 08/05/16 15:43 O2 Sat by Pulse Oximetry (%) 96 08/05/16 09:00 Constitutional: Yes: Well Nourished, No Distress, Calm Cardiovascular: Yes: Regular Rate and Rhythm Respiratory: Yes: Regular Gastrointestinal: Yes: Normal Bowel Sounds Edema: No Labs: CBC, BMP 07/31/16 08:20 07/30/16 06:00 INR, PTT INR 1.09 (0.82-1.09) 07/23/16 16:08 Problem List - Problems (1) Upper respiratory infection Code(s): J06.9 - ACUTE UPPER RESPIRATORY INFECTION, UNSPECIFIED Qualifiers: Pharyngitis/tonsillitis etiology: unspecified etiology (2) Shortness of breath Code(s): R06.02 - SHORTNESS OF BREATH (3) Choking Code(s): T17.308A - UNSP FOREIGN BODY IN LARYNX CAUSING OTH INJURY, INIT ENCNTR Assessment/Plan NO NEW COMPLAINTS AWAITING D/C AND ACCEPTANCE TO THE [facility] IN THE [place].
[2016-08-05] MEDS: ATORVASTATIN CA 10 MG TABLET (FP) PO SCH (21:26)
[2016-08-05] MEDS: QUEtiapine FUMARATE 25 MG TABLET (FP) PO SCH (21:26)
[2016-08-05] MEDS: MONTELUKAST NA 10 MG TABLET PO SCH (21:27)
[2016-08-06] MEDS: clonazePAM 0.5 MG TABLET PO SCH ×3 (06:15→21:27)
[2016-08-06] MEDS: HEPARIN NA (PORCINE) 5,000 UNITS/ML 1ML VIAL SQ SCH ×2 (10:47→21:28)
[2016-08-06] MEDS: DIVALPROEX NA *ER* EXTEND REL 500 MG TABLET.SA (FP) PO SCH ×2 (10:47→23:58)
[2016-08-06] MEDS: PANTOPRAZOLE 40 MG TABLET (FP) PO SCH (10:47)
[2016-08-06] MEDS: BENZTROPINE MESYLATE 0.5 MG TABLET (FP) PO SCH ×2 (10:47→23:58)
--- NOTE | 2016-08-06 11:16 | PN ---
Progress Note, Physician Chief Complaint: awake alert completed abx course awaiting placement - Current Medication List Current Medications: Active Medications Acetaminophen (Tylenol -) 650 mg PO Q6H PRN PRN Reason: FEVER OR PAIN Last Admin: 08/03/16 09:13 Dose: 650 mg Albuterol/Ipratropium (Duoneb -) 1 amp NEB Q4H PRN PRN Reason: SHORTNESS OF BREATH Atorvastatin Calcium (Lipitor -) 10 mg PO [facility] Last Admin: 08/05/16 21:26 Dose: 10 mg Benztropine Mesylate (Cogentin -) 0.5 mg PO BID [facility] Last Admin: 08/06/16 10:47 Dose: 0.5 mg Clonazepam (Klonopin -) 0.5 mg PO TID [facility] Last Admin: 08/06/16 06:15 Dose: 0.5 mg Divalproex Sodium (Depakote *Er* -) 500 mg PO BID [facility] Last Admin: 08/06/16 10:47 Dose: 500 mg Guaifenesin (Robitussin -) 10 ml PO Q6H PRN PRN Reason: COUGH Last Admin: 08/01/16 10:26 Dose: 10 ml Heparin Sodium (Porcine) (Heparin -) 5,000 unit SQ BID [facility] Last Admin: 08/06/16 10:47 Dose: 5,000 unit Montelukast Sodium (Singulair -) 10 mg PO [facility] Last Admin: 08/05/16 21:27 Dose: 10 mg Pantoprazole Sodium (Protonix -) 40 mg PO DAILY [facility] Last Admin: 08/06/16 10:47 Dose: 40 mg Quetiapine Fumarate (Seroquel -) 75 mg PO [facility] Last Admin: 08/05/16 21:26 Dose: 75 mg - Objective Vital Signs: Vital Signs Temperature 98.2 F 08/06/16 07:03 Pulse Rate 86 08/06/16 07:03 Respiratory Rate 18 08/06/16 07:03 Blood Pressure 91/51 08/06/16 07:03 O2 Sat by Pulse Oximetry (%) 94 L 08/05/16 21:00 Constitutional: Yes: Calm Cardiovascular: Yes: Regular Rate and Rhythm, S1, S2 Respiratory: Yes: CTA Bilaterally Gastrointestinal: Yes: Soft Edema: No Neurological: Yes: Alert Labs: CBC, BMP 07/31/16 08:20 07/30/16 06:00 INR, PTT INR 1.09 (0.82-1.09) 07/23/16 16:08 Problem List - Problems (1) Choking Assessment/Plan: resolved MBS done diet modified Code(s): T17.308A - UNSP FOREIGN BODY IN LARYNX CAUSING OTH INJURY, INIT ENCNTR (2) Hypoxia Assessment/Plan: improved h/o asthma- exacerbation sec to bronchitis nasal oxygen iv steroids change to po taper- completed change abx to po and completed course Code(s): R09.02 - HYPOXEMIA (3) Asthma exacerbation Assessment/Plan: iv sterods to po tapering dose course completed bronchodilators Code(s): J45.901 - UNSPECIFIED ASTHMA WITH (ACUTE) EXACERBATION (4) Schizophrenia Assessment/Plan: seroquel 75mg hs kolopin tid haldol once a month depakote bid Code(s): F20.9 - SCHIZOPHRENIA, UNSPECIFIED (5) Hyperlipidemia Assessment/Plan: statin Code(s): E78.5 - HYPERLIPIDEMIA, UNSPECIFIED Assessment/Plan awaiitng for placement to [place]
--- NOTE | 2016-08-06 13:45 | PN ---
Progress Note, Physician History of Present Illness: pulmonary alert,nad,-sob - Current Medication List Current Medications: Active Medications Acetaminophen (Tylenol -) 650 mg PO Q6H PRN PRN Reason: FEVER OR PAIN Last Admin: 08/03/16 09:13 Dose: 650 mg Albuterol/Ipratropium (Duoneb -) 1 amp NEB Q4H PRN PRN Reason: SHORTNESS OF BREATH Atorvastatin Calcium (Lipitor -) 10 mg PO [facility] Last Admin: 08/05/16 21:26 Dose: 10 mg Benztropine Mesylate (Cogentin -) 0.5 mg PO BID [facility] Last Admin: 08/06/16 10:47 Dose: 0.5 mg Clonazepam (Klonopin -) 0.5 mg PO TID [facility] Last Admin: 08/06/16 06:15 Dose: 0.5 mg Divalproex Sodium (Depakote *Er* -) 500 mg PO BID [facility] Last Admin: 08/06/16 10:47 Dose: 500 mg Guaifenesin (Robitussin -) 10 ml PO Q6H PRN PRN Reason: COUGH Last Admin: 08/01/16 10:26 Dose: 10 ml Heparin Sodium (Porcine) (Heparin -) 5,000 unit SQ BID [facility] Last Admin: 08/06/16 10:47 Dose: 5,000 unit Montelukast Sodium (Singulair -) 10 mg PO [facility] Last Admin: 08/05/16 21:27 Dose: 10 mg Pantoprazole Sodium (Protonix -) 40 mg PO DAILY [facility] Last Admin: 08/06/16 10:47 Dose: 40 mg Quetiapine Fumarate (Seroquel -) 75 mg PO [facility] Last Admin: 08/05/16 21:26 Dose: 75 mg - Objective Vital Signs: Vital Signs Temperature 98.6 F 08/06/16 10:00 Pulse Rate 92 H 08/06/16 10:00 Respiratory Rate 18 08/06/16 10:00 Blood Pressure 102/62 08/06/16 10:00 O2 Sat by Pulse Oximetry (%) 94 L 08/05/16 21:00 Constitutional: Yes: Well Nourished, Calm Eyes: Yes: WNL HENT: Yes: WNL Neck: Yes: WNL Cardiovascular: Yes: Regular Rate and Rhythm, S1, S2 Respiratory: Yes: Diminished Gastrointestinal: Yes: Normal Bowel Sounds, Soft Extremities: Yes: WNL Edema: No Labs: CBC, BMP 07/31/16 08:20 07/30/16 06:00 INR, PTT INR 1.09 (0.82-1.09) 07/23/16 16:08 Assessment/Plan Problem List - Problems (1) Fever Code(s): R50.9 - FEVER, UNSPECIFIED (2) Upper respiratory infection Code(s): J06.9 - ACUTE UPPER RESPIRATORY INFECTION, UNSPECIFIED Qualifiers: Pharyngitis/tonsillitis etiology: unspecified etiology (3) Asthma exacerbation Code(s): J45.901 - UNSPECIFIED ASTHMA WITH (ACUTE) EXACERBATION (4) Hypertension Code(s): I10 - ESSENTIAL (PRIMARY) HYPERTENSION (5) Schizophrenia Code(s): F20.9 - SCHIZOPHRENIA, UNSPECIFIED A/P URI vs Viral Syndrome improved Acute Asthma Exacerbation HTN Schizophrenia - aspiration precautions - O2 to keep SpO2 >90% - inhaled bronchodilators prn - DVT prophylaxis DR LANDRY
--- NOTE | 2016-08-06 18:31 | PN ---
Progress Note, Physician History of Present Illness: stable no new issues - Current Medication List Current Medications: Active Medications Acetaminophen (Tylenol -) 650 mg PO Q6H PRN PRN Reason: FEVER OR PAIN Last Admin: 08/03/16 09:13 Dose: 650 mg Albuterol/Ipratropium (Duoneb -) 1 amp NEB Q4H PRN PRN Reason: SHORTNESS OF BREATH Atorvastatin Calcium (Lipitor -) [address] [facility] Last Admin: 08/05/16 21:26 Dose: 10 mg Benztropine Mesylate (Cogentin -) 0.5 mg PO BID [facility] Last Admin: 08/06/16 10:47 Dose: 0.5 mg Clonazepam (Klonopin -) 0.5 mg PO TID [facility] Last Admin: 08/06/16 14:19 Dose: 0.5 mg Divalproex Sodium (Depakote *Er* -) 500 mg PO BID [facility] Last Admin: 08/06/16 10:47 Dose: 500 mg Guaifenesin (Robitussin -) 10 ml PO Q6H PRN PRN Reason: COUGH Last Admin: 08/01/16 10:26 Dose: 10 ml Heparin Sodium (Porcine) (Heparin -) 5,000 unit SQ BID [facility] Last Admin: 08/06/16 10:47 Dose: 5,000 unit Montelukast Sodium (Singulair -) [address] [facility] Last Admin: 08/05/16 21:27 Dose: 10 mg Pantoprazole Sodium (Protonix -) 40 mg PO DAILY [facility] Last Admin: 08/06/16 10:47 Dose: 40 mg Quetiapine Fumarate (Seroquel -) [address] [facility] Last Admin: 08/05/16 21:26 Dose: 75 mg - Objective Vital Signs: Vital Signs Temperature 98.0 F 08/06/16 18:00 Pulse Rate 93 H 08/06/16 18:00 Respiratory Rate 20 08/06/16 18:00 Blood Pressure 93/61 08/06/16 18:00 O2 Sat by Pulse Oximetry (%) 94 L 08/05/16 21:00 Constitutional: Yes: No Distress, Calm Cardiovascular: Yes: S1, S2 Respiratory: Yes: Regular, CTA Bilaterally Musculoskeletal: Yes: WNL Extremities: Yes: WNL Neurological: Yes: Alert Psychiatric: Yes: Alert Labs: CBC, BMP 07/31/16 08:20 07/30/16 06:00 INR, PTT INR 1.09 (0.82-1.09) 07/23/16 16:08 Assessment/Plan - Problems (1) Fever Code(s): R50.9 - FEVER, UNSPECIFIED (2) Upper respiratory infection Code(s): J06.9 - ACUTE UPPER RESPIRATORY INFECTION, UNSPECIFIED Qualifiers: Pharyngitis/tonsillitis etiology: unspecified etiology (3) Asthma exacerbation Code(s): J45.901 - UNSPECIFIED ASTHMA WITH (ACUTE) EXACERBATION (4) Hypertension Code(s): I10 - ESSENTIAL (PRIMARY) HYPERTENSION (5) Schizophrenia Code(s): F20.9 - SCHIZOPHRENIA, UNSPECIFIED patient lung sound pretty clear with xray showing no findings plan stable no new issues awaiting placement aspiration precautions
[2016-08-06] MEDS: QUEtiapine FUMARATE 25 MG TABLET (FP) PO SCH (21:27)
[2016-08-06] MEDS: ATORVASTATIN CA 10 MG TABLET (FP) PO SCH (21:27)
[2016-08-06] MEDS: MONTELUKAST NA 10 MG TABLET PO SCH (21:27)
[2016-08-06] MEDS ORDERED: PT OWN MED DRAWER 7, Y5N ONE (21:32)
[2016-08-07] MEDS: clonazePAM 0.5 MG TABLET PO SCH ×3 (06:27→22:39)
[2016-08-07] MEDS ORDERED: PT OWN MED DRAWER 7, Y5N ONE ×2 (08:57→21:53)
[2016-08-07] MEDS: PANTOPRAZOLE 40 MG TABLET (FP) PO SCH (09:02)
[2016-08-07] MEDS: DIVALPROEX NA *ER* EXTEND REL 500 MG TABLET.SA (FP) PO SCH ×2 (09:03→22:38)
[2016-08-07] MEDS: BENZTROPINE MESYLATE 0.5 MG TABLET (FP) PO SCH ×2 (09:03→22:38)
[2016-08-07] MEDS: HEPARIN NA (PORCINE) 5,000 UNITS/ML 1ML VIAL SQ SCH ×2 (09:03→22:38)
--- NOTE | 2016-08-07 11:01 | PN ---
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 as patient doesnot have anymore medicare days - Current Medication List Current Medications: Active Medications Acetaminophen (Tylenol -) 650 mg PO Q6H PRN PRN Reason: FEVER OR PAIN Last Admin: 08/03/16 09:13 Dose: 650 mg Albuterol/Ipratropium (Duoneb -) 1 amp NEB Q4H PRN PRN Reason: SHORTNESS OF BREATH Atorvastatin Calcium (Lipitor -) 10 mg PO [facility] Last Admin: 08/06/16 21:27 Dose: 10 mg Benztropine Mesylate (Cogentin -) 0.5 mg PO BID [facility] Last Admin: 08/07/16 09:03 Dose: 0.5 mg Clonazepam (Klonopin -) 0.5 mg PO TID [facility] Last Admin: 08/07/16 06:27 Dose: 0.5 mg Divalproex Sodium (Depakote *Er* -) 500 mg PO BID [facility] Last Admin: 08/07/16 09:03 Dose: 500 mg Guaifenesin (Robitussin -) 10 ml PO Q6H PRN PRN Reason: COUGH Last Admin: 08/01/16 10:26 Dose: 10 ml Heparin Sodium (Porcine) (Heparin -) 5,000 unit SQ BID [facility] Last Admin: 08/07/16 09:03 Dose: 5,000 unit Montelukast Sodium (Singulair -) 10 mg PO [facility] Last Admin: 08/06/16 21:27 Dose: 10 mg Pantoprazole Sodium (Protonix -) 40 mg PO DAILY [facility] Last Admin: 08/07/16 09:02 Dose: 40 mg Quetiapine Fumarate (Seroquel -) 75 mg PO [facility] Last Admin: 08/06/16 21:27 Dose: 75 mg - Objective Vital Signs: Vital Signs Temperature 97.6 F 08/07/16 09:07 Pulse Rate 82 08/07/16 09:07 Respiratory Rate 20 08/07/16 09:07 Blood Pressure 140/73 08/07/16 09:07 O2 Sat by Pulse Oximetry (%) 96 08/06/16 21:00 Constitutional: Yes: Calm Cardiovascular: Yes: Regular Rate and Rhythm, S1, S2 Respiratory: Yes: CTA Bilaterally Gastrointestinal: Yes: Normal Bowel Sounds, Soft Edema: No Neurological: Yes: Alert Labs: CBC, BMP 07/31/16 08:20 07/30/16 06:00 INR, PTT INR 1.09 (0.82-1.09) 07/23/16 16:08 Problem List - Problems (1) Choking Assessment/Plan: resolved MBS done diet modified Code(s): T17.308A - UNSP FOREIGN BODY IN LARYNX CAUSING OTH INJURY, INIT ENCNTR (2) Hypoxia Assessment/Plan: improved h/o asthma- exacerbation sec to bronchitis nasal oxygen iv steroids change to po taper- completed change abx to po and completed course Code(s): R09.02 - HYPOXEMIA (3) Asthma exacerbation Assessment/Plan: iv sterods to po tapering dose course completed bronchodilators Code(s): J45.901 - UNSPECIFIED ASTHMA WITH (ACUTE) EXACERBATION (4) Schizophrenia Assessment/Plan: seroquel 75mg hs kolopin tid haldol once a month depakote bid Code(s): F20.9 - SCHIZOPHRENIA, UNSPECIFIED (5) Hyperlipidemia Assessment/Plan: statin Code(s): E78.5 - HYPERLIPIDEMIA, UNSPECIFIED
--- NOTE | 2016-08-07 11:33 | PN ---
Progress Note (short form) - Note Progress Note: PULMONARY Denies shortness of breath, cough or wheezing. Last Vital Signs Temp Pulse Resp BP Pulse Ox 97.6 F 82 20 140/73 96 08/07/16 09:07 08/07/16 09:07 08/07/16 09:07 08/07/16 09:07 08/06/16 21:00 Gen: NAD at rest Heart: RRR Lung: decreased breath sounds at the bases Abd: soft, nontender Ext: no edema CBC, BMP 07/31/16 08:20 07/30/16 06:00 Active Medications Acetaminophen (Tylenol -) 650 mg PO Q6H PRN PRN Reason: FEVER OR PAIN Last Admin: 08/03/16 09:13 Dose: 650 mg Albuterol/Ipratropium (Duoneb -) 1 amp NEB Q4H PRN PRN Reason: SHORTNESS OF BREATH Atorvastatin Calcium (Lipitor -) 10 mg PO [facility] Last Admin: 08/06/16 21:27 Dose: 10 mg Benztropine Mesylate (Cogentin -) 0.5 mg PO BID [facility] Last Admin: 08/07/16 09:03 Dose: 0.5 mg Clonazepam (Klonopin -) 0.5 mg PO TID [facility] Last Admin: 08/07/16 06:27 Dose: 0.5 mg Divalproex Sodium (Depakote *Er* -) 500 mg PO BID [facility] Last Admin: 08/07/16 09:03 Dose: 500 mg Guaifenesin (Robitussin -) 10 ml PO Q6H PRN PRN Reason: COUGH Last Admin: 08/01/16 10:26 Dose: 10 ml Heparin Sodium (Porcine) (Heparin -) 5,000 unit SQ BID [facility] Last Admin: 08/07/16 09:03 Dose: 5,000 unit Montelukast Sodium (Singulair -) 10 mg PO HS [facility] Last Admin: 08/06/16 21:27 Dose: 10 mg Pantoprazole Sodium (Protonix -) 40 mg PO DAILY [facility] Last Admin: 08/07/16 09:02 Dose: 40 mg Quetiapine Fumarate (Seroquel -) 75 mg PO HS [facility] Last Admin: 08/06/16 21:27 Dose: 75 mg A/P Acute Asthma Exacerbation resolved HTN Schizophrenia - aspiration precautions - O2 to keep SpO2 >90% - inhaled bronchodilators - DVT prophylaxis Problem List - Problems (1) Fever Code(s): R50.9 - FEVER, UNSPECIFIED (2) Upper respiratory infection Code(s): J06.9 - ACUTE UPPER RESPIRATORY INFECTION, UNSPECIFIED Qualifiers: Pharyngitis/tonsillitis etiology: unspecified etiology (3) Asthma exacerbation Code(s): J45.901 - UNSPECIFIED ASTHMA WITH (ACUTE) EXACERBATION (4) Hypertension Code(s): I10 - ESSENTIAL (PRIMARY) HYPERTENSION (5) Schizophrenia Code(s): F20.9 - SCHIZOPHRENIA, UNSPECIFIED
--- NOTE | 2016-08-07 16:48 | PN ---
Progress Note, Physician History of Present Illness: stable no new issues awaiting placement breathing well - Current Medication List Current Medications: Active Medications Acetaminophen (Tylenol -) 650 mg PO Q6H PRN PRN Reason: FEVER OR PAIN Last Admin: 08/03/16 09:13 Dose: 650 mg Albuterol/Ipratropium (Duoneb -) 1 amp NEB Q4H PRN PRN Reason: SHORTNESS OF BREATH Atorvastatin Calcium (Lipitor -) 10 mg PO [facility] Last Admin: 08/06/16 21:27 Dose: 10 mg Benztropine Mesylate (Cogentin -) 0.5 mg PO BID [facility] Last Admin: 08/07/16 09:03 Dose: 0.5 mg Clonazepam (Klonopin -) 0.5 mg PO TID [facility] Last Admin: 08/07/16 13:43 Dose: 0.5 mg Divalproex Sodium (Depakote *Er* -) 500 mg PO BID [facility] Last Admin: 08/07/16 09:03 Dose: 500 mg Guaifenesin (Robitussin -) 10 ml PO Q6H PRN PRN Reason: COUGH Last Admin: 08/01/16 10:26 Dose: 10 ml Heparin Sodium (Porcine) (Heparin -) 5,000 unit SQ BID [facility] Last Admin: 08/07/16 09:03 Dose: 5,000 unit Montelukast Sodium (Singulair -) 10 mg PO [facility] Last Admin: 08/06/16 21:27 Dose: 10 mg Pantoprazole Sodium (Protonix -) 40 mg PO DAILY [facility] Last Admin: 08/07/16 09:02 Dose: 40 mg Quetiapine Fumarate (Seroquel -) 75 mg PO [facility] Last Admin: 08/06/16 21:27 Dose: 75 mg - Objective Vital Signs: Vital Signs Temperature 99.1 F 08/07/16 15:17 Pulse Rate 93 H 08/07/16 15:17 Respiratory Rate 18 08/07/16 15:17 Blood Pressure 103/72 08/07/16 15:17 O2 Sat by Pulse Oximetry (%) 98 08/07/16 13:40 Constitutional: Yes: No Distress, Calm Cardiovascular: Yes: Regular Rate and Rhythm, Other Respiratory: Yes: Regular, CTA Bilaterally Gastrointestinal: Yes: Normal Bowel Sounds, Soft Musculoskeletal: Yes: WNL Extremities: Yes: WNL Neurological: Yes: Alert, Other Labs: CBC, BMP 07/31/16 08:20 07/30/16 06:00 INR, PTT INR 1.09 (0.82-1.09) 07/23/16 16:08 Assessment/Plan - Problems (1) Fever Code(s): R50.9 - FEVER, UNSPECIFIED (2) Upper respiratory infection Code(s): J06.9 - ACUTE UPPER RESPIRATORY INFECTION, UNSPECIFIED Qualifiers: Pharyngitis/tonsillitis etiology: unspecified etiology (3) Asthma exacerbation Code(s): J45.901 - UNSPECIFIED ASTHMA WITH (ACUTE) EXACERBATION (4) Hypertension Code(s): I10 - ESSENTIAL (PRIMARY) HYPERTENSION (5) Schizophrenia Code(s): F20.9 - SCHIZOPHRENIA, UNSPECIFIED patient lung sound pretty clear with xray showing no findings plan stable no new issues awaiting placement
[2016-08-07] MEDS: MONTELUKAST NA 10 MG TABLET PO SCH (22:39)
[2016-08-07] MEDS: QUEtiapine FUMARATE 25 MG TABLET (FP) PO SCH (22:39)
[2016-08-07] MEDS: ATORVASTATIN CA 10 MG TABLET (FP) PO SCH (22:39)
[2016-08-08] MEDS: clonazePAM 0.5 MG TABLET PO SCH ×3 (06:55→21:26)
[2016-08-08] MEDS ORDERED: PT OWN MED DRAWER 7, Y5N ONE ×2 (09:38→21:12)
[2016-08-08] MEDS: DIVALPROEX NA *ER* EXTEND REL 500 MG TABLET.SA (FP) PO SCH ×2 (09:47→21:26)
[2016-08-08] MEDS: PANTOPRAZOLE 40 MG TABLET (FP) PO SCH (09:47)
[2016-08-08] MEDS: HEPARIN NA (PORCINE) 5,000 UNITS/ML 1ML VIAL SQ SCH ×2 (09:47→21:26)
[2016-08-08] MEDS: BENZTROPINE MESYLATE 0.5 MG TABLET (FP) PO SCH ×2 (09:47→21:26)
--- NOTE | 2016-08-08 14:27 | PN ---
Progress Note, Physician Chief Complaint: Upper respiratory infection History of Present Illness: Originally came in for URI and choking, sitting comfortably in the chair awaiting for approval for the retirement placement. Brother wants patient to go to [facility] in the [place] NO NEW COMPLAINTS - Current Medication List Current Medications: Active Medications Acetaminophen (Tylenol -) 650 mg PO Q6H PRN PRN Reason: FEVER OR PAIN Last Admin: 08/03/16 09:13 Dose: 650 mg Albuterol/Ipratropium (Duoneb -) 1 amp NEB Q4H PRN PRN Reason: SHORTNESS OF BREATH Atorvastatin Calcium (Lipitor -) 10 mg PO HS [facility] Last Admin: 08/07/16 22:39 Dose: 10 mg Benztropine Mesylate (Cogentin -) 0.5 mg PO BID [facility] Last Admin: 08/08/16 09:47 Dose: 0.5 mg Clonazepam (Klonopin -) 0.5 mg PO TID [facility] Last Admin: 08/08/16 06:55 Dose: 0.5 mg Divalproex Sodium (Depakote *Er* -) 500 mg PO BID [facility] Last Admin: 08/08/16 09:47 Dose: 500 mg Guaifenesin (Robitussin -) 10 ml PO Q6H PRN PRN Reason: COUGH Last Admin: 08/01/16 10:26 Dose: 10 ml Heparin Sodium (Porcine) (Heparin -) 5,000 unit SQ BID [facility] Last Admin: 08/08/16 09:47 Dose: 5,000 unit Montelukast Sodium (Singulair -) 10 mg PO HS [facility] Last Admin: 08/07/16 22:39 Dose: 10 mg Pantoprazole Sodium (Protonix -) 40 mg PO DAILY [facility] Last Admin: 08/08/16 09:47 Dose: 40 mg Quetiapine Fumarate (Seroquel -) 75 mg PO HS [facility] Last Admin: 08/07/16 22:39 Dose: 75 mg - Objective Vital Signs: Vital Signs Temperature 98.2 F 08/08/16 09:28 Pulse Rate 94 H 08/08/16 12:14 Respiratory Rate 18 08/08/16 09:28 Blood Pressure 100/55 08/08/16 09:28 O2 Sat by Pulse Oximetry (%) 94 L 08/08/16 12:14 Constitutional: Yes: Well Nourished, No Distress, Calm Cardiovascular: Yes: Regular Rate and Rhythm Respiratory: Yes: Regular Labs: CBC, BMP 07/31/16 08:20 07/30/16 06:00 INR, PTT INR 1.09 (0.82-1.09) 07/23/16 16:08 Problem List - Problems (1) Upper respiratory infection Code(s): J06.9 - ACUTE UPPER RESPIRATORY INFECTION, UNSPECIFIED Qualifiers: Pharyngitis/tonsillitis etiology: unspecified etiology (2) Shortness of breath Code(s): R06.02 - SHORTNESS OF BREATH (3) Choking Code(s): T17.308A - UNSP FOREIGN BODY IN LARYNX CAUSING OTH INJURY, INIT ENCNTR (4) Chronic schizophrenia not affecting current episode of care Assessment/Plan: AWAITING ACCEPTANCE AT [facility]. EVALUATED BY THE FACILITY. SEEN BY PHYSICAL THERAPY, ABLE TO WALK 30 FEET X 1 WITH THE ROLLING WALKER YESTERDAY. Code(s): [id number] - (5) Mental retardation Code(s): F79 - UNSPECIFIED INTELLECTUAL DISABILITIES Assessment/Plan AWAITING ACCEPTANCE AT [facility]. EVALUATED BY THE FACILITY. SEEN BY PHYSICAL THERAPY, ABLE TO WALK 30 FEET X 1 WITH THE ROLLING WALKER YESTERDAY. NO ACUTE EPISODES OF SCHIZOPHRENIA.
--- NOTE | 2016-08-08 17:28 | PN ---
Progress Note, Physician History of Present Illness: stable no new issues awaiting placement breathing well - Current Medication List Current Medications: Active Medications Acetaminophen (Tylenol -) 650 mg PO Q6H PRN PRN Reason: FEVER OR PAIN Last Admin: 08/03/16 09:13 Dose: 650 mg Albuterol/Ipratropium (Duoneb -) 1 amp NEB Q4H PRN PRN Reason: SHORTNESS OF BREATH Atorvastatin Calcium (Lipitor -) 10 mg PO [facility] Last Admin: 08/07/16 22:39 Dose: 10 mg Benztropine Mesylate (Cogentin -) 0.5 mg PO BID [facility] Last Admin: 08/08/16 09:47 Dose: 0.5 mg Clonazepam (Klonopin -) 0.5 mg PO TID [facility] Last Admin: 08/08/16 15:21 Dose: 0.5 mg Divalproex Sodium (Depakote *Er* -) 500 mg PO BID [facility] Last Admin: 08/08/16 09:47 Dose: 500 mg Guaifenesin (Robitussin -) 10 ml PO Q6H PRN PRN Reason: COUGH Last Admin: 08/01/16 10:26 Dose: 10 ml Heparin Sodium (Porcine) (Heparin -) 5,000 unit SQ BID [facility] Last Admin: 08/08/16 09:47 Dose: 5,000 unit Montelukast Sodium (Singulair -) 10 mg PO [facility] Last Admin: 08/07/16 22:39 Dose: 10 mg Pantoprazole Sodium (Protonix -) 40 mg PO DAILY [facility] Last Admin: 08/08/16 09:47 Dose: 40 mg Quetiapine Fumarate (Seroquel -) 75 mg PO [facility] Last Admin: 08/07/16 22:39 Dose: 75 mg - Objective Vital Signs: Vital Signs Temperature 99.4 F 08/08/16 14:36 Pulse Rate 94 H 08/08/16 14:36 Respiratory Rate 20 08/08/16 14:36 Blood Pressure 98/50 08/08/16 14:36 O2 Sat by Pulse Oximetry (%) 94 L 08/08/16 12:14 Constitutional: Yes: No Distress, Calm Cardiovascular: Yes: Regular Rate and Rhythm Respiratory: Yes: Regular, Other Gastrointestinal: Yes: Normal Bowel Sounds, Soft Musculoskeletal: Yes: WNL Extremities: Yes: WNL Neurological: Yes: Alert, Oriented Psychiatric: Yes: Alert Labs: CBC, BMP 07/31/16 08:20 07/30/16 06:00 INR, PTT INR 1.09 (0.82-1.09) 07/23/16 16:08 Assessment/Plan - Problems (1) Fever Code(s): R50.9 - FEVER, UNSPECIFIED (2) Upper respiratory infection Code(s): J06.9 - ACUTE UPPER RESPIRATORY INFECTION, UNSPECIFIED Qualifiers: Pharyngitis/tonsillitis etiology: unspecified etiology (3) Asthma exacerbation Code(s): J45.901 - UNSPECIFIED ASTHMA WITH (ACUTE) EXACERBATION (4) Hypertension Code(s): I10 - ESSENTIAL (PRIMARY) HYPERTENSION (5) Schizophrenia Code(s): F20.9 - SCHIZOPHRENIA, UNSPECIFIED patient lung sound pretty clear with xray showing no findings plan stable no new issues awaiting placement aspiration precautions
[2016-08-08] MEDS: ATORVASTATIN CA 10 MG TABLET (FP) PO SCH (21:26)
[2016-08-08] MEDS: MONTELUKAST NA 10 MG TABLET PO SCH (21:26)
[2016-08-08] MEDS: QUEtiapine FUMARATE 25 MG TABLET (FP) PO SCH (21:26)
[2016-08-09] MEDS: clonazePAM 0.5 MG TABLET PO SCH ×2 (07:00→14:32)
--- NOTE | 2016-08-09 09:54 | PN ---
Progress Note, Physician Chief Complaint: Upper respiratory infection History of Present Illness: Originally came in for URI and choking, sitting comfortably in the chair awaiting for approval for the correction placement. Brother wants patient to go to [facility] in the [place] NO NEW COMPLAINTS - Current Medication List Current Medications: Active Medications Acetaminophen (Tylenol -) 650 mg PO Q6H PRN PRN Reason: FEVER OR PAIN Last Admin: 08/03/16 09:13 Dose: 650 mg Albuterol/Ipratropium (Duoneb -) 1 amp NEB Q4H PRN PRN Reason: SHORTNESS OF BREATH Atorvastatin Calcium (Lipitor -) 10 mg PO HS [facility] Last Admin: 08/08/16 21:26 Dose: 10 mg Benztropine Mesylate (Cogentin -) 0.5 mg PO BID [facility] Last Admin: 08/08/16 21:26 Dose: 0.5 mg Clonazepam (Klonopin -) 0.5 mg PO TID [facility] Last Admin: 08/09/16 07:00 Dose: 0.5 mg Divalproex Sodium (Depakote *Er* -) 500 mg PO BID [facility] Last Admin: 08/08/16 21:26 Dose: 500 mg Guaifenesin (Robitussin -) 10 ml PO Q6H PRN PRN Reason: COUGH Last Admin: 08/01/16 10:26 Dose: 10 ml Heparin Sodium (Porcine) (Heparin -) 5,000 unit SQ BID [facility] Last Admin: 08/08/16 21:26 Dose: 5,000 unit Montelukast Sodium (Singulair -) 10 mg PO HS [facility] Last Admin: 08/08/16 21:26 Dose: 10 mg Pantoprazole Sodium (Protonix -) 40 mg PO DAILY [facility] Last Admin: 08/08/16 09:47 Dose: 40 mg Quetiapine Fumarate (Seroquel -) 75 mg PO HS [facility] Last Admin: 08/08/16 21:26 Dose: 75 mg - Objective Vital Signs: Vital Signs Temperature 97.7 F 08/09/16 06:00 Pulse Rate 84 08/09/16 06:00 Respiratory Rate 20 08/09/16 06:00 Blood Pressure 99/65 08/09/16 06:00 O2 Sat by Pulse Oximetry (%) 94 L 08/08/16 21:00 Constitutional: Yes: Well Nourished, No Distress, Calm Cardiovascular: Yes: Regular Rate and Rhythm Respiratory: Yes: Regular Neurological: Yes: Alert Psychiatric: Yes: Alert, Oriented Labs: CBC, BMP 07/31/16 08:20 07/30/16 06:00 INR, PTT INR 1.09 (0.82-1.09) 07/23/16 16:08 Problem List - Problems (1) Upper respiratory infection Assessment/Plan: RESOLVED Code(s): J06.9 - ACUTE UPPER RESPIRATORY INFECTION, UNSPECIFIED Qualifiers: Pharyngitis/tonsillitis etiology: unspecified etiology (2) Shortness of breath Assessment/Plan: NO SOB AT THIS TIME. Code(s): R06.02 - SHORTNESS OF BREATH (3) Choking Assessment/Plan: FOLLOW INSTRUCTIONS PER SWALLOW EVAL DONE BY SONG BARNEY. KEEP HOB ELEVATED FOR AND AFTER MEALS. Code(s): T17.308A - UNSP FOREIGN BODY IN LARYNX CAUSING OTH INJURY, INIT ENCNTR (4) Chronic schizophrenia not affecting current episode of care Assessment/Plan: ACCEPTED AT [facility]. EVALUATED BY THE FACILITY. SEEN BY PHYSICAL THERAPY , ABLE TO WALK 30 FEET X 1 WITH THE ROLLING WALKER. Code(s): [id number] - (5) Mental retardation Code(s): F79 - UNSPECIFIED INTELLECTUAL DISABILITIES Assessment/Plan ACCEPTED AT [facility]. EVALUATED BY THE FACILITY. SEEN BY PHYSICAL THERAPY , ABLE TO WALK 30 FEET X 1 WITH THE ROLLING WALKER YESTERDAY. NO ACUTE EPISODES OF AGITATION.
[2016-08-09] MEDS ORDERED: PT OWN MED DRAWER 7, Y5N ONE (10:27)
[2016-08-09] MEDS: guaiFENesin 200 MG/10 ML 10 ML UNIT-DOSE CUPS PO PRN (10:35)
[2016-08-09] MEDS: PANTOPRAZOLE 40 MG TABLET (FP) PO SCH (10:36)
[2016-08-09] MEDS: HEPARIN NA (PORCINE) 5,000 UNITS/ML 1ML VIAL SQ SCH (10:36)
[2016-08-09] MEDS: BENZTROPINE MESYLATE 0.5 MG TABLET (FP) PO SCH (10:36)
[2016-08-09] MEDS: DIVALPROEX NA *ER* EXTEND REL 500 MG TABLET.SA (FP) PO SCH (10:37)
--- NOTE | 2016-08-09 11:21 | PN ---
Progress Note (short form) - Note Progress Note: PULMONARY Denies shortness of breath, cough or wheezing. Last Vital Signs Temp Pulse Resp BP Pulse Ox 97.7 F 84 20 99/65 94 L 08/09/16 06:00 08/09/16 06:00 08/09/16 06:00 08/09/16 06:00 08/08/16 21:00 Gen: NAD at rest Heart: RRR Lung: decreased breath sounds at the bases Abd: soft, nontender Ext: no edema CBC, BMP 07/31/16 08:20 07/30/16 06:00 Active Medications Acetaminophen (Tylenol -) 650 mg PO Q6H PRN PRN Reason: FEVER OR PAIN Last Admin: 08/03/16 09:13 Dose: 650 mg Albuterol/Ipratropium (Duoneb -) 1 amp NEB Q4H PRN PRN Reason: SHORTNESS OF BREATH Atorvastatin Calcium (Lipitor -) 10 mg PO HS [facility] Last Admin: 08/08/16 21:26 Dose: 10 mg Benztropine Mesylate (Cogentin -) 0.5 mg PO BID [facility] Last Admin: 08/09/16 10:36 Dose: 0.5 mg Clonazepam (Klonopin -) 0.5 mg PO TID [facility] Last Admin: 08/09/16 07:00 Dose: 0.5 mg Divalproex Sodium (Depakote *Er* -) 500 mg PO BID [facility] Last Admin: 08/09/16 10:37 Dose: 500 mg Guaifenesin (Robitussin -) 10 ml PO Q6H PRN PRN Reason: COUGH Last Admin: 08/09/16 10:35 Dose: 10 ml Heparin Sodium (Porcine) (Heparin -) 5,000 unit SQ BID [facility] Last Admin: 08/09/16 10:36 Dose: 5,000 unit Montelukast Sodium (Singulair -) 10 mg PO HS [facility] Last Admin: 08/08/16 21:26 Dose: 10 mg Pantoprazole Sodium (Protonix -) 40 mg PO DAILY [facility] Last Admin: 08/09/16 10:36 Dose: 40 mg Quetiapine Fumarate (Seroquel -) 75 mg PO HS [facility] Last Admin: 08/08/16 21:26 Dose: 75 mg A/P Acute Asthma Exacerbation resolved HTN Schizophrenia - aspiration precautions - O2 to keep SpO2 >90% - inhaled bronchodilators - DVT prophylaxis - d/c planning Problem List - Problems (1) Fever Code(s): R50.9 - FEVER, UNSPECIFIED (2) Upper respiratory infection Code(s): J06.9 - ACUTE UPPER RESPIRATORY INFECTION, UNSPECIFIED Qualifiers: Pharyngitis/tonsillitis etiology: unspecified etiology (3) Asthma exacerbation Code(s): J45.901 - UNSPECIFIED ASTHMA WITH (ACUTE) EXACERBATION (4) Hypertension Code(s): I10 - ESSENTIAL (PRIMARY) HYPERTENSION (5) Schizophrenia Code(s): F20.9 - SCHIZOPHRENIA, UNSPECIFIED
[2016-08-09 13:06] VITALS: BP 98/63; PULSE 100
--- NOTE | 2016-08-09 14:40 | PN ---
Progress Note, Physician History of Present Illness: stable no new issues - Objective Vital Signs: Vital Signs Temperature 97.7 F 08/09/16 06:00 Pulse Rate 100 H 08/09/16 13:04 Respiratory Rate 08/09/16 13:04 Blood Pressure 98/63 08/09/16 13:04 O2 Sat by Pulse Oximetry (%) 94 L 08/08/16 21:00 Constitutional: Yes: No Distress, Calm Respiratory: Yes: Regular Gastrointestinal: Yes: Normal Bowel Sounds, Soft Musculoskeletal: Yes: WNL Extremities: Yes: WNL Neurological: Yes: Alert, Oriented Labs: CBC, BMP 07/31/16 08:20 07/30/16 06:00 INR, PTT INR 1.09 (0.82-1.09) 07/23/16 16:08 Assessment/Plan - Problems (1) Fever Code(s): R50.9 - FEVER, UNSPECIFIED (2) Upper respiratory infection Code(s): J06.9 - ACUTE UPPER RESPIRATORY INFECTION, UNSPECIFIED Qualifiers: Pharyngitis/tonsillitis etiology: unspecified etiology (3) Asthma exacerbation Code(s): J45.901 - UNSPECIFIED ASTHMA WITH (ACUTE) EXACERBATION (4) Hypertension Code(s): I10 - ESSENTIAL (PRIMARY) HYPERTENSION (5) Schizophrenia Code(s): F20.9 - SCHIZOPHRENIA, UNSPECIFIED patient lung sound pretty clear with xray showing no findings plan stable no new issues awaiting placement aspiration precautions
[2016-08-09 15:27] VITALS: TEMP 98.4
== END 2016-08-09 14:33 | disposition home or self-care (01) | DRG 202 ==
LOC: JER 15:32 → JERBED 18:48 → J5S 07-24 14:15
PROVIDERS: ADMIT Family Medicine; ATTEND Family Medicine
DX: J45.901 Unspecified asthma with (acute) exacerbation (principal); F20.5 Residual schizophrenia; I10 Essential (primary) hypertension; E78.5 Hyperlipidemia, unspecified; B18.2 Chronic viral hepatitis C; D64.9 Anemia, unspecified; K21.9 Gastro-esophageal reflux disease without esophagitis; J44.9 Chronic obstructive pulmonary disease, unspecified; R09.02 Hypoxemia; F78 Other intellectual disabilities; J06.9 Acute upper respiratory infection, unspecified; D72.829 Elevated white blood cell count, unspecified; B34.9 Viral infection, unspecified; T17.398A Other foreign object in larynx causing other injury, initial encounter; X58.XXXA Exposure to other specified factors, initial encounter; Y93.89 Activity, other specified; Y92.89 Other specified places as the place of occurrence of the external cause; Z88.0 Allergy status to penicillin; Z96.642 Presence of left artificial hip joint
CPT/HCPCS: 36415; 71010-TC; 71250-TC; 74230-TC; 80053; 81003; 82550; 82803; 83605; 84484; 85025; 85027; 85610; 85730; 86850; 86900; 86901; 87040; 87086; 87254; 87804; 92611-GN; 93005; 93010; 94640; 97116-GP; 97161-GP; 99285-25; J1644

== ENCOUNTER 2016-08-10 21:48 | Emergency (ER) | payer OTHER ==
--- NOTE | 2016-08-10 22:01 | PDOC ---
History of Present Illness - History of Present Illness Initial Comments: 08/10/16 23:03 Patient is a 61 year old male with a history of HTN, HLD, asthma, Hep C, schizophrenia, and admission in April of this year with multi-lobar PNA sent from his psychiatric assisted living facility for swallowing problem, mobility problem, and frequent cough as per facility papers. Facility papers do not elaborate the issues of the patient and when contacted the facility, no healthcare personnel were available. History was obtained from the clinical documentation clerk at the facility who stated that the patient has been unable to swallow or walk. The patient was recommended a soft diet from his discharge papers from his last visit at [facility]; he apparently was not receiving a soft diet at the facility. The patient is a poor historian and he states that he doesnt know why hes here. He does not offer any complaints except that his legs hurt. <Alexsandra Hodge - Last Filed: 08/11/16 01:27> <Camron Ramirez - Last Filed: 08/11/16 04:26> <Lanette Chiang - Last Filed: 08/11/16 06:19> <María Alvarez - Last Filed: 08/13/16 08:19> - General Stated Complaint: INCONTINENT OF STOOL Time Seen by Provider: 08/10/16 22:00 Past History <Alexsandra Hodge - Last Filed: 08/11/16 01:27> <Camron Ramirez - Last Filed: 08/11/16 04:26> <Lanette Chiang - Last Filed: 08/11/16 06:19> - Past Medical History Anemia: Yes Asthma: Yes Cancer: No Cardiac Disorders: Yes (unstable angina) CVA: No COPD: Yes CHF: No Dementia: No Diabetes: No GI Disorders: Yes (GERD) Disorders: No HTN: No Hypercholesterolemia: Yes Liver Disease: Yes (hepatitis C) Psychiatric Problems: Yes (SCHIZOPHRENIA) Seizures: No Thyroid Disease: No - Surgical History Abdominal Surgery: No Appendectomy: No Cardiac Surgery: No Cholecystectomy: No Lung Surgery: No Neurologic Surgery: No Orthopedic Surgery: Yes (L HIP) - Psycho/Social/Smoking Cessation Hx Anxiety: No Suicidal Ideation: No Smoking Status: No Smoking History: Never smoked Have you smoked in the past 12 months: No Number of Cigarettes Smoked Daily: 0 Hx Alcohol Use: No Drug/Substance Use Hx: No Substance Use Type: None Hx Substance Use Treatment: No <María Alvarez - Last Filed: 08/13/16 08:19> - Past Medical History Allergies/Adverse Reactions: Allergies Allergy/AdvReac Type Severity Reaction Status Date / Time Penicillins Allergy Verified 08/11/16 15:25 seafood Allergy Unknown Uncoded 08/11/16 15:25 chocolate Allergy Uncoded 08/11/16 15:25 fish Allergy Uncoded 08/11/16 15:25 peanuts Allergy Uncoded 08/11/16 15:25 Home Medications: Ambulatory Orders Haloperidol Injection [Haldol Injection (Fast Acting) -] 75 mg IM MONTHLY Ipratropium 0.02% Nebulizer [Atrovent 0.02% Nebulizer -] 0.5 mg IH BID PRN 04/18 Albuterol 2.5/Ipratropium 0.5 [Duoneb -] 1 amp NEB Q4H PRN #180 amp 08/09/16 Atorvastatin Ca [Lipitor] 10 mg PO HS #30 tablet 08/09/16 Benztropine Mesylate [Cogentin -] 0.5 mg PO BID #20 tablet MDD 2 08/09/16 Clonazepam [Klonopin -] 0.5 mg PO TID #90 tablet MDD 3 08/09/16 Divalproex *ER* [Depakote *ER* -] 500 mg PO BID #60 tab 08/09/16 Guaifenesin [Robitussin -] 10 ml PO Q6H PRN #120 ml 08/09/16 Quetiapine Fumarate [Seroquel -] 75 mg PO HS #20 tablet MDD 1 08/09/16 Montelukast Na [Singulair -] 10 mg PO HS 08/11/16 Review of Systems - Review of Systems Comments:: 08/10/16 23:07 Patient unable to participate in ROS. <Alexsandra Hodge - Last Filed: 08/11/16 01:27> *Physical Exam - Vital Signs Last Vital Signs Temp Pulse Resp BP Pulse Ox 97.7 F 104 H 19 117/63 96 08/10/16 22:02 08/10/16 22:02 08/10/16 22:02 08/10/16 22:02 08/10/16 22:02 - Physical Exam Comments: 08/10/16 23:08 GENERAL: Awake, alert, and fully oriented, in no acute distress HEAD: No signs of trauma EYES: PERRLA, EOMI, sclera anicteric, conjunctiva clear ENT: Auricles normal inspection, hearing grossly normal, nares patent, oropharynx clear without exudates. Moist mucosa NECK: Normal ROM, supple, no lymphadenopathy, JVD, or masses LUNGS: Breath sounds equal, clear to auscultation bilaterally. No wheezes, and no crackles HEART: Regular rate and rhythm, normal S1 and S2, no murmurs, rubs or gallops ABDOMEN: Soft, nontender, normoactive bowel sounds. No guarding, no rebound. No masses EXTREMITIES: Normal range of motion, no edema. No clubbing or cyanosis. No cords, erythema, or tenderness NEUROLOGICAL: Cranial nerves II through XII grossly intact. Normal speech, normal gait SKIN: Warm, Dry, normal turgor, no rashes or lesions noted. HEMATOLOGIC/LYMPHATIC: No anemia, easy bleeding, or history of blood clots. ALLERGIC/IMMUNOLOGIC: No hives or skin allergy. <Alexsandra Hodge - Last Filed: 08/11/16 01:27> - Vital Signs Last Vital Signs Temp Pulse Resp BP Pulse Ox 97.7 F 104 H 19 117/63 96 08/10/16 22:02 08/10/16 22:02 08/10/16 22:02 08/10/16 22:02 08/10/16 22:02 <Camron Ramirez - Last Filed: 08/11/16 04:26> - Vital Signs Last Vital Signs Temp Pulse Resp BP Pulse Ox 97.7 F 95 H 18 112/63 95 08/10/16 22:02 08/11/16 05:40 08/11/16 05:40 08/11/16 05:40 08/11/16 05:40 <Lanette Chiang - Last Filed: 08/11/16 06:19> ED Treatment Course - LABORATORY CBC & Chemistry Diagram: 08/10/16 23:18 08/10/16 23:10 - RADIOLOGY Radiograph Interpretation: 08/11/16 01:27 Anesthesia Tech: (juan pablo) Report Date: 08/11/2016 00:04:00 Report Status: Preliminary Begin of Report Content Referring Physician: María Alvarez Patient Name: Umair Chand THIS IS A PRELIMINARY REPORT FROM [facility] EXAM: CT HEAD WITHOUT CONTRAST DATE OF SERVICE: 2016-08-11 00:04:32.0 IMAGES: 79 TECHNIQUE: Routine axial noncontrast CT head was performed. REASON FOR EXAM: lethargy COMPARISON: None. FINDINGS: There is no CT evidence of acute territorial infarction. Patchy periventricular and subcortical white matter hypoattenuations seen. These are nonspecific and can be seen in the setting of chronic microvascular ischemic changes. Intracranial vascular calcifications noted. There is no acute intracranial hemorrhage, mass effect or cerebral edema identified. The ventricles are unremarkable. Basilar cisterns are patent. No abnormal intra- axial or extra-axial fluid collection is seen. The bones of the calvarium and imaged skull base demonstrate no acute abnormality. The imaged paranasal sinuses and mastoid air cells are unremarkable. Imaged orbits are unremarkable. THIS DOCUMENT HAS BEEN ELECTRONICALLY SIGNED Hitesh Eng MD. 08/11/2016 00:48 MARIELA Canales Please call [facility] [phone] ([phone]) with questions. End of Report Content <Alexsandra Hodge - Last Filed: 08/11/16 01:27> - LABORATORY CBC & Chemistry Diagram: 08/10/16 23:18 08/10/16 23:10 - ADDITIONAL ORDERS Additional order review: Laboratory Results 08/10/16 08/10/16 23:38 23:10 Sodium 140 Potassium 4.0 Chloride 101 Carbon Dioxide 31 Anion Gap 8 BUN 11 Creatinine 0.5 L D Creat Clearance w eGFR > 60 POC Glucometer 110.82904 Random Glucose 92 Calcium 8.4 L Total Bilirubin 0.4 D AST 9 L ALT 11 L Alkaline Phosphatase 85 Creatine Kinase 52 Troponin I < 0.02 Total Protein 6.4 Albumin 3.1 L 08/10/16 08/10/16 23:38 23:18 RBC 5.91 H MCV 62.9 L MCHC 31.0 L RDW 17.0 H MPV 9.2 Neutrophils % 54.3 Lymphocytes % 32.4 Monocytes % 11.0 H Eosinophils % 1.6 Basophils % 0.7 POC Glucometer 110.39444 - RADIOLOGY Radiograph Interpretation: 08/11/16 04:26 EXAM: CT HEAD WITHOUT CONTRAST DATE OF SERVICE: 2016-08-11 00:04:32.0 IMAGES: 79 TECHNIQUE: Routine axial noncontrast CT head was performed. REASON FOR EXAM : lethargy COMPARISON: None. FINDINGS: There is no CT evidence of acute territorial infarction. Patchy periventricular and subcortical white matter hypoattenuations seen. These are nonspecific and can be seen in the setting of chronic microvascular ischemic changes. Intracranial vascular calcifications noted. There is no acute intracranial hemorrhage, mass effect or cerebral edema identified. The ventricles are unremarkable. Basilar cisterns are patent. No abnormal intra-axial or extra-axial fluid collection is seen. The bones of the calvarium and imaged skull base demonstrate no acute abnormality. The imaged paranasal sinuses and mastoid air cells are unremarkable. Imaged orbits are unremarkable. THIS DOCUMENT HAS BEEN ELECTRONICALLY SIGNED Hitesh Eng MD. 08/11/2016 00:48 EST <Camron Ramirez - Last Filed: 08/11/16 04:26> - LABORATORY CBC & Chemistry Diagram: 08/10/16 23:18 08/10/16 23:10 - ADDITIONAL ORDERS Additional order review: Laboratory Results 08/10/16 08/10/16 23:38 23:10 Sodium 140 Potassium 4.0 Chloride 101 Carbon Dioxide 31 Anion Gap 8 BUN 11 Creatinine 0.5 L D Creat Clearance w eGFR > 60 POC Glucometer 110.27245 Random Glucose 92 Calcium 8.4 L Total Bilirubin 0.4 D AST 9 L ALT 11 L Alkaline Phosphatase 85 Creatine Kinase 52 Troponin I < 0.02 Total Protein 6.4 Albumin 3.1 L 08/10/16 08/10/16 23:38 23:18 RBC 5.91 H MCV 62.9 L MCHC 31.0 L RDW 17.0 H MPV 9.2 Neutrophils % 54.3 Lymphocytes % 32.4 Monocytes % 11.0 H Eosinophils % 1.6 Basophils % 0.7 POC Glucometer 110.76740 <Lanette Chiang - Last Filed: 08/11/16 06:19> - LABORATORY CBC & Chemistry Diagram: 08/10/16 23:18 08/10/16 23:10 <María Alvarez - Last Filed: 08/13/16 08:19> Medical Decision Making - Medical Decision Making 08/11/16 06:17 assumed care of the patient at 2 am, pt awaiting cxr r/o pneumonia. cxr obtained, negative for infection. d/w assisted living [facility] who states will be there for patient on return. pt walks with walker. to be taking chopped food with thickened nectar or honey. recommend nebs every 4 hours as needed for coughing. pt dc to home. <Lanette Chiang - Last Filed: 08/11/16 06:19> - Medical Decision Making 08/11/16 00:55 Pt presents to the ED after sent to the ED from his assisted living facility. Nursing staff at the facility has left for the night, and only a clinical documentation clerk is available to give history. He states, and notes from the facility confirm, that patient was sent to the ED for difficulty swallowing and "mobility" problems. Patient was recently admitted for aspiration PNA, had swallowing eval and was discharged back to the facility with instructions for a soft diet and limited fluids at night. It appears from facility notes that the pateint was given a regular diet. Surgical Endoscopist also reports that the patient is unable to walk. When I speak to the patient, he confirms that he is unable to walk because his "legs hurt". Denies back pain or focal neurologic weakness. Appears neurologically intact on exam, with full ROM in all joints of both LE and no tenderness, erythema or deformity. Patient takes multiple psychiatric meds at night and is sedated and unable to give coherent history. Unclear from notes from previous admission whether patient is able to walk at baseline. Will check labs and CXR to r/o acute changes. Otherwise, will hold patient for case investigator in AM. 08/11/16 01:35 <María Alvarez - Last Filed: 08/13/16 08:19> *DC/Admit/Observation/Transfer - Attestations Scribe Attestion: 08/10/16 23:08 Documentation prepared by Alexsandra Hodge, acting as electromedical equipment technician for María Alvarez MD. <Alexsandra Hodge - Last Filed: 08/11/16 01:27> - Attestations Scribe Attestion: 08/11/16 04:26 Documentation prepared by Camron Ramirez, acting as electromedical equipment technician for Lanette Chiang MD. <Camron Ramirez - Last Filed: 08/11/16 04:26> - Discharge Dispostion Admit: No <Lanette Chiang - Last Filed: 08/11/16 06:19> <María Alvarez - Last Filed: 08/13/16 08:19> Diagnosis at time of Disposition: Bronchitis - Discharge Dispostion Disposition: INTERMEDIATE FACILITY Condition at time of disposition: Good - Patient Instructions Printed Discharge Instructions: Chronic Bronchitis Additional Instructions: you should eat your food chopped thickened with honey . use walker for walking return for any problems or concerns. use albuterol 2 puffs every 4 hours as needed for coughing.
[2016-08-10 22:04] VITALS: BMI 29.6
[2016-08-10 23:30] LABS: BASOPHIL 0.7 % (0-2.0); EOSINOPHIL 1.6 % (0-4.5); MEAN CELL VOLUME 62.9 fl (80-96); MEAN PLT VOLUME 9.2 fl (7.5-11.1); NEUTROPHILS 54.3 % (42.8-82.8); PLATELET COUNT 234 K/MM3 (134-434); WHITE BLOOD COUNT 10.6 K/mm3 (4.0-10.0)
[2016-08-10 23:33] LABS: MCH 19.5 pg (25.7-33.7)
[2016-08-11 00:15] LABS: ALBUMIN 3.1 g/dl (3.4-5.0); ANION GAP 8 (8-16); BILIRUBIN,TOTAL 0.4 mg/dL (0.2-1.0); CALCIUM 8.4 mg/dL (8.5-10.1); CO2 31 mmol/L (21-32); CREATININE 0.5 mg/dL (0.7-1.3); GLUCOSE,RANDOM 92 mg/dL (74-106); SGOT/AST 9 U/L (15-37); SGPT/ALT 11 U/L (12-78); TOT PROT 6.4 g/dl (6.4-8.2)
[2016-08-11 00:17] LABS: ALK PHOS 85 U/L (45-117); TROPONIN I < 0.02 ng/ml (0.00-0.05)
[2016-08-11 01:53] LABS: PLATELET ESTIMATE ADEQUATE (NORMAL)
[2016-08-11 01:54] LABS: HYPOCHROMIA 1+; POIKILOCYTOSIS 1+
[2016-08-11 01:55] LABS: MICROCYTOSIS 1+; TEAR DROP CELLS FEW
[2016-08-11 09:08] VITALS: BP 102/66; PULSE 96; TEMP 97.9
== END 2016-08-11 09:08 ==
LOC: JER 21:48
DX: J42 Unspecified chronic bronchitis (principal); J45.909 Unspecified asthma, uncomplicated; J44.9 Chronic obstructive pulmonary disease, unspecified; I10 Essential (primary) hypertension; B18.2 Chronic viral hepatitis C; F20.9 Schizophrenia, unspecified; K21.9 Gastro-esophageal reflux disease without esophagitis
CPT/HCPCS: 36415; 70450-TC; 71010-TC; 80053; 82550; 84484; 85025; 99284-25

== ENCOUNTER 2018-12-08 11:43 | Observation (INO) | payer OTHER ==
[2018-12-08 11:54] VITALS: BMI 28.6
--- NOTE | 2018-12-08 12:01 | PDOC ---
History of Present Illness - General Chief Complaint: Chest Pain Stated Complaint: Chest Pain Time Seen by Provider: 12/08/18 11:58 - History of Present Illness Initial Comments: 12/08/18 12:35 63 y/o F hx of Schizophrenia, GERD, Asthma, COPD, unstable angina, HepC and MR presents to the ED with chest pain that began a few hours ago a few minutes after he woke up. BIBEMS from assisted living facility. He describes the pain as midsternal pain, non-radiating in nature. He describes it as 8/10 in severity and sharp in nature. The pain lasted 15-30 mins. He was given a pill to place under his tongue (unable to tell if it was nitro or not) and it relieved his pain. Has not experienced the chest pain since then and is not currently in pain. He denies any nausea, vomiting, pain radiating to the jaw, abdominal pain, fevers, chills, productive cough or diaphoresis. Past History - Past Medical History Allergies/Adverse Reactions: Allergies Allergy/AdvReac Type Severity Reaction Status Date / Time Penicillins Allergy Verified 12/08/18 11:51 seafood Allergy Unknown Uncoded 12/08/18 11:51 chocolate Allergy Uncoded 12/08/18 11:51 fish Allergy Uncoded 12/08/18 11:51 peanuts Allergy Uncoded 12/08/18 11:51 Home Medications: Ambulatory Orders Haloperidol Injection [Haldol Injection (Fast Acting) -] 75 mg IM MONTHLY Albuterol 2.5/Ipratropium 0.5 [Duoneb -] 1 amp NEB Q4H PRN #180 amp 08/09/16 Atorvastatin Ca [Lipitor] 10 mg PO HS #30 tablet 08/09/16 Divalproex *ER* [Depakote *ER* -] 750 mg PO BID 12/08/18 Levothyroxine [Synthroid -] 25 mcg PO DAILY 12/08/18 Magnesium Hydroxide [Milk of Magnesia] 400 mg PO TID PRN 12/08/18 Nitroglycerin 0.4 mg SL ASDIR PRN 12/08/18 Quetiapine Fumarate [Seroquel -] 50 mg PO HS MDD 1 12/08/18 Sertraline HCl [Zoloft -] 50 mg PO DAILY 12/08/18 clonazePAM [Klonopin -] 1 mg PO TID PRN MDD 3 12/08/18 Anemia: Yes Asthma: Yes Cancer: No Cardiac Disorders: Yes (unstable angina) CVA: No COPD: Yes CHF: No Dementia: No Diabetes: No GI Disorders: Yes (GERD) Disorders: No HTN: No Hypercholesterolemia: Yes Liver Disease: Yes (hepatitis C) Psychiatric Problems: Yes (SCHIZOPHRENIA) Seizures: No Thyroid Disease: No - Surgical History Abdominal Surgery: No Appendectomy: No Cardiac Surgery: No Cholecystectomy: No Lung Surgery: No Neurologic Surgery: No Orthopedic Surgery: Yes (L HIP) - Psycho Social/Smoking Cessation Hx Smoking Status: No Smoking History: Never smoked Have you smoked in the past 12 months: No Number of Cigarettes Smoked Daily: 0 Information on smoking cessation initiated: No Hx Alcohol Use: No Drug/Substance Use Hx: No Substance Use Type: None Hx Substance Use Treatment: No Review of Systems - Review of Systems Constitutional: No: Chills, Fever HEENTM: No: Eye Pain Respiratory: Yes: Other (dry cough). No: Shortness of Breath, Wheezing Cardiac (ROS): Yes: Symptoms Reported ABD/GI: No: Abdominal Distended, Blood Streaked Bowels, Constipated : No: Burning, Urgency Musculoskeletal: Yes: Back Pain (chronic nature.) Integumentary: No: Dryness, Erythema Neurological: No: Headache *Physical Exam - Vital Signs Last Vital Signs Temp Pulse Resp BP Pulse Ox 98 F 105 H 20 110/77 98 12/08/18 11:52 12/08/18 11:52 12/08/18 11:52 12/08/18 11:52 12/08/18 11:52 - Physical Exam Comments: 12/08/18 12:42 GENERAL: Awake, alert, and fully oriented, in no acute distress HEAD: No signs of trauma, normocephalic, atraumatic EYES: PERRLA, EOMI, sclera anicteric, conjunctiva clear ENT: Auricles normal inspection, hearing grossly normal, nares patent, oropharynx clear without exudates. Moist mucosa NECK: Normal ROM, supple, no lymphadenopathy, JVD, or masses LUNGS: No distress, speaks full sentences on 3L O2. Rales at lung bases. decreased breath sounds in upper lobes bilaterally. HEART: Regular rate and rhythm, normal S1 and S2, no murmurs, rubs or gallops, peripheral pulses normal and equal bilaterally. ABDOMEN: Soft, nontender, normoactive bowel sounds. No guarding, no rebound. No masses EXTREMITIES : excoriations on left leg, trace edema to mid calf, bilaterally. 2 + bilateral pedal pulses. NEUROLOGICAL: Cranial nerves II through XII grossly intact. slow speech, blunt affect. alert and oriented SKIN: Warm, Dry, normal turgor, no rashes or lesions noted 12/08/18 12:50 ED Treatment Course - LABORATORY CBC & Chemistry Diagram: 12/09/18 06:05 12/09/18 06:05 Medical Decision Making - Medical Decision Making 12/08/18 12:59 63 y/o F hx of Schizophrenia, GERD, Asthma, COPD, unstable angina, HepC and MR presents to the ED with chest pain that began a few hours ago a few minutes after he woke up. workup cbc, cmp, ekg, troponin I, bnp, cxr portable, Pt. HR at this time is 95 Sat. 99% on O2 3L EKG sinus tachycardia , cannot rule out anterior infarct. 12/08/18 13:12 elevated white count: 13.8 12/08/18 13:46 Troponin <0.02 BNP 34.1 Na+ and K+ unremarkable HEART score 4 12/08/18 14:12 Dr. Colby's office contacted for admission 12/08/18 14:[address] Roberson's service 12/08/18 15:21 pt agitated and shouting. Demanding not to stay. Seroquel 50mg PO ordered. 12/08/18 16:37 Pt continued to be agitated and getting out of bed. Given 2mg of IV ativan Discharge - Discharge Information Problems reviewed: Yes Clinical Impression/Diagnosis: Chest pain Qualifiers: Chest pain type: unspecified Qualified Code(s): R07.9 - Chest pain, unspecified Condition: Good Disposition: CUSTODIAL FACILITY - Follow up/Referral - Patient Discharge Instructions - Post Discharge Activity
[2018-12-08 12:56] LABS: BASO % 0.9 % (0-2.0); EOS % 3.4 % (0-4.5); HEMATOCRIT 39.6 % (35.4-49); HEMOGLOBIN 12.3 GM/dL (11.7-16.9); LYMPH % 24.1 % (8-40); MCH 20.1 pg (25.7-33.7); MCHC 30.9 g/dl (32.0-35.9); MEAN PLT VOLUME 8.3 fl (7.5-11.1); MONO % 8.7 % (3.8-10.2); NEUT % 62.9 % (42.8-82.8); PLATELET COUNT 248 K/MM3 (134-434); RBC 6.09 M/mm3 (4.00-5.60); RDW 16.1 % (11.9-15.9); WHITE BLOOD COUNT 13.8 K/mm3 (4.0-10.0)
[2018-12-08 13:43] LABS: ALBUMIN 3.5 g/dl (3.4-5.0); ALK PHOS 76 U/L (45-117); ANION GAP 8 MMOL/L (8-16); BILIRUBIN,TOTAL 0.4 mg/dL (0.2-1); CALCIUM 8.7 mg/dL (8.5-10.1); CHLORIDE 103 mmol/L (98-107); CO2 27 mmol/L (21-32); CREATININE 0.7 mg/dL (0.55-1.3); GLUCOSE,RANDOM 88 mg/dL (74-106); N-TERMINAL BNP 34.1 pg/ml (5-125); POTASSIUM 4.6 mmol/L (3.5-5.1); SGOT/AST 21 U/L (15-37); SGPT/ALT 19 U/L (13-61); SODIUM 138 mmol/L (136-145); TOT PROT 7.1 g/dl (6.4-8.2)
--- NOTE | 2018-12-08 14:09 | PDOC ---
Attending Attestation - Resident Resident Name: Sp Ambriz - ED Attending Attestation I have performed the following: I have examined & evaluated the patient, The case was reviewed & discussed with the resident, I agree w/resident's findings & plan, Exceptions are as noted - HPI HPI: 12/08/18 14:04 63 F with h/o schizophrenia, HTN, HLD, GERD, asthma, COPD, HCV, MR presenting to ED with an episode of chest pain. Pt reports a 20 min episode of substernal chest pressure that began shortly after he woke up today. Pt denies any SOB. States that he was given a SL nitro at the assisted living facility, which helped. Pt currently denies any pain. Denies leg swelling. Denies F/C. Denies cough. - Physicial Exam PE: 12/08/18 14:09 "GENERAL: Awake, alert, and fully oriented, in no acute distress. HEAD: No signs of trauma EYES: PERRLA, EOMI, sclera anicteric, conjunctiva clear ENT: Auricles normal inspection, hearing grossly normal, nares patent, oropharynx clear without exudates. Moist mucosa NECK: Nontender, no stepoffs, Normal ROM, supple, no lymphadenopathy, JVD, or masses LUNGS: Breath sounds equal, clear to auscultation bilaterally. No wheezes, and no crackles HEART: Regular rate and rhythm, normal S1 and S2, no murmurs, rubs or gallops ABDOMEN: Soft, nontender, normoactive bowel sounds. No guarding, no rebound. No masses EXTREMITIES: Normal range of motion, no edema. No clubbing or cyanosis. No cords, erythema, or tenderness NEUROLOGICAL: Cranial nerves II through XII intact. 5/5 strength and sensation in all extremities, Normal speech, normal gait, normal cerebellar function SKIN: Warm, Dry, normal turgor, no rashes or lesions noted. - Medical Decision Making 12/08/18 14:09 63 M with transient episode of chest pain. EKG with new TWI an ST depression in V2-V3. Will need to r/o ACS. - Labs, trop - CXR
[2018-12-08 15:03] LABS: ANISOCYTOSIS 2+; MACROCYTOSIS 0; PLATELET ESTIMATE NORMAL; TEAR DROP CELLS 1+
[2018-12-08] MEDS ORDERED: QUEtiapine FUMARATE 50 MG TABLET PO ONE (15:20)
[2018-12-08] MEDS ORDERED: SERTRALINE HCL 50 MG TABLET (FP) ONE (15:22)
[2018-12-08] MEDS ORDERED: LORazepam 2 MG/ML SDV VIAL ONE ×3 (16:11→22:52)
[2018-12-08] MEDS ORDERED: HALOPERIDOL LACTATE 5 MG/ML IM ONE (17:30)
[2018-12-08] MEDS ORDERED: HALOPERIDOL LACTATE 5 MG/ML ONE (19:37)
[2018-12-08] MEDS ORDERED: ASPIRIN 81 MG CHEWABLE TABLETS ONE (20:56)
[2018-12-08] MEDS ORDERED: HEPARIN NA (PORCINE) 5,000 UNITS/ML 1ML VIAL ONE (20:56)
[2018-12-08] MEDS: ASPIRIN 81 MG CHEWABLE TABLETS PO SCH (21:03)
[2018-12-08] MEDS: HEPARIN NA (PORCINE) 5,000 UNITS/ML 1ML VIAL SQ SCH (22:05)
[2018-12-08] MEDS ORDERED: clonazePAM 0.5 MG TABLET PO STA (22:46)
[2018-12-08] MEDS ORDERED: clonazePAM 0.5 MG TABLET ONE (22:51)
[2018-12-09 06:29] LABS: BASO % 0.7 % (0-2.0); EOS % 4.9 % (0-4.5); HEMATOCRIT 37.4 % (35.4-49); MCH 20.5 pg (25.7-33.7); MCHC 32.1 g/dl (32.0-35.9); MEAN CELL VOLUME 63.8 fl (80-96); MEAN PLT VOLUME 8.5 fl (7.5-11.1); MONO % 7.8 % (3.8-10.2); NEUT % 56.6 % (42.8-82.8); PLATELET COUNT 232 K/MM3 (134-434); RBC 5.86 M/mm3 (4.00-5.60); RDW 16.4 % (11.9-15.9); WHITE BLOOD COUNT 9.2 K/mm3 (4.0-10.0)
[2018-12-09 07:06] LABS: ALBUMIN 3.3 g/dl (3.4-5.0); ALK PHOS 70 U/L (45-117); ANION GAP 6 MMOL/L (8-16); BILIRUBIN,TOTAL 0.4 mg/dL (0.2-1); BLOOD UREA NITROGEN 16.7 mg/dL (7-18); CALCIUM 8.3 mg/dL (8.5-10.1); CHLORIDE 102 mmol/L (98-107); CHOLESTEROL 143 mg/dL (50-200); CO2 31 mmol/L (21-32); CREATININE 0.7 mg/dL (0.55-1.3); GLUCOSE,RANDOM 101 mg/dL (74-106); HDL CHOLESTEROL 26 mg/dL (40-60); LDL CHOLESTEROL (ONLY SJRH) 84 mg/dL (5-100); POTASSIUM 4.1 mmol/L (3.5-5.1); SGOT/AST 12 U/L (15-37); SGPT/ALT 15 U/L (13-61); SODIUM 139 mmol/L (136-145); TOT PROT 6.4 g/dl (6.4-8.2); TRIGLYCERIDES 207 mg/dL (0-150)
[2018-12-09] MEDS: HEPARIN NA (PORCINE) 5,000 UNITS/ML 1ML VIAL SQ SCH (10:31)
[2018-12-09] MEDS: ASPIRIN 81 MG CHEWABLE TABLETS PO SCH (10:31)
--- NOTE | 2018-12-09 11:51 | HP ---
Admitting History and Physical - Primary Care Physician PCP: Preet Roberson - Admission Chief Complaint: chest pain History of Present Illness: ER history History of Present Illness Initial Comments: 12/08/18 12:35 63 y/o F hx of Schizophrenia, GERD, Asthma, COPD, unstable angina, HepC and MR presents to the ED with chest pain that began a few hours ago a few minutes after he woke up. BIBEMS from assisted living facility. He describes the pain as midsternal pain, non-radiating in nature. He describes it as 8/10 in severity and sharp in nature. The pain lasted 15-30 mins. He was given a pill to place under his tongue (unable to tell if it was nitro or not) and it relieved his pain. Has not experienced the chest pain since then and is not currently in pain. He denies any nausea, vomiting, pain radiating to the jaw, abdominal pain, fevers, chills, productive cough or diaphoresis. 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 No: Other (many ER visits here -. persantine sestamibi on 11/02/11 was normal. Echo was unremarkable) Pulmonary: Yes: Asthma Heme/Onc: Yes: Anemia - Past Surgical History Past Surgical History: Yes: Joint Replacement (december left hip) - Smoking History Smoking history: Never smoked Have you smoked in the past 12 months: No Aproximately how many cigarettes per day: 0 - Alcohol/Substance Use Hx Alcohol Use: No History of Substance Use: reports: None - Social History ADL: Support Services History of Recent Travel: No Home Medications - Allergies Allergies/Adverse Reactions: Allergies Allergy/AdvReac Type Severity Reaction Status Date / Time Penicillins Allergy Verified 12/08/18 11:51 seafood Allergy Unknown Uncoded 12/08/18 11:51 chocolate Allergy Uncoded 12/08/18 11:51 fish Allergy Uncoded 12/08/18 11:51 peanuts Allergy Uncoded 12/08/18 11:51 - Home Medications Home Medications: Ambulatory Orders Haloperidol Injection [Haldol Injection (Fast Acting) -] 75 mg IM MONTHLY Albuterol 2.5/Ipratropium 0.5 [Duoneb -] 1 amp NEB Q4H PRN #180 amp 08/09/16 Atorvastatin Ca [Lipitor] 10 mg PO HS #30 tablet 08/09/16 Divalproex *ER* [Depakote *ER* -] 750 mg PO BID 12/08/18 Levothyroxine [Synthroid -] 25 mcg PO DAILY 12/08/18 Magnesium Hydroxide [Milk of Magnesia] 400 mg PO TID PRN 12/08/18 Nitroglycerin 0.4 mg SL ASDIR PRN 12/08/18 Quetiapine Fumarate [Seroquel -] 50 mg PO HS MDD 1 12/08/18 Sertraline HCl [Zoloft -] 50 mg PO DAILY 12/08/18 clonazePAM [Klonopin -] 1 mg PO TID PRN MDD 3 12/08/18 Review of Systems Unable to obtain ROS, reason: poor historian Physical Examination Vital Signs: Vital Signs Temperature 97.8 F 12/09/18 06:00 Pulse Rate 91 H 12/09/18 06:00 Respiratory Rate 20 12/09/18 06:00 Blood Pressure 108/70 12/09/18 06:00 O2 Sat by Pulse Oximetry (%) 92 L 12/09/18 01:00 Constitutional: Yes: No Distress, Calm Cardiovascular: Yes: Regular Rate and Rhythm Respiratory: Yes: CTA Bilaterally Gastrointestinal: Yes: Normal Bowel Sounds, Soft, Abdomen, Obese. No: Tenderness Edema: No Neurological: Yes: Alert Labs: CBC, BMP 12/09/18 06:05 12/09/18 06:05 Imaging - Results Chest X-ray: Image Reviewed (clear) EKG: Image Reviewed (sinus tachycardia) Problem List - Problems (1) Chest pain Code(s): R07.9 - CHEST PAIN, UNSPECIFIED (2) Hyperlipidemia Code(s): E78.5 - HYPERLIPIDEMIA, UNSPECIFIED (3) Hypertension Code(s): I10 - ESSENTIAL (PRIMARY) HYPERTENSION (4) Schizo-affective schizophrenia, chronic condition Code(s): F25.8 - OTHER SCHIZOAFFECTIVE DISORDERS Assessment/Plan PLAN Cardiac enzymes x 2 negative EKG no acute ST changes telem unremarkable Echo pending cardiology eval continue same meds
--- NOTE | 2018-12-09 12:11 | EKG ---
Test Reason : Blood Pressure : / mmHG Vent. Rate : 105 BPM Atrial Rate : 105 BPM P-R Int : 140 ms QRS Dur : 100 ms QT Int : 336 ms P-R-T Axes : 041 006 053 degrees QTc Int : 444 ms SINUS TACHYCARDIA CANNOT RULE OUT ANTERIOR INFARCT , AGE UNDETERMINED ABNORMAL ECG WHEN COMPARED WITH ECG OF 11-AUG-2016 15:43, MINIMAL CRITERIA FOR ANTERIOR INFARCT ARE NOW PRESENT Confirmed by Arun Mckenna MD ([id number]) on 12/09/2018 12:11:15 PM Referred By: Confirmed By:Arun Mckenna MD
--- NOTE | 2018-12-09 12:32 | CON.CARD ---
Consult Consult Specialty:: Cardiology Referred by:: Dr. Flores Reason for Consultation:: Cardiac evaluation - History of Present Illness Chief Complaint: Chest pain History of Present Illness: . Patient is a 63 year old male with underlying history of schizophrenia, GERD, bronchial asthma, COPD, hepatitis C who presented with mid sternal chest discomfort. He described as "sharp" pain. He denies shortness of breath or palpitations. He denies fever or chills. He denies nausea, vomiting, diarrhea or abdominal pain. He denies headache or lightheadedness. He denies cough or expectorations. 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 persantine sestamibi on 11/02/11 was normal. Echo was unremarkable) Pulmonary: Yes: Asthma - Past Surgical History Past Surgical History: Yes: Joint Replacement (december left hip) - Alcohol/Substance Use Hx Alcohol Use: No History of Substance Use: reports: None - Smoking History Smoking history: Never smoked Have you smoked in the past 12 months: No Aproximately how many cigarettes per day: 0 - Social History Usual Living Arrangement: Jail ADL: Support Services History of Recent Travel: No Home Medications - Allergies Allergies/Adverse Reactions: Allergies Allergy/AdvReac Type Severity Reaction Status Date / Time Penicillins Allergy Verified 12/08/18 11:51 seafood Allergy Unknown Uncoded 12/08/18 11:51 chocolate Allergy Uncoded 12/08/18 11:51 fish Allergy Uncoded 12/08/18 11:51 peanuts Allergy Uncoded 12/08/18 11:51 - Home Medications Home Medications: Ambulatory Orders Haloperidol Injection [Haldol Injection (Fast Acting) -] 75 mg IM MONTHLY Albuterol 2.5/Ipratropium 0.5 [Duoneb -] 1 amp NEB Q4H PRN #180 amp 08/09/16 Atorvastatin Ca [Lipitor] 10 mg PO HS #30 tablet 08/09/16 Divalproex *ER* [Depakote *ER* -] 750 mg PO BID 12/08/18 Levothyroxine [Synthroid -] 25 mcg PO DAILY 12/08/18 Magnesium Hydroxide [Milk of Magnesia] 400 mg PO TID PRN 12/08/18 Nitroglycerin 0.4 mg SL ASDIR PRN 12/08/18 Quetiapine Fumarate [Seroquel -] 50 mg PO HS MDD 1 12/08/18 Sertraline HCl [Zoloft -] 50 mg PO DAILY 12/08/18 clonazePAM [Klonopin -] 1 mg PO TID PRN MDD 3 12/08/18 Family Medical History Other Family History: Malignancy, but could not specify Review of Systems - Review of Systems Constitutional: denies: Chills, Fever Cardiovascular: reports: Chest Pain. denies: Palpitations, Shortness of Breath Respiratory: denies: Cough, Hemoptysis, Orthopnea, PND, SOB, SOB on Exertion Gastrointestinal: denies: Abdominal Pain, Constipation, Diarrhea Musculoskeletal: denies: Back Pain, Joint Pain Neurological: denies: Dizziness, Headache, Seizure, Syncope Vital Signs: Vital Signs Temperature 97.8 F 12/09/18 06:00 Pulse Rate 91 H 12/09/18 06:00 Respiratory Rate 20 12/09/18 06:00 Blood Pressure 108/70 12/09/18 06:00 O2 Sat by Pulse Oximetry (%) 92 L 12/09/18 01:00 Constitutional: Yes: No Distress Eyes: Yes: PERRL HENT: Yes: Atraumatic Neck: Yes: Supple Respiratory: Yes: CTA Bilaterally Gastrointestinal: Yes: Normal Bowel Sounds, Soft. No: Tenderness Cardiovascular: Yes: Regular Rate and Rhythm JVD: No PMI: Non-Displaced Heart Sounds: Yes: S1, S2. No: Gallop Murmur: No: Systolic Murmur Edema: No - Other Data Labs, Other Data: CBC, BMP 12/09/18 06:05 12/09/18 06:05 Troponin, BNP 12/08/18 12/08/18 12/09/18 12:00 12:00 06:05 Troponin I < 0.02 Cancelled Cancelled B-Natriuretic Peptide 34.1 12/09/18 06:05 Troponin I < 0.02 B-Natriuretic Peptide Sinus tachycardia Echo: Pending Imaging - Results Chest X-ray: Report Reviewed (Unremarkable) EKG: Report Reviewed Problem List - Problems (1) Hypothyroidism Code(s): E03.9 - HYPOTHYROIDISM, UNSPECIFIED (2) COPD (chronic obstructive pulmonary disease) Code(s): J44.9 - CHRONIC OBSTRUCTIVE PULMONARY DISEASE, UNSPECIFIED (3) Chest pain Code(s): R07.9 - CHEST PAIN, UNSPECIFIED (4) Hyperlipidemia Code(s): E78.5 - HYPERLIPIDEMIA, UNSPECIFIED (5) Schizo-affective schizophrenia, chronic condition Code(s): F25.8 - OTHER SCHIZOAFFECTIVE DISORDERS Assessment/Plan 1. Chest pain syndrome, atypical 2. COPD/bronchial asthma 3. History of schizophrenia 4. Hypercholesterolemia 5. Hypothyroidism PLAN: 1. Cardiac enzymes are negative 2. Echocardiography to assess LV/RV and valvular function 3. Continue current medical therapy 4. If above testing negative, discharge planning Carlitos Comer MD
[2018-12-09 15:24] VITALS: BP 110/65; PULSE 79; TEMP 98
--- NOTE | 2018-12-09 15:44 | ECHO ---
Name: JEAN-PAUL HANCOCK Exam:Adult Echocardiogram Study Date: 12/09/2018 01:38 PM Age: 63 yrs Height: 65 in Weight: 172 lb BSA: 1.9 m2 MMode/2D Measurements & Calculations IVSd: 0.96 cm Ao root diam: 3.2 cm LVIDd: 3.8 cm LA dimension: 2.4 cm LVIDs: 2.7 cm LVPWd: 1.0 cm LVPWs: 1.1 cm EDV(Teich): 62.5 ml ESV(Teich): 26.3 ml LVOT diam: 2.1 cm RV S Kory: 15.4 cm/sec Doppler Measurements & Calculations Ao V2 max: 113.3 cm/sec LV V1 max P.7 mmHg Ao max P.1 mmHg LV V1 max: 96.5 cm/sec NASRIN(V,D): 3.0 cm2 PA V2 max: 82.4 cm/sec Med Peak E' Kory: 8.2 cm/sec PA max P.7 mmHg Lat Peak E' Kory: 8.1 cm/sec Procedure A two-dimensional transthoracic echocardiogram with color flow and Doppler was performed. The study w as technically limited with all images being suboptimal in quality. The patient was in normal sinus rhyt hm during the exam. Left Ventricle The left ventricular size, thickness and function are normal. Ejection Fraction = 55%. Regional wall motion abnormalities cannot be excluded due to limited visualization. Right Ventricle The right ventricle is mildly dilated. The right ventricular systolic function is normal. Atria Normal left and right atrial size and function. Mitral Valve The mitral valve is grossly normal. Tricuspid Valve The tricuspid valve is not well visualized. Aortic Valve The aortic valve is not well visualized. No hemodynamically significant valvular aortic stenosis. Pulmonic Valve The pulmonic valve is not well visualized. Great Vessels The aortic root is normal size. Interpretation Summary The study was technically limited with all images being suboptimal in quality. The left ventricular size, thickness and function are normal Regional wall motion abnormalities cannot be excluded due to limited visualization. The right ventricle is mildly dilated. The right ventricular systolic function is normal. Normal left and right atrial size and function. The mitral valve is grossly normal. The tricuspid valve is not well visualized. The aortic valve is not well visualized. No hemodynamically significant valvular aortic stenosis. MD Larry Martinez 12/09/2018 03:44 PM
[2018-12-09] MEDS ORDERED: clonazePAM 0.5 MG TABLET PO PRN (16:43)
[2018-12-09] MEDS ORDERED: ALBUTEROL SO4 2.5/IPRATROPIUM 0.5 INH SOL 3 ML VIAL.NEB. NEB PRN (16:43)
--- NOTE | 2018-12-09 16:43 | DS ---
Physical Examination Vital Signs: Vital Signs Temperature 98.0 F 12/09/18 14:00 Pulse Rate 79 12/09/18 14:00 Respiratory Rate 19 12/09/18 14:00 Blood Pressure 110/65 12/09/18 14:00 O2 Sat by Pulse Oximetry (%) 94 L 12/09/18 12:37 Labs: CBC, BMP 12/09/18 06:05 12/09/18 06:05 Discharge Summary Problems reviewed: Yes Reason For Visit: Chest Pain Current Active Problems Chest pain (Acute) Hospital Course: see h and p cardiac enzymes and echo normal Stable for dc to OK -- will follow up with cardiology in house at [facility] Condition: Good - Instructions Referrals: Preet Roberson MD [Primary Care Provider] - Disposition: [facility] - Home Medications Comprehensive Discharge Medication List: Ambulatory Orders Haloperidol Injection [Haldol Injection (Fast Acting) -] 75 mg IM MONTHLY Albuterol 2.5/Ipratropium 0.5 [Duoneb -] 1 amp NEB Q4H PRN #180 amp 08/09/16 Atorvastatin Ca [Lipitor] 10 mg PO HS #30 tablet 08/09/16 Divalproex *ER* [Depakote *ER* -] 750 mg PO BID 12/08/18 Levothyroxine [Synthroid -] 25 mcg PO DAILY 12/08/18 Magnesium Hydroxide [Milk of Magnesia] 400 mg PO TID PRN 12/08/18 Nitroglycerin 0.4 mg SL ASDIR PRN 12/08/18 Quetiapine Fumarate [Seroquel -] 50 mg PO HS MDD 1 12/08/18 Sertraline HCl [Zoloft -] 50 mg PO DAILY 12/08/18 clonazePAM [Klonopin -] 1 mg PO TID PRN MDD 3 12/08/18
[2018-12-09] MEDS ORDERED: QUEtiapine FUMARATE 25 MG TABLET (FP) PO SCH (22:00)
[2018-12-09] MEDS ORDERED: ATORVASTATIN CA 10 MG TABLET (FP) PO SCH (22:00)
[2018-12-09] MEDS ORDERED: DIVALPROEX NA *ER* EXTEND REL 250 MG TABLET.SA PO SCH (22:00)
[2018-12-10] MEDS ORDERED: LEVOTHYROXINE NA 25 MCG TABLET (FP) PO SCH (07:00)
[2018-12-10] MEDS ORDERED: SERTRALINE HCL 50 MG TABLET (FP) PO SCH (10:00)
== END 2018-12-09 19:58 ==
LOC: JER 11:43 → JERBED 14:08 → UNDOADMOB 14:08 → OBSVTOIN 19:38 → INTOOBSV 19:38 → J4S 12-09 00:36 → JERBED 12-09 00:36 → J4S 12-09 12:37
PROVIDERS: ADMIT Internal Medicine; ATTEND Internal Medicine
PROC: 3E033GC Introduction of Other Therapeutic Substance into Peripheral Vein, Percutaneous Approach (ICD-10-PCS; principal; 2018-12-09)
PROC: 3E013GC Introduction of Other Therapeutic Substance into Subcutaneous Tissue, Percutaneous Approach (ICD-10-PCS; 2018-12-09)
DX: R07.89 Other chest pain (principal); I10 Essential (primary) hypertension; E78.5 Hyperlipidemia, unspecified; F79 Unspecified intellectual disabilities; K21.9 Gastro-esophageal reflux disease without esophagitis; F25.8 Other schizoaffective disorders; J44.9 Chronic obstructive pulmonary disease, unspecified; R00.1 Bradycardia, unspecified; F03.90 Unspecified dementia, unspecified severity, without behavioral disturbance, psychotic disturbance, mood disturbance, and anxiety; E03.9 Hypothyroidism, unspecified; Z96.642 Presence of left artificial hip joint; Z91.011 Allergy to milk products; Z91.010 Allergy to peanuts; Z91.013 Allergy to seafood; Z88.0 Allergy status to penicillin; Z86.19 Personal history of other infectious and parasitic diseases
CPT/HCPCS: 36415; 71045-TC-FY; 80053; 80061; 83036; 83721; 83880; 84443; 84484; 85025; 93005; 93010; 93306-TC; 96372; 96374; 96375; 96376; 99285-25; G0378; J1644